=== PATIENT | female | born 1960 | race Caucasian/White ===

== ENCOUNTER → 2020-06-15 17:54 | Outpatient (BNVA) | payer BC, SELFPAY | PROVIDERS: Family Provider Nurse Practitioner Family; Visit Provider Emergency Medicine | DX: Z85.118 Personal history of other malignant neoplasm of bronchus and lung (principal); R63.4 Abnormal weight loss; F17.200 Nicotine dependence, unspecified, uncomplicated; J44.9 Chronic obstructive pulmonary disease, unspecified; I10 Essential (primary) hypertension | CPT/HCPCS: 71046; 80053; 82378; 84443; 85025; 86300 ==

== ENCOUNTER 2020-06-19 08:04 | Outpatient (CLI) | payer BC, SELFPAY ==
[2020-06-19] MEDS: iohexol 350 mg/mL 100 mL Btl IV (09:39)
--- NOTE | 2020-06-19 10:00 | CT_ITS ---
WS: [id number] CT CHEST, ABDOMEN, AND PELVIS TECHNIQUE: Contrast-enhanced CT of the chest, abdomen, and pelvis with coronal and sagittal reformatt ed images. CLINICAL INFORMATION: Z85.118 - Personal history of other malignant neoplasm of bronchus and lung COMPARISON: CT chest 6 21,018, 12,017, 9 2016 DLP: [address] scans at [facility] use at least one of these dose optimization techniques: automat ed exposure control; mA and/or kV adjustment per patient size (includes targeted exams where dose is matched to clinical indication); or iterative reconstruction. CT CHEST: Prior postoperative changes at the left lung apex from prior neoplasm resection. No acute pulmonary i nfiltrates. Associated volume loss in the left lung. No evidence of recurrent or progressive disease. Noncalcified nodule left lower lobe measuring 5 mm recommend 6 month follow-up. Moderate centrilobular emphysematous changes. Aortic calcification. Coronary calcification. No medias tinal or hilar lymphadenopathy. No axillary lymphadenopathy. CT ABDOMEN AND PELVIS: Diffuse fatty infiltration of the liver.. Hepatomegaly. A few incidental hepatic cysts. No hydronephr osis in either kidney. A few renal cysts the largest left kidney measuring 2.1 CM. Cortical scarring right kidney with calcified renal cyst. Normal adrenal glands. Normal GE junction. Pancreas appears n ormal. Hepatomegaly with enlargement of the right hepatic lobe measuring 18.3 cm craniocaudal. Cholel ithiasis. Fluid distended gallbladder. Mild intrahepatic biliary ductal dilatation. Gallbladder can b e further evaluated with ultrasound. Moderate calcified abdominal aorta. Densely calcified iliac arteries. Sigmoid diverticulosis. Evidenc e of prior distal sigmoid resection Mild thickening involving the distal sigmoid colon and with a sma ll amount of adjacent fluid and induration suspicious for diverticulitis. No evidence of high-grade s mall or large bowel obstruction. Small amount of free fluid in the pelvis. CT/CT chest abd pel w con* IMPRESSION: 1. Thickening with induration involving the distal sigmoid colon suspicious fo r diverticulitis. Small amount of free fluid in the pelvis. Correlation for inf ectious symptoms. 2. Extensive cholelithiasis. Gallbladder is distended. Recommend further evalu ation with ultrasound. 3. Hepatomegaly 4. A few incidental hepatic and renal cysts. 5. Prior postoperative changes resection left upper lobe. No evidence of recur rent or progressive disease. 6. Noncalcified nodule left lower lobe measuring 5 mm. Recommend 6 month follo w-up.
--- NOTE | 2020-06-19 18:29 | ONC CON_ITS ---
Dr. Michaels New Patient Note Patient: Kim Nettles Unit #: [id number]: 1960 Dicatated By: Sha Michaels M.D.Date of Visit: Jun 19, 2020 Onc MED New Patient/Consult Referring Physician: OZZIE Arias Chief Complaint: Lung cancer. 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 She was seen by Maria G Shah in August 2016 for treatment of pneumonia. A chest x-ray on 08/27/2016 showed an indistinct increased density in the left upper lobe measuring about 3 cm. It was suspicious for a mass lesion. There was evidence of chronic emphysema. There were no other pulmonary parenchymal densities. Further evaluation with chest CT on 09/03/2016 confirmed a spiculated noncalcified soft tissue mass in the left upper lobe laterally. It appeared to extend to and involve the left lateral pleural margin. It measured 1.5 x 2.3 x 2.8 cm. There were no other mass lesions noted. There was no axillary, supraclavicular, mediastinal, or hilar masses or adenopathy. There was no pleural effusion. There did appear to be trace pericardial effusion. There were centrilobular emphysematous changes throughout the lung parenchyma. There was suspected left adrenal adenoma measuring 1.3 x 2.2 cm. A near water density lesion in the right upper lobe of the liver measuring 1.2 cm appeared consistent with an incidental cyst. There was no evidence of any metastatic involvement. She was referred to Dr. Kinsey. Her pulmonary function studies in 09/28/2016 were adequate with FEV 2.68, 47% of predicted. On 10/07/2016 she underwent thoracotomy with left upper lobe apical posterior segmentectomy. She was found to have moderately intense adhesions, precluding a complete left upper lobectomy. As such, the procedure was limited to formal segmentectomy. 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 It was mostly moderately differentiated, but focally it was high-grade (poorly differentiated). It measured 2.4 x 1.9 cm. The resection margins were free of tumor, but tumor was noted to extend onto the pleural surface. Pathologic staging was T2a, (PL 2), NX, as there were no lymph nodes included in the specimen. She has had an uneventful postoperative recovery. I had seen her initially on 11/11/2016. There appeared to be no indication for adjuvant chemotherapy, and she was followed on observation/expectant management. As of her follow-up visit in June 2017 she appeared stable clinically, there was no evidence of recurrence/progression of the lung cancer on her restaging chest CT. She has had no other ongoing medical illnesses, but she did have evidence of COPD by CT scan and her pulmonary function studies showed moderately severe obstructive disease. She has a history of smoking 2 packs of cigarettes daily for 25 years. She had cut down following her lung surgery. INTERIM HISTORY: She had a follow-up visit with Camilo Molina on 06/15/2020. She complained of fatigue, and she was noted to have a significant weight loss. Her laboratory studies included CBC showing elevated hemoglobin/hematocrit levels at 17.8 g and 54.9%. The white blood cell count was 8200 and the platelet count was 369,000. Her comprehensive metabolic profile was unremarkable and her TSH level was normal 2.33 ???IU/mL. A battery of tumor markers was obtained and her CEA level was found to be significantly elevated at 303.6 ng/mL. She is seen for a followup visit. She says she has been feeling good, but she does admit to being tired sometimes. She is still working. Her ECOG score is 1. She has good appetite. She says her weight is up and down, but she currently is down about 10 pounds from what she considers her normal weight. She does not have fever or night sweats. She is short of breath at times. She has just occasional cough. She is still smoking 1 pack of cigarettes daily. She does not complain of chest pain. She has no GI or complaints. She has no significant joint or bone pain. She has just occasional headache. She has no focal neurologic symptoms. Past Medical History: Her medical history includes lung cancer and chronic obstructive pulmonary disease. Past Surgical History: Her surgical/procedural history includes exploratory laparotomy with lysis of adhesions, exploratory laparotomy with temporary colostomy for diverticulitis, and left thoracotomy with left upper apicoposterior segmentectomy in 2017. Medications: Advair Diskus 1 Puff(s) (of 250-50 mcg/dose) Aerosol Powder, Breath Activated Inhalation b.i.d., Anacin 1 (400-32 mg) Tablet Oral t.i.d., Gabapentin 1 (300 mg) Capsule Oral t.i.d. PRN, Lisinopril 1 Tablet (of 20 mg) Oral daily Allergies: No Known Allergies. Social History: Ms. Nettles is single. 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 She has a history of smoking 2 packs of cigarettes daily for 25 years. She cut down to 1 pack/day following her lung surgery. She has had some alcohol use in the past, but not heavy. She quit drinking [employer] 6 years ago. Family History: Father had COPD and heart disease. He at age 72. Mother of liver cancer at age 61. A brother from cerebral aneurysm at age 49. A son of leukemia at age 12. Review Of Symptoms: Constitutional - She has been feeling pretty good, though she is tired sometimes. She is still working. She has good appetite. Her weight has been up and down. She is currently down about 10 pounds. She does not have fever or night sweats. ECOG score is 1, ENMT - No sinus congestion/drainage. No mouth sores. No sore throat or difficulty swallowing, Hematologic/Lymphatic - She bruises easily, Respiratory - She sometimes has shortness of breath. She has just occasional cough. She is still smoking 1 pack of cigarettes daily. No pleuritic pain or hemoptysis, Cardiovascular - No angina pain. No palpitations, Gastrointestinal - No nausea or vomiting. No heartburn or acid reflux. No diarrhea or constipation. No blood in the stool or black stools, Genitourinary (F) - No dysuria or hematuria. No urinary frequency. No urgency or incontinence, Musculoskeletal - No joint or bone pain, Integumentary - No skin rash, Neurologic - She occasionally has headache. No dizziness. No numbness or tingling. No other focal neurologic symptoms, Psychiatric - She has anxiety. No depression. No insomnia. Vital Signs: Performed on Jun 19, 2020 14:37: 0, 18.47, 1.50 sq.m, 64.00 in, 93 % (LOW), 81 /min, 20 /min, 156/81 mm(hg) (HIGH), 99.3 F (HIGH), and 107.6 lbs (LOW). Physical Examination: Constitutional - She looks pretty good generally, Eyes - Sclerae nonicteric. Conjunctivae clear, ENMT - No lesions noted in the oral cavity, Hematologic/Lymphatic - No cervical, clavicular, or axillary adenopathy, Respiratory - Lungs are clear with diminished air movement bilaterally, Cardiovascular - Heart rhythm is regular. There is no murmur, gallop, or rub noted, Abdomen - Soft and non-tender. Liver and spleen are not enlarged. There is no abdominal mass or ascites noted and there is no inguinal adenopathy, Extremities - No edema. Pedal pulses are palpable bilaterally, Neurologic - No focal neurologic deficits noted. Lab/Imaging: Restaging CT scans of the chest, abdomen, and pelvis on 06/19/2020 showed moderate emphysematous changes and postoperative changes at the left lung apex. There were no acute pulmonary infiltrates. A 5 mm noncalcified nodule was noted in the left lower lobe. There was no hilar or mediastinal adenopathy or other evidence of recurrent or progressive disease. There was hepatomegaly with diffuse fatty infiltration of the liver. The gallbladder was noted to be fluid distended and there was extensive cholelithiasis. There was mild thickening involving the distal sigmoid colon with a small amount of adjacent fluid and induration felt to be suspicious for diverticulitis. There was no evidence of high-grade small or large bowel obstruction. Impression: 1. Patient with invasive adenocarcinoma involving the upper lobe of the left lung. She underwent left thoracotomy with left upper lobe segmentectomy on 10/07/2016. Her disease was pathologic stage T2a, (PL2), NX, as there was involvement of the pleural surface, but no lymph nodes were included in the specimen. Resection margins were free. By clinical evaluation, her disease was stage IB (T2a, N0, M0). 2. She had CT evidence of underlying COPD and there was moderately severe obstructive lung disease by her pulmonary function studies. 3. She presented recently with fatigue and weight loss. She has no significant GI complaints, but her CEA level was found to be significantly elevated and her restaging CT scans show findings which are suspicious for primary malignancy in the sigmoid colon. There was, however, no obvious metastatic disease noted on those studies. 4. There were additional CT findings of hepatomegaly with diffuse fatty infiltration of the liver and fluid distended gallbladder with extensive cholelithiasis. Plan: The laboratory results and CT findings were reviewed with the patient and we discussed the clinic complications. The probability is very high that she does have malignancy, but at this point it would appear to be more likely a second primary colon cancer as opposed to metastatic involvement from her previous lung cancer. She will now be referred to surgical services for colonoscopy. She will have further evaluation as indicated. Signed By: Sha Michaels M.D. <<Signature on File>>
== END 2020-06-19 08:05 | disposition home or self-care (01) ==
LOC: RADWPI 08:10 → ONCMED 14:10
PROVIDERS: PCP Nurse Practitioner Family; Visit Provider Internal Medicine Medical Oncology
DX: Z08 Encounter for follow-up examination after completed treatment for malignant neoplasm (principal); Z85.118 Personal history of other malignant neoplasm of bronchus and lung; R97.0 Elevated carcinoembryonic antigen [CEA]; R93.3 Abnormal findings on diagnostic imaging of other parts of digestive tract; R53.83 Other fatigue; R63.4 Abnormal weight loss; J44.9 Chronic obstructive pulmonary disease, unspecified; K76.0 Fatty (change of) liver, not elsewhere classified; K80.20 Calculus of gallbladder without cholecystitis without obstruction; F17.210 Nicotine dependence, cigarettes, uncomplicated; Z90.2 Acquired absence of lung [part of]
CPT/HCPCS: 71260; 74177; 99214; Q9967

== ENCOUNTER → 2020-07-11 13:10 | Outpatient (BNVA) | payer BC, SELFPAY | PROVIDERS: PCP Nurse Practitioner Family; Visit Provider Surgery | DX: Z20.828 Contact with and (suspected) exposure to other viral communicable diseases (principal) | CPT/HCPCS: 87635 ==

== ENCOUNTER 2020-07-16 08:55 | Day surgery (SDC) | payer BC, SELFPAY ==
[2020-07-11 14:44] VITALS: BMI 18.3
[2020-07-16 09:46] VITALS: BP 120/80; PULSE 72; RESP 20; TEMP 37.1; O2SAT 91
[2020-07-16] MEDS: sodium chloride 0.9% 1,000 ML 30 ML IV (10:12)
--- NOTE | 2020-07-16 10:19 | ANES.PREANE2 ---
Pre-Anesthetic Assessment Pre-Anesthetic Assessment: Height/Weight: Height 1.63 m Weight 48.534 kg Temp Pulse Resp BP Pulse Ox 98.7 F 72 20 H 120/80 91 07/16/20 09:46 07/16/20 09:46 07/16/20 09:46 07/16/20 09:46 07/16/20 09:46 Preop Diagnosis: diagnostic Proposed Procedure: Operation Date: 07/16/20 10:15 Proposed Procedures p Colonoscopy 26925 r97.0(Not Applicable) - Gurvinder Ng MD Familial anesthetic complications: None Was Beta Chinedu taken within 24 hours: N/A Last intake: Intake Last Liquid Date 07/16/20 Last Liquid Time 07:00 Last Solid Date 07/15/20 Last Solid Time 17:00 Social: Social History: Tobacco and No alcohol Exam: Pre-Anes Outpt Exam: alert, oriented x 3, clear to auscultation bilaterally and regular rate & rhythm Airway: Cervical ROM: WNL MP: 4 Dentition: False Pulmonary: Pulmonary: COPD Comments: Lung cancer CV/HEM: CV/HEM: HTN Anesthetic Plan: ASA status: 3 Anesthesia: MAC Risk of > 500 ml blood loss (7ml/kg in children): No Meds/Allergies Current Medications: Current Medications Generic Name Dose Route Start Last Admin Trade Name Freq PRN Reason Stop Dose Admin Sodium Chloride 1,000 mls @ 30 ml s/hr 07/16/20 09:45 07/16/20 10:12 Sodium Chloride 0.9% IV 07/17/20 09:44 30 mls/hr .Q24H LUANN Administration PFSH Anesthesia PFSH: Medical History COPD (chronic obstructive pulmonary disease) History of lung cancer HTN (hypertension), benign Surgical History H/O colonoscopy yrs ago H/O colostomy H/O exploratory laparotomy H/O pneumonectomy Hx of tubal ligation Family History Mother Cancer liver Son Cancer age 12 leukemia Other Hypertension Denies family history of CAD (coronary artery disease) Dementia Anesthesia complication Bleeding disorder Social History Smoking and tobacco status: current every day smoker cigarettes Packs smoked per day: 1 Years cigarettes smoked: 30 Alcohol intake: never Household members: significant other Marital status: Single Current occupational status: employed History of recent travel: No Data Anesthesia Cardiac Studies: No Data to Display
--- NOTE | 2020-07-16 12:47 | W.PM.OPSUD ---
Surgery/Procedure H&P Update DATE OF PROCEDURE: July 16, 2020 DATE H&P PERFORMED: 06/21/20 H&P UPDATE INFORMATION: I have reviewed H&P completed within last 30 days, I have examined patient prior to procedure and No changes to prior documentation PREOP DIAGNOSIS: diagnostic PLANNED PROCEDURE: Operation Date: 07/16/20 10:15 Proposed Procedures p Colonoscopy 80021 r97.0(Not Applicable) - Gurivnder Ng MD
[2020-07-16 13:13] VITALS: BP 100/59; PULSE 78; RESP 16; TEMP 36.4; O2SAT 93
[2020-07-16 13:28] VITALS: BP 127/77; PULSE 66; RESP 18; O2SAT 94
--- NOTE | 2020-07-16 18:56 | ANE.PACU2 ---
Inpatient post-anesthesia follow up: Airway intact: Yes Vital signs: Temperature 97.5 F Pulse Rate 66 Respiratory Rate 18 Blood Pressure 127/77 Pulse Oximetry 94 Oxygen Delivery Me thod Room Air Oxygen Flow Rate Fraction of Inspir ed Oxygen Hydration adequate: Yes Nausea and vomiting: No Pain level: 2 Mental status: Baseline
== END 2020-07-16 13:44 | disposition home or self-care (01) ==
PROVIDERS: Visit Provider Surgery
PROC: 0DJD8ZZ Inspection of Lower Intestinal Tract, Via Natural or Artificial Opening Endoscopic (ICD-10-PCS; CPT 45378; principal; 2020-07-16 10:15)
DX: R97.0 Elevated carcinoembryonic antigen [CEA] (principal); Z79.82 Long term (current) use of aspirin; J44.9 Chronic obstructive pulmonary disease, unspecified; Z85.118 Personal history of other malignant neoplasm of bronchus and lung; I10 Essential (primary) hypertension; F17.210 Nicotine dependence, cigarettes, uncomplicated; K57.30 Diverticulosis of large intestine without perforation or abscess without bleeding
CPT/HCPCS: 12345; 45378; J2704; J7030

== ENCOUNTER 2020-08-02 07:56 | Outpatient (CLI) | payer BC, SELFPAY ==
[2020-08-02 08:28] LABS: Basophils # 0.1 10^3/uL (0.0-0.1); Basophils % 1.4 %; Eosinophils # 0.4 10^3/uL (0.0-0.8); Eosinophils % 6.5 %; Hematocrit 55.9 % (37.0-47.0); Hemoglobin 17.9 g/dL (11.5-15.3); Lymphocytes # 1.6 10^3/uL (0.8-4.8); Lymphocytes % 24.6 %; Mean Corpuscular Hemoglobin 28.4 pg (28.0-34.0); Mean Corpuscular Volume 88.6 fL (81-99); Mean Platelet Volume 10.5 fL (7.4-10.4); Monocytes # 0.7 10^3/uL (0.2-0.9); Monocytes % 10.9 %; Neutrophils % 56.3 %; Nucleated Red Blood Cells % 0 %; Platelet Count 462 10^3/cmm (130-400); Red Blood Count 6.31 10^6/uL (4.1-5.3); Red Cell Distribution Width 18.8 % (12.1-15.1); White Blood Count 6.6 10^3/uL (4.0-10.0)
[2020-08-02 08:59] LABS: Carcinoembryonic Antigen 284.6 ng/mL (0.0-4.7)
[2020-08-02 09:06] LABS: Erythrocyte Sedimentation Rate 2 mm/hr (0-15)
[2020-08-02 09:10] LABS: Alanine Aminotransferase 10 U/L (0-33); Albumin Level 3.8 g/dL (3.5-5.2); Alkaline Phosphatase 62 IU/L (35-105); Anion Gap 13.2 (5-19); Aspartate Amino Transferase 17 U/L (0-32); Blood Urea Nitrogen 25 mg/dL (6-20); Calcium 9.2 mg/dL (8.5-10.5); Carbon Dioxide 29 mmol/L (22-29); Chloride 104 mmol/L (98-107); Globulin 2.7 g/dL (1.3-4.6); Glomerular Filtration Rate 102.7 mL/min (90-130); Glucose 92 mg/dL (65-115); Osmolality Calculated 298 mOsm/kg (285-295); Potassium 4.2 mmol/L (3.5-5.1); Sodium 142 mmol/L (136-145); Total Bilirubin 0.2 mg/dL (0.15-1.2); Total Protein 6.5 g/dL (6.6-8.7)
--- NOTE | 2020-08-02 10:17 | ONC FU_ITS ---
Dr. Michaels Patient Follow-Up Note Patient: Kim Nettles Unit #: [id number]: 1960 Dicatated By: Sha Michaels M.D.Date of Visit:Aug 02, 2020 Onc Med Follow-up/Prog Note Chief Complaint: Lung cancer. 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 She was seen by Maria G Shah in August 2016 for treatment of pneumonia. A chest x-ray on 08/27/2016 showed an indistinct increased density in the left upper lobe measuring about 3 cm. It was suspicious for a mass lesion. There was evidence of chronic emphysema. There were no other pulmonary parenchymal densities. Further evaluation with chest CT on 09/03/2016 confirmed a spiculated noncalcified soft tissue mass in the left upper lobe laterally. It appeared to extend to and involve the left lateral pleural margin. It measured 1.5 x 2.3 x 2.8 cm. There were no other mass lesions noted. There was no axillary, supraclavicular, mediastinal, or hilar masses or adenopathy. There was no pleural effusion. There did appear to be trace pericardial effusion. There were centrilobular emphysematous changes throughout the lung parenchyma. There was suspected left adrenal adenoma measuring 1.3 x 2.2 cm. A near water density lesion in the right upper lobe of the liver measuring 1.2 cm appeared consistent with an incidental cyst. There was no evidence of any metastatic involvement. She was referred to Dr. Kinsey. Her pulmonary function studies in 09/28/2016 were adequate with FEV 2.68, 47% of predicted. On 10/07/2016 she underwent thoracotomy with left upper lobe apical posterior segmentectomy. She was found to have moderately intense adhesions, precluding a complete left upper lobectomy. As such, the procedure was limited to formal segmentectomy. 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 It was mostly moderately differentiated, but focally it was high-grade (poorly differentiated). It measured 2.4 x 1.9 cm. The resection margins were free of tumor, but tumor was noted to extend onto the pleural surface. Pathologic staging was T2a, (PL 2), NX, as there were no lymph nodes included in the specimen. She has had an uneventful postoperative recovery. I had seen her initially on 11/11/2016. There appeared to be no indication for adjuvant chemotherapy, and she was followed on observation/expectant management. As of her follow-up visit in June 2017 she appeared stable clinically, there was no evidence of recurrence/progression of the lung cancer on her restaging chest CT. She has had no other ongoing medical illnesses, but she did have evidence of COPD by CT scan and her pulmonary function studies showed moderately severe obstructive disease. She has a history of smoking 2 packs of cigarettes daily for 25 years. She had cut down following her lung surgery. INTERIM HISTORY: She had a follow-up visit with Camilo Molina on 06/15/2020. She complained of fatigue, and she was noted to have a significant weight loss. Her laboratory studies included CBC showing elevated hemoglobin/hematocrit levels at 17.8 g and 54.9%. The white blood cell count was 8200 and the platelet count was 369,000. Her comprehensive metabolic profile was unremarkable and her TSH level was normal 2.33 ???IU/mL. A battery of tumor markers was obtained and her CEA level was found to be significantly elevated at 303.6 ng/mL. Her restaging CT scans of the chest, abdomen, and pelvis on 06/19/2020 showed postoperative changes at the left lung apex and moderate centrilobular emphysematous changes. A noncalcified 5 mm pulmonary nodule in the left lower lobe was indeterminate. There were no other pulmonary mass lesions and there was no mediastinal or hilar lymphadenopathy noted. There was evidence of hepatomegaly with enlargement of the right hepatic lobe. There was extensive cholelithiasis with gallbladder distention and further evaluation with ultrasound was recommended. There was thickening and induration involving the distal sigmoid colon suspicious for diverticulitis. A small amount of free fluid was noted in the pelvis. With the abnormal CT findings in the sigmoid colon and with the significantly elevated CEA level, she was recommended to have further evaluation with colonoscopy. The procedure was done on 07/16/2020. It showed moderate diverticulosis in the sigmoid colon, but there was no evidence of malignancy in the sigmoid colon and there were no other abnormal findings noted. She is seen for a followup visit. She has been feeling pretty good. She is sometimes tired, but she is still working. ECOG score is 0. Her appetite has been okay. Her weight recently has been stable, though it is down around 10 pounds over the last 6 months. She does not have fever or night sweats. She has shortness of breath with activity and she sometimes has cough. She does not complain of chest pain. She has no GI or complaints. In particular she has not been having nausea/vomiting, abdominal pain, or other gallbladder symptoms. She does not complain of headache or dizziness, and she has no focal neurologic symptoms. Medications: Advair Diskus 1 Puff(s) (of 250-50 mcg/dose) Aerosol Powder, Breath Activated Inhalation b.i.d., Anacin 1 (400-32 mg) Tablet Oral t.i.d., Gabapentin 1 (300 mg) Capsule Oral t.i.d. PRN, Lisinopril 1 Tablet (of 20 mg) Oral daily Allergies: No Known Allergies. Vital Signs: Performed on Aug 02, 2020 09:39 Height - 64.00 in Weight - 107.4 lbs (LOW) BSA - 1.50 sq.m BMI - 18.44 Temperature - 97.8 F (LOW) Pulse - 82 /min Respiration - 17 /min BP - 115/73 mm(hg) O2 Sat - 91 % (LOW) Pain - 0 Physical Examination: Constitutional - She looks pretty good generally, Eyes - Sclerae nonicteric. Conjunctivae clear, ENMT - No lesions noted in the oral cavity, Hematologic/Lymphatic - No cervical, clavicular, or axillary adenopathy, Respiratory - Lungs are clear with diminished air movement bilaterally, Cardiovascular - Heart rhythm is regular. There is no murmur, gallop, or rub noted, Abdomen - Soft and non-tender. Liver and spleen are not enlarged. There is no abdominal mass or ascites noted and there is no inguinal adenopathy, Extremities - No edema. Pedal pulses are palpable bilaterally, Neurologic - No focal neurologic deficits noted. Lab/Imaging: Test performed on Aug 02, 2020 08:10 Sodium 142 mmol/L Potassium 4.2 mmol/L Chloride 104 mmol/L CO2 29 mmol/L Anion Gap 13.2 BUN 25 mg/dL Creatinine 0.6 mg/dL Cr Clearance (Est) 78.60 mL/min eGFR 102.7 mL/min Glucose 92 mg/dL Osmolality - Calculated 298 mOsm/kg Calcium 9.2 mg/dL Protein, Total 6.5 g/dL Albumin 3.8 g/dL Globulin 2.7 g/dL Bilirubin, Total 0.2 mg/dL ALT (SGPT) 10 U/L AST (SGOT) 17 U/L Alkaline Phosphatase 62 IU/L ESR (Sed Rate) 2 mm/hr WBC 6.6 10 3/uL RBC 6.31 10 6/uL HGB 17.9 g/dL HCT 55.9 % MCV 88.6 fL MCH 28.4 pg MCHC 32.0 g/dL RDW 18.8 % Platelet Count 462 10 3/cmm MPV 10.5 fL Neutrophils 3.70 10 3/uL Lymphocytes 1.6 10 3/uL Monocytes 0.7 10 3/uL Eosinophils 0.4 10 3/uL Basophils 0.1 10 3/uL Neutrophil % 56.3 % Lymphocyte % 24.6 % Monocyte % 10.9 % Eosinophil % 6.5 % Basophils % 1.4 % NRBC % 0 % CEA 284.6 ng/mL Problem List: 1. Invasive adenocarcinoma involving the upper lobe of the left lung. She underwent left thoracotomy with left upper lobe segmentectomy on 10/07/2016. Her disease was pathologic stage T2a, (PL2), NX, as there was involvement of the pleural surface, but no lymph nodes were included in the specimen. Resection margins were free. By clinical evaluation, her disease was stage IB (T2a, N0, M0). She had no further treatment. 2. COPD. 3. Hypertension. Problems Addressed with this Encounter and Plan: 1. Invasive adenocarcinoma involving the upper lobe of the left lung, stage IB (pT2a, cN0, M0). She underwent left thoracotomy with left upper lobe segmentectomy on 10/07/2016. She had no further treatment. She had presented in June 2020 with fatigue and weight loss. She was found to have a significantly CEA level. Her restaging CT scans showed abnormal findings in the sigmoid colon, but colonoscopy showed no evidence of malignancy. As such, the elevated CEA level remains unexplained. With her known history of lung cancer, she is recommended now to have further evaluation with PET/CT. 2. She had additional CT findings of hepatomegaly with diffuse fatty infiltration of the liver and fluid distended gallbladder with extensive cholelithiasis. She does not appear to be symptomatic with it. 3. Hypertension. She is in need of refills for her lisinopril. Signed By: Sha Michaels M.D. <<Signature on File>>
== END 2020-08-02 07:57 | disposition home or self-care (01) ==
LOC: ONCMED 07:58
PROVIDERS: Visit Provider Internal Medicine Medical Oncology
DX: Z08 Encounter for follow-up examination after completed treatment for malignant neoplasm (principal); Z85.118 Personal history of other malignant neoplasm of bronchus and lung; R97.0 Elevated carcinoembryonic antigen [CEA]; K76.0 Fatty (change of) liver, not elsewhere classified; K80.20 Calculus of gallbladder without cholecystitis without obstruction; J44.9 Chronic obstructive pulmonary disease, unspecified; I10 Essential (primary) hypertension; Z90.2 Acquired absence of lung [part of]
CPT/HCPCS: 36415; 80053; 82378; 85025; 85651; 99214

== ENCOUNTER → 2020-08-15 09:11 | Outpatient (BNVA) | payer BC, SELFPAY | PROVIDERS: Referring Provider Internal Medicine Critical Care Medicine; Visit Provider Internal Medicine Critical Care Medicine | DX: Z20.828 Contact with and (suspected) exposure to other viral communicable diseases (principal); J96.11 Chronic respiratory failure with hypoxia; J96.12 Chronic respiratory failure with hypercapnia | CPT/HCPCS: 87635 ==

== ENCOUNTER 2020-08-22 05:40 | Day surgery (SDC) | payer BC, SELFPAY ==
[2020-08-21 12:15] VITALS: BMI 18.1
[2020-08-22] VITALS (11 sets, daily range): BP systolic 101–143; BP diastolic 55–91; PULSE 70–101; RESP 16–25; TEMP 36.6–36.9; O2SAT 89–98
[2020-08-22] MEDS: sodium chloride 0.9% 1,000 ML 30 ML IV (06:24)
--- NOTE | 2020-08-22 06:31 | ANES.PREANE2 ---
Pre-Anesthetic Assessment Pre-Anesthetic Assessment: Height/Weight: Height 1.63 m Weight 48.081 kg Temp Pulse Resp BP Pulse Ox 98.4 F 70 18 143/91 91 08/22/20 06:04 08/22/20 06:04 08/22/20 06:04 08/22/20 06:04 08/22/20 06:04 Preop Diagnosis: diagnostic Proposed Procedure: Operation Date: 08/22/20 07:00 Proposed Procedures p Ebus [id number] 22650 R59.0(Not Applicable) - Frances Arauz MD Was Beta Chinedu taken within 24 hours: N/A Last intake: Intake Last Liquid Date 08/21/20 Last Liquid Time 21:00 Last Solid Date 08/21/20 Last Solid Time 21:00 Social: Social History: Tobacco and No alcohol Exam: Pre-Anes Outpt Exam: alert, oriented x 3 and regular rate & rhythm Additional Exam Findings (including area of procedure): rhonchi Airway: Submandibular: WNL Cervical ROM: WNL MP: 2 Dentition: False Pulmonary: Pulmonary: COPD and Cough CV/HEM: CV/HEM: HTN Anesthetic Plan: ASA status: 3 Anesthesia: General Risk of > 500 ml blood loss (7ml/kg in children): No Meds/Allergies Current Medications: Current Medications Generic Name Dose Route Start Last Admin Trade Name Freq PRN Reason Stop Dose Admin Sodium Chloride 1,000 mls @ 30 ml s/hr 08/22/20 06:00 08/22/20 06:24 Sodium Chloride 0.9% IV 08/23/20 05:59 30 mls/hr .Q24H LUANN Administration PFSH Anesthesia PFSH: Medical History COPD (chronic obstructive pulmonary disease) History of lung cancer HTN (hypertension), benign Surgical History H/O colonoscopy (07/16/20) H/O colostomy H/O exploratory laparotomy H/O pneumonectomy Hx of tubal ligation Family History Mother Cancer liver Son Cancer age 12 leukemia Other Hypertension Denies family history of CAD (coronary artery disease) Dementia Anesthesia complication Bleeding disorder Social History Smoking and tobacco status: current every day smoker cigarettes Packs smoked per day: 1 Years cigarettes smoked: 30 Smoking risk assessment/counseling performed?: Yes Alcohol intake: never Counseling given: No Counseling given: No Lives independently: Yes Household members: significant other Marital status: Single Current occupational status: employed History of recent travel: No Current gender identity: Female Data Anesthesia Cardiac Studies: No Data to Display
--- NOTE | 2020-08-22 06:48 | W.PM.OPSUD ---
Surgery/Procedure H&P Update DATE OF PROCEDURE: August 22, 2020 DATE H&P PERFORMED: 08/14/20 H&P UPDATE INFORMATION: I have reviewed H&P completed within last 30 days, I have examined patient prior to procedure and No changes to prior documentation PREOP DIAGNOSIS: diagnostic PRIMARY INDICATION FOR PROCEDURE: This is a 60-year-old lady coming in for bronchoscopic evaluation for recently PET positive hilar and mediastinal lymph nodes. She has history of adenocarcinoma of the lung for which she underwent left upper lobe segmentectomy in September 2016 PLANNED PROCEDURE: Bronchoscopy inspection of the airway, possible endobronchial biopsies, bronchoalveolar lavage, Cytobrush, endobronchial sound guided transbronchial needle aspiration of lymph nodes. Operation Date: 08/22/20 07:00 Proposed Procedures p Ebus [id number] R59.0(Not Applicable) - Biplab MD Regla
[2020-08-22] MEDS: lidocaine 1% INJ 20 mL XX (07:10)
--- NOTE | 2020-08-22 07:50 | SUR.OPER ---
ebus balloon removed intact
--- NOTE | 2020-08-22 08:17 | P.OP_ITS ---
Operative Report Date of procedure: August 22, 2020 Pre-op Diagnosis: Suspected lung cancer Post-op diagnosis: same Brief History: This is a 60-year-old lady with a previous diagnosis of left upper lobe lung cancer for which he underwent segmentectomy coming back with weight loss and PET positive midsternal hilar lymphadenopathy. Procedure: Name of the procedure: Bronchoscopy with inspection of the airway, endobronchial ultrasound-guided transbronchial needle aspiration of lymph nodes and control of bleeding. Indication: Suspected lung cancer Anesthesia: General anesthesia. Local anesthesia: The vocal cords, nelli and the right and left mainstem bronchi were anesthetized with 1% lidocaine, 3 mL. Description of the procedure: The procedure was explained to the patient and the consent was obtained. The patient was brought to the OR. The patient underwent laryngeal mask airway placement for general anesthesia. Following induction of general anesthesia, the bronchoscope was advanced through the LMA. The vocal cords appeared normal. The cords are anesthetized with 1% lidocaine. 3 mL of lidocaine was used. The upper trachea was normal. The lower trachea appeared t o be mildly erythematous. The nelli was splayed. A right-sided supra carinal airway was noted consistent with tracheobronchitis. The nelli, the right and left mainstem bronchi are anesthetized with 1% lidocaine. In a systematic manner bilateral bronchial tree was then examined. The bronchoscope was advanced into the left mainstem bronchus. The left upper lobe, lingula and left lower lobe bronchi were examined up to the third subsegmental level and no abnormalities were identified. There is no endobronchial lesion, active bleeding or mucous plug. The bronchoscope was then introduced into the right mainstem bronchus. The right upper lobe, right middle lobe and right lower lobe bronchi were examined up to the third subsegmental level and no abnormalities were identified. The tracheal bronchus was also examined and no abnormalities were identified. There was airway erythema throughout the lung. The endobronchial ultrasound was introduced through the LMA. Mediastinal and le ft hilar lymphadenopathy was identified with the ultrasound. Fine-needle aspiration was performed from station 7. Samples: 1. The transbronchial needle aspiration of the aforementioned lymph node groups were sent for cytology and histopathology. Complications: There was no immediate complications. Duration of the procedure: 40 minutes.
--- NOTE | 2020-08-22 09:03 | SUR.PHASEII ---
patient's room air sat is staying around 89%. Patient states she has home O2 in her car and that her room air O2 stays that on normal days. I instructed her to wear it for the day when she gets home. She verbalized understanding.
--- NOTE | 2020-08-22 18:47 | PTH.EBUS ---
Endobronchial Ultrasound Specimen(s): Station 7 lymph node Gross: The specimen is received in 2 slides labeled with the patient's name and MRN number. 2 mm of liquid trujillo blood tissue onto slides. 3 touch prep slides are made. Preliminary Impression: Lymph node, station 7, EBUS rapid onsite interpretation: ?Atypical clusters identified. - Specimen Information Pathologist: Surya Oneill Date: 08/22/20 Specimen reported at what time: 07:39 - Clinician Specimen collection time: 07:34 Clinician reported to: Frances Arauz
== END 2020-08-22 09:41 | disposition home or self-care (01) ==
PROVIDERS: PCP Internal Medicine Medical Oncology; Visit Provider Internal Medicine Critical Care Medicine
PROC: BB4BZZZ Ultrasonography of Pleura (ICD-10-PCS; principal; 2020-08-22 07:00)
DX: C34.90 Malignant neoplasm of unspecified part of unspecified bronchus or lung (principal); J44.9 Chronic obstructive pulmonary disease, unspecified; I10 Essential (primary) hypertension
CPT/HCPCS: 12345; 31622; 31652; 80500; 88305; J1100; J2370; J2405; J2704; J3490; J7030

== ENCOUNTER 2020-08-22 11:26 | Outpatient (CLI) | payer BC, SELFPAY ==
--- NOTE | 2020-08-22 12:07 | PFTS_ITS ---
Date of Study:08/22/20 Date of Dictation: MECHANICS: Forced vital capacity (FVC) is reduced. Forced expiratory volume in one second (FEV1) is reduced. FEV1/FVC is reduced. FLOW VOLUME LOOP: Reduced flow at all lung volumes with significant scooping. LUNG VOLUMES: Total lung capacity (TLC) is normal. Residual volume (RV) is increased. DIFFUSING CAPACITY FOR CARBON MONOXIDE: Moderately reduced. INTERPRETATION: The postbronchodilator spirometry is consistent with severe airflow obstruction. There is no significant postbronchodilator response. Lung volumes are consistent with air trapping without hyperinflation. Gas exchange (DLCO) is moderately reduced. MTDD
== END 2020-08-22 11:27 | disposition home or self-care (01) ==
LOC: RT 11:28
PROVIDERS: PCP Internal Medicine Medical Oncology; Visit Provider Internal Medicine Critical Care Medicine
DX: C34.90 Malignant neoplasm of unspecified part of unspecified bronchus or lung (principal)
CPT/HCPCS: 94060; 94618; 94726; 94729; J7611

== ENCOUNTER 2020-09-09 10:44 | Outpatient (CLI) | payer BC, SELFPAY ==
--- NOTE | 2020-09-09 14:02 | ONC FU_ITS ---
Dr. Michaels Patient Follow-Up Note Patient: Kim Nettles Unit #: [id number]: 1960 Dicatated By: Sha Michaels M.D.Date of Visit:Sep 09, 2020 Onc Med Follow-up/Prog Note Chief Complaint: Lung cancer. 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 She now has progressed to stage MARC (M1 A) with biopsy-proven involvement in mediastinal lymph nodes and with PET/CT evidence of a left pleural implant. She was seen by Maria G Shah in August 2016 for treatment of pneumonia. A chest x-ray on 08/27/2016 showed an indistinct increased density in the left upper lobe measuring about 3 cm. It was suspicious for a mass lesion. There was evidence of chronic emphysema. There were no other pulmonary parenchymal densities. Further evaluation with chest CT on 09/03/2016 confirmed a spiculated noncalcified soft tissue mass in the left upper lobe laterally. It appeared to extend to and involve the left lateral pleural margin. It measured 1.5 x 2.3 x 2.8 cm. There were no other mass lesions noted. There was no axillary, supraclavicular, mediastinal, or hilar masses or adenopathy. There was no pleural effusion. There did appear to be trace pericardial effusion. There were centrilobular emphysematous changes throughout the lung parenchyma. There was suspected left adrenal adenoma measuring 1.3 x 2.2 cm. A near water density lesion in the right upper lobe of the liver measuring 1.2 cm appeared consistent with an incidental cyst. There was no evidence of any metastatic involvement. She was referred to Dr. Kinsey. Her pulmonary function studies in 09/28/2016 were adequate with FEV 2.68, 47% of predicted. On 10/07/2016 she underwent thoracotomy with left upper lobe apical posterior segmentectomy. She was found to have moderately intense adhesions, precluding a complete left upper lobectomy. As such, the procedure was limited to formal segmentectomy. 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 It was mostly moderately differentiated, but focally it was high-grade (poorly differentiated). It measured 2.4 x 1.9 cm. The resection margins were free of tumor, but tumor was noted to extend onto the pleural surface. Pathologic staging was T2a, (PL 2), NX, as there were no lymph nodes included in the specimen. She has had an uneventful postoperative recovery. I had seen her initially on 11/11/2016. There appeared to be no indication for adjuvant chemotherapy, and she was followed on observation/expectant management. As of her follow-up visit in June 2017 she appeared stable clinically, there was no evidence of recurrence/progression of the lung cancer on her restaging chest CT. She has had no other ongoing medical illnesses, but she did have evidence of COPD by CT scan and her pulmonary function studies showed moderately severe obstructive disease. She has a history of smoking 2 packs of cigarettes daily for 25 years. She had cut down following her lung surgery. INTERIM HISTORY: She had a follow-up visit with Camilo Molina on 06/15/2020. She complained of fatigue, and she was noted to have a significant weight loss. Her laboratory studies included CBC showing elevated hemoglobin/hematocrit levels at 17.8 g and 54.9%. The white blood cell count was 8200 and the platelet count was 369,000. Her comprehensive metabolic profile was unremarkable and her TSH level was normal 2.33 ???IU/mL. A battery of tumor markers was obtained and her CEA level was found to be significantly elevated at 303.6 ng/mL. Her restaging CT scans of the chest, abdomen, and pelvis on 06/19/2020 showed postoperative changes at the left lung apex and moderate centrilobular emphysematous changes. A noncalcified 5 mm pulmonary nodule in the left lower lobe was indeterminate. There were no other pulmonary mass lesions and there was no mediastinal or hilar lymphadenopathy noted. There was evidence of hepatomegaly with enlargement of the right hepatic lobe. There was extensive cholelithiasis with gallbladder distention and further evaluation with ultrasound was recommended. There was thickening and induration involving the distal sigmoid colon suspicious for diverticulitis. A small amount of free fluid was noted in the pelvis. With the abnormal CT findings in the sigmoid colon and with the significantly elevated CEA level, she was recommended to have further evaluation with colonoscopy. The procedure was done on 07/16/2020. It showed moderate diverticulosis in the sigmoid colon, but there was no evidence of malignancy in the sigmoid colon and there were no other abnormal findings noted. She had further evaluation with PET/CT on 08/10/2020. It showed multiple FDG positive mediastinal lymph nodes in the right and left paratracheal, subaortic, and subcarinal territories, strongly suspicious for recurrence. An index node in the subcarinal territory measured 1.4 cm with SUV 9.6. A 1.1 x 0.6 cm left pleural implant at the second intercostal space had SUV 4.3, suggestive of a malignant implant. There were no other areas of abnormal uptake on that study. On 08/22/2020 she underwent bronchoscopy with EBUS and FNA biopsy of station 7 lymph node. There were no endobronchial lesions identified on the bronchoscopy. The endobronchial ultrasound did show mediastinal and left hilar lymphadenopathy. Cytology on the FNA biopsy was positive for metastatic poorly differentiated non-small cell carcinoma. The tumor cells showed positive staining for CK high molecular weight and for CK 8/18. There was cytoplasmic staining for p63. The TTF-1 was negative. The Ki-67 was high at 50%. She is seen for a followup visit. She says she is feeling fine. She is still working. She does have shortness of breath. She uses her inhaler as needed and she also uses oxygen as needed. She sometimes has cough. She is still smoking 1 pack of cigarettes daily. She does not complain of chest pain. Medications: Advair Diskus 1 Puff(s) (of 250-50 mcg/dose) Aerosol Powder, Breath Activated Inhalation b.i.d., Anacin 1 (400-32 mg) Tablet Oral t.i.d., Gabapentin 1 (300 mg) Capsule Oral t.i.d. PRN, Lisinopril 1 Tablet (of 20 mg) Oral daily Allergies: No Known Allergies. Vital Signs: Performed on Sep 09, 2020 11:03 Height - 64.00 in Weight - 107.6 lbs (HIGH) BSA - 1.50 sq.m BMI - 18.47 Temperature - 97.2 F (LOW) Pulse - 76 /min Respiration - 18 /min BP - 119/73 mm(hg) O2 Sat - 92 % (LOW) Pain - 0 Fatigue - 0 Problem List: 1. Invasive adenocarcinoma involving the upper lobe of the left lung. She underwent left thoracotomy with left upper lobe segmentectomy on 10/07/2016. Her disease was pathologic stage T2a, (PL2), NX, as there was involvement of the pleural surface, but no lymph nodes were included in the specimen. Resection margins were free. By clinical evaluation, her disease was stage IB (T2a, N0, M0). She had no further treatment. 2. She now has evidence of recurrence with biopsy-proven involvement in mediastinal lymph nodes. There is also a suspected left pleural implant by PET/CT, consistent with stage MARC (M1a) disease. 3. COPD. 4. Hypertension. Problems Addressed with this Encounter and Plan: Invasive adenocarcinoma involving the upper lobe of the left lung, stage IB (pT2a, cN0, M0). She underwent left thoracotomy with left upper lobe segmentectomy on 10/07/2016. She had no further treatment. She had presented in June 2020 with fatigue and weight loss. She was found to have a significantly CEA level. Her restaging CT scans showed abnormal findings in the sigmoid colon, but colonoscopy showed no evidence of malignancy. As such, the elevated CEA level remains unexplained. PET/CT showed multiple FDG positive mediastinal lymph nodes in the right and left paratracheal, subaortic, and subcarinal territories, strongly suspicious for recurrence. A 1.1 x 0.6 cm left pleural implant at the second intercostal space had SUV 4.3, suggestive of a malignant implant. There were no other areas of abnormal uptake on that study. On 08/22/2020 she underwent bronchoscopy with EBUS and FNA biopsy of station 7 lymph node. There were no endobronchial lesions identified on the bronchoscopy. The endobronchial ultrasound did show mediastinal and left hilar lymphadenopathy. Cytology on the FNA biopsy was positive for metastatic poorly differentiated non-small cell carcinoma. The Ki-67 was high at 50%. The PET/CT findings and pathology results were reviewed with the patient. She now has evidence of stage MARC (M1a) disease with recurrence and mediastinal lymph nodes and with left pleural implant. We discussed the fact that her diseases no longer curable. I will have the case presented at tumor board to determine if she may be eligible for radiation, but she would otherwise proceed to systemic therapy. The options may include chemotherapy and/or immunotherapy or possibly a targeted therapy depending on results of additional pathologic studies which will include assessment of the PD-L1 expression and next generation sequencing from liquid biopsy. In the meantime I also discussed smoking cessation, and she is willing to try Chantix again. Signed By: Sha Michaels M.D. <<Signature on File>>
[2021-09-02 08:46] LABS: PD-L1 (Clone 22C3) by IHC BBPL See Report
== END 2020-09-09 10:45 | disposition home or self-care (01) ==
LOC: ONCMED 10:46
PROVIDERS: PCP Internal Medicine Medical Oncology; Visit Provider Internal Medicine Medical Oncology
DX: C34.12 Malignant neoplasm of upper lobe, left bronchus or lung (principal); C77.1 Secondary and unspecified malignant neoplasm of intrathoracic lymph nodes; C78.2 Secondary malignant neoplasm of pleura; J44.9 Chronic obstructive pulmonary disease, unspecified; F17.210 Nicotine dependence, cigarettes, uncomplicated; I10 Essential (primary) hypertension; Z79.899 Other long term (current) drug therapy
CPT/HCPCS: 88342; 99215

== ENCOUNTER 2020-09-25 06:31 | Outpatient (CLI) | payer BC, SELFPAY ==
--- NOTE | 2020-09-25 09:34 | N.ONRAD NP_ITS ---
Radiation Oncology Consultation Patient Name: Kim Nettles Date of : 1960 Date of Service: 09/25/2020 Attending Physician: Gabriel Arvizu M.D. Kim Nettles was seen in consultation this morning at the request of Sha Michaels M.D. for consideration of thoracic radiotherapy in the management of her recurrent non-small cell lung cancer. The patient was diagnosed in the spring with a pathological stage IB invasive adenocarcinoma of the left upper lobe of the lung (apicoposterior segmentectomy confirmed a 2.4 cm tumor with visceral pleural invasion). In June 2020 she presented with fatigue and weight loss to her general practitioner. Chest radiography identified emphysema. A subsequent thoracoabdominopelvic CT ordered on June 19, 2020 rated a 5 mm calcified left lower lobe nodule. Tumor markers were obtained and an elevated CEA of 303.6 ng/mL was present. A colonoscopy performed on July 16, 2020 revealed diverticulosis without evidence of neoplasm. A PET CT (independently visualized in synapse) obtained on August 10, 2020, manifested multiple hypermetabolic mediastinal lymphadenopathy and a 1.1 cm pleural implant within the second intercostal space (potentially chronic inflammation secondary to prior lung resection). A bronchoscopy completed on August 14, 2020 diagnosed a metastatic poorly differentiated non-small cell lung cancer (biopsy of lymph node station 7). Pulmonary function testing (personally reviewed in [place]) exhibited a TLC of 5.4 L (107% of predicted), a residual value of 4.3 L (215% of predicted), and FEV1 1 L (41% of predicted), a DLCO of 10.3 ml/min/mmHg (42% of predicted). Spirometry is indicative of severe airflow obstruction. The patient was evaluated for salvage radiotherapy in the context of recurrent disease. I discussed with Ms. Nettles the National Comprehensive Cancer Network Guidelines that recommends concurrent chemoradiation for mediastinal lymph node recurrence in patients that are radiotherapy na???ve. I would advise a 6 week course of thoracic radiotherapy. Prior to implementing, a CT radiotherapy planning scan in the treatment position will be acquired and co-registered to the patient's staging PET CT scan to identify the gross tumor volumes. The potential toxicities of thoracic radiotherapy were reviewed. The patient has verbalized understanding would like to proceed as recommended. Her medical treatment has been discussed with Sha Michaels M.D. Signed by: Dr. Gabriel Arvizu 09/25/2020 9:33:12 AM
[2020-09-25 10:40] LABS: Basophils # 0.1 10^3/uL (0.0-0.1); Eosinophils # 0.3 10^3/uL (0.0-0.8); Eosinophils % 6.2 %; Hematocrit 54.4 % (37.0-47.0); Hemoglobin 17.3 g/dL (11.5-15.3); Lymphocytes # 1.3 10^3/uL (0.8-4.8); Lymphocytes % 22.9 %; Mean Corpuscular HGB Conc 31.8 g/dL (30.0-36.0); Mean Corpuscular Hemoglobin 28.3 pg (28.0-34.0); Mean Platelet Volume 11.1 fL (7.4-10.4); Monocytes # 0.6 10^3/uL (0.2-0.9); Monocytes % 10.1 %; Neutrophils # 3.21 10^3/uL (1.8-7.7); Neutrophils % 58.6 %; Nucleated Red Blood Cells % 0 %; Platelet Count 358 10^3/cmm (130-400); Red Blood Count 6.11 10^6/uL (4.1-5.3); Red Cell Distribution Width 18.9 % (12.1-15.1); White Blood Count 5.5 10^3/uL (4.0-10.0)
[2020-09-25 10:58] LABS: Alanine Aminotransferase 11 U/L (0-33); Albumin Level 3.8 g/dL (3.5-5.2); Alkaline Phosphatase 64 IU/L (35-105); Anion Gap 9.2 (5-19); Aspartate Amino Transferase 17 U/L (0-32); Blood Urea Nitrogen 24 mg/dL (6-20); Calcium 8.8 mg/dL (8.5-10.5); Carbon Dioxide 32 mmol/L (22-29); Chloride 102 mmol/L (98-107); Globulin 2.8 g/dL (1.3-4.6); Glomerular Filtration Rate 126.3 mL/min (90-130); Glucose 81 mg/dL (65-115); Osmolality Calculated 291 mOsm/kg (285-295); Potassium 4.2 mmol/L (3.5-5.1); Sodium 139 mmol/L (136-145); Total Bilirubin 0.2 mg/dL (0.15-1.2); Total Protein 6.6 g/dL (6.6-8.7)
== END 2020-09-25 06:32 | disposition home or self-care (01) ==
LOC: ONCMED 06:32
PROVIDERS: Visit Provider Radiology Radiation Oncology
DX: C34.12 Malignant neoplasm of upper lobe, left bronchus or lung (principal); C77.1 Secondary and unspecified malignant neoplasm of intrathoracic lymph nodes; C78.2 Secondary malignant neoplasm of pleura; J43.9 Emphysema, unspecified; Z79.899 Other long term (current) drug therapy
CPT/HCPCS: 36415; 80053; 85025; 99205

== ENCOUNTER → 2020-09-27 10:27 | Outpatient (BNVA) | payer BC, SELFPAY | PROVIDERS: Referring Provider Surgery; Visit Provider Surgery | DX: Z20.822 Contact with and (suspected) exposure to COVID-19 (principal) | CPT/HCPCS: 87635 ==

== ENCOUNTER 2020-10-02 09:58 | Day surgery (SDC) | payer BC, SELFPAY ==
[2020-10-01 09:34] VITALS: BMI 18.3
--- NOTE | 2020-10-02 | SCC_ITS ---
Procedure Done: Placement of PowerPort in the right internal jugular vein 28.0 seconds of fluoroscopic guidance, for a cumulative dose of 2.32 mGy, was provided to Dr. Ng by the radiology department. C-arm images of the chest were saved for the patient's permanent record. [facility]
[2020-10-02 10:11] VITALS: BP 126/79; PULSE 74; RESP 18; TEMP 36.3; O2SAT 91
[2020-10-02] MEDS: sodium chloride 0.9% 1,000 ML 30 ML IV (10:20)
--- NOTE | 2020-10-02 10:48 | ANES.PREANE2 ---
Pre-Anesthetic Assessment Pre-Anesthetic Assessment: Height/Weight: Height 1.63 m Weight 48.534 kg Temp Pulse Resp BP Pulse Ox 97.4 F L 74 18 126/79 91 10/02/20 10:11 10/02/20 10:11 10/02/20 10:11 10/02/20 10:11 10/02/20 10:11 Preop Diagnosis: Left lung cancer Proposed Procedure: Operation Date: 10/02/20 11:40 Proposed Procedures p PLACEMENT OF POWERPORT 38364 Z85.118(Not Applicable) - Gurvinder Ng MD Familial anesthetic complications: none Was Beta Chinedu taken within 24 hours: N/A Was Clonidine taken within 24 hours: N/A Last intake: Intake Last Liquid Date 10/01/20 Last Liquid Time 22:00 Last Solid Date 10/01/20 Last Solid Time 22:00 Social: Social History: No alcohol and No tobacco Exam: Pre-Anes Outpt Exam: alert, oriented x 3, clear to auscultation bilaterally and regular rate & rhythm Airway: Cervical ROM: WNL MP: 3 Dentition: False Pulmonary: Pulmonary: COPD (uses O2 prn) Comments: lung cancer s/p lobectomy CV/HEM: CV/HEM: HTN Anesthetic Plan: ASA status: 4 Anesthesia: MAC Risk of > 500 ml blood loss (7ml/kg in children): No Meds/Allergies Current Medications: Current Medications Generic Name Dose Route Start Last Admin Trade Name Freq PRN Reason Stop Dose Admin Sodium Chloride 1,000 mls @ 30 ml s/hr 10/02/20 10:15 10/02/20 10:20 Sodium Chloride 0.9% IV 10/03/20 10:14 30 mls/hr .Q24H LUANN Administration PFSH Anesthesia PFSH: Medical History COPD (chronic obstructive pulmonary disease) History of lung cancer HTN (hypertension), benign Surgical History H/O colonoscopy (07/16/20) H/O colostomy H/O exploratory laparotomy H/O pneumonectomy Hx of tubal ligation Family History Mother Cancer liver Son Cancer age 12 leukemia Other Hypertension Denies family history of CAD (coronary artery disease) Dementia Anesthesia complication Bleeding disorder Social History Smoking and tobacco status: current every day smoker cigarettes Packs smoked per day: 1 Years cigarettes smoked: 30 Quit status (tobacco): has tried quititng Smoking risk assessment/counseling performed?: Yes Alcohol intake: never Counseling given: No Counseling given: No Lives independently: Yes Household members: significant other Marital status: Single Current occupational status: employed History of recent travel: No Current gender identity: Female Female Reproductive History: Spontaneous abortions: No Data Anesthesia Cardiac Studies: No Data to Display
--- NOTE | 2020-10-02 11:21 | W.PM.OPSUD ---
Surgery/Procedure H&P Update DATE OF PROCEDURE: October 02, 2020 DATE H&P PERFORMED: 09/20/20 H&P UPDATE INFORMATION: I have reviewed H&P completed within last 30 days, I have examined patient prior to procedure and No changes to prior documentation PREOP DIAGNOSIS: Left lung cancer PLANNED PROCEDURE: Operation Date: 10/02/20 11:40 Proposed Procedures p PLACEMENT OF POWERPORT [id number] Z85.118(Not Applicable) - Gurvinder Ng MD
--- NOTE | 2020-10-02 13:04 | SC_ITS ---
WS: [id number] C-ARM RADIOGRAPHS CHEST; 3 IMAGES HISTORY: port a cath COMPARISON: None available. Intraoperative imaging performed Mediport placement. Mediport overlies the SVC with the tip distally. SC/C-arm FL for CVA [id number] IMPRESSION: Intraoperative imaging during Mediport placement.
[2020-10-02] MEDS: heparin, porcine 1,000 unit/mL INJ 10 mL 10000 UNIT INJECTION (13:50)
[2020-10-02] MEDS: lidocaine 1% INJ 20 mL IM (13:55)
--- NOTE | 2020-10-02 14:02 | P.OP_ITS ---
Operative Report Date of procedure: October 02, 2020 Pre-op Diagnosis: Metastatic lung cancer Post-op diagnosis: same Procedure Done: Placement of PowerPort in the right internal jugular vein Fluoroscopic guidance and interpretation for placement of catheter Ultrasound guidance to access the right internal jugular vein Pathology: none sent Surgeon: Gurvinder Ng Anesthesia: General Condition: stable Disposition: PACU Procedure: The patient was taken to the Operating Room and the chest and neck bilaterally were prepped and draped in a sterile manner after the antibiotic had been administered and shoulder rolls had been placed. A total of 10 mL of 1% lidocaine with 0.5% Marcaine was infiltrated under the clavicle on the right side at the site of the planned entry into the subclavian vein. The subclavian vein could not be accessed and therefore an ultrasound was used to identify the right internal jugular vein. There was good flow with no thrombus noted in the right internal jugular vein. An introducer needle was then used to access the right internal jugular vein and after withdrawing blood syringe was removed and a guidewire passed under fluoroscopy into the superior vena cava. The site of the planned port was then marked on the chest and a 15 blade was used to make a 3 cm skin incision this was extended into the subcutaneous tissue using electrocautery and a subcutaneous pocket over the pectoralis fascia was created 2-0 Vicryl suture was used to suture the port to the pectoral fascia in the pocket on 3 sides. The catheter, after having been flushed with hep saline, was attached to the tunneler and a tunnel created between the port site and the internal jugular vein vein entry site. Under fluoroscopy the dilator sheath was passed over the guidewire into the proximal superior vena cava. The inner dilator was removed and the sheath left behind and~ the catheter was introduced through the peel- away sheath with the tip in the superior vena cava. The peel-away sheath was removed. The proximal end of the catheter was cut to the right size and was attached to the port. Using a Iniguez needle the port was accessed, it withdrew blood easily and flushed easily. A final 5cc of heparin was used to flush the PowerPort. The subcutaneous tissue was approximated using interrupted 3-0 Vicryl sutures and the skin at the introducer site and the port site was closed using subcuticular running 4-0 Monocryl sutures. Surgical glue was applied and the patient was stable throughout the procedure. Fluoroscopic guidance and interpretation was performed for introduction of the guidewire in the right internal jugular vein, passage of dilator and placement of catheter tip in the distal superior vena cava.
[2020-10-02 14:10] VITALS: BP 100/70; PULSE 83; RESP 14; TEMP 36.7; O2SAT 96
[2020-10-02 14:15] VITALS: BP 96/63; PULSE 76; RESP 18; O2SAT 99
[2020-10-02 14:25] VITALS: BP 99/70; PULSE 77; RESP 16; TEMP 36.7; O2SAT 96
[2020-10-02] MEDS: HYDROcodone-acetaminophen 5-325 mg Tablet 1 TAB PO (14:26)
[2020-10-02 14:31] VITALS: BP 126/75; PULSE 78; RESP 16; TEMP 36.1; O2SAT 98
[2020-10-02 14:44] VITALS: BP 131/85; PULSE 71; RESP 16; O2SAT 96
--- NOTE | 2020-10-02 20:21 | ANE.PACU2 ---
Inpatient post-anesthesia follow up: Airway intact: Yes Vital signs: Temperature 97 F Pulse Rate 71 Respiratory Rate 16 Blood Pressure 131/85 Pulse Oximetry 96 Oxygen Delivery Me thod Room Air Oxygen Flow Rate 2 Fraction of Inspir ed Oxygen Hydration adequate: Yes Nausea and vomiting: Yes Pain level: 3 Mental status: Baseline
== END 2020-10-02 15:05 | disposition home or self-care (01) ==
PROVIDERS: Visit Provider Surgery
PROC: (CPT 36561; principal; 2020-10-02 11:30)
DX: C34.90 Malignant neoplasm of unspecified part of unspecified bronchus or lung (principal); J44.9 Chronic obstructive pulmonary disease, unspecified; Z90.2 Acquired absence of lung [part of]; Z99.81 Dependence on supplemental oxygen; I10 Essential (primary) hypertension; F17.210 Nicotine dependence, cigarettes, uncomplicated
CPT/HCPCS: 36561; 76000; 77001; C1788; J0690; J1644; J2704; J3490; J7030; J7611

== ENCOUNTER 2020-10-03 06:26 | Outpatient (RCR) | payer BC, SELFPAY ==
--- NOTE | 2020-10-03 | CT_ITS ---
Radiation Therapy Planning CT images; total exam DLP: 270.99 mGy-cm MTDD
== END 2020-10-09 23:59 | disposition home or self-care (01) ==
LOC: ONCMED 06:26
PROVIDERS: Visit Provider Radiology Radiation Oncology
DX: Z51.0 Encounter for antineoplastic radiation therapy (principal); C34.12 Malignant neoplasm of upper lobe, left bronchus or lung; C77.1 Secondary and unspecified malignant neoplasm of intrathoracic lymph nodes; C78.2 Secondary malignant neoplasm of pleura
CPT/HCPCS: 77290; 77295; 77300; 77334; 77470; Q9967

== ENCOUNTER 2020-11-08 05:46 | Outpatient (RCR) | payer BC, SELFPAY ==
[2020-10-10 09:12] LABS: Basophils # 0.1 10^3/uL (0.0-0.1); Basophils % 1.3 %; Hematocrit 54.1 % (37.0-47.0); Hemoglobin 17.4 g/dL (11.5-15.3); Lymphocytes # 0.5 10^3/uL (0.8-4.8); Lymphocytes % 13.1 %; Mean Corpuscular HGB Conc 32.2 g/dL (30.0-36.0); Mean Corpuscular Hemoglobin 28.5 pg (28.0-34.0); Mean Corpuscular Volume 88.7 fL (81-99); Mean Platelet Volume 12.2 fL (7.4-10.4); Monocytes # 0.1 10^3/uL (0.2-0.9); Monocytes % 1.6 %; Neutrophils # 3.12 10^3/uL (1.8-7.7); Neutrophils % 83.5 %; Nucleated Red Blood Cells % 0 %; Platelet Count 375 10^3/cmm (130-400); Red Cell Distribution Width 18.8 % (12.1-15.1); White Blood Count 3.7 10^3/uL (4.0-10.0)
[2020-10-10 09:34] LABS: Alanine Aminotransferase 11 U/L (0-33); Alkaline Phosphatase 68 IU/L (35-105); Anion Gap 11.9 (5-19); Aspartate Amino Transferase 13 U/L (0-32); Blood Urea Nitrogen 30 mg/dL (6-20); Calcium 8.8 mg/dL (8.5-10.5); Carbon Dioxide 27 mmol/L (22-29); Chloride 105 mmol/L (98-107); Glomerular Filtration Rate 126.3 mL/min (90-130); Glucose 135 mg/dL (65-115); Osmolality Calculated 298 mOsm/kg (285-295); Potassium 3.9 mmol/L (3.5-5.1); Sodium 140 mmol/L (136-145); Total Bilirubin 0.2 mg/dL (0.15-1.2)
[2020-10-10] MEDS: famotidine 20 mg/2 mL INJ IVP (10:22)
[2020-10-10] MEDS: sodium chloride 0.9% 250 ML 75 ML IV (10:22)
[2020-10-10] MEDS: diphenhydrAMINE 50 mg/mL SDV 1mL 25 MG IVP (10:24)
[2020-10-10] MEDS: palonosetron 0.25 mg/5 mL SDV IVP (10:26)
--- NOTE | 2020-10-14 10:15 | ONCRAD TMN_ITS ---
Radiation Oncology Treatment Management Note Patient Name: Kim Nettles Date of : 1960 Date of Service: 10/14/2020 Attending Physician: Gabriel Arvizu M.D. Kim Nettles is a 60 year-old white female diagnosed with recurrent non-small cell lung cancer. An apicoposterior segmentectomy performed in 2017 diagnosed a pathological stage IB adenocarcinoma of the left upper lobe of the lung. A recent PET/CT identified mediastinal lymphadenopathy with EBUS biopsy confirming a poorly-differentiated NSCLCa. The patient has received 6 Gy of a prescribed 60 Gibbons with a 3D-CEMENT DESPATCH OPERATOR plan utilizing a four-field treatment technique. She has been prescribed carboplatin (AUC 2) and paclitaxel (50 mg/m???) weekly during therapy. Upon review of systems, she denied pulmonary symptoms. On physical examination, the patient weighed 104 lbs. Her temperature was 97.7 ???F with a blood pressure of 106/73 mmHg. The pulse was 95 bpm and her respiratory rate was 20. Oxygen saturation while breathing room air was 94%. There was no erythema within the treatment garza. Auscultation of the posterior lung garza identified bilateral rales with decreased breath sounds. Continue thoracic radiotherapy as prescribed. Signed by: Dr. Gabriel Arvizu 10/14/2020 10:14:25 AM
[2020-10-17 09:55] LABS: Basophils # 0.1 10^3/uL (0.0-0.1); Basophils % 0.8 %; Eosinophils % 0.2 %; Hematocrit 50.5 % (37.0-47.0); Hemoglobin 16.4 g/dL (11.5-15.3); Lymphocytes # 0.5 10^3/uL (0.8-4.8); Lymphocytes % 8.7 %; Mean Corpuscular HGB Conc 32.5 g/dL (30.0-36.0); Mean Corpuscular Hemoglobin 28.7 pg (28.0-34.0); Mean Corpuscular Volume 88.4 fL (81-99); Mean Platelet Volume 12.1 fL (7.4-10.4); Monocytes # 0.3 10^3/uL (0.2-0.9); Neutrophils # 5.32 10^3/uL (1.8-7.7); Neutrophils % 85.5 %; Nucleated Red Blood Cells % 0 %; Platelet Count 363 10^3/cmm (130-400); Red Blood Count 5.71 10^6/uL (4.1-5.3); Red Cell Distribution Width 18.2 % (12.1-15.1); White Blood Count 6.2 10^3/uL (4.0-10.0)
[2020-10-17 10:10] LABS: Alanine Aminotransferase 13 U/L (0-33); Albumin Level 3.8 g/dL (3.5-5.2); Alkaline Phosphatase 59 IU/L (35-105); Anion Gap 11.8 (5-19); Aspartate Amino Transferase 16 U/L (0-32); Blood Urea Nitrogen 27 mg/dL (6-20); Calcium 9.2 mg/dL (8.5-10.5); Carbon Dioxide 28 mmol/L (22-29); Chloride 105 mmol/L (98-107); Globulin 2.5 g/dL (1.3-4.6); Glomerular Filtration Rate 126.3 mL/min (90-130); Glucose 153 mg/dL (65-115); Osmolality Calculated 300 mOsm/kg (285-295); Potassium 3.8 mmol/L (3.5-5.1); Sodium 141 mmol/L (136-145); Total Bilirubin 0.2 mg/dL (0.15-1.2); Total Protein 6.3 g/dL (6.6-8.7)
[2020-10-17] MEDS: famotidine 20 mg/2 mL INJ IVP (13:39)
[2020-10-17] MEDS: sodium chloride 0.9% 250 ML 75 ML IV (13:40)
[2020-10-17] MEDS: diphenhydrAMINE 50 mg/mL SDV 1mL 25 MG IV (13:40)
[2020-10-17] MEDS: palonosetron 0.25 mg/5 mL SDV IV (13:41)
--- NOTE | 2020-10-21 09:20 | ONCRAD TMN_ITS ---
Radiation Oncology Treatment Management Note Patient Name: Kim Nettles Date of : 1960 Date of Service: 10/21/2020 Attending Physician: Gabriel Arvizu M.D. Kim Nettles is a 60 year-old white female diagnosed with recurrent non-small cell lung cancer. An apicoposterior segmentectomy performed in 2017 diagnosed a pathological stage IB adenocarcinoma of the left upper lobe of the lung. A recent PET/CT identified mediastinal lymphadenopathy with EBUS biopsy confirming a poorly-differentiated NSCLCa. The patient has received 16 Gy of a prescribed 60 Gibbons with a 3D-J2EE APPLICATION DEVELOPER plan utilizing a four-field treatment technique. She has been prescribed carboplatin (AUC 2) and paclitaxel (50 mg/m???) weekly during therapy. Upon review of systems, she denied pulmonary symptoms. On physical examination, the patient weighed 103 lbs. Her temperature was 98 ???F with a blood pressure of 114/75 mmHg. The pulse was 69 bpm and her respiratory rate was 20. Oxygen saturation while breathing room air was 95%. There was no erythema within the treatment garza. Auscultation of the posterior lung garza revealed bilateral rales with decreased breath sounds. Continue thoracic radiotherapy as planned. Signed by: Dr. Gabriel Arvizu 10/21/2020 9:19:09 AM
--- NOTE | 2020-10-22 06:00 | ONC FU_ITS ---
[facility] Patient Note Patient: Kim Nettles Unit #: [id number]: 1960 Dictated By: Tonny IbarraDate of Visit: Oct 10, 2020 Onc MED Follow-Up/Prog Note Chief Complaint: Lung cancer. 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 She now has progressed to stage MARC (M1 A) with biopsy-proven involvement in mediastinal lymph nodes and with PET/CT evidence of a left pleural implant. She was seen by Maria G Shah in August 2016 for treatment of pneumonia. A chest x-ray on 08/27/2016 showed an indistinct increased density in the left upper lobe measuring about 3 cm. It was suspicious for a mass lesion. There was evidence of chronic emphysema. There were no other pulmonary parenchymal densities. Further evaluation with chest CT on 09/03/2016 confirmed a spiculated noncalcified soft tissue mass in the left upper lobe laterally. It appeared to extend to and involve the left lateral pleural margin. It measured 1.5 x 2.3 x 2.8 cm. There were no other mass lesions noted. There was no axillary, supraclavicular, mediastinal, or hilar masses or adenopathy. There was no pleural effusion. There did appear to be trace pericardial effusion. There were centrilobular emphysematous changes throughout the lung parenchyma. There was suspected left adrenal adenoma measuring 1.3 x 2.2 cm. A near water density lesion in the right upper lobe of the liver measuring 1.2 cm appeared consistent with an incidental cyst. There was no evidence of any metastatic involvement. She was referred to Dr. Kinsey. Her pulmonary function studies in 09/28/2016 were adequate with FEV 2.68, 47% of predicted. On 10/07/2016 she underwent thoracotomy with left upper lobe apical posterior segmentectomy. She was found to have moderately intense adhesions, precluding a complete left upper lobectomy. As such, the procedure was limited to formal segmentectomy. 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 It was mostly moderately differentiated, but focally it was high-grade (poorly differentiated). It measured 2.4 x 1.9 cm. The resection margins were free of tumor, but tumor was noted to extend onto the pleural surface. Pathologic staging was T2a, (PL 2), NX, as there were no lymph nodes included in the specimen. She has had an uneventful postoperative recovery. Dr Michaels had seen her initially on 11/11/2016. There appeared to be no indication for adjuvant chemotherapy, and she was followed on observation/expectant management. As of her follow-up visit in June 2017 she appeared stable clinically, there was no evidence of recurrence/progression of the lung cancer on her restaging chest CT. She has had no other ongoing medical illnesses, but she did have evidence of COPD by CT scan and her pulmonary function studies showed moderately severe obstructive disease. She has a history of smoking 2 packs of cigarettes daily for 25 years. She had cut down following her lung surgery. INTERIM HISTORY: She had a follow-up visit with Camilo Molina on 06/15/2020. She complained of fatigue, and she was noted to have a significant weight loss. Her laboratory studies included CBC showing elevated hemoglobin/hematocrit levels at 17.8 g and 54.9%. The white blood cell count was 8200 and the platelet count was 369,000. Her comprehensive metabolic profile was unremarkable and her TSH level was normal 2.33 ???IU/mL. A battery of tumor markers was obtained and her CEA level was found to be significantly elevated at 303.6 ng/mL. Her restaging CT scans of the chest, abdomen, and pelvis on 06/19/2020 showed postoperative changes at the left lung apex and moderate centrilobular emphysematous changes. A noncalcified 5 mm pulmonary nodule in the left lower lobe was indeterminate. There were no other pulmonary mass lesions and there was no mediastinal or hilar lymphadenopathy noted. There was evidence of hepatomegaly with enlargement of the right hepatic lobe. There was extensive cholelithiasis with gallbladder distention and further evaluation with ultrasound was recommended. There was thickening and induration involving the distal sigmoid colon suspicious for diverticulitis. A small amount of free fluid was noted in the pelvis. With the abnormal CT findings in the sigmoid colon and with the significantly elevated CEA level, she was recommended to have further evaluation with colonoscopy. The procedure was done on 07/16/2020. It showed moderate diverticulosis in the sigmoid colon, but there was no evidence of malignancy in the sigmoid colon and there were no other abnormal findings noted. She had further evaluation with PET/CT on 08/10/2020. It showed multiple FDG positive mediastinal lymph nodes in the right and left paratracheal, subaortic, and subcarinal territories, strongly suspicious for recurrence. An index node in the subcarinal territory measured 1.4 cm with SUV 9.6. A 1.1 x 0.6 cm left pleural implant at the second intercostal space had SUV 4.3, suggestive of a malignant implant. There were no other areas of abnormal uptake on that study. On 08/22/2020 she underwent bronchoscopy with EBUS and FNA biopsy of station 7 lymph node. There were no endobronchial lesions identified on the bronchoscopy. The endobronchial ultrasound did show mediastinal and left hilar lymphadenopathy. Cytology on the FNA biopsy was positive for metastatic poorly differentiated non-small cell carcinoma. The tumor cells showed positive staining for CK high molecular weight and for CK 8/18. There was cytoplasmic staining for p63. The TTF-1 was negative. The Ki-67 was high at 50%. The PET/CT findings and pathology results were reviewed with the patient per Dr Michaels. She now has evidence of stage MARC (M1a) disease with recurrence and mediastinal lymph nodes and with left pleural implant. Dr Michaels discussed the fact that her disease is no longer curable. She has been offered treatment with concurrent chemoradiation. She will receive weekly Carboplatin/Taxol. Ms Nettles is here today for followup and to initiate her first week of Carboplatin/Taxol. She has no new concerns today. She did have placement of a PowerPort in the right internal jugular vein per Dr. Ng on October 02, 2020. Her site is healing well. She denies any new shortness of breath orthopnea. She denies any hemoptysis. She denies any fever or chills within the last 72 hours. She is had no noted Covid symptoms or known Covid exposure. She denies any nausea or vomiting. She states her energy is marginal and her appetite is fair. She denies any new pain. Her ECOG is 1. Past Medical History: Chronic obstructive pulmonary disease Hypertension Lung cancer Past Surgical History: Exploratory laparotomy with lysis of adhesions Exploratory laparotomy with temporary colostomy for diverticulitis Right internal jugular PowerPort???Dr. Ng???[facility] in 2020 Thoracotomy with left upper lobe apical posterior segmentectomy in 2017 Allergies: No Known Allergies. Medications: Advair Diskus 1 Puff(s) (of 250-50 mcg/dose) Aerosol Powder, Breath Activated Inhalation b.i.d. Anacin 1 (400-32 mg) Tablet Oral t.i.d. Gabapentin 1 (300 mg) Capsule Oral t.i.d. PRN HYDROcodone-Acetaminophen 1 Tablet (of 5-325 mg) Oral b.i.d. PRN Lisinopril 1 Tablet (of 20 mg) Oral daily LORazepam 1 Tablet (of 1 mg) Oral t.i.d. PRN Prochlorperazine Maleate 1 Tablet (of 10 mg) Oral q 4 hours PRN Family History: Ms. Nettles's mother at age 61: Liver Cancer. Ms. Nettles's father at age 72: COPD. Ms. Nettles has 3 brothers: 1 alive, 2 . Ms. Nettles's first brother's brain aneurysm. Another brother's aneurism. She has 1 sister who is alive. She has 1 son who is : leukemia. .Father had COPD and heart disease. He at age 72. Mother of liver cancer at age 61. A brother from cerebral aneurysm at age 49. A son of leukemia at age 12. Social History: Ms. Nettles is single and she is an unknown. She is a daily smoker who has smoked 1.0 pack/day for 28 years. She is a former drinker. Ms. Nettles reports the following support systems: lives alone, lives in own house, and adequate transportation available for expected visits. Her diet consists of regular meals. She indicates her activity level as: daily activities. She has a history of smoking 2 packs of cigarettes daily for 25 years. She cut down to 1 pack per day following her lung surgery. She has had some alcohol use in the past, not heavy. She quit drinking approximatley 3 years ago. Vital Signs: Performed on Oct 10, 2020 09:07 Height - 64.00 in Weight - 103.4 lbs (LOW) BSA - 1.48 sq.m BMI - 17.75 (LOW) Temperature - 98.1 F (LOW) Pulse - 73 /min Respiration - 16 /min BP - 108/69 mm(hg) O2 Sat - 91 % (LOW) Pain - 0,1 - No physically strenuous activity, but ambulatory and able to carry out light or sedentary work (e.g. office work, light house work). (ECOG) Physical Examination: Constitutional Alert, oriented, no acute distress. Skin pink, warm and dry. Head Normocephalic; atraumatic. Eyes Conjunctivae and sclerae are clear and without icterus. Pupils are reactive and equal. Neck Supple without masses or thyromegaly. No jugular venous distension. Hematologic/Lymphatic No petechiae or purpura. No tender or palpable lymph nodes in the cervical or supraclavicular areas. Respiratory Lungs are clear to auscultation without rhonchi or wheezing. Cardiovascular Regular rate and rhythm of heart without murmurs,clicks, gallops or rubs. Chest Chest is symmetric without chest wall deformities. Right internal jugular PowerPort insertion site is healing well. Abdomen Non-tender, non-distended, no masses or ascites. Good bowel sounds noted in all quads. No guarding or rebound tenderness. No pulsatile masses. Back/Spine Non-tender to palpation. Extremities No visible deformities, no cyanosis, clubbing or edema. Musculoskeletal No tenderness or swelling, normal range of motion without obvious weakness. Integumentary No rashes or lesions. Neurologic No sensory or motor deficits, normal cerebellar function, normal gait. Psychiatric Alert and oriented times three. Coherent speech. Verbalizes understanding of our discussions today. Laboratory: See below Impression: 1. Invasive adenocarcinoma involving the upper lobe of the left lung. She underwent left thoracotomy with left upper lobe segmentectomy on 10/07/2016. Her disease was pathologic stage T2a, (PL2), NX, as there was involvement of the pleural surface, but no lymph nodes were included in the specimen. Resection margins were free. By clinical evaluation, her disease was stage IB (T2a, N0, M0). She had no further treatment. 2. She now has evidence of recurrence with biopsy-proven involvement in mediastinal lymph nodes. There is also a suspected left pleural implant by PET/CT, consistent with stage MARC (M1a) disease. 3. COPD. 4. Hypertension. Plan: PROBLEMS ADDRESSED TODAY 1. Invasive adenocarcinoma involving the upper lobe of the left lung, stage IB (pT2a, cN0, M0). She underwent left thoracotomy with left upper lobe segmentectomy on 10/07/2016. She had no further treatment. She had presented in June 2020 with fatigue and weight loss. She was found to have a significantly CEA level. Her restaging CT scans showed abnormal findings in the sigmoid colon, but colonoscopy showed no evidence of malignancy. As such, the elevated CEA level remains unexplained. PET/CT showed multiple FDG positive mediastinal lymph nodes in the right and left paratracheal, subaortic, and subcarinal territories, strongly suspicious for recurrence. A 1.1 x 0.6 cm left pleural implant at the second intercostal space had SUV 4.3, suggestive of a malignant implant. There were no other areas of abnormal uptake on that study. On 08/22/2020 she underwent bronchoscopy with EBUS and FNA biopsy of station 7 lymph node. There were no endobronchial lesions identified on the bronchoscopy. The endobronchial ultrasound did show mediastinal and left hilar lymphadenopathy. Cytology on the FNA biopsy was positive for metastatic poorly differentiated non-small cell carcinoma. The Ki-67 was high at 50%. The PET/CT findings and pathology results were reviewed with the patient. She now has evidence of stage MARC (M1a) disease with recurrence and mediastinal lymph nodes and with left pleural implant. Dr Michaels discussed the fact that her disease is no longer curable. She has been offered treatment with concurrent chemoradiation. She will receive weekly Carboplatin/Taxol. A. Proceed with week 1 carboplatin/Taxol. B. Premed steroid compliance confirmed. C. She will have dexamethasone, Pepcid, Aloxi as premed for antiemetics. D. She will have Compazine and lorazepam as needed for antiemetics at home. E. Labs from today were reviewed in detail and discussed with Ms. Nettles and a copy was given to her. WBC 3.7, hemoglobin 17.4, platelets 325,000 ANC is 3120. Potassium 3.9 sodium 140, random glucose 135, creatinine 0.5 LFTs are normal. Her weight today is 103.4. 2. Right internal jugular PowerPort???placed October 02, [address] Ng[facility]. A. Her insertion site is healing well. B. She will require weekly port maintenance with labs and treatment. 3. Chemotherapy treatment plan education A. The patient was informed of chemotherapy plan and specific drugs were discussed. We also discussed how chemotherapy works and identified common side effects including alopecia; myelosuppression-including neutropenia, anemia, thrombocytopenia; peripheral neuropathy; fatigue; nausea; diarrhea; constipation; bleeding or bruising; skin changes; mouth sores; drug hypersensitivity/allergic reactions or anaphylaxis and extravasation. They have also been informed how to contact the clinic with side effects or symptoms, including but not limited to fever greater than 100.4???, chills, sore throat, bleeding or bruising that is not explained or mouth sores, cough, nasal discharge, diarrhea, constipation, nausea and/or vomiting not relieved with medications on hand at home, as well as any other concern or question they may have. Our hours are 8:00 a.m. to 4:30 p.m. on Wednesday through and 8-12:00 on Wednesday. However, someone is incident response engineer 24 hours per day and they have been advised to contact the [facility] at if it is after hours. We have also discussed potential long-term side effects of chemotherapy including secondary cancers, infertility, pulmonary complications, cardiac complications, and again peripheral neuropathy. We have discussed that they certainly need to let us know before taking any antioxidants or herbal or further dietary supplements, as we are unsure of how these agents react with chemotherapy and we request that they avoid these products for now. They were informed that it is okay to take multivitamins at normal doses. They verbally state that they understand to take all medications as directed by their healthcare provider unless otherwise indicated. They also verbalized understanding to leave the pressure dressing on the intravenous administration site for at least two hours after treatment. Instructions for oral care with baking soda and salt water rinses as well as a guide for use of [id number] medication were provided with the treatment plan. They have been given a written patient treatment plan, of which a copy is in the chart, as well as specific drug information. They have no questions and verbalized understanding and are willing to proceed with chemotherapy at this time. The majority of this visit was spent in face to face communication with this patient in regards to the plan of care, side effect identification and management. 4. Follow-up plan A. She will have weekly CBC CMP prior to the day of treatment as she is here for daily radiation. B. She will have weekly visits for assessment of her labs and potential side effects prior to her scheduled chemotherapy with carboplatin AUC of 2 and paclitaxel 50 mg per metered squared. C. Ms Nettles was instructed to contact us in the interim if questions or problems arise. Total time spent on this visit and review of patient records, prescribed plan of care as well as patient education regarding treatment plan, answering questions, identified side effects and discussing side effect management as well as post visit documentation was 60 minutes. Signed By: Tonny Ibarra-, AOCNP Sha Michaels MD <<Signature on File>>
[2020-10-23 09:34] LABS: Basophils # 0.1 10^3/uL (0.0-0.1); Basophils % 1.2 %; Eosinophils # 0.2 10^3/uL (0.0-0.8); Eosinophils % 5.1 %; Hematocrit 50.3 % (37.0-47.0); Hemoglobin 16.1 g/dL (11.5-15.3); Lymphocytes # 0.7 10^3/uL (0.8-4.8); Lymphocytes % 15.9 %; Mean Corpuscular Hemoglobin 28.4 pg (28.0-34.0); Mean Corpuscular Volume 88.7 fL (81-99); Mean Platelet Volume 11.2 fL (7.4-10.4); Monocytes # 0.3 10^3/uL (0.2-0.9); Monocytes % 6.7 %; Neutrophils # 3.07 10^3/uL (1.8-7.7); Neutrophils % 70.9 %; Nucleated Red Blood Cells % 0 %; Platelet Count 314 10^3/cmm (130-400); Red Blood Count 5.67 10^6/uL (4.1-5.3); Red Cell Distribution Width 18.4 % (12.1-15.1); White Blood Count 4.3 10^3/uL (4.0-10.0)
[2020-10-23 10:10] LABS: Alanine Aminotransferase 13 U/L (0-33); Alkaline Phosphatase 61 IU/L (35-105); Aspartate Amino Transferase 15 U/L (0-32); Blood Urea Nitrogen 24 mg/dL (6-20); Calcium 8.5 mg/dL (8.5-10.5); Carbon Dioxide 31 mmol/L (22-29); Chloride 99 mmol/L (98-107); Globulin 2.4 g/dL (1.3-4.6); Glomerular Filtration Rate 163.4 mL/min (90-130); Glucose 82 mg/dL (65-115); Osmolality Calculated 285 mOsm/kg (285-295); Sodium 136 mmol/L (136-145); Total Bilirubin 0.3 mg/dL (0.15-1.2); Total Protein 6.4 g/dL (6.6-8.7)
--- NOTE | 2020-10-24 01:56 | ONC FU_ITS ---
[facility] Patient Note Patient: Kim Nettles Unit #: [id number]: 1960 Dictated By: Tonny IbarraDate of Visit: Oct 17, 2020 Onc MED Follow-Up/Prog Note Chief Complaint: Lung cancer. 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 She now has progressed to stage MARC (M1 A) with biopsy-proven involvement in mediastinal lymph nodes and with PET/CT evidence of a left pleural implant. She was seen by Maria G Shah in August 2016 for treatment of pneumonia. A chest x-ray on 08/27/2016 showed an indistinct increased density in the left upper lobe measuring about 3 cm. It was suspicious for a mass lesion. There was evidence of chronic emphysema. There were no other pulmonary parenchymal densities. Further evaluation with chest CT on 09/03/2016 confirmed a spiculated noncalcified soft tissue mass in the left upper lobe laterally. It appeared to extend to and involve the left lateral pleural margin. It measured 1.5 x 2.3 x 2.8 cm. There were no other mass lesions noted. There was no axillary, supraclavicular, mediastinal, or hilar masses or adenopathy. There was no pleural effusion. There did appear to be trace pericardial effusion. There were centrilobular emphysematous changes throughout the lung parenchyma. There was suspected left adrenal adenoma measuring 1.3 x 2.2 cm. A near water density lesion in the right upper lobe of the liver measuring 1.2 cm appeared consistent with an incidental cyst. There was no evidence of any metastatic involvement. She was referred to Dr. Kinsey. Her pulmonary function studies in 09/28/2016 were adequate with FEV 2.68, 47% of predicted. On 10/07/2016 she underwent thoracotomy with left upper lobe apical posterior segmentectomy. She was found to have moderately intense adhesions, precluding a complete left upper lobectomy. As such, the procedure was limited to formal segmentectomy. 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 It was mostly moderately differentiated, but focally it was high-grade (poorly differentiated). It measured 2.4 x 1.9 cm. The resection margins were free of tumor, but tumor was noted to extend onto the pleural surface. Pathologic staging was T2a, (PL 2), NX, as there were no lymph nodes included in the specimen. She has had an uneventful postoperative recovery. Dr Michaels had seen her initially on 11/11/2016. There appeared to be no indication for adjuvant chemotherapy, and she was followed on observation/expectant management. As of her follow-up visit in June 2017 she appeared stable clinically, there was no evidence of recurrence/progression of the lung cancer on her restaging chest CT. She has had no other ongoing medical illnesses, but she did have evidence of COPD by CT scan and her pulmonary function studies showed moderately severe obstructive disease. She has a history of smoking 2 packs of cigarettes daily for 25 years. She had cut down following her lung surgery. INTERIM HISTORY: She had a follow-up visit with Camilo Molina on 06/15/2020. She complained of fatigue, and she was noted to have a significant weight loss. Her laboratory studies included CBC showing elevated hemoglobin/hematocrit levels at 17.8 g and 54.9%. The white blood cell count was 8200 and the platelet count was 369,000. Her comprehensive metabolic profile was unremarkable and her TSH level was normal 2.33 ???IU/mL. A battery of tumor markers was obtained and her CEA level was found to be significantly elevated at 303.6 ng/mL. Her restaging CT scans of the chest, abdomen, and pelvis on 06/19/2020 showed postoperative changes at the left lung apex and moderate centrilobular emphysematous changes. A noncalcified 5 mm pulmonary nodule in the left lower lobe was indeterminate. There were no other pulmonary mass lesions and there was no mediastinal or hilar lymphadenopathy noted. There was evidence of hepatomegaly with enlargement of the right hepatic lobe. There was extensive cholelithiasis with gallbladder distention and further evaluation with ultrasound was recommended. There was thickening and induration involving the distal sigmoid colon suspicious for diverticulitis. A small amount of free fluid was noted in the pelvis. With the abnormal CT findings in the sigmoid colon and with the significantly elevated CEA level, she was recommended to have further evaluation with colonoscopy. The procedure was done on 07/16/2020. It showed moderate diverticulosis in the sigmoid colon, but there was no evidence of malignancy in the sigmoid colon and there were no other abnormal findings noted. She had further evaluation with PET/CT on 08/10/2020. It showed multiple FDG positive mediastinal lymph nodes in the right and left paratracheal, subaortic, and subcarinal territories, strongly suspicious for recurrence. An index node in the subcarinal territory measured 1.4 cm with SUV 9.6. A 1.1 x 0.6 cm left pleural implant at the second intercostal space had SUV 4.3, suggestive of a malignant implant. There were no other areas of abnormal uptake on that study. On 08/22/2020 she underwent bronchoscopy with EBUS and FNA biopsy of station 7 lymph node. There were no endobronchial lesions identified on the bronchoscopy. The endobronchial ultrasound did show mediastinal and left hilar lymphadenopathy. Cytology on the FNA biopsy was positive for metastatic poorly differentiated non-small cell carcinoma. The tumor cells showed positive staining for CK high molecular weight and for CK 8/18. There was cytoplasmic staining for p63. The TTF-1 was negative. The Ki-67 was high at 50%. The PET/CT findings and pathology results were reviewed with the patient per Dr Michaels. She has evidence of stage MARC (M1a) disease with recurrence and mediastinal lymph nodes and with left pleural implant. Dr Michaels discussed the fact that her disease is no longer curable. She has been offered treatment with concurrent chemoradiation. She will receive weekly Carboplatin/Taxol. Ms Nettles is here today for followup is scheduled for her second week of Carboplatin/Taxol. She states overall she is doing well. She states she feels better overall. She denies any nausea or vomiting. He has had no fever or chills. She denies any mouth sores, sore throat or difficulty swallowing. She denies any new shortness of breath or cough. She denies any hemoptysis. She denies any chest pain, palpitations rotations or lower extremity edema. She denies any nausea or vomiting. She has had no diarrhea or constipation. She denies any neuropathy symptoms. She denies any hearing changes. She has had no headaches or vision changes. She states she is eating better and her energy is good as well. She has no concerns today. She denies any pain. She states she is tolerating radiation well thus far. Her ECOG is 1. Past Medical History: Chronic obstructive pulmonary disease Hypertension Lung cancer Past Surgical History: Exploratory laparotomy with lysis of adhesions Exploratory laparotomy with temporary colostomy for diverticulitis Right internal jugular PowerPort???Dr. Ng???[facility] in 2020 Thoracotomy with left upper lobe apical posterior segmentectomy in 2017 Allergies: No Known Allergies. Medications: Advair Diskus 1 Puff(s) (of 250-50 mcg/dose) Aerosol Powder, Breath Activated Inhalation b.i.d. Anacin 1 (400-32 mg) Tablet Oral t.i.d. Gabapentin 1 (300 mg) Capsule Oral t.i.d. PRN HYDROcodone-Acetaminophen 1 Tablet (of 5-325 mg) Oral b.i.d. PRN Lisinopril 1 Tablet (of 20 mg) Oral daily LORazepam 1 Tablet (of 1 mg) Oral t.i.d. PRN Prochlorperazine Maleate 1 Tablet (of 10 mg) Oral q 4 hours PRN Family History: Ms. Nettles's mother at age 61: Liver Cancer. Ms. Nettles's father at age 72: COPD. Ms. Nettles has 3 brothers: 1 alive, 2 . Ms. Nettles's first brother's brain aneurysm. Another brother's aneurism. She has 1 sister who is alive. She has 1 son who is : leukemia. .Father had COPD and heart disease. He at age 72. Mother of liver cancer at age 61. A brother from cerebral aneurysm at age 49. A son of leukemia at age 12. Social History: Ms. Nettles is single and she is an unknown. She is a daily smoker who has smoked 1.0 pack/day for 28 years. She is a former drinker. Ms. Nettles reports the following support systems: lives alone, lives in own house, and adequate transportation available for expected visits. Her diet consists of regular meals. She indicates her activity level as: daily activities. She has a history of smoking 2 packs of cigarettes daily for 25 years. She cut down to 1 pack per day following her lung surgery. She has had some alcohol use in the past, not heavy. She quit drinking approximatley 3 years ago. Vital Signs: Performed on Oct 17, 2020 13:05 Height - 64.00 in Weight - 104.2 lbs (HIGH) BSA - 1.48 sq.m BMI - 17.89 (LOW) Temperature - 98.2 F (LOW) Pulse - 78 /min Respiration - 18 /min BP - 111/72 mm(hg) O2 Sat - 90 % (LOW) Pain - 0,1 - No physically strenuous activity, but ambulatory and able to carry out light or sedentary work (e.g. office work, light house work). (ECOG) Physical Examination: Constitutional Alert, oriented, no acute distress. Skin pink, warm and dry. Head Normocephalic; atraumatic. Eyes Conjunctivae and sclerae are clear and without icterus. Pupils are reactive and equal. Neck Supple without masses or thyromegaly. No jugular venous distension. Hematologic/Lymphatic No petechiae or purpura. No tender or palpable lymph nodes in the cervical or supraclavicular areas. Respiratory Lungs are clear to auscultation without rhonchi or wheezing. Cardiovascular Regular rate and rhythm of heart without murmurs,clicks, gallops or rubs. Chest Chest is symmetric without chest wall deformities. Right internal jugular PowerPort insertion site is unremarkable. Abdomen Non-tender, non-distended, no masses or ascites. Good bowel sounds noted in all quads. No guarding or rebound tenderness. No pulsatile masses. Back/Spine Non-tender to palpation. Extremities No visible deformities, no cyanosis, clubbing or edema. Musculoskeletal No tenderness or swelling, normal range of motion without obvious weakness. Integumentary No rashes or lesions. Neurologic No sensory or motor deficits, normal cerebellar function, normal gait. Psychiatric Alert and oriented times three. Coherent speech. Verbalizes understanding of our discussions today. Laboratory:Test performed on Oct 17, 2020 09:25 Sodium 141 mmol/L Potassium 3.8 mmol/L Chloride 105 mmol/L CO2 28 mmol/L Anion Gap 11.8 BUN 27 mg/dL Creatinine 0.5 mg/dL Cr Clearance (Est) 89.7000 mL/min eGFR 126.3 mL/min Glucose 153 mg/dL Osmolality - Calculated 300 mOsm/kg Calcium 9.2 mg/dL Protein, Total 6.3 g/dL Albumin 3.8 g/dL Globulin 2.5 g/dL Bilirubin, Total 0.2 mg/dL ALT (SGPT) 13 U/L AST (SGOT) 16 U/L Alkaline Phosphatase 59 IU/L WBC 6.2 10 3/uL RBC 5.71 10 6/uL HGB 16.4 g/dL HCT 50.5 % MCV 88.4 fL MCH 28.7 pg MCHC 32.5 g/dL RDW 18.2 % Platelet Count 363 10 3/cmm MPV 12.1 fL Neutrophils 5.32 10 3/uL Lymphocytes 0.5 10 3/uL Monocytes 0.3 10 3/uL Eosinophils 0.0 10 3/uL Basophils 0.1 10 3/uL Neutrophil % 85.5 % Lymphocyte % 8.7 % Monocyte % 4.0 % Eosinophil % 0.2 % Basophils % 0.8 % NRBC % 0 % Impression: 1. Invasive adenocarcinoma involving the upper lobe of the left lung. She underwent left thoracotomy with left upper lobe segmentectomy on 10/07/2016. Her disease was pathologic stage T2a, (PL2), NX, as there was involvement of the pleural surface, but no lymph nodes were included in the specimen. Resection margins were free. By clinical evaluation, her disease was stage IB (T2a, N0, M0). She had no further treatment. 2. She now has evidence of recurrence with biopsy-proven involvement in mediastinal lymph nodes. There is also a suspected left pleural implant by PET/CT, consistent with stage MARC (M1a) disease. 3. COPD. 4. Hypertension. Plan: PROBLEMS ADDRESSED TODAY 1. Invasive adenocarcinoma involving the upper lobe of the left lung, stage IB (pT2a, cN0, M0). She underwent left thoracotomy with left upper lobe segmentectomy on 10/07/2016. She had no further treatment. She had presented in June 2020 with fatigue and weight loss. She was found to have a significantly CEA level. Her restaging CT scans showed abnormal findings in the sigmoid colon, but colonoscopy showed no evidence of malignancy. As such, the elevated CEA level remains unexplained. PET/CT showed multiple FDG positive mediastinal lymph nodes in the right and left paratracheal, subaortic, and subcarinal territories, strongly suspicious for recurrence. A 1.1 x 0.6 cm left pleural implant at the second intercostal space had SUV 4.3, suggestive of a malignant implant. There were no other areas of abnormal uptake on that study. On 08/22/2020 she underwent bronchoscopy with EBUS and FNA biopsy of station 7 lymph node. There were no endobronchial lesions identified on the bronchoscopy. The endobronchial ultrasound did show mediastinal and left hilar lymphadenopathy. Cytology on the FNA biopsy was positive for metastatic poorly differentiated non-small cell carcinoma. The Ki-67 was high at 50%. The PET/CT findings and pathology results were reviewed with the patient. She now has evidence of stage MARC (M1a) disease with recurrence and mediastinal lymph nodes and with left pleural implant. Dr Michaels discussed the fact that her disease is no longer curable. She has been offered treatment with concurrent chemoradiation. She is receiving weekly Carboplatin/Taxol. A. Proceed with week 2 carboplatin paclitaxel. B. Premedication steroid compliance confirmed. C. Today's labs were reviewed in detail and discussed with Ms. Nettles and a copy was given to her. WBC 6.2, hemoglobin 16.4, platelets are 62,000, ANC is 5320. Potassium 3.8 random glucose 158 creatinine 0.5 and LFTs are all normal. Weight is stable at 104.2 lbs. 2. Follow-up plan A. She will be seen weekly for consideration of weekly carboplatin paclitaxel with CBC CMP. She may have this drawn the day before as she is here for radiation. B. Mrs. Nettles was instructed to contact us in the interim should questions or problems arise. Signed By: Tonny Ibarra-, AOP Sha Michaels MD <<Signature on File>>
[2020-10-24] MEDS: sodium chloride 0.9% 250 ML 75 ML IV (10:58)
[2020-10-24] MEDS: famotidine 20 mg/2 mL INJ IVP (10:58)
[2020-10-24] MEDS: diphenhydrAMINE 50 mg/mL SDV 1mL 25 MG IV (10:59)
[2020-10-24] MEDS: palonosetron 0.25 mg/5 mL SDV IV (11:00)
--- NOTE | 2020-10-28 09:33 | ONCRAD TMN_ITS ---
Radiation Oncology Treatment Management Note Patient Name: Kim Nettles Date of : 1960 Date of Service: 10/28/2020 Attending Physician: Gabriel Arvizu M.D. Kim Nettles is a 60 year-old white female diagnosed with recurrent non-small cell lung cancer. An apicoposterior segmentectomy performed in 2017 diagnosed a pathological stage IB adenocarcinoma of the left upper lobe of the lung. A recent PET/CT identified mediastinal lymphadenopathy with EBUS biopsy confirming a poorly-differentiated NSCLCa. The patient has received 26 Gy of a prescribed 60 Gibbons with a 3D-PERISHABLE FRUIT INSPECTOR plan utilizing a four-field treatment technique. She has been prescribed carboplatin (AUC 2) and paclitaxel (50 mg/m???) weekly during therapy. Upon review of systems, she denied pulmonary symptoms but reported mild odynophagia. On physical examination, the patient weighed 101 lbs. Her temperature was 98.2 ???F with a blood pressure of 103/57 mmHg. The pulse was 57 bpm and her respiratory rate was 20. Oxygen saturation while breathing room air was 96%. There was no erythema within the treatment garza. Auscultation of the posterior lung garza revealed decreased breath sounds. Continue thoracic radiotherapy as prescribed. I will prescribe Oxycodone elixir for odynophagia. Signed by: Dr. Gabriel Arvizu 10/28/2020 9:31:03 AM
[2020-10-30 09:36] LABS: Basophils # 0.1 10^3/uL (0.0-0.1); Basophils % 2.2 %; Eosinophils # 0.1 10^3/uL (0.0-0.8); Eosinophils % 3.4 %; Hematocrit 50.4 % (37.0-47.0); Hemoglobin 15.7 g/dL (11.5-15.3); Lymphocytes # 0.2 10^3/uL (0.8-4.8); Lymphocytes % 6.2 %; Mean Corpuscular HGB Conc 31.2 g/dL (30.0-36.0); Mean Corpuscular Hemoglobin 28.6 pg (28.0-34.0); Mean Platelet Volume 11.1 fL (7.4-10.4); Monocytes # 0.3 10^3/uL (0.2-0.9); Neutrophils # 2.52 10^3/uL (1.8-7.7); Neutrophils % 78.3 %; Nucleated Red Blood Cells % 0 %; Platelet Count 292 10^3/cmm (130-400); Red Blood Count 5.48 10^6/uL (4.1-5.3); Red Cell Distribution Width 18.8 % (12.1-15.1); White Blood Count 3.2 10^3/uL (4.0-10.0)
[2020-10-30 10:14] LABS: Alanine Aminotransferase 14 U/L (0-33); Albumin Level 3.6 g/dL (3.5-5.2); Alkaline Phosphatase 58 IU/L (35-105); Anion Gap 10.4 (5-19); Aspartate Amino Transferase 22 U/L (0-32); Blood Urea Nitrogen 20 mg/dL (6-20); Calcium 8.6 mg/dL (8.5-10.5); Carbon Dioxide 29 mmol/L (22-29); Chloride 100 mmol/L (98-107); Globulin 2.5 g/dL (1.3-4.6); Glomerular Filtration Rate 163.4 mL/min (90-130); Glucose 105 mg/dL (65-115); Magnesium 1.8 mg/dL (1.7-2.3); Osmolality Calculated 283 mOsm/kg (285-295); Potassium 4.4 mmol/L (3.5-5.1); Sodium 135 mmol/L (136-145); Thyroid Stimulating Hormone 1.32 uIU/mL (0.27-4.20); Total Bilirubin 0.4 mg/dL (0.15-1.2); Total Protein 6.1 g/dL (6.6-8.7)
[2020-10-30 11:00] LABS: Carcinoembryonic Antigen 108.8 ng/mL (0.0-4.7)
[2020-10-31] MEDS: sodium chloride 0.9% 250 ML 75 ML IV (10:20)
[2020-10-31] MEDS: palonosetron 0.25 mg/5 mL SDV IVP (10:24)
[2020-10-31] MEDS: famotidine 20 mg/2 mL INJ IVP (10:25)
[2020-10-31] MEDS: diphenhydrAMINE 50 mg/mL SDV 1mL 25 MG IVP (10:26)
--- NOTE | 2020-11-04 09:30 | ONCRAD TMN_ITS ---
Radiation Oncology Treatment Management Note Patient Name: Kim Nettles Date of : 1960 Date of Service: 11/04/2020 Attending Physician: Gabriel Arvizu M.D. Kim Nettles is a 60 year-old white female diagnosed with recurrent non-small cell lung cancer. An apicoposterior segmentectomy performed in 2017 diagnosed a pathological stage IB adenocarcinoma of the left upper lobe of the lung. A recent PET/CT identified mediastinal lymphadenopathy with EBUS biopsy confirming a poorly-differentiated NSCLCa. The patient has received 36 Gy of a prescribed 60 Gibbons with a 3D-SPARE PARTS CLERK plan utilizing a four-field treatment technique. She has been prescribed carboplatin (AUC 2) and paclitaxel (50 mg/m???) weekly during therapy. Upon review of systems, she denied pulmonary symptoms. On physical examination, the patient weighed 100 lbs. Her temperature was 98.1 ???F with a blood pressure of 89/52 mmHg. The pulse was 82 bpm and her respiratory rate was 20. Oxygen saturation while breathing room air was 92%. There was no erythema within the treatment garza. Auscultation of the posterior lung graza revealed decreased breath sounds. Continue thoracic radiotherapy as planned. Signed by: Dr. Gabriel Arvizu 11/04/2020 9:30:46 AM
[2020-11-06 09:23] LABS: Basophils # 0.1 10^3/uL (0.0-0.1); Basophils % 2.4 %; Eosinophils # 0.1 10^3/uL (0.0-0.8); Eosinophils % 1.5 %; Hematocrit 48.2 % (37.0-47.0); Hemoglobin 15.4 g/dL (11.5-15.3); Lymphocytes # 0.3 10^3/uL (0.8-4.8); Lymphocytes % 8.6 %; Mean Corpuscular Hemoglobin 28.8 pg (28.0-34.0); Mean Corpuscular Volume 90.1 fL (81-99); Monocytes # 0.4 10^3/uL (0.2-0.9); Monocytes % 13.1 %; Neutrophils % 73.5 %; Nucleated Red Blood Cells % 0 %; Platelet Count 249 10^3/cmm (130-400); Red Blood Count 5.35 10^6/uL (4.1-5.3); Red Cell Distribution Width 18.6 % (12.1-15.1); White Blood Count 3.3 10^3/uL (4.0-10.0)
[2020-11-06 09:56] LABS: Alanine Aminotransferase 12 U/L (0-33); Albumin Level 3.5 g/dL (3.5-5.2); Alkaline Phosphatase 62 IU/L (35-105); Anion Gap 10.5 (5-19); Aspartate Amino Transferase 16 U/L (0-32); Blood Urea Nitrogen 25 mg/dL (6-20); Calcium 8.2 mg/dL (8.5-10.5); Carbon Dioxide 31 mmol/L (22-29); Chloride 98 mmol/L (98-107); Globulin 2.4 g/dL (1.3-4.6); Glomerular Filtration Rate 163.4 mL/min (90-130); Glucose 96 mg/dL (65-115); Osmolality Calculated 284 mOsm/kg (285-295); Potassium 4.5 mmol/L (3.5-5.1); Sodium 135 mmol/L (136-145); Total Bilirubin 0.2 mg/dL (0.15-1.2); Total Protein 5.9 g/dL (6.6-8.7)
--- NOTE | 2020-11-07 00:31 | ONC FU_ITS ---
[facility] Patient Note Patient: Kim Nettles Unit #: [id number]: 1960 Dictated By: Tnony IbarraDate of Visit: Oct 24, 2020 Onc MED Follow-Up/Prog Note Chief Complaint: Lung cancer. 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 She now has progressed to stage MARC (M1 A) with biopsy-proven involvement in mediastinal lymph nodes and with PET/CT evidence of a left pleural implant. She was seen by Maria G Shah in August 2016 for treatment of pneumonia. A chest x-ray on 08/27/2016 showed an indistinct increased density in the left upper lobe measuring about 3 cm. It was suspicious for a mass lesion. There was evidence of chronic emphysema. There were no other pulmonary parenchymal densities. Further evaluation with chest CT on 09/03/2016 confirmed a spiculated noncalcified soft tissue mass in the left upper lobe laterally. It appeared to extend to and involve the left lateral pleural margin. It measured 1.5 x 2.3 x 2.8 cm. There were no other mass lesions noted. There was no axillary, supraclavicular, mediastinal, or hilar masses or adenopathy. There was no pleural effusion. There did appear to be trace pericardial effusion. There were centrilobular emphysematous changes throughout the lung parenchyma. There was suspected left adrenal adenoma measuring 1.3 x 2.2 cm. A near water density lesion in the right upper lobe of the liver measuring 1.2 cm appeared consistent with an incidental cyst. There was no evidence of any metastatic involvement. She was referred to Dr. Kinsey. Her pulmonary function studies in 09/28/2016 were adequate with FEV 2.68, 47% of predicted. On 10/07/2016 she underwent thoracotomy with left upper lobe apical posterior segmentectomy. She was found to have moderately intense adhesions, precluding a complete left upper lobectomy. As such, the procedure was limited to formal segmentectomy. 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 It was mostly moderately differentiated, but focally it was high-grade (poorly differentiated). It measured 2.4 x 1.9 cm. The resection margins were free of tumor, but tumor was noted to extend onto the pleural surface. Pathologic staging was T2a, (PL 2), NX, as there were no lymph nodes included in the specimen. She has had an uneventful postoperative recovery. Dr Michaels had seen her initially on 11/11/2016. There appeared to be no indication for adjuvant chemotherapy, and she was followed on observation/expectant management. As of her follow-up visit in June 2017 she appeared stable clinically, there was no evidence of recurrence/progression of the lung cancer on her restaging chest CT. She has had no other ongoing medical illnesses, but she did have evidence of COPD by CT scan and her pulmonary function studies showed moderately severe obstructive disease. She has a history of smoking 2 packs of cigarettes daily for 25 years. She had cut down following her lung surgery. INTERIM HISTORY: She had a follow-up visit with Camilo Molian on 06/15/2020. She complained of fatigue, and she was noted to have a significant weight loss. Her laboratory studies included CBC showing elevated hemoglobin/hematocrit levels at 17.8 g and 54.9%. The white blood cell count was 8200 and the platelet count was 369,000. Her comprehensive metabolic profile was unremarkable and her TSH level was normal 2.33 ???IU/mL. A battery of tumor markers was obtained and her CEA level was found to be significantly elevated at 303.6 ng/mL. Her restaging CT scans of the chest, abdomen, and pelvis on 06/19/2020 showed postoperative changes at the left lung apex and moderate centrilobular emphysematous changes. A noncalcified 5 mm pulmonary nodule in the left lower lobe was indeterminate. There were no other pulmonary mass lesions and there was no mediastinal or hilar lymphadenopathy noted. There was evidence of hepatomegaly with enlargement of the right hepatic lobe. There was extensive cholelithiasis with gallbladder distention and further evaluation with ultrasound was recommended. There was thickening and induration involving the distal sigmoid colon suspicious for diverticulitis. A small amount of free fluid was noted in the pelvis. With the abnormal CT findings in the sigmoid colon and with the significantly elevated CEA level, she was recommended to have further evaluation with colonoscopy. The procedure was done on 07/16/2020. It showed moderate diverticulosis in the sigmoid colon, but there was no evidence of malignancy in the sigmoid colon and there were no other abnormal findings noted. She had further evaluation with PET/CT on 08/10/2020. It showed multiple FDG positive mediastinal lymph nodes in the right and left paratracheal, subaortic, and subcarinal territories, strongly suspicious for recurrence. An index node in the subcarinal territory measured 1.4 cm with SUV 9.6. A 1.1 x 0.6 cm left pleural implant at the second intercostal space had SUV 4.3, suggestive of a malignant implant. There were no other areas of abnormal uptake on that study. On 08/22/2020 she underwent bronchoscopy with EBUS and FNA biopsy of station 7 lymph node. There were no endobronchial lesions identified on the bronchoscopy. The endobronchial ultrasound did show mediastinal and left hilar lymphadenopathy. Cytology on the FNA biopsy was positive for metastatic poorly differentiated non-small cell carcinoma. The tumor cells showed positive staining for CK high molecular weight and for CK 8/18. There was cytoplasmic staining for p63. The TTF-1 was negative. The Ki-67 was high at 50%. The PET/CT findings and pathology results were reviewed with the patient per Dr Michaels. She has evidence of stage MARC (M1a) disease with recurrence and mediastinal lymph nodes and with left pleural implant. Dr Michaels discussed the fact that her disease is no longer curable. She has been offered treatment with concurrent chemoradiation. She will receive weekly Carboplatin/Taxol. Ms Nettles is here today for followup is scheduled for her third week of Carboplatin/Taxol. She states overall she is tolerating the chemotherapy well. She denies any nausea or vomiting. She has had no fever or chills. She denies any mouth sores, sore throat or difficulty swallowing. She states she has really no tingling in her. 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 She states she works 4 hours yesterday and had work all week prior to that and she had significant discomfort last night and had difficulty sleeping due to the pain. She states Tylenol or ibuprofen really does not give her much relief but does help just a little . She describes it as a achy crampy pain. She states is really not sharp and shooting or tingling but just uncomfortable. She denies any other pain. She is had no shortness of breath orthopnea. She denies any mouth sores, sore throat or difficulty swallowing. She states she is eating good and her energy is fair. She states after working she is pretty tired but feels good after resting and when she does sleep she feels rested. Her ECOG is 0. Past Medical History: Chronic obstructive pulmonary disease Hypertension Lung cancer Past Surgical History: Exploratory laparotomy with lysis of adhesions Exploratory laparotomy with temporary colostomy for diverticulitis Right internal jugular PowerPort???Dr. Ng???[facility] in 2020 Thoracotomy with left upper lobe apical posterior segmentectomy in 2016 Allergies: No Known Allergies. Medications: Advair Diskus 1 Puff(s) (of 250-50 mcg/dose) Aerosol Powder, Breath Activated Inhalation b.i.d. Anacin 1 (400-32 mg) Tablet Oral t.i.d. Gabapentin 1 (300 mg) Capsule Oral t.i.d. PRN Lisinopril 1 Tablet (of 20 mg) Oral daily LORazepam 1 Tablet (of 1 mg) Oral t.i.d. PRN oxyCODONE HCl 5 mL (of 5 mg/5mL) Solution Oral q 4 hours Prochlorperazine Maleate 1 Tablet (of 10 mg) Oral q 4 hours PRN Family History: Ms. Nettles's mother at age 61: Liver Cancer. Ms. Nettles's father at age 72: COPD. Ms. Nettles has 3 brothers: 1 alive, 2 . Ms. Nettles's first brother's brain aneurysm. Another brother's aneurism. She has 1 sister who is alive. She has 1 son who is : leukemia. .Father had COPD and heart disease. He at age 72. Mother of liver cancer at age 61. A brother from cerebral aneurysm at age 49. A son of leukemia at age 12. Social History: Ms. Nettles is single and she is an unknown. She is a daily smoker who has smoked 1.0 pack/day for 28 years. She is a former drinker. Ms. Nettles reports the following support systems: lives alone, lives in own house, and adequate transportation available for expected visits. Her diet consists of regular meals. She indicates her activity level as: daily activities. She has a history of smoking 2 packs of cigarettes daily for 25 years. She cut down to 1 pack per day following her lung surgery. She has had some alcohol use in the past, not heavy. She quit drinking approximatley 3 years ago. Review Of Symptoms: [see above^ Vital Signs: Performed on Oct 24, 2020 09:58 Height - 64.00 in Weight - 103.8 lbs (HIGH) BSA - 1.48 sq.m BMI - 17.82 (LOW) Temperature - 98.2 F (LOW) Pulse - 83 /min Respiration - 17 /min BP - 103/67 mm(hg) O2 Sat - 90 % (LOW) Pain - 0,0 - Fully active, able to carry on all predisease activities without restrictions. (ECOG) Physical Examination: Constitutional Alert, oriented, no acute distress. Skin pink, warm and dry. Head Normocephalic; atraumatic. Eyes Conjunctivae and sclerae are clear and without icterus. Pupils are reactive and equal. Neck Supple without masses or thyromegaly. No jugular venous distension. Hematologic/Lymphatic No petechiae or purpura. No tender or palpable lymph nodes in the cervical or supraclavicular areas. Respiratory Lungs are clear to auscultation without rhonchi or wheezing. Cardiovascular Regular rate and rhythm of heart without murmurs,clicks, gallops or rubs. Chest Chest is symmetric without chest wall deformities. Right internal jugular PowerPort insertion site is unremarkable. Abdomen Non-tender, non-distended, no masses or ascites. Good bowel sounds noted in all quads. No guarding or rebound tenderness. No pulsatile masses. Back/Spine Non-tender to palpation. Extremities No visible deformities, no cyanosis, clubbing or edema. Musculoskeletal No tenderness or swelling, normal range of motion without obvious weakness. Integumentary No rashes or lesions. Neurologic No sensory or motor deficits, normal cerebellar function, normal gait. Psychiatric Alert and oriented times three. Coherent speech. Verbalizes understanding of our discussions today. Laboratory:see flow sheet and below Impression: 1. Invasive adenocarcinoma involving the upper lobe of the left lung. She underwent left thoracotomy with left upper lobe segmentectomy on 10/07/2016. Her disease was pathologic stage T2a, (PL2), NX, as there was involvement of the pleural surface, but no lymph nodes were included in the specimen. Resection margins were free. By clinical evaluation, her disease was stage IB (T2a, N0, M0). She had no further treatment. 2. She now has evidence of recurrence with biopsy-proven involvement in mediastinal lymph nodes. There is also a suspected left pleural implant by PET/CT, consistent with stage MARC (M1a) disease. 3. COPD. 4. Hypertension. Plan: PROBLEMS ADDRESSED TODAY 1. Invasive adenocarcinoma involving the upper lobe of the left lung, stage IB (pT2a, cN0, M0). She underwent left thoracotomy with left upper lobe segmentectomy on 10/07/2016. She had no further treatment. She had presented in June 2020 with fatigue and weight loss. She was found to have a significantly CEA level. Her restaging CT scans showed abnormal findings in the sigmoid colon, but colonoscopy showed no evidence of malignancy. As such, the elevated CEA level remains unexplained. PET/CT showed multiple FDG positive mediastinal lymph nodes in the right and left paratracheal, subaortic, and subcarinal territories, strongly suspicious for recurrence. A 1.1 x 0.6 cm left pleural implant at the second intercostal space had SUV 4.3, suggestive of a malignant implant. There were no other areas of abnormal uptake on that study. On 08/22/2020 she underwent bronchoscopy with EBUS and FNA biopsy of station 7 lymph node. There were no endobronchial lesions identified on the bronchoscopy. The endobronchial ultrasound did show mediastinal and left hilar lymphadenopathy. Cytology on the FNA biopsy was positive for metastatic poorly differentiated non-small cell carcinoma. The Ki-67 was high at 50%. The PET/CT findings and pathology results were reviewed with the patient. She now has evidence of stage MARC (M1a) disease with recurrence and mediastinal lymph nodes and with left pleural implant. Dr Michaels discussed the fact that her disease is no longer curable. She has been offered treatment with concurrent chemoradiation. She is receiving weekly Carboplatin/Taxol. A. Proceed with week 3 carboplatin paclitaxel. B. Premedication steroid compliance confirmed. C. Labs from 10/23/2020 were reviewed in detail and discussed with Ms. Nettles and a copy was given to her. WBC 4.3, hemoglobin 16.1, platelets 3 and 14,000, ANC is 3070. Potassium 4.0 random glucose 82 creatinine 0.4 sodium 136 LFTs are normal. Her weight is stable at 103.8 pounds. 2. Muscle/leg cramps A. These are worse at night when she is trying to rest. 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 She states she is taking and Fridays off currently. She states it was worse last night after working for about 4 hours. It has resolved today. B. I did request a magnesium for evaluation of her leg cramps as well as a TSH for muscle pain leg cramps and fatigue. Those results are pending at time of visit. C. We did discuss her resuming gabapentin. She has been on it in the past. She thinks she has 300 mg capsules at home. She was advised she can try 300 mg at bedtime and can bump up to 600 mg at bedtime if she is not having adverse effects such as sedation, dry mouth, confusion or feel that she is not tolerating it. She could also do 300 mg 3 times daily if needed but I did encourage her to work up to that gradually so that she does not feel sedated or hung over from the gabapentin. 3. Follow-up plan A. She will be seen weekly for consideration of weekly carboplatin paclitaxel with CBC CMP. She may have this drawn the day before as she is here for radiation. I did request a CEA with her next visit as her last CEA was 284.6 on August 02, 2020. B. Mrs. Nettles was instructed to contact us in the interim should questions or problems arise. Signed By: Tonny Ibarra-, [facility] Sha Michaels MD <<Signature on File>>
[2020-11-07] MEDS: sodium chloride 0.9% 250 ML 75 ML IV (10:35)
[2020-11-07] MEDS: famotidine 20 mg/2 mL INJ IVP (10:35)
[2020-11-07] MEDS: diphenhydrAMINE 50 mg/mL SDV 1mL 25 MG IVP (10:37)
[2020-11-07] MEDS: palonosetron 0.25 mg/5 mL SDV IVP (10:42)
--- NOTE | 2020-11-10 23:56 | ONC FU_ITS ---
[facility] Patient Note Patient: Kim Nettles Unit #: [id number]: 1960 Dictated By: Tonny IbarraDate of Visit: Oct 31, 2020 Onc MED Follow-Up/Prog Note Chief Complaint: Lung cancer. 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 She now has progressed to stage MARC (M1 A) with biopsy-proven involvement in mediastinal lymph nodes and with PET/CT evidence of a left pleural implant. She was seen by Maria G Shah in August 2016 for treatment of pneumonia. A chest x-ray on 08/27/2016 showed an indistinct increased density in the left upper lobe measuring about 3 cm. It was suspicious for a mass lesion. There was evidence of chronic emphysema. There were no other pulmonary parenchymal densities. Further evaluation with chest CT on 09/03/2016 confirmed a spiculated noncalcified soft tissue mass in the left upper lobe laterally. It appeared to extend to and involve the left lateral pleural margin. It measured 1.5 x 2.3 x 2.8 cm. There were no other mass lesions noted. There was no axillary, supraclavicular, mediastinal, or hilar masses or adenopathy. There was no pleural effusion. There did appear to be trace pericardial effusion. There were centrilobular emphysematous changes throughout the lung parenchyma. There was suspected left adrenal adenoma measuring 1.3 x 2.2 cm. A near water density lesion in the right upper lobe of the liver measuring 1.2 cm appeared consistent with an incidental cyst. There was no evidence of any metastatic involvement. She was referred to Dr. Kinsey. Her pulmonary function studies in 09/28/2016 were adequate with FEV 2.68, 47% of predicted. On 10/07/2016 she underwent thoracotomy with left upper lobe apical posterior segmentectomy. She was found to have moderately intense adhesions, precluding a complete left upper lobectomy. As such, the procedure was limited to formal segmentectomy. 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 It was mostly moderately differentiated, but focally it was high-grade (poorly differentiated). It measured 2.4 x 1.9 cm. The resection margins were free of tumor, but tumor was noted to extend onto the pleural surface. Pathologic staging was T2a, (PL 2), NX, as there were no lymph nodes included in the specimen. She has had an uneventful postoperative recovery. Dr Michaels had seen her initially on 11/11/2016. There appeared to be no indication for adjuvant chemotherapy, and she was followed on observation/expectant management. As of her follow-up visit in June 2017 she appeared stable clinically, there was no evidence of recurrence/progression of the lung cancer on her restaging chest CT. She has had no other ongoing medical illnesses, but she did have evidence of COPD by CT scan and her pulmonary function studies showed moderately severe obstructive disease. She has a history of smoking 2 packs of cigarettes daily for 25 years. She had cut down following her lung surgery. INTERIM HISTORY: She had a follow-up visit with Camilo Molina on 06/15/2020. She complained of fatigue, and she was noted to have a significant weight loss. Her laboratory studies included CBC showing elevated hemoglobin/hematocrit levels at 17.8 g and 54.9%. The white blood cell count was 8200 and the platelet count was 369,000. Her comprehensive metabolic profile was unremarkable and her TSH level was normal 2.33 ???IU/mL. A battery of tumor markers was obtained and her CEA level was found to be significantly elevated at 303.6 ng/mL. Her restaging CT scans of the chest, abdomen, and pelvis on 06/19/2020 showed postoperative changes at the left lung apex and moderate centrilobular emphysematous changes. A noncalcified 5 mm pulmonary nodule in the left lower lobe was indeterminate. There were no other pulmonary mass lesions and there was no mediastinal or hilar lymphadenopathy noted. There was evidence of hepatomegaly with enlargement of the right hepatic lobe. There was extensive cholelithiasis with gallbladder distention and further evaluation with ultrasound was recommended. There was thickening and induration involving the distal sigmoid colon suspicious for diverticulitis. A small amount of free fluid was noted in the pelvis. With the abnormal CT findings in the sigmoid colon and with the significantly elevated CEA level, she was recommended to have further evaluation with colonoscopy. The procedure was done on 07/16/2020. It showed moderate diverticulosis in the sigmoid colon, but there was no evidence of malignancy in the sigmoid colon and there were no other abnormal findings noted. She had further evaluation with PET/CT on 08/10/2020. It showed multiple FDG positive mediastinal lymph nodes in the right and left paratracheal, subaortic, and subcarinal territories, strongly suspicious for recurrence. An index node in the subcarinal territory measured 1.4 cm with SUV 9.6. A 1.1 x 0.6 cm left pleural implant at the second intercostal space had SUV 4.3, suggestive of a malignant implant. There were no other areas of abnormal uptake on that study. On 08/22/2020 she underwent bronchoscopy with EBUS and FNA biopsy of station 7 lymph node. There were no endobronchial lesions identified on the bronchoscopy. The endobronchial ultrasound did show mediastinal and left hilar lymphadenopathy. Cytology on the FNA biopsy was positive for metastatic poorly differentiated non-small cell carcinoma. The tumor cells showed positive staining for CK high molecular weight and for CK 8/18. There was cytoplasmic staining for p63. The TTF-1 was negative. The Ki-67 was high at 50%. The PET/CT findings and pathology results were reviewed with the patient per Dr Michaels. She has evidence of stage MARC (M1a) disease with recurrence and mediastinal lymph nodes and with left pleural implant. Dr Michaels discussed the fact that her disease is no longer curable. She has been offered treatment with concurrent chemoradiation. She will receive weekly Carboplatin/Taxol. Ms Nettles is here today for followup is scheduled for her 4th week of Carboplatin/Taxol. She continues to do well overall. She has no new concerns today. That her leg pain at night is much better. She is taking the gabapentin and states this is working well. She does have some leg cramps occasionally but states it usually after she has been working on her feet for quite some time. She denies any fever or chills. She had no signs or symptoms of infection. She states she is eating good. She states otherwise she feels good. She denies any new shortness of breath orthopnea. She is had no cough or hemoptysis. She denies any trouble swallowing. She denies mouth sores. She states she has not had any new shortness of breath orthopnea. She is had no chest pain or palpitations. She denies diarrhea or constipation. She has had no neuropathy symptoms in her hands and the discomfort/leg cramps she is having at night has resolved with the gabapentin. Her ECOG is 0. Past Medical History: Chronic obstructive pulmonary disease Hypertension Lung cancer Past Surgical History: Exploratory laparotomy with lysis of adhesions Exploratory laparotomy with temporary colostomy for diverticulitis Right internal jugular PowerPort???Dr. Ng???[facility] in 2020 Thoracotomy with left upper lobe apical posterior segmentectomy in 2016 Allergies: No Known Allergies. Medications: Advair Diskus 1 Puff(s) (of 250-50 mcg/dose) Aerosol Powder, Breath Activated Inhalation b.i.d. Anacin 1 (400-32 mg) Tablet Oral t.i.d. Gabapentin 1 (300 mg) Capsule Oral t.i.d. PRN Lisinopril 1 Tablet (of 20 mg) Oral daily LORazepam 1 Tablet (of 1 mg) Oral t.i.d. PRN oxyCODONE HCl 5 mL (of 5 mg/5mL) Solution Oral q 4 hours Prochlorperazine Maleate 1 Tablet (of 10 mg) Oral q 4 hours PRN Family History: Ms. Nettles's mother at age 61: Liver Cancer. Ms. Nettles's father at age 72: COPD. Ms. Nettles has 3 brothers: 1 alive, 2 . Ms. Nettles's first brother's brain aneurysm. Another brother's aneurism. She has 1 sister who is alive. She has 1 son who is : leukemia. .Father had COPD and heart disease. He at age 72. Mother of liver cancer at age 61. A brother from cerebral aneurysm at age 49. A son of leukemia at age 12. Social History: Ms. Nettles is single and she is an unknown. She is a daily smoker who has smoked 1.0 pack/day for 28 years. She is a former drinker. Ms. Nettles reports the following support systems: lives alone, lives in own house, and adequate transportation available for expected visits. Her diet consists of regular meals. She indicates her activity level as: daily activities. She has a history of smoking 2 packs of cigarettes daily for 25 years. She cut down to 1 pack per day following her lung surgery. She has had some alcohol use in the past, not heavy. She quit drinking approximatley 3 years ago. Review Of Symptoms: see above Vital Signs: Performed on Oct 31, 2020 09:40 Height - 64.00 in Weight - 103.2 lbs (HIGH) BSA - 1.48 sq.m BMI - 17.71 (LOW) Temperature - 98.1 F (LOW) Pulse - 82 /min Respiration - 17 /min BP - 98/61 mm(hg) O2 Sat - 91 % (LOW) Pain - 0,0 - Fully active, able to carry on all predisease activities without restrictions. (ECOG) Physical Examination: Constitutional Alert, oriented, no acute distress. Skin pink, warm and dry. Head Normocephalic; atraumatic. Eyes Conjunctivae and sclerae are clear and without icterus. Pupils are reactive and equal. Neck Supple without masses or thyromegaly. No jugular venous distension. Hematologic/Lymphatic No petechiae or purpura. No tender or palpable lymph nodes in the cervical or supraclavicular areas. Respiratory Lungs are clear to auscultation without rhonchi or wheezing. Cardiovascular Regular rate and rhythm of heart without murmurs,clicks, gallops or rubs. Chest Chest is symmetric without chest wall deformities. Right internal jugular PowerPort insertion site is unremarkable. Abdomen Non-tender, non-distended, no masses or ascites. Good bowel sounds noted in all quads. No guarding or rebound tenderness. No pulsatile masses. Back/Spine Non-tender to palpation. Extremities No visible deformities, no cyanosis, clubbing or edema. Musculoskeletal No tenderness or swelling, normal range of motion without obvious weakness. Integumentary No rashes or lesions. Neurologic No sensory or motor deficits, normal cerebellar function, normal gait. Psychiatric Alert and oriented times three. Coherent speech. Verbalizes understanding of our discussions today. Laboratory:Test performed on Nov 07, 2020 10:10 Creatinine 0.4 mg/dL Cr Clearance (Est) 112.13 mL/min Test performed on Oct 30, 2020 09:10 Magnesium 1.8 mg/dL Sodium 135 mmol/L TSH 1.32 uIU/mL Potassium 4.4 mmol/L Chloride 100 mmol/L CO2 29 mmol/L Anion Gap 10.4 BUN 20 mg/dL eGFR 163.4 mL/min Glucose 105 mg/dL Osmolality - Calculated 283 mOsm/kg Calcium 8.6 mg/dL Protein, Total 6.1 g/dL Albumin 3.6 g/dL Globulin 2.5 g/dL Bilirubin, Total 0.4 mg/dL ALT (SGPT) 14 U/L AST (SGOT) 22 U/L Alkaline Phosphatase 58 IU/L WBC 3.2 10 3/uL RBC 5.48 10 6/uL HGB 15.7 g/dL HCT 50.4 % MCV 92.0 fL MCH 28.6 pg MCHC 31.2 g/dL RDW 18.8 % Platelet Count 292 10 3/cmm MPV 11.1 fL Neutrophils 2.52 10 3/uL Lymphocytes 0.2 10 3/uL Monocytes 0.3 10 3/uL Eosinophils 0.1 10 3/uL Basophils 0.1 10 3/uL Neutrophil % 78.3 % Lymphocyte % 6.2 % Monocyte % 9.0 % Eosinophil % 3.4 % Basophils % 2.2 % NRBC % 0 % CEA 108.8 ng/mL Impression: 1. Invasive adenocarcinoma involving the upper lobe of the left lung. She underwent left thoracotomy with left upper lobe segmentectomy on 10/07/2016. Her disease was pathologic stage T2a, (PL2), NX, as there was involvement of the pleural surface, but no lymph nodes were included in the specimen. Resection margins were free. By clinical evaluation, her disease was stage IB (T2a, N0, M0). She had no further treatment. 2. She now has evidence of recurrence with biopsy-proven involvement in mediastinal lymph nodes. There is also a suspected left pleural implant by PET/CT, consistent with stage MARC (M1a) disease. 3. COPD. 4. Hypertension. Plan: PROBLEMS ADDRESSED TODAY 1. Invasive adenocarcinoma involving the upper lobe of the left lung, stage IB (pT2a, cN0, M0). She underwent left thoracotomy with left upper lobe segmentectomy on 10/07/2016. She had no further treatment. She had presented in June 2020 with fatigue and weight loss. She was found to have a significantly CEA level. Her restaging CT scans showed abnormal findings in the sigmoid colon, but colonoscopy showed no evidence of malignancy. As such, the elevated CEA level remains unexplained. PET/CT showed multiple FDG positive mediastinal lymph nodes in the right and left paratracheal, subaortic, and subcarinal territories, strongly suspicious for recurrence. A 1.1 x 0.6 cm left pleural implant at the second intercostal space had SUV 4.3, suggestive of a malignant implant. There were no other areas of abnormal uptake on that study. On 08/22/2020 she underwent bronchoscopy with EBUS and FNA biopsy of station 7 lymph node. There were no endobronchial lesions identified on the bronchoscopy. The endobronchial ultrasound did show mediastinal and left hilar lymphadenopathy. Cytology on the FNA biopsy was positive for metastatic poorly differentiated non-small cell carcinoma. The Ki-67 was high at 50%. The PET/CT findings and pathology results were reviewed with the patient. She now has evidence of stage MARC (M1a) disease with recurrence and mediastinal lymph nodes and with left pleural implant. Dr Mihcaels discussed the fact that her disease is no longer curable. She has been offered treatment with concurrent chemoradiation. She is receiving weekly Carboplatin/Taxol. A. Proceed with week 4 carboplatin paclitaxel. B. Premedication steroid compliance confirmed. C. Labs from 10/30/2020 were reviewed in detail and discussed with Ms. Nettles and a copy was given to her. WBC 3.2, hemoglobin 15.7, platelets 292,000 ANC is 2520. Potassium 4.4 random glucose 105 creatinine 0.4 LFTs are normal. CEA is 108.8 and on August 02, 2020 was 284.6. 2. Muscle/leg cramps A. These are worse at night when she is trying to rest. 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 She states she is taking and Fridays off currently. She states it was worse last night after working for about 4 hours. It has resolved today. B. She is responding well to gabapentin 300 mg up to 3 times daily. She is aware she can increase it to 600 mg at night if needed. 3. Follow-up plan A. She will be seen weekly for consideration of weekly carboplatin paclitaxel with CBC CMP. She may have this drawn the day before as she is here for radiation. B. Mrs. Nettles was instructed to contact us in the interim should questions or problems arise. Signed By: Tonny Ibarra-, [facility] Sha Michaels MD <<Signature on File>>
--- NOTE | 2020-11-19 12:48 | ONC FU_ITS ---
[facility] Patient Note Patient: Kim Nettles < Unit #: [id number]: 1960 Dictated By: Tonny IbarraDate of Visit: Nov 07, 2020 Onc MED Follow-Up/Prog Note Chief Complaint: Lung cancer. 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 She now has progressed to stage MARC (M1 A) with biopsy-proven involvement in mediastinal lymph nodes and with PET/CT evidence of a left pleural implant. She was seen by Maria G Shah in August 2016 for treatment of pneumonia. A chest x-ray on 08/27/2016 showed an indistinct increased density in the left upper lobe measuring about 3 cm. It was suspicious for a mass lesion. There was evidence of chronic emphysema. There were no other pulmonary parenchymal densities. Further evaluation with chest CT on 09/03/2016 confirmed a spiculated noncalcified soft tissue mass in the left upper lobe laterally. It appeared to extend to and involve the left lateral pleural margin. It measured 1.5 x 2.3 x 2.8 cm. There were no other mass lesions noted. There was no axillary, supraclavicular, mediastinal, or hilar masses or adenopathy. There was no pleural effusion. There did appear to be trace pericardial effusion. There were centrilobular emphysematous changes throughout the lung parenchyma. There was suspected left adrenal adenoma measuring 1.3 x 2.2 cm. A near water density lesion in the right upper lobe of the liver measuring 1.2 cm appeared consistent with an incidental cyst. There was no evidence of any metastatic involvement. She was referred to Dr. Kinsey. Her pulmonary function studies in 09/28/2016 were adequate with FEV 2.68, 47% of predicted. On 10/07/2016 she underwent thoracotomy with left upper lobe apical posterior segmentectomy. She was found to have moderately intense adhesions, precluding a complete left upper lobectomy. As such, the procedure was limited to formal segmentectomy. 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 It was mostly moderately differentiated, but focally it was high-grade (poorly differentiated). It measured 2.4 x 1.9 cm. The resection margins were free of tumor, but tumor was noted to extend onto the pleural surface. Pathologic staging was T2a, (PL 2), NX, as there were no lymph nodes included in the specimen. She has had an uneventful postoperative recovery. Dr Michaels had seen her initially on 11/11/2016. There appeared to be no indication for adjuvant chemotherapy, and she was followed on observation/expectant management. As of her follow-up visit in June 2017 she appeared stable clinically, there was no evidence of recurrence/progression of the lung cancer on her restaging chest CT. She has had no other ongoing medical illnesses, but she did have evidence of COPD by CT scan and her pulmonary function studies showed moderately severe obstructive disease. She has a history of smoking 2 packs of cigarettes daily for 25 years. She had cut down following her lung surgery. INTERIM HISTORY: She had a follow-up visit with Camilo Molina on 06/15/2020. She complained of fatigue, and she was noted to have a significant weight loss. Her laboratory studies included CBC showing elevated hemoglobin/hematocrit levels at 17.8 g and 54.9%. The white blood cell count was 8200 and the platelet count was 369,000. Her comprehensive metabolic profile was unremarkable and her TSH level was normal 2.33 ???IU/mL. A battery of tumor markers was obtained and her CEA level was found to be significantly elevated at 303.6 ng/mL. Her restaging CT scans of the chest, abdomen, and pelvis on 06/19/2020 showed postoperative changes at the left lung apex and moderate centrilobular emphysematous changes. A noncalcified 5 mm pulmonary nodule in the left lower lobe was indeterminate. There were no other pulmonary mass lesions and there was no mediastinal or hilar lymphadenopathy noted. There was evidence of hepatomegaly with enlargement of the right hepatic lobe. There was extensive cholelithiasis with gallbladder distention and further evaluation with ultrasound was recommended. There was thickening and induration involving the distal sigmoid colon suspicious for diverticulitis. A small amount of free fluid was noted in the pelvis. With the abnormal CT findings in the sigmoid colon and with the significantly elevated CEA level, she was recommended to have further evaluation with colonoscopy. The procedure was done on 07/16/2020. It showed moderate diverticulosis in the sigmoid colon, but there was no evidence of malignancy in the sigmoid colon and there were no other abnormal findings noted. She had further evaluation with PET/CT on 08/10/2020. It showed multiple FDG positive mediastinal lymph nodes in the right and left paratracheal, subaortic, and subcarinal territories, strongly suspicious for recurrence. An index node in the subcarinal territory measured 1.4 cm with SUV 9.6. A 1.1 x 0.6 cm left pleural implant at the second intercostal space had SUV 4.3, suggestive of a malignant implant. There were no other areas of abnormal uptake on that study. On 08/22/2020 she underwent bronchoscopy with EBUS and FNA biopsy of station 7 lymph node. There were no endobronchial lesions identified on the bronchoscopy. The endobronchial ultrasound did show mediastinal and left hilar lymphadenopathy. Cytology on the FNA biopsy was positive for metastatic poorly differentiated non-small cell carcinoma. The tumor cells showed positive staining for CK high molecular weight and for CK 8/18. There was cytoplasmic staining for p63. The TTF-1 was negative. The Ki-67 was high at 50%. The PET/CT findings and pathology results were reviewed with the patient per Dr Michaels. She has evidence of stage MARC (M1a) disease with recurrence and mediastinal lymph nodes and with left pleural implant. Dr Michaels discussed the fact that her disease is no longer curable. She has been offered treatment with concurrent chemoradiation. She will receive weekly Carboplatin/Taxol. She began her first week of chemotherapy on October 10, 2020. Ms Nettles is here today for followup is scheduled for her fifth week of Carboplatin/Taxol. She continues to do well overall. She has had some intermittent leg cramps after treatment and after working on her feet for multiple hours a day. She states they are much better on the gabapentin. She has no new concerns today. She states overall she feels really good. She states she feels better than she has in some time. She denies any fever or chills. She denies any mouth sores, sore throat or difficulty swallowing. She denies any shortness of breath orthopnea. She denies any hemoptysis. She states she has not had any chest pain or palpitations. She states she has not had nausea and no vomiting. She has had some intermittent diarrhea and constipation but states that is well controlled with antidiarrheals and stool softener/laxative as needed. She states that has been normal for her for some time. It is no worse than what is normal for me . She denies any peripheral neuropathy. Her ECOG is 1. Past Medical History: Chronic obstructive pulmonary disease Hypertension Lung cancer Past Surgical History: Exploratory laparotomy with lysis of adhesions Exploratory laparotomy with temporary colostomy for diverticulitis Right internal jugular PowerPort???Dr. Ng???[facility] in 2020 Thoracotomy with left upper lobe apical posterior segmentectomy in 2016 Allergies: No Known Allergies. Medications: Advair Diskus 1 Puff(s) (of 250-50 mcg/dose) Aerosol Powder, Breath Activated Inhalation b.i.d. Anacin 1 (400-32 mg) Tablet Oral t.i.d. Gabapentin 1 (300 mg) Capsule Oral t.i.d. PRN Lisinopril 1 Tablet (of 20 mg) Oral daily LORazepam 1 Tablet (of 1 mg) Oral t.i.d. PRN oxyCODONE HCl 5 mL (of 5 mg/5mL) Solution Oral q 4 hours Prochlorperazine Maleate 1 Tablet (of 10 mg) Oral q 4 hours PRN Family History: Ms. Nettles's mother at age 61: Liver Cancer. Ms. Nettles's father at age 72: COPD. Ms. Nettles has 3 brothers: 1 alive, 2 . Ms. Nettles's first brother's brain aneurysm. Another brother's aneurism. She has 1 sister who is alive. She has 1 son who is : leukemia. .Father had COPD and heart disease. He at age 72. Mother of liver cancer at age 61. A brother from cerebral aneurysm at age 49. A son of leukemia at age 12. Social History: Ms. Nettles is single and she is an unknown. She is a daily smoker who has smoked 1.0 pack/day for 28 years. She is a former drinker. Ms. Nettles reports the following support systems: lives alone, lives in own house, and adequate transportation available for expected visits. Her diet consists of regular meals. She indicates her activity level as: daily activities. She has a history of smoking 2 packs of cigarettes daily for 25 years. She cut down to 1 pack per day following her lung surgery. She has had some alcohol use in the past, not heavy. She quit drinking approximatley 3 years ago. Review Of Symptoms: <See Above> Vital Signs: Performed on Nov 07, 2020 13:20 Height - 64.00 in Temperature - 98.1 F (LOW) Pulse - 82 /min Respiration - 16 /min BP - 105/58 mm(hg) O2 Sat - 100 % Performed on Nov 07, 2020 09:25 Height - 64.00 in Weight - 103.2 lbs (HIGH) BSA - 1.48 sq.m BMI - 17.71 (LOW) Temperature - 97.9 F (LOW) Pulse - 84 /min Respiration - 18 /min BP - 106/61 mm(hg) O2 Sat - 100 % Pain - 0 Fatigue - 0,0 - Fully active, able to carry on all predisease activities without restrictions. (ECOG) Physical Examination: Constitutional Alert, oriented, no acute distress. Skin pink, warm and dry. Head Normocephalic; atraumatic. Eyes Conjunctivae and sclerae are clear and without icterus. Pupils are reactive and equal. Neck Supple without masses or thyromegaly. No jugular venous distension. Hematologic/Lymphatic No petechiae or purpura. No tender or palpable lymph nodes in the cervical or supraclavicular areas. Respiratory Lungs are clear to auscultation without rhonchi or wheezing. Cardiovascular Regular rate and rhythm of heart without murmurs,clicks, gallops or rubs. Chest Chest is symmetric without chest wall deformities. Right internal jugular PowerPort insertion site is unremarkable. Abdomen Non-tender, non-distended, no masses or ascites. Good bowel sounds noted in all quads. No guarding or rebound tenderness. No pulsatile masses. Back/Spine Non-tender to palpation. Extremities No visible deformities, no cyanosis, clubbing or edema. Musculoskeletal No tenderness or swelling, normal range of motion without obvious weakness. Integumentary No rashes or lesions. Neurologic No sensory or motor deficits, normal cerebellar function, normal gait. Psychiatric Alert and oriented times three. Coherent speech. Verbalizes understanding of our discussions today. Laboratory:Test performed on November 14, 2020 09:58 see flow sheet Creatinine 0.4 mg/dL Cr Clearance (Est) 112.13 mL/min Impression: 1. Invasive adenocarcinoma involving the upper lobe of the left lung. She underwent left thoracotomy with left upper lobe segmentectomy on 10/07/2016. Her disease was pathologic stage T2a, (PL2), NX, as there was involvement of the pleural surface, but no lymph nodes were included in the specimen. Resection margins were free. By clinical evaluation, her disease was stage IB (T2a, N0, M0). She had no further treatment. 2. She now has evidence of recurrence with biopsy-proven involvement in mediastinal lymph nodes. There is also a suspected left pleural implant by PET/CT, consistent with stage MARC (M1a) disease. 3. COPD. 4. Hypertension. Plan/Problems Addressed at this Visit: PROBLEMS ADDRESSED TODAY 1. Invasive adenocarcinoma involving the upper lobe of the left lung, stage IB (pT2a, cN0, M0). She underwent left thoracotomy with left upper lobe segmentectomy on 10/07/2016. She had no further treatment. She had presented in June 2020 with fatigue and weight loss. She was found to have a significantly CEA level. Her restaging CT scans showed abnormal findings in the sigmoid colon, but colonoscopy showed no evidence of malignancy. As such, the elevated CEA level remains unexplained. PET/CT showed multiple FDG positive mediastinal lymph nodes in the right and left paratracheal, subaortic, and subcarinal territories, strongly suspicious for recurrence. A 1.1 x 0.6 cm left pleural implant at the second intercostal space had SUV 4.3, suggestive of a malignant implant. There were no other areas of abnormal uptake on that study. On 08/22/2020 she underwent bronchoscopy with EBUS and FNA biopsy of station 7 lymph node. There were no endobronchial lesions identified on the bronchoscopy. The endobronchial ultrasound did show mediastinal and left hilar lymphadenopathy. Cytology on the FNA biopsy was positive for metastatic poorly differentiated non-small cell carcinoma. The Ki-67 was high at 50%. The PET/CT findings and pathology results were reviewed with the patient. She now has evidence of stage MARC (M1a) disease with recurrence and mediastinal lymph nodes and with left pleural implant. Dr Michaels discussed the fact that her disease is no longer curable. She has been offered treatment with concurrent chemoradiation. She is receiving weekly Carboplatin/Taxol. She began concurrent chemotherapy on 10/10/2020. A. Proceed with week 5 carboplatin paclitaxel. B. Premedication steroid compliance confirmed. C. Labs from 11/06/2020 were reviewed in detail and discussed with Ms. Nettles and a copy was given to her. WBC 3.3, hemoglobin 15.4, platelets 249,000, ANC is 2400. Potassium 4.5, random glucose 96 creatinine 0.4 LFTs are normal. Her last CEA was on October 30, 2020 and reported at 108.8. Her CEA was 284.6 on August 02, 2020. Her weight is stable at 103.2. 2. Muscle/leg cramps A. These are worse at night when she is trying to rest. 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 She states she is taking and Fridays off currently. She states it was worse last night after working for about 4 hours. It has resolved today. B. She is improved on gabapentin 600 mg at hs. 3. Follow-up plan A. She will be seen weekly for consideration of weekly carboplatin paclitaxel with CBC CMP. She may have this drawn the day before as she is here for radiation. B. Mrs. Nettles was instructed to contact us in the interim should questions or problems arise. Signed By: Tonny Ibarra-, [facility] Sha Michaels MD <<Signature on File>>
== END 2020-11-08 23:59 | disposition home or self-care (01) ==
LOC: ONCMED 05:46
PROVIDERS: Internal Medicine Medical Oncology; Nurse Practitioner; Absent Provider Radiology Radiation Oncology; Visit Provider Radiology Radiation Oncology
DX: Z51.0 Encounter for antineoplastic radiation therapy (principal); Z51.11 Encounter for antineoplastic chemotherapy; C34.12 Malignant neoplasm of upper lobe, left bronchus or lung; C77.1 Secondary and unspecified malignant neoplasm of intrathoracic lymph nodes; C78.2 Secondary malignant neoplasm of pleura; J44.9 Chronic obstructive pulmonary disease, unspecified; I10 Essential (primary) hypertension; Z79.899 Other long term (current) drug therapy
CPT/HCPCS: 36591; 77336; 77387; 77412; 80053; 82378; 83735; 84443; 85025; 96367; 96368; 96375; 96413; 96417; 99214; 99215; J1100; J1200; J2469; J3490; J7030; J7050; J9045; J9267

== ENCOUNTER 2020-12-05 05:35 | Outpatient (RCR) | payer BC, SELFPAY ==
--- NOTE | 2020-11-11 09:25 | ONCRAD TMN_ITS ---
Radiation Oncology Treatment Management Note Patient Name: Kim Nettles Date of : 1960 Date of Service: 11/11/2020 Attending Physician: Gabriel Arvizu M.D. Kim Nettles is a 60 year-old white female diagnosed with recurrent non-small cell lung cancer. An apicoposterior segmentectomy performed in 2017 diagnosed a pathological stage IB adenocarcinoma of the left upper lobe of the lung. A recent PET/CT identified mediastinal lymphadenopathy with EBUS biopsy confirming a poorly-differentiated NSCLCa. The patient has received 46 Gy of a prescribed 60 Gibbons with a 3D-[employer] SERVICE COORDINATOR plan utilizing a four-field treatment technique. She has been prescribed carboplatin (AUC 2) and paclitaxel (50 mg/m???) weekly during therapy. Upon review of systems, she denied pulmonary symptoms. On physical examination, the patient weighed 99 lbs. Her temperature was 97.8 ???F with a blood pressure of 94/63 mmHg. The pulse was 98 bpm and her respiratory rate was 22. Oxygen saturation while breathing room air was 82%. There was no erythema within the treatment garza. Auscultation of the posterior lung garza revealed decreased breath sounds. Continue thoracic radiotherapy as prescribed. Administered oxygen via nasal cannula with appropriate response to saturation level. I will recommend her oxycodone elixir (1/2 tsp) at bedtime for persistent cough as needed. Signed by: Dr. Gabriel Arvizu 11/11/2020 9:24:31 AM
[2020-11-13 09:44] LABS: Basophils # 0.1 10^3/uL (0.0-0.1); Basophils % 1.8 %; Hematocrit 46.4 % (37.0-47.0); Lymphocytes # 0.2 10^3/uL (0.8-4.8); Lymphocytes % 4.7 %; Mean Corpuscular HGB Conc 32.3 g/dL (30.0-36.0); Mean Corpuscular Hemoglobin 29.2 pg (28.0-34.0); Mean Corpuscular Volume 90.3 fL (81-99); Mean Platelet Volume 10.8 fL (7.4-10.4); Monocytes # 0.7 10^3/uL (0.2-0.9); Monocytes % 16.8 %; Neutrophils # 2.91 10^3/uL (1.8-7.7); Neutrophils % 75.2 %; Nucleated Red Blood Cells % 0 %; Platelet Count 273 10^3/cmm (130-400); Red Blood Count 5.14 10^6/uL (4.1-5.3); Red Cell Distribution Width 18.8 % (12.1-15.1); White Blood Count 3.9 10^3/uL (4.0-10.0)
[2020-11-13 09:59] LABS: Alanine Aminotransferase 9 U/L (0-33); Albumin Level 3.6 g/dL (3.5-5.2); Alkaline Phosphatase 63 IU/L (35-105); Aspartate Amino Transferase 12 U/L (0-32); Blood Urea Nitrogen 24 mg/dL (6-20); Calcium 8.4 mg/dL (8.5-10.5); Carbon Dioxide 32 mmol/L (22-29); Chloride 99 mmol/L (98-107); Globulin 2.4 g/dL (1.3-4.6); Glomerular Filtration Rate 163.4 mL/min (90-130); Glucose 107 mg/dL (65-115); Osmolality Calculated 287 mOsm/kg (285-295); Sodium 136 mmol/L (136-145); Total Bilirubin 0.3 mg/dL (0.15-1.2)
--- NOTE | 2020-11-14 10:16 | ONC FU_ITS ---
Dr. Michaels Patient Follow-Up Note Patient: Kim Nettles Unit #: [id number]: 1960 Dicatated By: Sha Michaels M.D.Date of Visit:November 14, 2020 Onc Med Follow-up/Prog Note Chief Complaint: Lung cancer. 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 She was seen by Maria G Shah in August 2016 for treatment of pneumonia. A chest x-ray on 08/27/2016 showed an indistinct increased density in the left upper lobe measuring about 3 cm. It was suspicious for a mass lesion. There was evidence of chronic emphysema. There were no other pulmonary parenchymal densities. Further evaluation with chest CT on 09/03/2016 confirmed a spiculated noncalcified soft tissue mass in the left upper lobe laterally. It appeared to extend to and involve the left lateral pleural margin. It measured 1.5 x 2.3 x 2.8 cm. There were no other mass lesions noted. There was no axillary, supraclavicular, mediastinal, or hilar masses or adenopathy. There was no pleural effusion. There did appear to be trace pericardial effusion. There were centrilobular emphysematous changes throughout the lung parenchyma. There was suspected left adrenal adenoma measuring 1.3 x 2.2 cm. A near water density lesion in the right upper lobe of the liver measuring 1.2 cm appeared consistent with an incidental cyst. There was no evidence of any metastatic involvement. She was referred to Dr. Kinsey. Her pulmonary function studies in 09/28/2016 were adequate with FEV 2.68, 47% of predicted. On 10/07/2016 she underwent thoracotomy with left upper lobe apical posterior segmentectomy. She was found to have moderately intense adhesions, precluding a complete left upper lobectomy. As such, the procedure was limited to formal segmentectomy. 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 It was mostly moderately differentiated, but focally it was high-grade (poorly differentiated). It measured 2.4 x 1.9 cm. The resection margins were free of tumor, but tumor was noted to extend onto the pleural surface. Pathologic staging was T2a, (PL 2), NX, as there were no lymph nodes included in the specimen. She has had an uneventful postoperative recovery. I had seen her initially on 11/11/2016. There appeared to be no indication for adjuvant chemotherapy, and she was followed on observation/expectant management. As of her follow-up visit in June 2017 she appeared stable clinically, there was no evidence of recurrence/progression of the lung cancer on her restaging chest CT. She has had no other ongoing medical illnesses, but she did have evidence of COPD by CT scan and her pulmonary function studies showed moderately severe obstructive disease. She has a history of smoking 2 packs of cigarettes daily for 25 years. She had cut down following her lung surgery. INTERIM HISTORY: She had a follow-up visit with Camilo Molina on 06/15/2020. She complained of fatigue, and she was noted to have a significant weight loss. Her laboratory studies included CBC showing elevated hemoglobin/hematocrit levels at 17.8 g and 54.9%. The white blood cell count was 8200 and the platelet count was 369,000. Her comprehensive metabolic profile was unremarkable and her TSH level was normal 2.33 ???IU/mL. A battery of tumor markers was obtained and her CEA level was found to be significantly elevated at 303.6 ng/mL. Her restaging CT scans of the chest, abdomen, and pelvis on 06/19/2020 showed postoperative changes at the left lung apex and moderate centrilobular emphysematous changes. A noncalcified 5 mm pulmonary nodule in the left lower lobe was indeterminate. There were no other pulmonary mass lesions and there was no mediastinal or hilar lymphadenopathy noted. There was evidence of hepatomegaly with enlargement of the right hepatic lobe. There was extensive cholelithiasis with gallbladder distention and further evaluation with ultrasound was recommended. There was thickening and induration involving the distal sigmoid colon suspicious for diverticulitis. A small amount of free fluid was noted in the pelvis. With the abnormal CT findings in the sigmoid colon and with the significantly elevated CEA level, she was recommended to have further evaluation with colonoscopy. The procedure was done on 07/16/2020. It showed moderate diverticulosis in the sigmoid colon, but there was no evidence of malignancy in the sigmoid colon and there were no other abnormal findings noted. She had further evaluation with PET/CT on 08/10/2020. It showed multiple FDG positive mediastinal lymph nodes in the right and left paratracheal, subaortic, and subcarinal territories, strongly suspicious for recurrence. An index node in the subcarinal territory measured 1.4 cm with SUV 9.6. A 1.1 x 0.6 cm left pleural implant at the second intercostal space had SUV 4.3, suggestive of a malignant implant. There were no other areas of abnormal uptake on that study. On 08/22/2020 she underwent bronchoscopy with EBUS and FNA biopsy of station 7 lymph node. There were no endobronchial lesions identified on the bronchoscopy. The endobronchial ultrasound did show mediastinal and left hilar lymphadenopathy. Cytology on the FNA biopsy was positive for metastatic poorly differentiated non-small cell carcinoma. The tumor cells showed positive staining for CK high molecular weight and for CK 8/18. There was cytoplasmic staining for p63. The TTF-1 was negative. The Ki-67 was high at 50%. A next generation sequencing study was requested by liquid biopsy, but there was insufficient circulating tumor derived cell free DNA to obtain meaningful results. The PD-L1 expression was negative at < 1%. With her disease localized to lung and mediastinal lymph nodes, she appeared to be appropriate candidate for radiation with concurrent weekly carboplatin/paclitaxel chemotherapy. She began her cycle 1 carboplatin/paclitaxel on 10/10/2020. She was then able to continue her weekly infusions on schedule. She received her week 5 treatment on 11/07/2020. She is seen for a scheduled visit. Since her treatment last week she has had some further decline in her energy/activity tolerance. For a couple of days she felt really bad, to the point that she was not able to work. Today she feels a little better. Her ECOG score is 2. Her appetite has been okay. Her weight has fluctuated up and down. She does not have fever or night sweats. She has had no mouth sores, but she does have a little soreness in her upper throat now. Her breathing has been okay. She uses oxygen just as needed. She does occasionally wake up with coughing, and she is having some difficulty sleeping because of it. She has not been having chest pain. She does not complain of nausea and she is not having acid reflux symptoms. Bowel and bladder function remain adequate. She has no significant joint or bone pain. She had been waking up with charley horses, but that has improved taking Flexeril at bedtime. She has occasional headache. She says her hands went numb 1 day, but that subsequently resolved. She has had no other neuropathy symptoms. Medications: Advair Diskus 1 Puff(s) (of 250-50 mcg/dose) Aerosol Powder, Breath Activated Inhalation b.i.d., Anacin 1 (400-32 mg) Tablet Oral t.i.d., Gabapentin 1 (300 mg) Capsule Oral t.i.d. PRN, Lisinopril 1 Tablet (of 20 mg) Oral daily, LORazepam 1 Tablet (of 1 mg) Oral t.i.d. PRN, oxyCODONE HCl 5 mL (of 5 mg/5mL) Solution Oral q 4 hours, Prochlorperazine Maleate 1 Tablet (of 10 mg) Oral q 4 hours PRN Allergies: No Known Allergies. Vital Signs: Performed on November 14, 2020 09:42 Height - 64.00 in Weight - 101 lbs (HIGH) BSA - 1.46 sq.m BMI - 17.34 (LOW) Temperature - 96.5 F (LOW) Pulse - 84 /min Respiration - 20 /min BP - 83/54 mm(hg) (LOW) O2 Sat - 93 % (LOW) Pain - 0 Fatigue - 0 Physical Examination: Constitutional - She looks pretty good generally, Eyes - Sclerae nonicteric. Conjunctivae clear, ENMT - No lesions noted in the oral cavity, Hematologic/Lymphatic - No cervical, clavicular, or axillary adenopathy, Respiratory - Lungs show slightly coarse breath sounds bilaterally, Cardiovascular - Heart rhythm is regular. There is no murmur, gallop, or rub noted, Abdomen - Soft. Liver and spleen are not enlarged. There is no abdominal mass or ascites noted and there is no inguinal adenopathy, Extremities - No edema, Neurologic - No focal neurologic deficits noted. Lab/Imaging: CBC shows hemoglobin 15.0 g, white blood cell count 3900, and platelet count 273,000. Comprehensive metabolic profile is unremarkable. Problem List: 1. Invasive adenocarcinoma involving the upper lobe of the left lung. She underwent left thoracotomy with left upper lobe segmentectomy on 10/07/2016. Her disease was pathologic stage T2a, (PL2), NX, as there was involvement of the pleural surface, but no lymph nodes were included in the specimen. Resection margins were free. By clinical evaluation, her disease was stage IB (T2a, N0, M0). She had no further treatment. 2. She now has evidence of recurrence with biopsy-proven involvement in mediastinal lymph nodes. There is also a suspected left pleural implant by PET/CT, consistent with stage MARC (M1a) disease. 3. COPD. 4. Hypertension. Problems Addressed with this Encounter and Plan: Patient with invasive adenocarcinoma involving the upper lobe of the left lung, stage IB (pT2a, cN0, M0). She underwent left thoracotomy with left upper lobe segmentectomy on 10/07/2016. She had no further treatment. She had presented in June 2020 with fatigue and weight loss. She was found to have a significantly CEA level. Her restaging CT scans showed abnormal findings in the sigmoid colon, but colonoscopy showed no evidence of malignancy. As such, the elevated CEA level remains unexplained. PET/CT showed multiple FDG positive mediastinal lymph nodes in the right and left paratracheal, subaortic, and subcarinal territories, strongly suspicious for recurrence. A 1.1 x 0.6 cm left pleural implant at the second intercostal space had SUV 4.3, suggestive of a malignant implant. There were no other areas of abnormal uptake on that study. On 08/22/2020 she underwent bronchoscopy with EBUS and FNA biopsy of station 7 lymph node. There were no endobronchial lesions identified on the bronchoscopy. The endobronchial ultrasound did show mediastinal and left hilar lymphadenopathy. Cytology on the FNA biopsy was positive for metastatic poorly differentiated non-small cell carcinoma. The Ki-67 was high at 50%. The tumor was found to have low PD-L1 expression at <1%. With disease limited to lung and mediastinal lymph nodes, she was felt to be an appropriate candidate for chemoradiation. She has now completed 5 weeks of treatment. She has had a decline in her performance status during the past week. She has mild esophagitis symptoms now. She has had just minimal neuropathy. Overall, she has been tolerating treatment very well. She will proceed now with her 6th and final weekly infusion of carboplatin/paclitaxel. Dosages will remain the same. She is due to complete her radiation next week. I will tentatively plan a follow-up visit with restaging CT scans in 3 weeks, at which time she will be evaluated to determine eligibility for maintenance immunotherapy. Signed By: Sha Michaels M.D. <<Signature on File>>
[2020-11-14] MEDS: palonosetron 0.25 mg/5 mL SDV IV (10:31)
[2020-11-14] MEDS: sodium chloride 0.9% 250 ML 75 ML IV (10:31)
[2020-11-14] MEDS: famotidine 20 mg/2 mL INJ IVP (10:50)
[2020-11-14] MEDS: diphenhydrAMINE 50 mg/mL SDV 1mL 25 MG IV (10:52)
--- NOTE | 2020-11-18 09:16 | ONCRAD TMN_ITS ---
Radiation Oncology Treatment Management Note Patient Name: Kim Nettles Date of : 1960 Date of Service: 11/18/2020 Attending Physician: Gabriel Arvizu M.D. Kim Nettles is a 60 year-old white female diagnosed with recurrent non-small cell lung cancer. An apicoposterior segmentectomy performed in 2017 diagnosed a pathological stage IB adenocarcinoma of the left upper lobe of the lung. A recent PET/CT identified mediastinal lymphadenopathy with EBUS biopsy confirming a poorly-differentiated NSCLCa. 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 She has been prescribed carboplatin (AUC 2) and paclitaxel (50 mg/m???) weekly during therapy. Upon review of systems, she denied pulmonary symptoms. On physical examination, the patient weighed 102 lbs. Her temperature was 97.4 ???F with a blood pressure of 91/65 mmHg. The pulse was 92 bpm and her respiratory rate was 20. Oxygen saturation while breathing room air was 96%. There was no erythema within the treatment garza. Auscultation of the posterior lung garza revealed decreased breath sounds. Continue thoracic radiotherapy as planned. Signed by: Dr. Gabriel Arvizu 11/18/2020 9:15:30 AM
--- NOTE | 2020-12-03 10:46 | CT_ITS ---
WS: [id number] CT CHEST TECHNIQUE: Contrast enhanced CT of the chest with coronal and sagittal reformatted images. CLINICAL INFORMATION: LUNG CANCER COMPARISON: CT June 19, 2020 and PET/CT August 10, 2020 DLP: 442.[address] scans at [facility] use at least one of these dose optimization techniques: automat ed exposure control; mA and/or kV adjustment per patient size (includes targeted exams where dose is matched to clinical indication); or iterative reconstruction. FINDINGS: Prior postoperative changes resection left upper lobe. Previously described FDG avid mediastinal and subcarinal lymph nodes appear improved today. No evidence of disease progression. No mediastinal or h ilar lymphadenopathy. Previously described left pleural implant in the left upper lobe with no associated suspicious findin gs in this area today. No evidence of progressive disease. Associated volume loss in the left lung. P reviously described 5 to 6 mm nodule left lower lobe has resolved. New micronodular infiltrates in th e left lower lobe medially nonspecific but likely infectious or inflammatory. Similar-appearing tiny micronodular infiltrates in the lingula. No suspicious findings in the right lung. Diffuse fatty infiltration liver. Hepatomegaly. Small hepatic cyst in dome of the liver measuring 11 mm. Adrenal glands are normal. Partially visualized left renal cyst measuring 1.8 cm. Moderate centrilobular emphysematous changes. Aortic and coronary calcification. CT/CT chest w con* [id number] IMPRESSION: 1. Postoperative changes left upper lobe appears unchanged from previous. 2. Previously described FDG avid mediastinal and hilar lymph nodes appear impr mildred today. No mediastinal or hilar lymphadenopathy. 3. No abnormalities in the area of the previously described suspected pleural implant. 4. Micronodular infiltrates in the lingula and left lower lobe medially new fr om previous nonspecific but likely infectious or inflammatory. Recommend 3 norma h follow-up. 5. Previously described left lower lobe 5 to 6 mm nodule has resolved.
[2020-12-03] MEDS: iohexol 300 mg/mL 100 mL Btl IV (11:03)
[2020-12-05] MEDS: alteplase 1 mg/mL SDV 2 mL 2 MG INTRACATH ×2 (12:15→13:25)
[2020-12-05 12:45] LABS: Basophils # 0.1 10^3/uL (0.0-0.1); Basophils % 0.9 %; Eosinophils # 0.4 10^3/uL (0.0-0.8); Eosinophils % 7.4 %; Hematocrit 47.4 % (37.0-47.0); Lymphocytes # 0.5 10^3/uL (0.8-4.8); Mean Corpuscular HGB Conc 31.6 g/dL (30.0-36.0); Mean Corpuscular Volume 91.5 fL (81-99); Mean Platelet Volume 10.9 fL (7.4-10.4); Monocytes # 0.6 10^3/uL (0.2-0.9); Monocytes % 10.8 %; Neutrophils # 3.99 10^3/uL (1.8-7.7); Neutrophils % 71.5 %; Nucleated Red Blood Cells % 0 %; Platelet Count 339 10^3/cmm (130-400); Red Blood Count 5.18 10^6/uL (4.1-5.3); Red Cell Distribution Width 20.4 % (12.1-15.1); White Blood Count 5.6 10^3/uL (4.0-10.0)
[2020-12-05 12:59] LABS: Alanine Aminotransferase 9 U/L (0-33); Albumin Level 3.5 g/dL (3.5-5.2); Alkaline Phosphatase 68 IU/L (35-105); Anion Gap 11.4 (5-19); Aspartate Amino Transferase 12 U/L (0-32); Blood Urea Nitrogen 21 mg/dL (6-20); Carbon Dioxide 30 mmol/L (22-29); Chloride 103 mmol/L (98-107); Globulin 2.3 g/dL (1.3-4.6); Glomerular Filtration Rate 163.4 mL/min (90-130); Glucose 82 mg/dL (65-115); Osmolality Calculated 292 mOsm/kg (285-295); Potassium 4.4 mmol/L (3.5-5.1); Sodium 140 mmol/L (136-145); Total Bilirubin 0.2 mg/dL (0.15-1.2); Total Protein 5.8 g/dL (6.6-8.7)
--- NOTE | 2020-12-05 17:27 | ONC FU_ITS ---
Dr. Michaels Patient Follow-Up Note Patient: Kim Nettles Unit #: [id number]: 1960 Dicatated By: Sha Michaels M.D.Date of Visit:December 05, 2020 Onc Med Follow-up/Prog Note Chief Complaint: Lung cancer. 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 She was seen by Maria G Shah in August 2016 for treatment of pneumonia. A chest x-ray on 08/27/2016 showed an indistinct increased density in the left upper lobe measuring about 3 cm. It was suspicious for a mass lesion. There was evidence of chronic emphysema. There were no other pulmonary parenchymal densities. Further evaluation with chest CT on 09/03/2016 confirmed a spiculated noncalcified soft tissue mass in the left upper lobe laterally. It appeared to extend to and involve the left lateral pleural margin. It measured 1.5 x 2.3 x 2.8 cm. There were no other mass lesions noted. There was no axillary, supraclavicular, mediastinal, or hilar masses or adenopathy. There was no pleural effusion. There did appear to be trace pericardial effusion. There were centrilobular emphysematous changes throughout the lung parenchyma. There was suspected left adrenal adenoma measuring 1.3 x 2.2 cm. A near water density lesion in the right upper lobe of the liver measuring 1.2 cm appeared consistent with an incidental cyst. There was no evidence of any metastatic involvement. She was referred to Dr. Kinsey. Her pulmonary function studies in 09/28/2016 were adequate with FEV 2.68, 47% of predicted. On 10/07/2016 she underwent thoracotomy with left upper lobe apical posterior segmentectomy. She was found to have moderately intense adhesions, precluding a complete left upper lobectomy. As such, the procedure was limited to formal segmentectomy. 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 It was mostly moderately differentiated, but focally it was high-grade (poorly differentiated). It measured 2.4 x 1.9 cm. The resection margins were free of tumor, but tumor was noted to extend onto the pleural surface. Pathologic staging was T2a, (PL 2), NX, as there were no lymph nodes included in the specimen. She has had an uneventful postoperative recovery. I had seen her initially on 11/11/2016. There appeared to be no indication for adjuvant chemotherapy, and she was followed on observation/expectant management. As of her follow-up visit in June 2017 she appeared stable clinically, there was no evidence of recurrence/progression of the lung cancer on her restaging chest CT. She had a follow-up visit with Camilo Molina on 06/15/2020. She complained of fatigue, and she was noted to have a significant weight loss. Her laboratory studies included CBC showing elevated hemoglobin/hematocrit levels at 17.8 g and 54.9%. The white blood cell count was 8200 and the platelet count was 369,000. Her comprehensive metabolic profile was unremarkable and her TSH level was normal 2.33 ???IU/mL. A battery of tumor markers was obtained and her CEA level was found to be significantly elevated at 303.6 ng/mL. Her restaging CT scans of the chest, abdomen, and pelvis on 06/19/2020 showed postoperative changes at the left lung apex and moderate centrilobular emphysematous changes. A noncalcified 5 mm pulmonary nodule in the left lower lobe was indeterminate. There were no other pulmonary mass lesions and there was no mediastinal or hilar lymphadenopathy noted. There was evidence of hepatomegaly with enlargement of the right hepatic lobe. There was extensive cholelithiasis with gallbladder distention and further evaluation with ultrasound was recommended. There was thickening and induration involving the distal sigmoid colon suspicious for diverticulitis. A small amount of free fluid was noted in the pelvis. With the abnormal CT findings in the sigmoid colon and with the significantly elevated CEA level, she was recommended to have further evaluation with colonoscopy. The procedure was done on 07/16/2020. It showed moderate diverticulosis in the sigmoid colon, but there was no evidence of malignancy in the sigmoid colon and there were no other abnormal findings noted. She had further evaluation with PET/CT on 08/10/2020. It showed multiple FDG positive mediastinal lymph nodes in the right and left paratracheal, subaortic, and subcarinal territories, strongly suspicious for recurrence. An index node in the subcarinal territory measured 1.4 cm with SUV 9.6. A 1.1 x 0.6 cm left pleural implant at the second intercostal space had SUV 4.3, suggestive of a malignant implant. There were no other areas of abnormal uptake on that study. On 08/22/2020 she underwent bronchoscopy with EBUS and FNA biopsy of station 7 lymph node. There were no endobronchial lesions identified on the bronchoscopy. The endobronchial ultrasound did show mediastinal and left hilar lymphadenopathy. Cytology on the FNA biopsy was positive for metastatic poorly differentiated non-small cell carcinoma. The tumor cells showed positive staining for CK high molecular weight and for CK 8/18. There was cytoplasmic staining for p63. The TTF-1 was negative. The Ki-67 was high at 50%. A next generation sequencing study was requested by liquid biopsy, but there was insufficient circulating tumor derived cell free DNA to obtain meaningful results. The PD-L1 expression was negative at < 1%. With her disease localized to lung and mediastinal lymph nodes, she appeared to be appropriate candidate for radiation with concurrent weekly carboplatin/paclitaxel chemotherapy. She began her cycle 1 carboplatin/paclitaxel on 10/10/2020. She was then able to continue her weekly infusions on schedule. She received her week 6 treatment on 11/14/2020. She completed radiation on 11/20/2020 to a total dose of 6000 cGy, administered in 30 fractions. Her medical history is otherwise significant for underlying COPD. She has had no other ongoing medical illnesses. She has a history of smoking 2 packs of cigarettes daily for 25 years. She had cut down following her lung surgery. INTERIM HISTORY: Restaging chest CT on 12/03/2024 showed improvement in the previously described mediastinal and subcarinal adenopathy. There was no residual abnormalities in the area of the previously described suspected pleural implant. Micronodular infiltrates were noted in the lingula and left lower lobe medially, new from previous studies. The appearance was consistent with infectious or inflammatory process. A previously described left lower lobe nodule measuring 5 to 6 mm was also noted to have resolved. She is seen for a follow-up visit. She has not been feeling good, mainly due to pain in her throat/upper chest, particularly when she tries to swallow. She is having difficulty eating and she has lost weight. Her energy is not been good. She has still been trying to work when she can. ECOG score is 1. She does not have fever or night sweats. She has had no mouth sores. She has shortness of breath and she is using oxygen as needed. She has cough, mainly at night. She is bringing up yellowish sputum. She has some nausea. She has no other GI or complaints. She is not having any other pain right now, but she sometimes does have headache. She occasionally has lightheadedness. She has no numbness/paresthesia or other focal neurologic symptoms. Medications: Advair Diskus 1 Puff(s) (of 250-50 mcg/dose) Aerosol Powder, Breath Activated Inhalation b.i.d., Anacin 1 (400-32 mg) Tablet Oral t.i.d., Gabapentin 1 (300 mg) Capsule Oral t.i.d. PRN, Lisinopril 1 Tablet (of 20 mg) Oral daily, LORazepam 1 Tablet (of 1 mg) Oral t.i.d. PRN, oxyCODONE HCl 5 mL (of 5 mg/5mL) Solution Oral q 4 hours, Prochlorperazine Maleate 1 Tablet (of 10 mg) Oral q 4 hours PRN Allergies: No Known Allergies. Vital Signs: Performed on December 05, 2020 15:22 Height - 64.00 in Weight - 97.2 lbs (LOW) BSA - 1.44 sq.m BMI - 16.68 (LOW) Temperature - 97.9 F (LOW) Pulse - 98 /min Respiration - 18 /min BP - 92/59 mm(hg) O2 Sat - 92 % (LOW) Pain - 8 Fatigue - 7 Physical Examination: Constitutional - She appears somewhat weak generally, Eyes - Sclerae nonicteric. Conjunctivae clear, ENMT - No lesions noted in the oral cavity, Hematologic/Lymphatic - No cervical, clavicular, or axillary adenopathy, Respiratory - Lungs show diminished air movement with coarse breath sounds bilaterally. There are scattered rales present, Cardiovascular - Heart rhythm is regular. There is no murmur, gallop, or rub noted, Abdomen - Soft. Liver and spleen are not enlarged. There is no abdominal mass or ascites noted and there is no inguinal adenopathy, Extremities - No edema, Neurologic - No focal neurologic deficits noted. Lab/Imaging: Test performed on December 05, 2020 11:59 Sodium 140 mmol/L Potassium 4.4 mmol/L Chloride 103 mmol/L CO2 30 mmol/L Anion Gap 11.4 BUN 21 mg/dL Creatinine 0.4 mg/dL Cr Clearance (Est) 112.1300 mL/min eGFR 163.4 mL/min Glucose 82 mg/dL Osmolality - Calculated 292 mOsm/kg Calcium 8.0 mg/dL Protein, Total 5.8 g/dL Albumin 3.5 g/dL Globulin 2.3 g/dL Bilirubin, Total 0.2 mg/dL ALT (SGPT) 9 U/L AST (SGOT) 12 U/L Alkaline Phosphatase 68 IU/L WBC 5.6 10 3/uL RBC 5.18 10 6/uL HGB 15.0 g/dL HCT 47.4 % MCV 91.5 fL MCH 29.0 pg MCHC 31.6 g/dL RDW 20.4 % Platelet Count 339 10 3/cmm MPV 10.9 fL Neutrophils 3.99 10 3/uL Lymphocytes 0.5 10 3/uL Monocytes 0.6 10 3/uL Eosinophils 0.4 10 3/uL Basophils 0.1 10 3/uL Neutrophil % 71.5 % Lymphocyte % 9.0 % Monocyte % 10.8 % Eosinophil % 7.4 % Basophils % 0.9 % NRBC % 0 % Problem List: 1. Invasive adenocarcinoma involving the upper lobe of the left lung. She underwent left thoracotomy with left upper lobe segmentectomy on 10/07/2016. Her disease was pathologic stage T2a, (PL2), NX, as there was involvement of the pleural surface, but no lymph nodes were included in the specimen. Resection margins were free. By clinical evaluation, her disease was stage IB (T2a, N0, M0). She had no further treatment. 2. She now has evidence of recurrence with biopsy-proven involvement in mediastinal lymph nodes. There is also a suspected left pleural implant by PET/CT, consistent with stage MARC (M1a) disease. 3. COPD. 4. Hypertension. Problems Addressed with this Encounter and Plan: 1. Patient with invasive adenocarcinoma involving the upper lobe of the left lung, stage IB (pT2a, cN0, M0). She underwent left thoracotomy with left upper lobe segmentectomy on 10/07/2016. She had no further treatment. She had presented in June 2020 with fatigue and weight loss. She was found to have a significantly CEA level. Her restaging CT scans showed abnormal findings in the sigmoid colon, but colonoscopy showed no evidence of malignancy. As such, the elevated CEA level remains unexplained. PET/CT showed multiple FDG positive mediastinal lymph nodes in the right and left paratracheal, subaortic, and subcarinal territories, strongly suspicious for recurrence. A 1.1 x 0.6 cm left pleural implant at the second intercostal space had SUV 4.3, suggestive of a malignant implant. There were no other areas of abnormal uptake on that study. On 08/22/2020 she underwent bronchoscopy with EBUS and FNA biopsy of station 7 lymph node. There were no endobronchial lesions identified on the bronchoscopy. The endobronchial ultrasound did show mediastinal and left hilar lymphadenopathy. Cytology on the FNA biopsy was positive for metastatic poorly differentiated non-small cell carcinoma. The Ki-67 was high at 50%. The tumor was found to have low PD-L1 expression at <1%. With disease limited to lung and mediastinal lymph nodes, she was treated with definitive radiation concurrently with weekly carboplatin/paclitaxel chemotherapy. The radiation was administered from 10/10/2020 through 11/20/2020 to a total dose of 6000 cGy delivered in 30 fractions. During that time she completed 6 weekly infusions of carboplatin/paclitaxel. Her treatment was complicated by fatigue and esophagitis. She has had a good response by follow-up chest CT. At this point she continues to have significant fatigue and she also is still having esophagitis symptoms. With evidence of response to the chemoradiation, she will be eligible now for maintenance immunotherapy with durvalumab. I anticipate starting treatment within the next 1 to 2 weeks, subject to verification of insurance coverage. In the meantime, her chest CT also reported micronodular infiltrates in the lingula and left lower lobe medially, consistent with infectious or inflammatory process. She will be given empiric antibiotic coverage with Augmentin. 2. She has ongoing esophagitis symptoms. She has had associated weight loss. I will start empiric treatment with fluconazole 100 mg daily for 15 days and pantoprazole 40 mg daily. She will continue symptomatic management with liquid oxycodone preparation. With her blood pressure low she is to hold her lisinopril now. Signed By: Sha Michaels M.D. <<Signature on File>>
== END 2020-12-09 23:59 | disposition home or self-care (01) ==
LOC: ONCMED 05:35
PROVIDERS: Absent Provider Radiology Radiation Oncology; Visit Provider Internal Medicine Medical Oncology
DX: Z51.0 Encounter for antineoplastic radiation therapy (principal); Z51.11 Encounter for antineoplastic chemotherapy; C34.12 Malignant neoplasm of upper lobe, left bronchus or lung; C77.1 Secondary and unspecified malignant neoplasm of intrathoracic lymph nodes; C78.2 Secondary malignant neoplasm of pleura; J44.9 Chronic obstructive pulmonary disease, unspecified; I10 Essential (primary) hypertension; Z79.899 Other long term (current) drug therapy
CPT/HCPCS: 36415; 36591; 36593; 71260; 77336; 77387; 77412; 80053; 85025; 96367; 96374; 96375; 96376; 96413; 96417; 99214; 99215; J1100; J1200; J2469; J2997; J3490; J7030; J7050; J9045; J9267; Q9967

== ENCOUNTER → 2020-12-18 09:13 | Outpatient (BNVA) | payer BC, SELFPAY | PROVIDERS: Referring Provider Internal Medicine Medical Oncology; Visit Provider Internal Medicine Medical Oncology | DX: C34.12 Malignant neoplasm of upper lobe, left bronchus or lung (principal) | CPT/HCPCS: 80053; 85025 ==

== ENCOUNTER 2021-01-02 05:36 | Outpatient (RCR) | payer BC, SELFPAY ==
[2020-12-19 10:06] LABS: Carcinoembryonic Antigen 10.4 ng/mL (0.0-4.7)
--- NOTE | 2020-12-19 10:13 | ONCRAD EPV_ITS ---
Radiation Oncology Follow-Up Note Patient Name: Kim Nettles Date of : 1960 Date of Service: 12/19/2020 Attending Physician: Gabriel Arvizu M.D. Kim Nettles returned to my office this morning for a routinely scheduled follow-up appointment. She completed thoracic radiotherapy in November for the management a recurrent non-small cell lung cancer. An apicoposterior segmentectomy performed in 2016 diagnosed a pathological stage IB adenocarcinoma of the left upper lobe of the lung. A PET/CT identified mediastinal lymphadenopathy with EBUS biopsy confirming a poorly-differentiated NSCLCa. Thoracic radiation therapy was delivered between the dates of October 10, 2020 through November 20, 2020. A prescribed dose of 60 Gy was delivered in 30 fractions encompassing 42 elapsed days. On review of systems, she described continued odynophagia despite anti-fungal treatment. On physical examination, she weighed 97 lbs and her temperature was 98.2???F. Her blood pressure was 101/66 mmHg. The pulse was 78 bpm and the respiratory rate was 18 breaths per minute. Her oxygen saturation while breathing ambient air was 94%. Auscultation of the posterior lung garza identified bronchial breath sounds. In summary, Ms. Daley returned for a routine post-radiotherapy follow-up. I will refill the oxycodone elixir. She will begin immunotherapy as scheduled with her medical oncologist. Signed by: Dr. Gabriel Arvizu 12/19/2020 10:12:40 AM
--- NOTE | 2021-01-15 01:06 | ONC FU_ITS ---
[facility] Patient Note Patient: Kim Nettles Unit #: [id number]: 1960 Dictated By: Tonny IbarraDate of Visit: Jan 02, 2021 Onc MED Follow-Up/Prog Note Chief Complaint: Lung cancer. 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 She was seen by Maria G Shah in August 2016 for treatment of pneumonia. A chest x-ray on 08/27/2016 showed an indistinct increased density in the left upper lobe measuring about 3 cm. It was suspicious for a mass lesion. There was evidence of chronic emphysema. There were no other pulmonary parenchymal densities. Further evaluation with chest CT on 09/03/2016 confirmed a spiculated noncalcified soft tissue mass in the left upper lobe laterally. It appeared to extend to and involve the left lateral pleural margin. It measured 1.5 x 2.3 x 2.8 cm. There were no other mass lesions noted. There was no axillary, supraclavicular, mediastinal, or hilar masses or adenopathy. There was no pleural effusion. There did appear to be trace pericardial effusion. There were centrilobular emphysematous changes throughout the lung parenchyma. There was suspected left adrenal adenoma measuring 1.3 x 2.2 cm. A near water density lesion in the right upper lobe of the liver measuring 1.2 cm appeared consistent with an incidental cyst. There was no evidence of any metastatic involvement. She was referred to Dr. Kinsey. Her pulmonary function studies in 09/28/2016 were adequate with FEV 2.68, 47% of predicted. On 10/07/2016 she underwent thoracotomy with left upper lobe apical posterior segmentectomy. She was found to have moderately intense adhesions, precluding a complete left upper lobectomy. As such, the procedure was limited to formal segmentectomy. 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 It was mostly moderately differentiated, but focally it was high-grade (poorly differentiated). It measured 2.4 x 1.9 cm. The resection margins were free of tumor, but tumor was noted to extend onto the pleural surface. Pathologic staging was T2a, (PL 2), NX, as there were no lymph nodes included in the specimen. She has had an uneventful postoperative recovery. Dr Michaels had seen her initially on 11/11/2016. There appeared to be no indication for adjuvant chemotherapy, and she was followed on observation/expectant management. As of her follow-up visit in June 2017 she appeared stable clinically, there was no evidence of recurrence/progression of the lung cancer on her restaging chest CT. She had a follow-up visit with Camilo Molina on 06/15/2020. She complained of fatigue, and she was noted to have a significant weight loss. Her laboratory studies included CBC showing elevated hemoglobin/hematocrit levels at 17.8 g and 54.9%. The white blood cell count was 8200 and the platelet count was 369,000. Her comprehensive metabolic profile was unremarkable and her TSH level was normal 2.33 ???IU/mL. A battery of tumor markers was obtained and her CEA level was found to be significantly elevated at 303.6 ng/mL. Her restaging CT scans of the chest, abdomen, and pelvis on 06/19/2020 showed postoperative changes at the left lung apex and moderate centrilobular emphysematous changes. A noncalcified 5 mm pulmonary nodule in the left lower lobe was indeterminate. There were no other pulmonary mass lesions and there was no mediastinal or hilar lymphadenopathy noted. There was evidence of hepatomegaly with enlargement of the right hepatic lobe. There was extensive cholelithiasis with gallbladder distention and further evaluation with ultrasound was recommended. There was thickening and induration involving the distal sigmoid colon suspicious for diverticulitis. A small amount of free fluid was noted in the pelvis. With the abnormal CT findings in the sigmoid colon and with the significantly elevated CEA level, she was recommended to have further evaluation with colonoscopy. The procedure was done on 07/16/2020. It showed moderate diverticulosis in the sigmoid colon, but there was no evidence of malignancy in the sigmoid colon and there were no other abnormal findings noted. She had further evaluation with PET/CT on 08/10/2020. It showed multiple FDG positive mediastinal lymph nodes in the right and left paratracheal, subaortic, and subcarinal territories, strongly suspicious for recurrence. An index node in the subcarinal territory measured 1.4 cm with SUV 9.6. A 1.1 x 0.6 cm left pleural implant at the second intercostal space had SUV 4.3, suggestive of a malignant implant. There were no other areas of abnormal uptake on that study. On 08/22/2020 she underwent bronchoscopy with EBUS and FNA biopsy of station 7 lymph node. There were no endobronchial lesions identified on the bronchoscopy. The endobronchial ultrasound did show mediastinal and left hilar lymphadenopathy. Cytology on the FNA biopsy was positive for metastatic poorly differentiated non-small cell carcinoma. The tumor cells showed positive staining for CK high molecular weight and for CK 8/18. There was cytoplasmic staining for p63. The TTF-1 was negative. The Ki-67 was high at 50%. A next generation sequencing study was requested by liquid biopsy, but there was insufficient circulating tumor derived cell free DNA to obtain meaningful results. The PD-L1 expression was negative at < 1%. With her disease localized to lung and mediastinal lymph nodes, she appeared to be appropriate candidate for radiation with concurrent weekly carboplatin/paclitaxel chemotherapy. She began her cycle 1 carboplatin/paclitaxel on 10/10/2020. She was then able to continue her weekly infusions on schedule. She received her week 6 treatment on 11/14/2020. She completed radiation on 11/20/2020 to a total dose of 6000 cGy, administered in 30 fractions. Her medical history is otherwise significant for underlying COPD. She has had no other ongoing medical illnesses. She has a history of smoking 2 packs of cigarettes daily for 25 years. She had cut down following her lung surgery. INTERIM HISTORY: Restaging chest CT on 12/03/2024 showed improvement in the previously described mediastinal and subcarinal adenopathy. There was no residual abnormalities in the area of the previously described suspected pleural implant. Micronodular infiltrates were noted in the lingula and left lower lobe medially, new from previous studies. The appearance was consistent with infectious or inflammatory process. A previously described left lower lobe nodule measuring 5 to 6 mm was also noted to have resolved. Mrs. Hernandez is here today for follow-up. She had 531 on December 05, 2020. She was felt to have infectious or inflammatory processes as her chest CT indicated she had micronodular infiltrates in the lingula and left lower lobe medially. She was placed on empiric antibiotic coverage with Augmentin and fluconazole (for esophagitis). She is here today for 2-week follow-up. Presented to start her on maintenance durvalumab however given her symptoms at that time that was held. She was able to proceed with the durvalumab on December 19, 2020 and has tolerated it well. She is here today for follow-up and states she is feeling much better overall. She has completed the antibiotics prescribed on her December 05, 2020 visit. And feels that her breathing is better overall. Her fatigue is improved and her esophagitis symptoms have essentially resolved. She denies any new concerns. She denies any fever or chills. She denies night sweats. She states her appetite is good. She has had some cough its been slightly productive with thick yellow-whitish sputum at times but she denies any hemoptysis. She denies any current nausea or vomiting. She has had no diarrhea or constipation. She denies any new pain. She is had no neuropathy. She continues to work and be as active as she can around the house. Her ECOG is 1. Past Medical History: Chronic obstructive pulmonary disease Hypertension Lung cancer Past Surgical History: Exploratory laparotomy with lysis of adhesions Exploratory laparotomy with temporary colostomy for diverticulitis Right internal jugular PowerPort???Dr. Ng[facility] in 2020 Thoracotomy with left upper lobe apical posterior segmentectomy in 2017 Allergies: No Known Allergies. Medications: Advair Diskus 1 Puff(s) (of 250-50 mcg/dose) Aerosol Powder, Breath Activated Inhalation b.i.d. Anacin 1 (400-32 mg) Tablet Oral t.i.d. Gabapentin 1 (300 mg) Capsule Oral t.i.d. PRN Lisinopril 1 Tablet (of 20 mg) Tablet Oral daily LORazepam 1 Tablet (of 1 mg) Oral t.i.d. PRN oxyCODONE HCl 5 mL (of 5 mg/5mL) Solution Oral q 4 hours Prochlorperazine Maleate 1 Tablet (of 10 mg) Oral q 4 hours PRN Family History: Ms. Nettles's mother at age 61: Liver Cancer. Ms. Nettles's father at age 72: COPD. Ms. Nettles has 3 brothers: 1 alive, 2 . Ms. Nettles's first brother's brain aneurysm. Another brother's aneurism. She has 1 sister who is alive. She has 1 son who is : leukemia. .Father had COPD and heart disease. He at age 72. Mother of liver cancer at age 61. A brother from cerebral aneurysm at age 49. A son of leukemia at age 12. Social History: Ms. Nettles is single and she is an unknown. She is a daily smoker who has smoked 1.0 pack/day for 28 years. She is a former drinker. Ms. Nettles reports the following support systems: lives alone, lives in own house, and adequate transportation available for expected visits. Her diet consists of regular meals. She indicates her activity level as: daily activities. She has a history of smoking 2 packs of cigarettes daily for 25 years. She cut down to 1 pack per day following her lung surgery. She has had some alcohol use in the past, not heavy. She quit drinking approximatley 3 years ago. Review Of Symptoms: <See Above> Vital Signs: Performed on Jan 02, 2021 15:22 Height - 64.00 in Weight - 98.0 lbs (HIGH) BSA - 1.44 sq.m BMI - 16.82 (LOW) Temperature - 97.7 F (LOW) Pulse - 90 /min Respiration - 18 /min BP - 100/70 mm(hg) O2 Sat - 98 % Pain - 0 Fatigue - 0,0 - Fully active, able to carry on all predisease activities without restrictions. (ECOG) Physical Examination: Constitutional Alert, oriented, no acute distress. Skin pink, warm and dry. Head Normocephalic; atraumatic. Eyes Conjunctivae and sclerae are clear and without icterus. Pupils are reactive and equal. Neck Supple without masses or thyromegaly. No jugular venous distension. Respiratory Lungs are clear to auscultation without rhonchi or wheezing. Cardiovascular Regular rate and rhythm of heart without murmurs,clicks, gallops or rubs. Chest Chest is symmetric without chest wall deformities. Right internal jugular PowerPort insertion site is unremarkable. Back/Spine Non-tender to palpation. Extremities No visible deformities, no cyanosis, clubbing or edema. Musculoskeletal No tenderness or swelling, normal range of motion without obvious weakness. Integumentary No rashes or lesions. Neurologic No sensory or motor deficits, normal cerebellar function, normal gait. Psychiatric Alert and oriented times three. Coherent speech. Verbalizes understanding of our discussions today. Laboratory:Test performed on Dec 18, 2020 09:20 CEA 10.4 ng/mL Test performed on December 05, 2020 11:59 Sodium 140 mmol/L Potassium 4.4 mmol/L Chloride 103 mmol/L CO2 30 mmol/L Anion Gap 11.4 BUN 21 mg/dL Creatinine 0.4 mg/dL Cr Clearance (Est) 112.1300 mL/min eGFR 163.4 mL/min Glucose 82 mg/dL Osmolality - Calculated 292 mOsm/kg Calcium 8.0 mg/dL Protein, Total 5.8 g/dL Albumin 3.5 g/dL Globulin 2.3 g/dL Bilirubin, Total 0.2 mg/dL ALT (SGPT) 9 U/L AST (SGOT) 12 U/L Alkaline Phosphatase 68 IU/L WBC 5.6 10 3/uL RBC 5.18 10 6/uL HGB 15.0 g/dL HCT 47.4 % MCV 91.5 fL MCH 29.0 pg MCHC 31.6 g/dL RDW 20.4 % Platelet Count 339 10 3/cmm MPV 10.9 fL Neutrophils 3.99 10 3/uL Lymphocytes 0.5 10 3/uL Monocytes 0.6 10 3/uL Eosinophils 0.4 10 3/uL Basophils 0.1 10 3/uL Neutrophil % 71.5 % Lymphocyte % 9.0 % Monocyte % 10.8 % Eosinophil % 7.4 % Basophils % 0.9 % NRBC % 0 % Test performed on Oct 30, 2020 09:10 Magnesium 1.8 mg/dL TSH 1.32 uIU/mL Test performed on Aug 02, 2020 08:10 ESR (Sed Rate) 2 mm/hr Test performed on Aug 02, 2020 00:00 Manual Diff Cancelled via OM: Cancelled in Connected System Impression: 1. Invasive adenocarcinoma involving the upper lobe of the left lung. She underwent left thoracotomy with left upper lobe segmentectomy on 10/07/2016. Her disease was pathologic stage T2a, (PL2), NX, as there was involvement of the pleural surface, but no lymph nodes were included in the specimen. Resection margins were free. By clinical evaluation, her disease was stage IB (T2a, N0, M0). She had no further treatment. 2. She now has evidence of recurrence with biopsy-proven involvement in mediastinal lymph nodes. There is also a suspected left pleural implant by PET/CT, consistent with stage MARC (M1a) disease. 3. COPD. 4. Hypertension. Plan/Problems Addressed at this Visit: 1. Invasive adenocarcinoma involving the upper lobe of the left lung, stage IB (pT2a, cN0, M0). She underwent left thoracotomy with left upper lobe segmentectomy on 10/07/2016. She had no further treatment. She had presented in June 2020 with fatigue and weight loss. She was found to have a significantly CEA level. Her restaging CT scans showed abnormal findings in the sigmoid colon, but colonoscopy showed no evidence of malignancy. As such, the elevated CEA level remains unexplained. PET/CT showed multiple FDG positive mediastinal lymph nodes in the right and left paratracheal, subaortic, and subcarinal territories, strongly suspicious for recurrence. A 1.1 x 0.6 cm left pleural implant at the second intercostal space had SUV 4.3, suggestive of a malignant implant. There were no other areas of abnormal uptake on that study. On 08/22/2020 she underwent bronchoscopy with EBUS and FNA biopsy of station 7 lymph node. There were no endobronchial lesions identified on the bronchoscopy. The endobronchial ultrasound did show mediastinal and left hilar lymphadenopathy. Cytology on the FNA biopsy was positive for metastatic poorly differentiated non-small cell carcinoma. The Ki-67 was high at 50%. The tumor was found to have low PD-L1 expression at <1%. With disease limited to lung and mediastinal lymph nodes, she was treated with definitive radiation concurrently with weekly carboplatin/paclitaxel chemotherapy. The radiation was administered from 10/10/2020 through 11/20/2020 to a total dose of 6000 cGy delivered in 30 fractions. During that time she completed 6 weekly infusions of carboplatin/paclitaxel. Her treatment was complicated by fatigue and esophagitis. She has had a good response by follow-up chest CT. She is eligible for maintenance immunotherapy with durvalumab. It was somewhat delayed getting started as she had micro nodular infiltrates in the lingula and left lower lobe medially consistent with infectious inflammatory process. She was given empiric antibiotic coverage with Augmentin. She was also having significant gastritis symptoms and was treated with fluconazole and Protonix. She was able to pursue maintenance durvalumab on December 19, 2020. She has tolerated it well. A. She is on durvalumab fixed monthly dose. She was treated on December 19, 2020. B. She is tolerating it well thus far. She is had no signs of pneumonitis, colitis, joint pain, confusion or fever or chills. C. She will be due for her next dose in 2 weeks. She request to be treated on January 16, 2021. 2. She has ongoing esophagitis symptoms. She has had associated weight loss. She was treated with empiric fluconazole 100 mg daily for 15 days and pantoprazole 40 mg daily on December 05, 2020. Those symptoms have now resolved. 3. Follow-up plan A. She will return in 2 weeks for Imfinzi/durvalumab cycle 2. She is on monthly fixed dosing. B. She will have CBC CMP TSH at that time. She requested be treated on January 16, 2021. C. She will have follow-up in [address] Michaels with CBC CMP and TSH for her third cycle of Imfinzi. D. Mrs. Nettles was instructed to contact us in interim should questions or problems arise. Signed By: Tonny Ibarra-, [facility] Sha Michaels MD <<Signature on File>>
== END 2021-01-08 23:59 | disposition home or self-care (01) ==
LOC: ONCMED 05:36
PROVIDERS: Internal Medicine Medical Oncology; Absent Provider Radiology Radiation Oncology; Visit Provider Nurse Practitioner
DX: Z51.12 Encounter for antineoplastic immunotherapy (principal); C34.12 Malignant neoplasm of upper lobe, left bronchus or lung; C77.1 Secondary and unspecified malignant neoplasm of intrathoracic lymph nodes; C78.2 Secondary malignant neoplasm of pleura; J44.9 Chronic obstructive pulmonary disease, unspecified; I10 Essential (primary) hypertension; Z79.899 Other long term (current) drug therapy
CPT/HCPCS: 82378; 96413; 99024; 99214; J7050; J9173

== ENCOUNTER → 2021-01-14 09:36 | Outpatient (BNVA) | payer BC, SELFPAY | PROVIDERS: Referring Provider Internal Medicine Medical Oncology; Visit Provider Internal Medicine Medical Oncology | DX: C34.12 Malignant neoplasm of upper lobe, left bronchus or lung; C77.1 Secondary and unspecified malignant neoplasm of intrathoracic lymph nodes; C78.2 Secondary malignant neoplasm of pleura | CPT/HCPCS: 80053; 84443; 85025 ==

== ENCOUNTER 2021-01-16 06:27 | Outpatient (RCR) | payer OTHER, SELFPAY | END 2021-02-08 23:59 | disposition home or self-care (01) | LOC: ONCMED 06:27 | PROVIDERS: Absent Provider Radiology Radiation Oncology; Visit Provider Internal Medicine Medical Oncology | DX: Z51.12 Encounter for antineoplastic immunotherapy (principal); C34.12 Malignant neoplasm of upper lobe, left bronchus or lung; C77.1 Secondary and unspecified malignant neoplasm of intrathoracic lymph nodes; C78.2 Secondary malignant neoplasm of pleura; Z79.899 Other long term (current) drug therapy | CPT/HCPCS: 96413; J7050; J9173 ==

== ENCOUNTER → 2021-02-21 09:18 | Outpatient (BNVA) | payer OTHER, SELFPAY | PROVIDERS: Visit Provider Nurse Practitioner Family | DX: J96.11 Chronic respiratory failure with hypoxia (principal); J96.12 Chronic respiratory failure with hypercapnia; R59.0 Localized enlarged lymph nodes; Z85.118 Personal history of other malignant neoplasm of bronchus and lung | CPT/HCPCS: 80053; 84443; 85025 ==

== ENCOUNTER 2021-02-27 08:00 | Outpatient (RCR) | payer OTHER, SELFPAY ==
[2021-02-24 11:28] LABS: Carcinoembryonic Antigen 0.8 ng/mL (0.0-4.7)
--- NOTE | 2021-02-24 12:32 | CT_ITS ---
WS: [id number] CT CHEST, ABDOMEN AND PELVIS WITH CONTRAST. HISTORY: LUNG CA TECHNIQUE: Contiguous 5 mm axial imaging performed through the chest, abdomen and pelvis with IV cont rast, oral contrast has been provided. Coronal and sagittal reformats chest. Coronal and sagittal ref ormats through the abdomen and pelvis. All CT scans at use at least one of the se dose optimization techniques: automated exposure control; mA and/or kV adjustment per patient size (includes targeted exams where dose is matched to clinical indication); or iterative reconstruction. CONTRAST: Omnipaque 300; 75 mL IV. DLP: 926.05 mGy.cm COMPARISON: Chest CT 12/03/2020, abdomen and pelvis CT 06/19/2020. PET/CT 08/10/[address]: Status post partial LEFT upper lobe resection. Severe chronic emphysematous changes through out both lungs. Postsurgical changes are noted is stable. No new or recurrent mass identified. Improv ed aeration at the lingula with resolves small nodules. No recurrent or enlarging axillary, hilar med iastinal lymph nodes. Largest lymph node at the LEFT hilum measures 5 mm. Mild diffuse thickening of the esophageal wall. Dense atherosclerosis of aorta. Pulmonary artery is dilated. Heart size is vielka l. No pericardial or pleural effusions. Small hiatal hernia. Abdomen CT: Numerous small stable hypodensities consistent with cysts. The largest superior RIGHT lob e measures 10 mm. There is also very mild central bile duct dilatation which is stable. Cholelithiasi s in a nondistended gallbladder. Lobulated spleen is unchanged. Pancreas is very difficult to visuali ze as there is no fat surrounding the pancreas. Other structures. Adrenal glands are poorly visualize d. LEFT adrenal gland appears mildly hyperplastic but stable. Cortical scar with calcified cyst in th e upper pole of the RIGHT kidney is unchanged. No obstruction. Additional cyst mid LEFT kidney. No ob struction. Extensive calcification within the aorta and iliac arteries. Diffuse fecal retention and constipation. No obstructive pattern. Pelvic CT: Urinary bladder is well distended. There is a small amount of free fluid in the pelvis. Et iology is uncertain. This was noted also on prior examinations. Mild compression deformities at L1 and L5 are stable. Stable sclerotic focus within T11. Stable scler otic focus LEFT femoral head. CT/CT chest abd pel w con* IMPRESSION: 1. No evidence of recurrent neoplastic disease within the chest, abdomen or pe lvis. 2. Partial lobectomy LEFT upper lobe. Stable postsurgical changes. 3. No recurrent adenopathy in the mediastinum or hilum. 4. Extensive atherosclerosis aorta and common iliac arteries. 5. Cholelithiasis. 6. Resolved 5 mm nodule LEFT upper lobe.
[2021-02-24] MEDS: iohexol 300 mg/mL 50 mL Btl IV (13:39)
[2021-02-24] MEDS: iohexol 300 mg/mL 100 mL Btl IV (14:36)
--- NOTE | 2021-02-24 17:31 | ONC FU_ITS ---
Dr. Michaels Patient Follow-Up Note Patient: Kim Nettles Unit #: [id number]: 1960 Dicatated By: Sha Michaels M.D.Date of Visit:Feb 24, 2021 Onc Med Follow-up/Prog Note Chief Complaint: Lung cancer. 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 She was seen by Maria G Shah in August 2016 for treatment of pneumonia. A chest x-ray on 08/27/2016 showed an indistinct increased density in the left upper lobe measuring about 3 cm. It was suspicious for a mass lesion. There was evidence of chronic emphysema. There were no other pulmonary parenchymal densities. Further evaluation with chest CT on 09/03/2016 confirmed a spiculated noncalcified soft tissue mass in the left upper lobe laterally. It appeared to extend to and involve the left lateral pleural margin. It measured 1.5 x 2.3 x 2.8 cm. There were no other mass lesions noted. There was no axillary, supraclavicular, mediastinal, or hilar masses or adenopathy. There was no pleural effusion. There did appear to be trace pericardial effusion. There were centrilobular emphysematous changes throughout the lung parenchyma. There was suspected left adrenal adenoma measuring 1.3 x 2.2 cm. A near water density lesion in the right upper lobe of the liver measuring 1.2 cm appeared consistent with an incidental cyst. There was no evidence of any metastatic involvement. She was referred to Dr. Kinsey. Her pulmonary function studies in 09/28/2016 were adequate with FEV 2.68, 47% of predicted. On 10/07/2016 she underwent thoracotomy with left upper lobe apical posterior segmentectomy. She was found to have moderately intense adhesions, precluding a complete left upper lobectomy. As such, the procedure was limited to formal segmentectomy. 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 It was mostly moderately differentiated, but focally it was high-grade (poorly differentiated). It measured 2.4 x 1.9 cm. The resection margins were free of tumor, but tumor was noted to extend onto the pleural surface. Pathologic staging was T2a, (PL 2), NX, as there were no lymph nodes included in the specimen. She has had an uneventful postoperative recovery. I had seen her initially on 11/11/2016. There appeared to be no indication for adjuvant chemotherapy, and she was followed on observation/expectant management. As of her follow-up visit in June 2017 she appeared stable clinically, there was no evidence of recurrence/progression of the lung cancer on her restaging chest CT. She had a follow-up visit with Camilo Molina on 06/15/2020. She complained of fatigue, and she was noted to have a significant weight loss. Her laboratory studies included CBC showing elevated hemoglobin/hematocrit levels at 17.8 g and 54.9%. The white blood cell count was 8200 and the platelet count was 369,000. Her comprehensive metabolic profile was unremarkable and her TSH level was normal 2.33 ???IU/mL. A battery of tumor markers was obtained and her CEA level was found to be significantly elevated at 303.6 ng/mL. Her restaging CT scans of the chest, abdomen, and pelvis on 06/19/2020 showed postoperative changes at the left lung apex and moderate centrilobular emphysematous changes. A noncalcified 5 mm pulmonary nodule in the left lower lobe was indeterminate. There were no other pulmonary mass lesions and there was no mediastinal or hilar lymphadenopathy noted. There was evidence of hepatomegaly with enlargement of the right hepatic lobe. There was extensive cholelithiasis with gallbladder distention and further evaluation with ultrasound was recommended. There was thickening and induration involving the distal sigmoid colon suspicious for diverticulitis. A small amount of free fluid was noted in the pelvis. With the abnormal CT findings in the sigmoid colon and with the significantly elevated CEA level, she was recommended to have further evaluation with colonoscopy. The procedure was done on 07/16/2020. It showed moderate diverticulosis in the sigmoid colon, but there was no evidence of malignancy in the sigmoid colon and there were no other abnormal findings noted. She had further evaluation with PET/CT on 08/10/2020. It showed multiple FDG positive mediastinal lymph nodes in the right and left paratracheal, subaortic, and subcarinal territories, strongly suspicious for recurrence. An index node in the subcarinal territory measured 1.4 cm with SUV 9.6. A 1.1 x 0.6 cm left pleural implant at the second intercostal space had SUV 4.3, suggestive of a malignant implant. There were no other areas of abnormal uptake on that study. On 08/22/2020 she underwent bronchoscopy with EBUS and FNA biopsy of station 7 lymph node. There were no endobronchial lesions identified on the bronchoscopy. The endobronchial ultrasound did show mediastinal and left hilar lymphadenopathy. Cytology on the FNA biopsy was positive for metastatic poorly differentiated non-small cell carcinoma. The tumor cells showed positive staining for CK high molecular weight and for CK 8/18. There was cytoplasmic staining for p63. The TTF-1 was negative. The Ki-67 was high at 50%. A next generation sequencing study was requested by liquid biopsy, but there was insufficient circulating tumor derived cell free DNA to obtain meaningful results. The PD-L1 expression was negative at < 1%. With her disease localized to lung and mediastinal lymph nodes, she appeared to be appropriate candidate for radiation with concurrent weekly carboplatin/paclitaxel chemotherapy. She began her cycle 1 carboplatin/paclitaxel on 10/10/2020. She was then able to continue her weekly infusions on schedule. She received her week 6 treatment on 11/14/2020. She completed radiation on 11/20/2020 to a total dose of 6000 cGy, administered in 30 fractions. Her medical history is otherwise significant for underlying COPD. She has had no other ongoing medical illnesses. She has a history of smoking 2 packs of cigarettes daily for 25 years. She had cut down following her lung surgery. INTERIM HISTORY: Restaging chest CT on 12/03/2024 showed improvement in the previously described mediastinal and subcarinal adenopathy. There was no residual abnormalities in the area of the previously described suspected pleural implant. Micronodular infiltrates were noted in the lingula and left lower lobe medially, new from previous studies. The appearance was consistent with infectious or inflammatory process. A previously described left lower lobe nodule measuring 5 to 6 mm was also noted to have resolved. With those findings, she was recommended to proceed with maintenance immunotherapy with durvalumab. She began cycle 1 on 12/19/2020. At that point her CEA level had declined to 10.4 ng/mL. She tolerated that treatment without significant toxicity, and she continued with her cycle 2 of durvalumab on 01/16/2021. She is seen for a follow-up visit. She has not been feeling is good generally, though she says she has good days and bad days. Overall, she has had some decline in her energy/activity tolerance, and she has been having to rest more. Her ECOG score is 1. She says her appetite could be better. She has had further weight loss. She does not have fever or night sweats. She has not had sore mouth or throat. Some days she is more short of breath. She is using oxygen at night. She has just occasional cough. She does not complain of chest pain. She still has nausea occasionally. She has no other GI or complaints. She has pain at times in her back and in her stomach. She has tried taking gabapentin, but it made her feel drunk. She reports having headaches, but not like she used to have. She has just occasional dizziness. She has no numbness/paresthesia or other focal neurologic symptoms. Medications: Advair Diskus 1 Puff(s) (of 250-50 mcg/dose) Aerosol Powder, Breath Activated Inhalation b.i.d., Anacin 1 (400-32 mg) Tablet Oral t.i.d., Lisinopril 1 Tablet (of 20 mg) Tablet Oral daily, LORazepam 1 Tablet (of 1 mg) Oral t.i.d. PRN, oxyCODONE HCl 5 mL (of 5 mg/5mL) Solution Oral q 4 hours, Prochlorperazine Maleate 1 Tablet (of 10 mg) Oral q 4 hours PRN, traZODone HCl (50 mg) Tablet Oral at bedtime Allergies: No Known Allergies. Vital Signs: Performed on Feb 24, 2021 11:00 Height - 64.00 in Weight - 91 lbs (LOW) BSA - 1.40 sq.m BMI - 15.62 (LOW) Temperature - 97.7 F (LOW) Pulse - 80 /min Respiration - 18 /min BP - 114/74 mm(hg) O2 Sat - 92 % (LOW) Pain - 0 Fatigue - 5 Physical Examination: Constitutional - She appears somewhat weak generally, Eyes - Sclerae nonicteric. Conjunctivae clear, ENMT - There is some white coating on the tongue. There are no other lesions noted in the oral cavity, Hematologic/Lymphatic - No cervical, clavicular, or axillary adenopathy, Respiratory - Lungs sound clear with diminished air movement bilaterally, Cardiovascular - Heart rhythm is regular. There is no murmur, gallop, or rub noted, Abdomen - Soft and nontender. Liver and spleen are not enlarged. There is no abdominal mass or ascites noted and there is no inguinal adenopathy, Extremities - No edema, Neurologic - No focal neurologic deficits noted. Lab/Imaging: Test performed on Feb 21, 2021 08:13 Sodium 137 mmol/L TSH 2.49 uIU/mL Potassium 3.7 mmol/L Chloride 101 mmol/L CO2 23 mmol/L Anion Gap 16.7 BUN 7 mg/dL Creatinine 0.5 mg/dL Cr Clearance (Est) 78.9400 mL/min eGFR 126.3 mL/min Glucose 79 mg/dL Osmolality - Calculated 281 mOsm/kg Calcium 9.2 mg/dL Protein, Total 6.9 g/dL Albumin 4.4 g/dL Globulin 2.5 g/dL Bilirubin, Total 1.9 mg/dL ALT (SGPT) 15 Units/L AST (SGOT) 20 Units/L Alkaline Phosphatase 218 IU/L WBC 3.6 10^3/uL RBC 5.47 10^6/uL HGB 16.8 g/dL HCT 51.8 % MCV 94.7 fl MCH 30.7 pg MCHC 32.4 g/dL RDW 16.4 % Platelet Count 337 10^3/uL MPV 10.8 fl Neutrophils 2.19 10^3/uL Lymphocytes 0.5 10^3/uL Monocytes 0.4 10^3/uL Eosinophils 0.4 10^3/uL Basophils 0.1 10^3/uL Neutrophil % 60.3 % Lymphocyte % 14.3 % Monocyte % 12.1 % Eosinophil % 11.6 % Basophils % 1.4 % Problem List: 1. Invasive adenocarcinoma involving the upper lobe of the left lung. She underwent left thoracotomy with left upper lobe segmentectomy on 10/07/2016. Her disease was pathologic stage T2a, (PL2), NX, as there was involvement of the pleural surface, but no lymph nodes were included in the specimen. Resection margins were free. By clinical evaluation, her disease was stage IB (T2a, N0, M0). She had no further treatment. 2. She now has evidence of recurrence with biopsy-proven involvement in mediastinal lymph nodes. There is also a suspected left pleural implant by PET/CT, consistent with stage MARC (M1a) disease. 3. COPD. 4. Hypertension. Problems Addressed with this Encounter and Plan: 1. Patient with invasive adenocarcinoma involving the upper lobe of the left lung, stage IB (pT2a, cN0, M0). She underwent left thoracotomy with left upper lobe segmentectomy on 10/07/2016. She had no further treatment. She had presented in June 2020 with fatigue and weight loss. She was found to have a significantly CEA level. Her restaging CT scans showed abnormal findings in the sigmoid colon, but colonoscopy showed no evidence of malignancy. As such, the elevated CEA level remains unexplained. PET/CT showed multiple FDG positive mediastinal lymph nodes in the right and left paratracheal, subaortic, and subcarinal territories, strongly suspicious for recurrence. A 1.1 x 0.6 cm left pleural implant at the second intercostal space had SUV 4.3, suggestive of a malignant implant. There were no other areas of abnormal uptake on that study. On 08/22/2020 she underwent bronchoscopy with EBUS and FNA biopsy of station 7 lymph node. There were no endobronchial lesions identified on the bronchoscopy. The endobronchial ultrasound did show mediastinal and left hilar lymphadenopathy. Cytology on the FNA biopsy was positive for metastatic poorly differentiated non-small cell carcinoma. The Ki-67 was high at 50%. The tumor was found to have low PD-L1 expression at <1%. With disease limited to lung and mediastinal lymph nodes, she was treated with definitive radiation concurrently with weekly carboplatin/paclitaxel chemotherapy. The radiation was administered from 10/10/2020 through 11/20/2020 to a total dose of 6000 cGy delivered in 30 fractions. During that time she completed 6 weekly infusions of carboplatin/paclitaxel. Her treatment was complicated by fatigue and esophagitis. She had a good response by follow-up chest CT, and based on those findings she was recommended to proceed with maintenance immunotherapy with durvalumab. She began cycle 1 on 12/19/2020. At that point there had been a significant decline in her CEA level, to 10.4 ng/mL. She tolerated the treatment well, and she continue with cycle 2 on 01/16/2021.. Since her last visit, she has noted some increase in fatigue and she is having some nausea/anorexia. There has been further decline in her CEA level, now to 0.8 ng/mL. However, there also been an increase in her total bilirubin and alkaline phosphatase. As such, she will be scheduled for restaging CT scans of the chest, abdomen, and pelvis. She will have further evaluation as indicated. 2. She had treatment related esophagitis symptoms. Those have now improved, but she continues to have some anorexia/nausea, and she has had further weight loss. She will be given a prescription for Marinol to start 2.5 mg twice daily, subject to verification of insurance coverage. Signed By: Sha Michaels M.D. <<Signature on File>>
[2021-02-27] MEDS: ipratropium-albuterol 3 mL Neb INHALATION (10:50)
== END 2021-03-11 23:59 | disposition home or self-care (01) ==
LOC: RAD 08:00
PROVIDERS: Absent Provider Radiology Radiation Oncology; Visit Provider Internal Medicine Medical Oncology
DX: Z51.12 Encounter for antineoplastic immunotherapy (principal); C34.12 Malignant neoplasm of upper lobe, left bronchus or lung; C77.2 Secondary and unspecified malignant neoplasm of intra-abdominal lymph nodes; J44.9 Chronic obstructive pulmonary disease, unspecified; I10 Essential (primary) hypertension; Z79.899 Other long term (current) drug therapy
CPT/HCPCS: 71260; 74177; 82378; 96413; 99214; J7050; J9173

== ENCOUNTER 2021-02-27 08:08 | Outpatient (CLI) | payer OTHER, SELFPAY ==
--- NOTE | 2021-02-27 08:14 | US_ITS ---
WS: [id number] RIGHT UPPER QUADRANT ULTRASOUND HISTORY: GALLSTONES PER 02/24 CT SCAN COMPARISON: CT 02/24/2021 Liver: 16.0 cm in length. Normal size liver. Hepatic cyst along the diaphragmatic surface measures 1. 5 x 1.0 x 1.1 cm. No intrapelvic dilatation. Gallbladder: Normally distended gallbladder with stones. No pericholecystic fluid. CBD: 0.3 cm Pancreas: Obscured by bowel gas. Right kidney: 11.2 cm in length. Normal size and echogenicity. No hydronephrosis or mass. Aorta and IVC: Normal size IVC. Aorta is not visualized. No ascites. US/US gall bladder [id number] IMPRESSION: 1. Cholelithiasis without acute cholecystitis. 2. 1.5 cm hepatic cyst.
== END 2021-02-27 08:09 | disposition home or self-care (01) ==
LOC: RAD 08:12
PROVIDERS: Visit Provider Internal Medicine Medical Oncology
DX: K80.20 Calculus of gallbladder without cholecystitis without obstruction (principal); K76.89 Other specified diseases of liver
CPT/HCPCS: 76705

== ENCOUNTER → 2021-03-26 09:25 | Outpatient (BNVA) | payer OTHER, SELFPAY | PROVIDERS: Referring Provider Internal Medicine Medical Oncology; Visit Provider Internal Medicine Medical Oncology | DX: C34.12 Malignant neoplasm of upper lobe, left bronchus or lung (principal); Z79.899 Other long term (current) drug therapy | CPT/HCPCS: 80053; 84443; 85025 ==

== ENCOUNTER 2021-03-27 06:06 | Outpatient (RCR) | payer OTHER, SELFPAY | END 2021-04-10 23:59 | disposition home or self-care (01) | LOC: ONCMED 06:06 | PROVIDERS: Absent Provider Radiology Radiation Oncology; PCP Family Medicine; Visit Provider Internal Medicine Medical Oncology | DX: Z51.12 Encounter for antineoplastic immunotherapy (principal); C34.12 Malignant neoplasm of upper lobe, left bronchus or lung; C77.1 Secondary and unspecified malignant neoplasm of intrathoracic lymph nodes; C78.2 Secondary malignant neoplasm of pleura; Z79.899 Other long term (current) drug therapy | CPT/HCPCS: 96413; J7050; J9173 ==

== ENCOUNTER 2021-04-28 06:31 | Outpatient (RCR) | payer OTHER, SELFPAY ==
[2021-04-28 09:25] LABS: Basophils # 0.1 10^3/uL (0.0-0.1); Basophils % 0.8 %; Eosinophils # 0.1 10^3/uL (0.0-0.8); Eosinophils % 1.4 %; Lymphocytes # 0.4 10^3/uL (0.8-4.8); Lymphocytes % 5.8 %; Mean Corpuscular HGB Conc 32.7 g/dL (30.0-36.0); Mean Corpuscular Hemoglobin 30.5 pg (28.0-34.0); Mean Corpuscular Volume 93.4 fl (81-99); Mean Platelet Volume 11.5 fL (7.4-10.4); Monocytes # 0.6 10^3/uL (0.2-0.9); Neutrophils % 82.7 %; Nucleated Red Blood Cells % 0 %; Platelet Count 282 10^3/cmm (130-400); Red Blood Count 5.57 10^6/uL (4.1-5.3); Red Cell Distribution Width 19.3 % (12.1-15.1); White Blood Count 6.5 10^3/uL (4.0-10.0)
[2021-04-28 09:53] LABS: Alanine Aminotransferase 7 U/L (0-33); Albumin Level 3.9 g/dL (3.5-5.2); Alkaline Phosphatase 57 IU/L (35-105); Anion Gap 11.1 (5-19); Aspartate Amino Transferase 13 U/L (0-32); Blood Urea Nitrogen 21 mg/dL (6-20); Calcium 8.9 mg/dL (8.5-10.5); Carbon Dioxide 32 mmol/L (22-29); Chloride 103 mmol/L (98-107); Free T4 Free Thyroxine 0.72 ng/dL (0.82-1.77); Globulin 2.8 g/dL (1.3-4.6); Glomerular Filtration Rate 126.3 mL/min (90-130); Glucose 123 mg/dL (65-115); Osmolality Calculated 298 mOsm/kg (285-295); Potassium 4.1 mmol/L (3.5-5.1); Sodium 142 mmol/L (136-145); Thyroid Stimulating Hormone 48.61 uIU/mL (0.27-4.20); Total Bilirubin 0.2 mg/dL (0.15-1.2); Total Protein 6.7 g/dL (6.6-8.7)
[2021-04-28] MEDS: sodium chloride 0.9% 250 ML 75 ML IV (12:10)
--- NOTE | 2021-05-06 23:34 | ONC FU_ITS ---
[facility] Patient Note Patient: Kim Nettles Unit #: [id number]: 1960 Dictated By: Tonny IbarraDate of Visit: Apr 28, 2021 Onc MED Follow-Up/Prog Note Chief Complaint: Lung cancer. 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 She was seen by Maria G Shah in August 2016 for treatment of pneumonia. A chest x-ray on 08/27/2016 showed an indistinct increased density in the left upper lobe measuring about 3 cm. It was suspicious for a mass lesion. There was evidence of chronic emphysema. There were no other pulmonary parenchymal densities. Further evaluation with chest CT on 09/03/2016 confirmed a spiculated noncalcified soft tissue mass in the left upper lobe laterally. It appeared to extend to and involve the left lateral pleural margin. It measured 1.5 x 2.3 x 2.8 cm. There were no other mass lesions noted. There was no axillary, supraclavicular, mediastinal, or hilar masses or adenopathy. There was no pleural effusion. There did appear to be trace pericardial effusion. There were centrilobular emphysematous changes throughout the lung parenchyma. There was suspected left adrenal adenoma measuring 1.3 x 2.2 cm. A near water density lesion in the right upper lobe of the liver measuring 1.2 cm appeared consistent with an incidental cyst. There was no evidence of any metastatic involvement. She was referred to Dr. Kinsey. Her pulmonary function studies in 09/28/2016 were adequate with FEV 2.68, 47% of predicted. On 10/07/2016 she underwent thoracotomy with left upper lobe apical posterior segmentectomy. She was found to have moderately intense adhesions, precluding a complete left upper lobectomy. As such, the procedure was limited to formal segmentectomy. 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 It was mostly moderately differentiated, but focally it was high-grade (poorly differentiated). It measured 2.4 x 1.9 cm. The resection margins were free of tumor, but tumor was noted to extend onto the pleural surface. Pathologic staging was T2a, (PL 2), NX, as there were no lymph nodes included in the specimen. She has had an uneventful postoperative recovery. Dr Michaels had seen her initially on 11/11/2016. There appeared to be no indication for adjuvant chemotherapy, and she was followed on observation/expectant management. As of her follow-up visit in June 2017 she appeared stable clinically, there was no evidence of recurrence/progression of the lung cancer on her restaging chest CT. She had a follow-up visit with Camilo Molina on 06/15/2020. She complained of fatigue, and she was noted to have a significant weight loss. Her laboratory studies included CBC showing elevated hemoglobin/hematocrit levels at 17.8 g and 54.9%. The white blood cell count was 8200 and the platelet count was 369,000. Her comprehensive metabolic profile was unremarkable and her TSH level was normal 2.33 ???IU/mL. A battery of tumor markers was obtained and her CEA level was found to be significantly elevated at 303.6 ng/mL. Her restaging CT scans of the chest, abdomen, and pelvis on 06/19/2020 showed postoperative changes at the left lung apex and moderate centrilobular emphysematous changes. A noncalcified 5 mm pulmonary nodule in the left lower lobe was indeterminate. There were no other pulmonary mass lesions and there was no mediastinal or hilar lymphadenopathy noted. There was evidence of hepatomegaly with enlargement of the right hepatic lobe. There was extensive cholelithiasis with gallbladder distention and further evaluation with ultrasound was recommended. There was thickening and induration involving the distal sigmoid colon suspicious for diverticulitis. A small amount of free fluid was noted in the pelvis. With the abnormal CT findings in the sigmoid colon and with the significantly elevated CEA level, she was recommended to have further evaluation with colonoscopy. The procedure was done on 07/16/2020. It showed moderate diverticulosis in the sigmoid colon, but there was no evidence of malignancy in the sigmoid colon and there were no other abnormal findings noted. She had further evaluation with PET/CT on 08/10/2020. It showed multiple FDG positive mediastinal lymph nodes in the right and left paratracheal, subaortic, and subcarinal territories, strongly suspicious for recurrence. An index node in the subcarinal territory measured 1.4 cm with SUV 9.6. A 1.1 x 0.6 cm left pleural implant at the second intercostal space had SUV 4.3, suggestive of a malignant implant. There were no other areas of abnormal uptake on that study. On 08/22/2020 she underwent bronchoscopy with EBUS and FNA biopsy of station 7 lymph node. There were no endobronchial lesions identified on the bronchoscopy. The endobronchial ultrasound did show mediastinal and left hilar lymphadenopathy. Cytology on the FNA biopsy was positive for metastatic poorly differentiated non-small cell carcinoma. The tumor cells showed positive staining for CK high molecular weight and for CK 8/18. There was cytoplasmic staining for p63. The TTF-1 was negative. The Ki-67 was high at 50%. A next generation sequencing study was requested by liquid biopsy, but there was insufficient circulating tumor derived cell free DNA to obtain meaningful results. The PD-L1 expression was negative at < 1%. With her disease localized to lung and mediastinal lymph nodes, she appeared to be appropriate candidate for radiation with concurrent weekly carboplatin/paclitaxel chemotherapy. She began her cycle 1 carboplatin/paclitaxel on 10/10/2020. She was then able to continue her weekly infusions on schedule. She received her week 6 treatment on 11/14/2020. She completed radiation on 11/20/2020 to a total dose of 6000 cGy, administered in 30 fractions. Her medical history is otherwise significant for underlying COPD. She has had no other ongoing medical illnesses. She has a history of smoking 2 packs of cigarettes daily for 25 years. She had cut down following her lung surgery. INTERIM HISTORY: Restaging chest CT on 12/03/2024 showed improvement in the previously described mediastinal and subcarinal adenopathy. There was no residual abnormalities in the area of the previously described suspected pleural implant. Micronodular infiltrates were noted in the lingula and left lower lobe medially, new from previous studies. The appearance was consistent with infectious or inflammatory process. A previously described left lower lobe nodule measuring 5 to 6 mm was also noted to have resolved. With those findings, she was recommended to proceed with maintenance immunotherapy with durvalumab. She began cycle 1 on 12/19/2020. At that point her CEA level had declined to 10.4 ng/mL. She tolerated that treatment without significant toxicity, and she continued with her cycle 2 of durvalumab on 01/16/2021. She is now completed 4 cycles of the durvalumab as of March 27, 2021. She is here today for follow-up consideration of cycle 5. She states she is doing well overall. Her main complaint is that she is having trouble gaining weight. We discussed many dietary ideas and encouraged her to not monitor her diet so closely and have encouraged her to supplement with Ensure or boost or [place] instant breakfast mix along with her usual meals. Her weight today is essentially stable it was 90.4 pounds today and on February 24 it was 91 pounds. However in November it was 97.2 pounds. We discussed grazing often throughout the day rather than 3 big meals a day if that is problematic for her. She states otherwise she is doing well she states her breathing is good. She has occasional cough but no hemoptysis. Her cough is nonproductive. She denies any fever or chills. She denies any excessive fatigue or muscle aches. She has had no joint pain. As noted in previous notes she has tried gabapentin but that made her sedated and she has no neuropathy symptoms now so she is not taking it. She denies any chest pain or angina symptoms. She denies any diarrhea or constipation. She states overall she is feeling good. Her ECOG is 1. Past Medical History: Chronic obstructive pulmonary disease Hypertension Lung cancer Past Surgical History: Exploratory laparotomy with lysis of adhesions Exploratory laparotomy with temporary colostomy for diverticulitis Flu vaccine in 2020 Right internal jugular PowerPort???Dr. Ng???[facility] in 2020 Thoracotomy with left upper lobe apical posterior segmentectomy in 2017 Allergies: No Known Allergies. Medications: Advair Diskus 1 Puff(s) (of 250-50 mcg/dose) Aerosol Powder, Breath Activated Inhalation b.i.d. Anacin 1 (400-32 mg) Tablet Oral t.i.d. Lisinopril 1 Tablet (of 20 mg) Tablet Oral daily LORazepam 1 Tablet (of 1 mg) Oral t.i.d. PRN oxyCODONE HCl 5 mL (of 5 mg/5mL) Solution Oral q 4 hours Prochlorperazine Maleate 1 Tablet (of 10 mg) Oral q 4 hours PRN traZODone HCl (50 mg) Tablet Oral at bedtime Family History: Ms. Nettles's mother at age 61: Liver Cancer. Ms. Nettles's father at age 72: COPD. Ms. Nettles has 3 brothers: 1 alive, 2 . Ms. Nettles's first brother's brain aneurysm. Another brother's aneurism. She has 1 sister who is alive. She has 1 son who is : leukemia. .Father had COPD and heart disease. He at age 72. Mother of liver cancer at age 61. A brother from cerebral aneurysm at age 49. A son of leukemia at age 12. Social History: Ms. Nettles is single and she is an unknown. She is a daily smoker who has smoked 1.0 pack/day for 28 years. She is a former drinker. Ms. Nettles reports the following support systems: lives alone, lives in own house, and adequate transportation available for expected visits. Her diet consists of regular meals. She indicates her activity level as: daily activities. She has a history of smoking 2 packs of cigarettes daily for 25 years. She cut down to 1 pack per day following her lung surgery. She has had some alcohol use in the past, not heavy. She quit drinking approximatley 3 years ago. Review Of Symptoms: <See Above> Vital Signs: Performed on Apr 28, 2021 11:27 Height - 64.00 in Weight - 90.4 lbs (LOW) BSA - 1.40 sq.m BMI - 15.52 (LOW) Temperature - 97.6 F (LOW) Pulse - 73 /min Respiration - 20 /min BP - 106/74 mm(hg) O2 Sat - 91 % (LOW) Pain - 0 Fatigue - 3,1 - No physically strenuous activity, but ambulatory and able to carry out light or sedentary work (e.g. office work, light house work). (ECOG) Physical Examination: Constitutional Alert, oriented, no acute distress. Skin pink, warm and dry. Head Normocephalic; atraumatic. Eyes Conjunctivae and sclerae are clear and without icterus. Pupils are reactive and equal. Neck Supple without masses or thyromegaly. No jugular venous distension. Hematologic/Lymphatic No petechiae or purpura. No tender or palpable lymph nodes in the cervical or supraclavicular areas. Respiratory Lungs are clear to auscultation without rhonchi or wheezing. Cardiovascular Regular rate and rhythm of heart without murmurs,clicks, gallops or rubs. Chest Chest is symmetric without chest wall deformities. Right internal jugular PowerPort insertion site is unremarkable. Abdomen Non-tender, non-distended, no masses or ascites. Good bowel sounds noted in all quads. No guarding or rebound tenderness. No pulsatile masses. Back/Spine Non-tender to palpation. Extremities No visible deformities, no cyanosis, clubbing or edema. Musculoskeletal No tenderness or swelling, normal range of motion without obvious weakness. Integumentary No rashes or lesions. Neurologic No sensory or motor deficits, normal cerebellar function, normal gait. Psychiatric Alert and oriented times three. Coherent speech. Verbalizes understanding of our discussions today. Laboratory:Test performed on Apr 28, 2021 08:46 Sodium 142 mmol/L T4, Free 0.72 ng/dL TSH 48.61 uIU/mL Potassium 4.1 mmol/L Chloride 103 mmol/L CO2 32 mmol/L Anion Gap 11.1 BUN 21 mg/dL Creatinine 0.5 mg/dL Cr Clearance (Est) 78.42 mL/min eGFR 126.3 mL/min Glucose 123 mg/dL Osmolality - Calculated 298 mOsm/kg Calcium 8.9 mg/dL Protein, Total 6.7 g/dL Albumin 3.9 g/dL Globulin 2.8 g/dL Bilirubin, Total 0.2 mg/dL ALT (SGPT) 7 U/L AST (SGOT) 13 U/L Alkaline Phosphatase 57 IU/L WBC 6.5 10 3/uL RBC 5.57 10 6/uL HGB 17.0 g/dL HCT 52.0 % MCV 93.4 fl MCH 30.5 pg MCHC 32.7 g/dL RDW 19.3 % Platelet Count 282 10 3/cmm MPV 11.5 fL Neutrophils 5.40 10 3/uL Lymphocytes 0.4 10 3/uL Monocytes 0.6 10 3/uL Eosinophils 0.1 10 3/uL Basophils 0.1 10 3/uL Neutrophil % 82.7 % Lymphocyte % 5.8 % Monocyte % 9.0 % Eosinophil % 1.4 % Basophils % 0.8 % NRBC % 0 % Test performed on Feb 21, 2021 09:18 CEA 0.8 ng/mL Test performed on Oct 30, 2020 09:10 Magnesium 1.8 mg/dL Impression: 1. Invasive adenocarcinoma involving the upper lobe of the left lung. She underwent left thoracotomy with left upper lobe segmentectomy on 10/07/2016. Her disease was pathologic stage T2a, (PL2), NX, as there was involvement of the pleural surface, but no lymph nodes were included in the specimen. Resection margins were free. By clinical evaluation, her disease was stage IB (T2a, N0, M0). She had no further treatment. 2. She now has evidence of recurrence with biopsy-proven involvement in mediastinal lymph nodes. There is also a suspected left pleural implant by PET/CT, consistent with stage MARC (M1a) disease. 3. COPD. 4. Hypertension. Plan/Problems Addressed at this Visit: 1. Invasive adenocarcinoma involving the upper lobe of the left lung, stage IB (pT2a, cN0, M0). She underwent left thoracotomy with left upper lobe segmentectomy on 10/07/2016. She had no further treatment. She had presented in June 2020 with fatigue and weight loss. She was found to have a significantly CEA level. Her restaging CT scans showed abnormal findings in the sigmoid colon, but colonoscopy showed no evidence of malignancy. As such, the elevated CEA level remains unexplained. PET/CT showed multiple FDG positive mediastinal lymph nodes in the right and left paratracheal, subaortic, and subcarinal territories, strongly suspicious for recurrence. A 1.1 x 0.6 cm left pleural implant at the second intercostal space had SUV 4.3, suggestive of a malignant implant. There were no other areas of abnormal uptake on that study. On 08/22/2020 she underwent bronchoscopy with EBUS and FNA biopsy of station 7 lymph node. There were no endobronchial lesions identified on the bronchoscopy. The endobronchial ultrasound did show mediastinal and left hilar lymphadenopathy. Cytology on the FNA biopsy was positive for metastatic poorly differentiated non-small cell carcinoma. The Ki-67 was high at 50%. The tumor was found to have low PD-L1 expression at <1%. With disease limited to lung and mediastinal lymph nodes, she was treated with definitive radiation concurrently with weekly carboplatin/paclitaxel chemotherapy. The radiation was administered from 10/10/2020 through 11/20/2020 to a total dose of 6000 cGy delivered in 30 fractions. During that time she completed 6 weekly infusions of carboplatin/paclitaxel. Her treatment was complicated by fatigue and esophagitis. She has had a good response by follow-up chest CT. She is eligible for maintenance immunotherapy with durvalumab. It was somewhat delayed getting started as she had micro nodular infiltrates in the lingula and left lower lobe medially consistent with infectious inflammatory process. She was given empiric antibiotic coverage with Augmentin. She was also having significant gastritis symptoms and was treated with fluconazole and Protonix. She was able to pursue maintenance durvalumab on December 19, 2020. She has tolerated it well. A. She is on durvalumab fixed monthly dose. She was treated last on 2020. She has had no signs of pneumonitis, colitis, joint pain, confusion or fever or chills. B. Proceed with cycle 5 durvalumab. C. Supportive care as needed. D. Nutrition/diet supplementation with Ensure boost or [place] Instant Breakfast mix. She may also utilize protein powder. We have discussed that she not have dietary restrictions. E. We did discuss her labs from today which reveal a WBC of 6.5, hemoglobin 17, platelets 282,000 and ANC of 5400.. Potassium 4.1 random glucose 123 creatinine 0.5 and LFTs are normal. Her TSH is 48.61 with a free T4 of 0.72. She does have prescription for thyroid medications but states she has not been taking them because I just cannot remember them . 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 She will need to take her thyroid medications or we cannot continue her immunotherapy. She states that she will definitely take her thyroid medication and will plan to follow up her TSH in 1 month. 3. Follow-up plan A. She will return in 4 weeks for Imfinzi/durvalumab cycle 6. She is on monthly fixed dosing. B. She will have CBC CMP TSH at that time. D. Ms. Bethel was instructed to contact us in interim should questions or problems arise. Signed By: Tonny Ibarra-, [facility] Sha Michaels MD <<Signature on File>>
== END 2021-05-11 23:59 | disposition home or self-care (01) ==
LOC: ONCMED 06:31
PROVIDERS: Internal Medicine Medical Oncology; PCP Family Medicine; Visit Provider Nurse Practitioner
DX: Z51.12 Encounter for antineoplastic immunotherapy (principal); C34.12 Malignant neoplasm of upper lobe, left bronchus or lung; C77.2 Secondary and unspecified malignant neoplasm of intra-abdominal lymph nodes; J44.9 Chronic obstructive pulmonary disease, unspecified; I10 Essential (primary) hypertension; Z79.899 Other long term (current) drug therapy
CPT/HCPCS: 80053; 84439; 84443; 85025; 96413; 99215; J7050; J9173

== ENCOUNTER 2021-05-23 21:33 | Inpatient (IN) | payer OTHER, SELFPAY ==
[2021-05-23 21:36] VITALS: BP 99/61; PULSE 88; RESP 16; TEMP 37.2; O2SAT 93; BMI 15.7
--- NOTE | 2021-05-23 22:01 | XRR_ITS ---
PROCEDURE INFORMATION: Exam: XR Chest Exam date and time: 05/23/2021 10:01 PM Age: 60 years old Clinical indication: Shortness of breath; Prior surgery; Surgery date: 6+ months; Surgery type: Port; Additional info: SOB TECHNIQUE: Imaging protocol: XR of the chest. Views: 1 view. COMPARISON: CT chest abd pel w con* 02/24/2021 2:30 PM FINDINGS: Tubes, catheters and devices: Right-sided Port-A-Cath. Lungs: Emphysematous changes. Prominent interstitial markings may reflect some interstitial fibrotic changes or developing bronchopneumonia right greater than left. Pleural spaces: Unremarkable. No pleural effusion. No pneumothorax. Heart/Mediastinum: Cardiomegaly. Bones/joints: Unremarkable. XR/XR chest 1V portable [id number] IMPRESSION: 1. Cardiomegaly. 2. Emphysematous changes. 3. Prominent interstitial markings may reflect some interstitial fibrotic changes or developing bronchopneumonia right greater than left. Radiation Dose CTDIVOL = (mGy): DLP = (mGy-cm)
--- NOTE | 2021-05-23 22:02 | ECG_ITS ---
[facility] Test Date: 2021-05-23 Pat Name: Kim Nettles Department: Room: Gender: Female E Tailer: : 1960 Requested By: Jack Kirkland Order Number: [id number] [place] MD: Twyla Cedeno M.D. Measurements Intervals [place] Rate: 86 P: 85 AL: 134 QRS: 167 QRSD: 86 T: 77 QT: 333 QTc: 399 Interpretive Statements SINUS RHYTHM WITH SINUS ARRHYTHMIA LATERAL MYOCARDIAL INFARCTION , OF INDETERMINATE AGE [40+ ms Q WAVE AND/OR ST/T ABNORMALITY IN I/aVL/V5/V6] No previous ECG available for comparison Electronically Signed On 05-27-2021 12:46:41 G[employer] DISPATCHER by Twyla Cedeno M.D. [email or web address]
[2021-05-23 22:15] LABS: Basophils # 0.1 10^3/uL (0.0-0.1); Basophils % 0.7 %; Eosinophils % 0.1 %; Hematocrit 52.8 % (37.0-47.0); Hemoglobin 16.3 g/dL (11.5-15.3); Lymphocytes # 0.4 10^3/uL (0.8-4.8); Lymphocytes % 5.7 %; Mean Corpuscular HGB Conc 30.9 g/dL (30.0-36.0); Mean Corpuscular Volume 97.1 fl (81-99); Mean Platelet Volume 11.6 fL (7.4-10.4); Monocytes # 1.4 10^3/uL (0.2-0.9); Monocytes % 18.1 %; Neutrophils # 5.68 10^3/uL (1.8-7.7); Neutrophils % 74.9 %; Nucleated Red Blood Cells % 0 %; Platelet Count 411 10^3/cmm (130-400); Red Blood Count 5.44 10^6/uL (4.1-5.3); Red Cell Distribution Width 19.5 % (12.1-15.1); White Blood Count 7.6 10^3/uL (4.0-10.0)
[2021-05-23 22:32] LABS: Troponin(5th) Baseline 7 ng/L (0-10)
[2021-05-23 22:35] VITALS: RESP 20; O2SAT 92
[2021-05-23 22:35] LABS: D Dimer 0.59 ug/mIFEU (0-0.59)
[2021-05-23] MEDS: morphine 4 mg/mL SDV 1 mL IVP (22:35)
[2021-05-23] MEDS: ondansetron 2 mg/ML SDV 2 mL 4 MG IVP (22:35)
[2021-05-23 22:40] LABS: Lactic Sepsis W/Reflex 0.8 mmol/L (0.5-2.2)
[2021-05-23 22:42] LABS: Alanine Aminotransferase 13 U/L (0-33); Albumin Level 3.5 g/dL (3.5-5.2); Alkaline Phosphatase 74 IU/L (35-105); Anion Gap 13.4 (5-19); Aspartate Amino Transferase 12 U/L (0-32); Blood Urea Nitrogen 15 mg/dL (6-20); Calcium 9.1 mg/dL (8.5-10.5); Carbon Dioxide 39 mmol/L (22-29); Chloride 95 mmol/L (98-107); Globulin 2.7 g/dL (1.3-4.6); Glomerular Filtration Rate 163.4 mL/min (90-130); Glucose 107 mg/dL (65-115); NT Pro B Type Natriuretic Pept 1055 pg/mL (0-125); Osmolality Calculated 297 mOsm/kg (285-295); Potassium 4.4 mmol/L (3.5-5.1); Sodium 143 mmol/L (136-145); Total Bilirubin 0.5 mg/dL (0.15-1.2); Total Protein 6.2 g/dL (6.6-8.7)
[2021-05-23 22:49] LABS: ABG PH Result 7.35 (7.35-7.45); Arterial Blood Gas Hematocrit 49.2 % (37-47); Base Excess ABG 14.2 mmol/L (-2.0-2.0); Blood Gas Allen Test Pos; Blood Gas Sample Site Brachial, right; Blood Gas Sample Type Arterial; Carboxyhemoglobin 0.7 %THgb (0.4-20.1); HCO3 ABG 44.7 mmol/L (22-26); HGB O2 Sat 84.1 % (95-100); Oxygen Device NC; PO2 ABG 55.2 mmHg (80.0-100.0)
[2021-05-23] MEDS: ipratropium-albuterol 3 mL Neb INHALATION (22:55)
[2021-05-23 23:00] VITALS: PULSE 89; RESP 15; O2SAT 94
[2021-05-24] VITALS (14 sets, daily range): BP systolic 90–109; BP diastolic 47–74; PULSE 59–81; RESP 14–24; TEMP 36.5–36.7; O2SAT 92–98; BMI 15.0
[2021-05-24 00:50] LABS: SARS Covid-2 Antigen Negative (Negative)
[2021-05-24] MEDS: FUROsemide 10 mg/mL SDV 4mL 40 MG IVP (00:54)
[2021-05-24] MEDS: levofloxacin-dextrose 5 % 750 MG/150 ML PREMIX 100 MG IV (00:54)
--- NOTE | 2021-05-24 01:04 | W.ED.SOB ---
HPI - SOB/Dyspnea General: Chief Complaint: Shortness of Breath/Dyspnea Stated Complaint: SOB Time Seen by Provider: 05/23/21 22:01 History of Present Illness: HPI Narrative: 60-year-old female with a history of lung cancer. She has COPD as well. She presents with worsening shortness of breath, cough, sputum production. She has had upper oxygen usage the past couple of days. She says she has probably been sick for the last 2 weeks, worsening in severity MD elicited complaint: shortness of breath Pertinent past history: COPD and other Onset (ago): day(s) Context: recent illness Timing: constant and progressively worsening Severity: moderate Exacerbating factors: lying flat, exertion and coughing Relieving factors: oxygen Known history of: COPD and other Associated symptoms: Reports chest congestion and cough; Deny abdominal pain, chest pain, fever(s), nausea or vomiting Treatment prior to arrival: oxygen and bronchodilator Review of Systems Const: Denies: fever(s) Card: Denies: chest pain Resp: Reports: chest congestion GI: Denies: abdominal pain, nausea or vomiting [facility] ED PFSH: Medical History (Updated 05/24/21 @ 01:16 by Jack Schmitt DO) COPD (chronic obstructive pulmonary disease) History of lung cancer HTN (hypertension), benign Surgical History (Updated 10/02/20 @ 13:07 by Gurvinder Ng MD) H/O colonoscopy (07/16/20) H/O colostomy H/O exploratory laparotomy H/O pneumonectomy Hx of tubal ligation Port-A-Cath in place (10/02/20) Family History Mother Cancer liver Son Cancer age 12 leukemia Other Hypertension Denies family history of CAD (coronary artery disease) Dementia Anesthesia complication Bleeding disorder Social History Smoking and tobacco status: current every day smoker cigarettes Packs smoked per day: 1 Years cigarettes smoked: 30 Quit status (tobacco): has tried quititng Smoking risk assessment/counseling performed?: Yes Alcohol intake: never Counseling given: No Counseling given: No Lives independently: Yes Household members: significant other Marital status: Single Current occupational status: employed History of recent travel: No Current gender identity: Female Female Reproductive History: Spontaneous abortions: No Physical Exam Const: COMMON NORMALS: patient oriented x3 and alert GENERAL APPEARANCE: ill appearing and frail appearing HENMT: COMMON NORMALS: normocephalic HEAD & SCALP: normocephalic Chest: COMMONS NORMALS: normal inspection of the chest Resp: EFFORT & INSPECTION: Yes tachypneic, Yes labored and Yes retractions (Mild) AUSCULTATION: rhonchi and wheezes Cardio: COMMON NORMALS: regular rate and Peripheral pulses 2+ throughout RATE: regular rate RHYTHM: abnormal rhythm with ectopic beats PERIPHERAL PULSES: Peripheral pulses 2+ throughout GI: COMMON NORMALS: Normal to inspection, nondistended, normoactive bowel sounds present Neuro: COMMON NORMALS: patient oriented x3 SENSORIUM/ORIENTATION: Yes alert Course Consultations: Consultation #1: lia Time: 01:11 Vital Signs: Vital signs: Vital Signs Temperature 99.0 F 05/23/21 21:36 Pulse Rate 89 05/23/21 23:00 Respiratory Rate 24 H 05/24/21 01:44 Blood Pressure 99/61 05/23/21 21:36 Pulse Oximetry 94 05/24/21 01:44 MDM - SOB/Dyspnea MDM Narrative: Medical decision making narrative: Hypoxic respiratory failure in a patient with bilateral infiltrates. She is Covid negative. Her D-dimer is negative. White blood cell count of 7.6 hemoglobin of 16.3. BNP is slightly elevated. Troponin is 7 EKG shows a sinus rhythm with sinus arrhythmia. No acute ST changes she is placed on BiPAP for significant hypoxia despite 5 to 6 L nasal cannula O2. Lab Data: Labs: Lab Results 05/23/21 05/23/21 05/23/21 21:45 21:45 21:45 WBC 7.6 10^3/uL 10^3/ uL (4.0-10.0) RBC 5.44 10^6/uL H 10 ^6/uL (4.1-5.3) Hgb 16.3 g/dL H g/dL (11.5-15.3) Hct 52.8 % H % (37.0-47.0) MCV 97.1 fl fl (81-99) MCH 30.0 pg pg (28.0-34.0) MCHC 30.9 g/dL g/dL (30.0-36.0) RDW 19.5 % H % (12.1-15.1) Plt Count 411 10^3/cmm H 10 ^3/cmm (130-400) MPV 11.6 fL H fL (7.4-10.4) Neut % (Auto) 74.9 % % Lymph % (Auto) 5.7 % % [place] % (Auto) 18.1 % % Eos % (Auto) 0.1 % % Baso % (Auto) 0.7 % % Neut # (Auto) 5.68 10^3/uL 10^3 /uL (1.8-7.7) Lymph # (Auto) 0.4 10^3/uL L 10^ 3/uL (0.8-4.8) [place] # (Auto) 1.4 10^3/uL H 10^ 3/uL (0.2-0.9) Eos # (Auto) 0.0 10^3/uL 10^3/ uL (0.0-0.8) Baso # (Auto) 0.1 10^3/uL 10^3/ uL (0.0-0.1) Nucleated RBC % (a uto) 0 % % Nucleated RBCs # 0.0 /100WBC /100W BC D-Dimer 0.59 ug/mIFEU ug/ mIFEU (0-0.59) Specimen Type Sample Site ABG pH ABG pO2 ABG HCO3 ABG Base Excess [place] Test Hematocrit Hgb O2 Saturation Carboxyhemoglobin Methemoglobin Total Hemoglobin O2 Delivery Device O2 Liters/Min Caregivers Non Medical ID Sodium 143 mmol/L mmol/L (136-145) Potassium 4.4 mmol/L mmol/L (3.5-5.1) Chloride 95 mmol/L L mmol/ L (98-107) Carbon Dioxide 39 mmol/L H mmol/ L (22-29) Anion Gap 13.4 (5-19) BUN 15 mg/dL mg/dL (6-20) Creatinine 0.4 mg/dL L mg/dL (0.5-0.9) GFR Calculation 163.4 mL/min H mL /min (90-130) Glucose 107 mg/dL mg/dL (65-115) Calculated Osmolal ity 297 mOsm/kg H mOs m/kg (285-295) Lactic Acid Calcium 9.1 mg/dL mg/dL (8.5-10.5) Total Bilirubin 0.5 mg/dL mg/dL (0.15-1.2) AST 12 U/L U/L (0-32) ALT 13 U/L U/L (0-33) Alkaline Phosphata se 74 IU/L IU/L (35-105) Troponin T Baselin e Troponin T 120 Min point [place] Delta Troponin T NT-Pro-B Natriuret Pep 1055 pg/mL H pg/m L (0-125) Total Protein 6.2 g/dL L g/dL (6.6-8.7) Albumin 3.5 g/dL g/dL (3.5-5.2) Globulin 2.7 g/dL g/dL (1.3-4.6) SARS-CoV-2 Ag (Rap id) 05/23/21 05/23/21 05/23/21 21:45 22:05 22:38 WBC RBC Hgb Hct MCV MCH MCHC RDW Plt Count MPV Neut % (Auto) Lymph % (Auto) [place] % (Auto) Eos % (Auto) Baso % (Auto) Neut # (Auto) Lymph # (Auto) [place] # (Auto) Eos # (Auto) Baso # (Auto) Nucleated RBC % (a uto) Nucleated RBCs # D-Dimer Specimen Type Arterial Sample Site Brachial, right ABG pH 7.35 (7.35-7.45) ABG pO2 55.2 mmHg L mmHg (80.0-100.0) ABG HCO3 44.7 mmol/L H mmo l/L (22-26) ABG Base Excess 14.2 mmol/L H mmo l/L (-2.0-2.0) Harman Test Pos Hematocrit 49.2 % H % (37-47) Hgb O2 Saturation 84.1 % L % (95-100) Carboxyhemoglobin 0.7 %THgb %THgb (0.4-20.1) Methemoglobin 1.0 % % (0.4-1.5) Total Hemoglobin 16.0 g/dL g/dL (12-16) O2 Delivery Device Nc O2 Liters/Min 3.0 % % Caregivers Non Medical ID [email or web address] Sodium Potassium Chloride Carbon Dioxide Anion Gap BUN Creatinine GFR Calculation Glucose Calculated Osmolal ity Lactic Acid 0.8 mmol/L mmol/L (0.5-2.2) Calcium Total Bilirubin AST ALT Alkaline Phosphata se Troponin T Baselin e 7 ng/L ng/L (0-10) Troponin T 120 Min point [place] Delta Troponin T NT-Pro-B Natriuret Pep Total Protein Albumin Globulin SARS-CoV-2 Ag (Rap id) 05/23/21 05/24/21 23:50 00:46 WBC RBC Hgb Hct MCV MCH MCHC RDW Plt Count MPV Neut % (Auto) Lymph % (Auto) [place] % (Auto) Eos % (Auto) Baso % (Auto) Neut # (Auto) Lymph # (Auto) [place] # (Auto) Eos # (Auto) Baso # (Auto) Nucleated RBC % (a uto) Nucleated RBCs # D-Dimer Specimen Type Sample Site ABG pH ABG pO2 ABG HCO3 ABG Base Excess Harman Test Hematocrit Hgb O2 Saturation Carboxyhemoglobin Methemoglobin Total Hemoglobin O2 Delivery Device O2 Liters/Min Caregivers Non Medical ID Sodium Potassium Chloride Carbon Dioxide Anion Gap BUN Creatinine GFR Calculation Glucose Calculated Osmolal ity Lactic Acid Calcium Total Bilirubin AST ALT Alkaline Phosphata se Troponin T Baselin e Troponin T 120 Min point [place] 6.70 ng/L ng/L (0-10) Delta Troponin T -0.30 ABS# L ABS# (0-10) NT-Pro-B Natriuret Pep Total Protein Albumin Globulin SARS-CoV-2 Ag (Rap id) Negative (Negative) Discharge Plan Discharge Patient Disposition: Admitted As Inpatient Clinical Impression: COPD (chronic obstructive pulmonary disease) Qualifiers: Chronic bronchitis type: mucopurulent Respiratory failure Qualifiers: Chronicity: acute on chronic Respiratory failure complication: hypoxia Qualified Code(s): J96.21 - Acute and chronic respiratory failure with hypoxia Condition: Fair Coding Level of Care Code 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
[2021-05-24] MEDS: HYDROmorphone 1 mg/mL INJ 1 mL 0.5 MG IVP (01:44)
--- NOTE | 2021-05-24 01:51 | P.HP_ITS ---
Providers/Chief Complaint Primary Care Provider: Graciela Diamond MD Chief Complaint: SOB History of Present Illness Kim Nettles is a 60 year old female with past medical history of lung adenocarcinoma, status post thoracotomy, chemotherapy. Currently she is on immunotherapy managed by Dr. Michaels. She presents today with complaints of shortness of breath, increased cough productive with yellow mucus, not feeling well. Her symptoms started about 4 days ago and progressively got worse. The patient was found to have significant hypoxia and respiratory distress. She was started on BiPAP. Currently she reports feeling slightly better. She also has history of oxygen dependent COPD. Unfortunately she still continues smoking. S he denies similar episodes in the past. Chest x-ray revealed bilateral infiltrates worse on the right. No nausea vomiting, no diarrhea. Denies chest pain. Review of Systems General: Reports: 10 or more systems reviewed and unremarkable except in HPI and below Medications/Allergies Home Medications Medication Instructions Recorded Confirmed Last Taken Type lisinopril 20 mg tablet 20 mg PO DAILY 30 Days #30 tab 09/16/20 03/26/21 10/01/20 Rx sertraline 25 mg tablet 25 mg PO DAILY 30 Days #30 tab 09/16/20 03/26/21 Rx hydrocodone-acetaminophen 1 tab PO Q6H PRN #20 tab 10/02/20 03/26/21 Unknown Rx tiotropium 2.5 mcg-olodaterol 2.5 2 puff INHALATION DAILY 30 Days #4 12/17/20 03/26/21 Unknown Rx mcg/actuation mist for inhalation g dronabinol 2.5 mg capsule 2.5 mg PO BID 03/26/21 03/26/21 Unknown History Allergies Allergy/AdvReac Type Severity Reaction Status Date / Time No Known Allergies Allergy Verified 03/26/21 09:03 PFSH Acute PFSH: Medical History (Updated 05/24/21 @ 01:56 by Gil Mcfarland) COPD (chronic obstructive pulmonary disease) History of lung cancer HTN (hypertension), benign Surgical History (Updated 10/02/20 @ 13:07 by Gurvinder Ng MD) H/O colonoscopy (07/16/20) H/O colostomy H/O exploratory laparotomy H/O pneumonectomy Hx of tubal ligation Port-A-Cath in place (10/02/20) Family History Mother Cancer liver Son Cancer age 12 leukemia Other Hypertension Denies family history of CAD (coronary artery disease) Dementia Anesthesia complication Bleeding disorder Social History Smoking and tobacco status: current every day smoker cigarettes Packs smoked per day: 1 Years cigarettes smoked: 30 Quit status (tobacco): has tried quititng Smoking risk assessment/counseling performed?: Yes Alcohol intake: never Counseling given: No Counseling given: No Lives independently: Yes Household members: significant other Marital status: Single Current occupational status: employed History of recent travel: No Current gender identity: Female Female Reproductive History: Spontaneous abortions: No Vitals/I&O/Wt Last Vital Signs Temp 99.0 F 05/23/21 21:36 Pulse 89 05/23/21 23:00 Resp 24 H 05/24/21 01:44 BP 99/61 05/23/21 21:36 Pulse Ox 94 05/24/21 01:44 Weight last 48 hrs Weight 41.73 kg Physical Exam Narrative: EXAM NARRATIVE: The patient is awake alert oriented. Mild distress secondary to BiPAP. Normal speech. Responses are adequate. Mood and affect are appropriate. Skin is warm and dry. Moist mucous membranes Eyes PERRL, extraocular muscles are intact Neck supple. No JVD Lungs bilateral coarse breath sounds, bilateral wheezes more pronounced in the upper zones. Mild tachypnea Heart S1, S2, regular Abdomen soft, nontender, bowel sounds are present Extremities trace edema no cyanosis no calf tenderness bilaterally Neuro examination is nonfocal. Data : 05/23/21 21:45 05/23/21 21:45 Other Labs: Laboratory Results WBC 7.6 10^3/uL (4.0-10.0) 05/23/21 21:45 RBC 5.44 10^6/uL (4.1-5.3) H 05/23/21 21:45 Hgb 16.3 g/dL (11.5-15.3) H 05/23/21 21:45 Hct 52.8 % (37.0-47.0) H 05/23/21 21:45 MCV 97.1 fl (81-99) 05/23/21 21:45 MCH 30.0 pg (28.0-34.0) 05/23/21 21:45 MCHC 30.9 g/dL (30.0-36.0) 05/23/21 21:45 RDW 19.5 % (12.1-15.1) H 05/23/21 21:45 Plt Count 411 10^3/cmm (130-400) H 05/23/21 21:45 MPV 11.6 fL (7.4-10.4) H 05/23/21 21:45 Neut % (Auto) 74.9 % 05/23/21 21:45 Lymph % (Auto) 5.7 % 05/23/21 21:45 [place] % (Auto) 18.1 % 05/23/21 21:45 Eos % (Auto) 0.1 % 05/23/21 21:45 Baso % (Auto) 0.7 % 05/23/21 21:45 Neut # (Auto) 5.68 10^3/uL (1.8-7.7) 05/23/21 21:45 Lymph # (Auto) 0.4 10^3/uL (0.8-4.8) L 05/23/21 21:45 [place] # (Auto) 1.4 10^3/uL (0.2-0.9) H 05/23/21 21:45 Eos # (Auto) 0.0 10^3/uL (0.0-0.8) 05/23/21 21:45 Baso # (Auto) 0.1 10^3/uL (0.0-0.1) 05/23/21 21:45 Nucleated RBC % (auto) 0 % 05/23/21 21:45 Nucleated RBCs # 0.0 /100WBC 05/23/21 21:45 D-Dimer 0.59 ug/mIFEU (0-0.59) 05/23/21 21:45 Specimen Type Arterial 05/23/21 22:38 Sample Site Brachial, right 05/23/21 22:38 ABG pH 7.35 (7.35-7.45) 05/23/21 22:38 ABG pO2 55.2 mmHg (80.0-100.0) L 05/23/21 22:38 ABG HCO3 44.7 mmol/L (22-26) H 05/23/21 22:38 ABG Base Excess 14.2 mmol/L (-2.0-2.0) H 05/23/21 22:38 Harman Test Pos 05/23/21 22:38 Hematocrit 49.2 % (37-47) H 05/23/21 22:38 Hgb O2 Saturation 84.1 % (95-100) L 05/23/21 22:38 Carboxyhemoglobin 0.7 %THgb (0.4-20.1) 05/23/21 22:38 Methemoglobin 1.0 % (0.4-1.5) 05/23/21 22:38 Total Hemoglobin 16.0 g/dL (12-16) 05/23/21 22:38 O2 Delivery Device Nc 05/23/21 22:38 O2 Liters/Min 3.0 % 05/23/21 22:38 Bulb Grower ID [email or web address] 05/23/21 22:38 Sodium 143 mmol/L (136-145) 05/23/21 21:45 Potassium 4.4 mmol/L (3.5-5.1) 05/23/21 21:45 Chloride 95 mmol/L (98-107) L 05/23/21 21:45 Carbon Dioxide 39 mmol/L (22-29) H 05/23/21 21:45 Anion Gap 13.4 (5-19) 05/23/21 21:45 BUN 15 mg/dL (6-20) 05/23/21 21:45 Creatinine 0.4 mg/dL (0.5-0.9) L 05/23/21 21:45 GFR Calculation 163.4 mL/min (90-130) H 05/23/21 21:45 Glucose 107 mg/dL (65-115) 05/23/21 21:45 Calculated Osmolality 297 mOsm/kg (285-295) H 05/23/21 21:45 Lactic Acid 0.8 mmol/L (0.5-2.2) 05/23/21 22:05 Calcium 9.1 mg/dL (8.5-10.5) 05/23/21 21:45 Total Bilirubin 0.5 mg/dL (0.15-1.2) 05/23/21 21:45 AST 12 U/L (0-32) 05/23/21 21:45 ALT 13 U/L (0-33) 05/23/21 21:45 Alkaline Phosphatase 74 IU/L (35-105) 05/23/21 21:45 Troponin T Baseline 7 ng/L (0-10) 05/23/21 21:45 Troponin T 120 Minute 6.70 ng/L (0-10) 05/24/21 00:46 Delta Troponin T -0.30 ABS# (0-10) L 05/24/21 00:46 NT-Pro-B Natriuret Pep 1055 pg/mL (0-125) H 05/23/21 21:45 Total Protein 6.2 g/dL (6.6-8.7) L 05/23/21 21:45 Albumin 3.5 g/dL (3.5-5.2) 05/23/21 21:45 Globulin 2.7 g/dL (1.3-4.6) 05/23/21 21:45 SARS-CoV-2 Ag (Rapid) Negative (Negative) 05/23/21 23:50 Impressions Chest X-Ray 05/23/21 22:01 IMPRESSION: 1. Cardiomegaly. 2. Emphysematous changes. 3. Prominent interstitial markings may reflect some interstitial fibrotic changes or developing bronchopneumonia right greater than left. Radiation Dose CTDIVOL = (mGy): DLP = (mGy-cm) EKG is reviewed. Shows old Q waves. A&P Assessment and plan (1) Acute and chronic respiratory failure with hypoxia: Status: Acute (2) COPD with acute exacerbation: Status: Acute (3) Pneumonitis: Status: Acute (4) Pneumonia: Status: Acute (5) History of lung cancer: Status: Acute Additional A&P Information 40-year-old female with past medical history of lung cancer, COPD, status post thoracotomy, chemotherapy, currently on immunotherapy, continuous tobacco use who is presenting with shortness of breath and increased cough. COPD acute exacerbation secondary to immune mediated pneumonitis versus pneumonia. Associated acute hypoxic respiratory failure. We will continue BiPAP until her symptoms improve, supplemental oxygen, systemic steroids which will help with the bronchospasm as well as possible pneumonitis, antibiotics, respiratory treatments. We will check her procalcitonin level. Will discuss her hospitalization with her oncologist in the morning. We will check her TSH. 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 Unclear whether she takes thyroid medications at this point. DVT prophylaxis. Lovenox. CODE STATUS. She wants to be full code. The plan of care was discussed with the patient and her family. They verbalized understanding and agreement. Attestations Medical Necessity Statement*: Based on my assessment of patient's current condition, diagnosis and plan of care I expect that the patient will spend more than 2 midnights in the hospital. 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
[2021-05-24 02:33] LABS: Procalcitonin 0.07 ng/mL (0-0.5)
[2021-05-24] MEDS: enoxaparin 40 mg/0.4 mL Syringe SUBCUT (02:34)
[2021-05-24] MEDS: cefTRIAXone 1,000 MG in sodium chloride 0.9% (plus) 50 ML 100 MG IV (02:34)
--- NOTE | 2021-05-24 04:02 | ECG_ITS ---
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 Measurements Intervals [place] Rate: 70 P: 83 [place]: 127 QRS: 87 QRSD: 94 T: 93 QT: 373 QTc: 404 Interpretive Statements SINUS RHYTHM WITH SINUS ARRHYTHMIA Compared to ECG 05/24/2021 00:16:56 Right-axis deviation no longer present Electronically Signed On 05-25-2021 13:26:52 NEURODIAGNOSTIC TECHNOLOGIST by Twyla Cedeno M.D. [id number]
[2021-05-24] MEDS: ipratropium-albuterol 3 mL Neb INHALATION ×2 (07:45→23:35)
[2021-05-24] MEDS: lisinopril 20 mg Tablet PO (09:33)
[2021-05-24] MEDS: sertraline 50 mg Tablet 25 MG PO (09:33)
[2021-05-24] MEDS: doxycycline 100 mg Tablet PO (09:33)
[2021-05-24] MEDS: dronabinol 2.5 mg Capsule PO ×2 (11:50→17:26)
--- NOTE | 2021-05-24 13:48 | PC.PT ---
Patient sleeping soundly on multiple attempts today, and appears not eating her meals at all, was up late at emergency room; will reattempt evaluation tomorrow.
[2021-05-24] MEDS: piperacillin-tazobactam 3.375 GM in sodium chloride 0.9% (plus) 50 ML IV ×2 (15:38→23:52)
--- NOTE | 2021-05-24 16:54 | P.PN_ITS ---
Subjective Subjective: Interval history: Patient was seen and examined this morning continues to complain of worsening shortness of breath as well as cough, very weak and frail. Medications: Reviewed: Yes Vitals/I&O/Wt Last Vital Signs Temp 97.8 F 05/24/21 12:00 Pulse 64 05/24/21 15:31 Resp 17 05/24/21 12:00 BP 105/74 05/24/21 12:00 Pulse Ox 92 05/24/21 15:31 05/24/21 05/24/21 05/24/21 06:59 14:59 22:59 Intake Total 240 / 240 Balance 240 / 240 Weight last 48 hrs Weight 39.916 kg Weight 41.73 kg Physical Exam Const: COMMON NORMALS: patient oriented x3 HENMT: COMMON NORMALS: normocephalic and atraumatic HEAD & SCALP: normocephalic and atraumatic Resp: EFFORT & INSPECTION: Yes symmetric chest movement OTHER: Coarse breath sounds bilaterally Cardio: COMMON NORMALS: regular rate, regular rhythm, S1 normal heart sound present, S2 normal heart sound present, No gallops present (Cardio), No murmurs present (Cardio), No rub (Cardio) and Peripheral pulses 2+ throughout RATE: regular rate RHYTHM: regular rhythm HEART SOUNDS: S1 normal heart sound present and S2 normal heart sound present PERIPHERAL PULSES: Peripheral pulses 2+ throughout GI: COMMON NORMALS: Normal to inspection, nondistended, normoactive bowel sounds present, Soft to palpation, non-tender, No hepatosplenomegaly present and no masses AUSCULTATION: Yes normoactive bowel sounds PALPATION: Yes Soft to palpation and Yes No hepatosplenomegaly present RECTAL EXAM: deferred Extremity: COMMON NORMALS: no clubbing, cyanosis or edema and no pedal edema Neuro: COMMON NORMALS: patient oriented x3 Data : 05/23/21 21:45 05/23/21 21:45 A&P Assessment and plan (1) Acute and chronic respiratory failure with hypoxia: Acute on chronic hypoxic respiratory failure secondary to pneumonia (possible immune mediated pneumonitis) Patient came in with chief complaint of worsening shortness of breath and cough with yellow sputum, generalized weakness and fatigue. X-ray chest: Bilateral infiltrates. Sputum culture Urine Legionella antigen Urine bacterial antigen control panel builder x-ray chest Duo nebs Mucomyst inhalation Vancomycin, Zosyn, doxycycline Solu-Medrol 60 mg IV q. 12 H Daily Status: Acute (2) COPD with acute exacerbation: Status: Acute (3) Pneumonitis: Status: Acute (4) Pneumonia: Status: Acute (5) History of lung cancer: Status: Acute Additional A&P Information 40-year-old female with past medical history of lung cancer, COPD, status post thoracotomy, chemotherapy, currently on immunotherapy, continuous tobacco use who is presenting with shortness of breath and increased cough. COPD acute exacerbation secondary to immune mediated pneumonitis versus pneumonia. Associated acute hypoxic respiratory failure. We will continue BiPAP until her symptoms improve, supplemental oxygen, systemic steroids which will help with the bronchospasm as well as possible pneumonitis, antibiotics, respiratory treatments. We will check her procalcitonin level. Will discuss her hospitalization with her oncologist in the morning. We will check her TSH. 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 Unclear whether she takes thyroid medications at this point. DVT prophylaxis. Lovenox. CODE STATUS. She wants to be full code. The plan of care was discussed with the patient and her family. They verbalized understanding and agreement. Attestations Medical Necessity Statement*: Patient needs to be in the hospital for management of pneumonia. Coding Level of Care Code Acute Channel Lip Stiffener Insoles for [facility] Diagnoses Acute and chronic respiratory failure with hypoxia J96.21 COPD with acute exacerbation J44.1 Pneumonitis J18.9 Pneumonia J18.9 History of lung cancer Z85.118
[2021-05-24] MEDS: guaiFENesin 600 mg Tablet 1200 MG PO (17:26)
[2021-05-24] MEDS: vancomycin 750 MG in sodium chloride 0.9% 250 ML 250 MG IV (17:48)
[2021-05-24] MEDS: acetaminophen 325 mg Tablet 650 MG PO (18:21)
[2021-05-24] MEDS: doxycycline 100 MG in sodium chloride 0.9% (plus) 100 ML IV (19:27)
[2021-05-25] VITALS (16 sets, daily range): BP systolic 95–115; BP diastolic 57–74; PULSE 62–88; RESP 16–20; TEMP 36.6–36.9; O2SAT 90–98
[2021-05-25] MEDS: enoxaparin 40 mg/0.4 mL Syringe SUBCUT (02:15)
[2021-05-25] MEDS: ipratropium-albuterol 3 mL Neb INHALATION ×6 (03:17→23:44)
[2021-05-25] MEDS: acetylcysteine 200 mg/mL SDV 4 mL 100 MG INHALATION ×5 (04:00→23:44)
[2021-05-25] MEDS: vancomycin 750 MG in sodium chloride 0.9% 250 ML 250 MG IV ×2 (05:40→16:35)
[2021-05-25 05:43] LABS: Basophils % 0.3 %; Hematocrit 53.7 % (37.0-47.0); Hemoglobin 16.4 g/dL (11.5-15.3); Lymphocytes # 0.2 10^3/uL (0.8-4.8); Mean Corpuscular HGB Conc 30.5 g/dL (30.0-36.0); Mean Corpuscular Hemoglobin 30.8 pg (28.0-34.0); Mean Corpuscular Volume 100.9 fl (81-99); Monocytes # 0.9 10^3/uL (0.2-0.9); Monocytes % 9.7 %; Neutrophils # 8.11 10^3/uL (1.8-7.7); Neutrophils % 87.1 %; Nucleated Red Blood Cells % 0 %; Platelet Count 401 10^3/cmm (130-400); Red Blood Count 5.32 10^6/uL (4.1-5.3); Red Cell Distribution Width 19.2 % (12.1-15.1); White Blood Count 9.3 10^3/uL (4.0-10.0)
[2021-05-25 06:19] LABS: Blood Urea Nitrogen 27 mg/dL (6-20); Chloride 93 mmol/L (98-107); Glomerular Filtration Rate 163.4 mL/min (90-130); Glucose 80 mg/dL (65-115); Magnesium 2.1 mg/dL (1.7-2.3); Osmolality Calculated 298 mOsm/kg (285-295); Sodium 142 mmol/L (136-145)
[2021-05-25 06:29] LABS: Anion Gap 8.9 (5-19); Carbon Dioxide 45 mmol/L (22-29); Potassium 4.9 mmol/L (3.5-5.1)
[2021-05-25] MEDS: guaiFENesin 600 mg Tablet 1200 MG PO ×2 (08:26→16:36)
[2021-05-25] MEDS: sertraline 50 mg Tablet 25 MG PO (08:27)
[2021-05-25] MEDS: lisinopril 20 mg Tablet PO (08:27)
[2021-05-25] MEDS: doxycycline 100 MG in sodium chloride 0.9% (plus) 100 ML IV ×2 (08:27→19:52)
[2021-05-25] MEDS: piperacillin-tazobactam 3.375 GM in sodium chloride 0.9% (plus) 50 ML IV ×2 (09:26→15:17)
[2021-05-25] MEDS: dronabinol 2.5 mg Capsule PO ×2 (10:35→16:36)
--- NOTE | 2021-05-25 10:39 | P.PN_ITS ---
Subjective Subjective: Interval history: Patient was seen and examined this morning SOB has improved. Though she is still requiring 8 to 12Ls supplemental oxygen through high flow. At home she is on as needed oxygen. Coughing has improved. Medications: Reviewed: Yes Vitals/I&O/Wt Last Vital Signs Temp 98.1 F 05/25/21 07:07 Pulse 67 05/25/21 09:38 Resp 20 H 05/25/21 09:35 BP 108/69 05/25/21 07:07 Pulse Ox 94 05/25/21 09:35 05/24/21 05/25/21 05/25/21 22:59 06:59 14:59 Intake Total 520 / 520 680 / 1200 Balance 520 / 520 680 / 1200 Weight last 48 hrs Weight 39.916 kg Weight 41.73 kg Physical Exam Const: COMMON NORMALS: patient oriented x3 HENMT: COMMON NORMALS: normocephalic and atraumatic HEAD & SCALP: normocephalic and atraumatic Resp: EFFORT & INSPECTION: Yes symmetric chest movement OTHER: Coarse breath sounds bilaterally Cardio: COMMON NORMALS: regular rate, regular rhythm, S1 normal heart sound present, S2 normal heart sound present, No gallops present (Cardio), No murmurs present (Cardio), No rub (Cardio) and Peripheral pulses 2+ throughout RATE: regular rate RHYTHM: regular rhythm HEART SOUNDS: S1 normal heart sound present and S2 normal heart sound present PERIPHERAL PULSES: Peripheral pulses 2+ throughout GI: COMMON NORMALS: Normal to inspection, nondistended, normoactive bowel sounds present, Soft to palpation, non-tender, No hepatosplenomegaly present and no masses AUSCULTATION: Yes normoactive bowel sounds PALPATION: Yes Soft to palpation and Yes No hepatosplenomegaly present RECTAL EXAM: deferred Extremity: COMMON NORMALS: no clubbing, cyanosis or edema and no pedal edema Neuro: COMMON NORMALS: patient oriented x3 Data : 05/25/21 04:29 05/25/21 04:29 A&P Assessment and plan (1) Acute and chronic respiratory failure with hypoxia: Acute on chronic hypoxic respiratory failure secondary to pneumonia (possible immune mediated pneumonitis) Patient came in with chief complaint of worsening shortness of breath and cough with yellow sputum, generalized weakness and fatigue. X-ray chest: Bilateral infiltrates. Sputum culture : Urine Legionella antigen Urine bacterial antigen control panel tester x-ray chest Duo nebs Mucomyst inhalation Vancomycin, Zosyn, doxycycline Solu-Medrol 60 mg IV q. 12 H Daily Status: Acute (2) COPD with acute exacerbation: Status: Acute (3) Pneumonitis: Status: Acute (4) Pneumonia: Status: Acute (5) History of lung cancer: Status: Acute Additional A&P Information 40-year-old female with past medical history of lung cancer, COPD, status post thoracotomy, chemotherapy, currently on immunotherapy, continuous tobacco use who is presenting with shortness of breath and increased cough. COPD acute exacerbation secondary to immune mediated pneumonitis versus pneumonia. Associated acute hypoxic respiratory failure. We will continue BiPAP until her symptoms improve, supplemental oxygen, systemic steroids which will help with the bronchospasm as well as possible pneumonitis, antibiotics, respiratory treatments. We will check her procalcitonin level. Will discuss her hospitalization with her oncologist in the morning. We will check her TSH. 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 Unclear whether she takes thyroid medications at this point. DVT prophylaxis. Lovenox. CODE STATUS. She wants to be full code. The plan of care was discussed with the patient and her family. They verbalized understanding and agreement. Attestations Medical Necessity Statement*: Patient is to be in hospital for management of Acute on chronic hypoxic respiratory failure. Coding Level of Care Code Acute Hockey Instructor for Zeeshan Perez Exam Detailed Diagnoses Acute and chronic respiratory failure with hypoxia J96.21 COPD with acute exacerbation J44.1 Pneumonitis J18.9 Pneumonia J18.9 History of lung cancer Z85.118
--- NOTE | 2021-05-25 11:47 | PC.NURSE ---
PT PT PLACED UP IN CHAIR PER PT - WITHIN MINUTES PT REQUESTING TO RETURN TO BED - PT EDUCATED PER THIS NURSE OF NEED TO REMAIN IN CHAIR - WILL CONTINUE TO MONITOR
--- NOTE | 2021-05-25 14:50 | PC.OT ---
Two attempts to see patient today. Refused therapy both times, said she was just too weak and fatigued to get up or participate in any way.
[2021-05-26] VITALS (12 sets, daily range): BP systolic 100–125; BP diastolic 61–73; PULSE 62–92; RESP 17–18; TEMP 36.4–36.8; O2SAT 90–95
[2021-05-26] MEDS: piperacillin-tazobactam 3.375 GM in sodium chloride 0.9% (plus) 50 ML IV ×3 (00:25→16:22)
[2021-05-26] MEDS: enoxaparin 40 mg/0.4 mL Syringe SUBCUT (02:27)
[2021-05-26 05:24] LABS: Basophils % 0.3 %; Hematocrit 48.9 % (37.0-47.0); Hemoglobin 15.2 g/dL (11.5-15.3); Lymphocytes # 0.3 10^3/uL (0.8-4.8); Lymphocytes % 2.7 %; Mean Corpuscular HGB Conc 31.1 g/dL (30.0-36.0); Mean Corpuscular Hemoglobin 30.2 pg (28.0-34.0); Mean Corpuscular Volume 97.2 fl (81-99); Mean Platelet Volume 10.6 fL (7.4-10.4); Monocytes # 0.8 10^3/uL (0.2-0.9); Monocytes % 7.4 %; Neutrophils # 9.21 10^3/uL (1.8-7.7); Neutrophils % 89.1 %; Nucleated Red Blood Cells % 0 %; Platelet Count 419 10^3/cmm (130-400); Red Blood Count 5.03 10^6/uL (4.1-5.3); Red Cell Distribution Width 18.9 % (12.1-15.1); White Blood Count 10.3 10^3/uL (4.0-10.0)
[2021-05-26 05:44] LABS: Vancomycin Trough 5.2 ug/mL (10-15)
[2021-05-26 05:57] LABS: Anion Gap 3.8 (5-19); Blood Urea Nitrogen 17 mg/dL (6-20); Calcium 8.5 mg/dL (8.5-10.5); Chloride 98 mmol/L (98-107); Glomerular Filtration Rate 163.4 mL/min (90-130); Glucose 96 mg/dL (65-115); Osmolality Calculated 297 mOsm/kg (285-295); Potassium 4.8 mmol/L (3.5-5.1); Sodium 143 mmol/L (136-145)
[2021-05-26 05:58] LABS: Carbon Dioxide 46 mmol/L (22-29)
[2021-05-26] MEDS: vancomycin 1,000 MG in sodium chloride 0.9% 250 ML 250 MG IV ×3 (06:46→22:20)
[2021-05-26] MEDS: sertraline 50 mg Tablet 25 MG PO (08:15)
[2021-05-26] MEDS: guaiFENesin 600 mg Tablet 1200 MG PO ×2 (08:16→17:25)
[2021-05-26] MEDS: lisinopril 20 mg Tablet PO (08:28)
[2021-05-26] MEDS: doxycycline 100 MG in sodium chloride 0.9% (plus) 100 ML IV ×2 (08:29→19:54)
[2021-05-26] MEDS: acetylcysteine 200 mg/mL SDV 4 mL 100 MG INHALATION ×4 (08:37→20:20)
[2021-05-26] MEDS: ipratropium-albuterol 3 mL Neb INHALATION ×4 (08:38→20:20)
--- NOTE | 2021-05-26 09:25 | PC.OT ---
OT TREATMENT PLAN ADJUSTED TO REFLECT WEDNESDAY-WEDNESDAY TREATMENTS 5X WEEK. WITH PERMISSION OF EVALUATING THERAPIST.
--- NOTE | 2021-05-26 10:45 | CT_ITS ---
WS: [id number] CTA OF THE CHEST WITH PULMONARY EMBOLISM PROTOCOL TECHNIQUE: High-resolution contrast enhanced CTA of the chest with coronal and sagittal reformatted i mages with pulmonary embolism protocol. MIP images are also reviewed. CLINICAL INFORMATION: sob COMPARISON: None. DLP: 366.[address] scans at [facility] use at least one of these dose optimization techniques: automated e xposure control; mA and/or kV adjustment per patient size (includes targeted exams where dose is matc hed to clinical indication); or iterative reconstruction. FINDINGS: Proximal main pulmonary arteries are normal. Motion artifact degrades some images. Segmental and subs egmental pulmonary arteries appear normal. No filling defects. No evidence of pulmonary embolus. Part ial lobectomy left upper lobe. Pleural and parenchymal scarring left lung apex. Advanced chronic emphysematous changes. Bulla formation left upper lobe. Interstitial thickening in t he right lower lobe with small right greater than left pleural effusions. Patchy infiltrates in right lower lobe. Recommend correlation for pneumonia. Dependent atelectasis right upper lobe and right lo wer lobe. No mediastinal or hilar lymphadenopathy. Cholecystectomy clips. Hepatomegaly. Small right hepatic cys t. Calcified right renal cyst. Left renal cyst. Small esophageal hiatal hernia. CT/CT angio chest PE protcl [id number] IMPRESSION: 1. No evidence of pulmonary embolus. 2. Interstitial thickening in the right greater than left lower lobe with smal l right greater than left pleural effusions. Patchy infiltrates in right lower lobe. Recommend correlation for pneumonia. 3. No mediastinal or hilar lymphadenopathy. 4. Small esophageal hiatal hernia. 5. No other significant changes from the prior exams
[2021-05-26] MEDS: iohexol 350 mg/mL 100 mL Btl IV (12:13)
[2021-05-26] MEDS: FUROsemide 10 mg/mL SDV 4mL 40 MG IVP (12:53)
[2021-05-26] MEDS: levothyroxine 50 mcg Tablet PO (13:40)
[2021-05-26] MEDS: dronabinol 2.5 mg Capsule PO ×2 (13:40→16:22)
[2021-05-26] MEDS: acetaminophen 325 mg Tablet 650 MG PO (16:22)
--- NOTE | 2021-05-26 22:02 | P.PN_ITS ---
Subjective Subjective: Interval history: Patient was seen this morning, she sitting up the side of bed, continues to complain of shortness of breath, fatigue, weakness, he is she is received both Covid vaccinations Vitals/I&O/Wt Last Vital Signs Temp 97.8 F 05/26/21 20:42 Pulse 66 05/26/21 20:42 Resp 18 05/26/21 20:42 BP 102/62 05/26/21 20:42 Pulse Ox 93 05/26/21 20:42 05/26/21 05/26/21 05/26/21 06:59 14:59 22:59 Intake Total 150 / 960 1020 / 1020 490 / 1510 Output Total 625 / 1025 Balance -475 / -65 1020 / 1020 490 / 1510 Physical Exam Const: COMMON NORMALS: no acute distress and patient oriented x3 GENERAL APPEARANCE: frail appearing HENMT: COMMON NORMALS: normocephalic HEAD & SCALP: normocephalic Resp: COMMON NORMALS: normal respiratory effort, No retractions, No use of accessory muscles and clear to auscultation bilaterally AUSCULTATION: clear to auscultation bilaterally Cardio: COMMON NORMALS: regular rate, regular rhythm, S1 normal heart sound present and S2 normal heart sound present RATE: regular rate RHYTHM: regular rhythm HEART SOUNDS: S1 normal heart sound present and S2 normal heart sound present GI: COMMON NORMALS: Normal to inspection, nondistended, normoactive bowel sounds present, Soft to palpation, non-tender and No hepatosplenomegaly present PALPATION: Yes Soft to palpation and Yes No hepatosplenomegaly present Extremity: COMMON NORMALS: no pedal edema Neuro: COMMON NORMALS: patient oriented x3 Psych: COMMON NORMALS: mental status grossly normal Data : 05/26/21 04:56 05/26/21 04:56 Micro: Microbiology 05/25/21 06:55 MRSA Culture - Final Nose 05/26/21 12:40 Gram Stain - Final Sputum - Expectorated Sputum 05/26/21 11:05 Blood Culture - Preliminary Blood SPECIMEN COLLECTED 05/26/21 11:02 Blood Culture - Preliminary Blood SPECIMEN COLLECTED 05/26/21 02:30 Bacterial Antigens - Final Urine,Voided 05/26/21 02:30 Legionella Urinary Antigen - Final Urine,Voided A&P Assessment and plan (1) Acute and chronic respiratory failure with hypoxia: Acute on chronic hypoxic respiratory failure secondary to pneumonia (possible immune mediated pneumonitis) Patient came in with chief complaint of worsening shortness of breath and cough with yellow sputum, generalized weakness and fatigue. Requiring 12 L BiPAP as needed during the day, BiPAP schedule during the night CT angiogram of the chest is negative for pulmonary embolism,Interstitial thickening in the right greater than left lower lobe with small right greater than left pleural effusions. Patchy infiltrates in right lower lobe. Recommend correlation for pneumonia. Sputum culture : Pending Urine Legionella antigen negative Urine bacterial antigen panel negative Duo nebs Mucomyst inhalation Vancomycin, Zosyn, doxycycline Solu-Medrol 60 mg IV q. 12 H Daily Status: Acute (2) COPD with acute exacerbation: Status: Acute (3) Pneumonitis: Status: Acute (4) Pneumonia: Status: Acute (5) History of lung cancer: Status: Acute Additional A&P Information 60-year-old female with past medical history of lung cancer, COPD, status post thoracotomy, chemotherapy, currently on immunotherapy, continuous tobacco use who is presenting with shortness of breath and increased cough. DVT prophylaxis. Lovenox. CODE STATUS. She wants to be full code. The plan of care was discussed with the patient and her family. They verbalized understanding and agreement. Attestations Medical Necessity Statement*: Patient requires hospitalization for acute respiratory failure with hypoxia secondary COPD, pneumonia Coding Level of Care Code Acute Digital Forensic Analyst for Zeeshan Perez Diagnoses Acute and chronic respiratory failure with hypoxia J96.21 COPD with acute exacerbation J44.1 Pneumonitis J18.9 Pneumonia J18.9 History of lung cancer Z85.118
[2021-05-27] VITALS (10 sets, daily range): BP systolic 96–114; BP diastolic 59–73; PULSE 62–92; RESP 17–20; TEMP 36.3–37; O2SAT 90–98
[2021-05-27] MEDS: piperacillin-tazobactam 3.375 GM in sodium chloride 0.9% (plus) 50 ML IV ×4 (00:51→23:56)
[2021-05-27] MEDS: enoxaparin 40 mg/0.4 mL Syringe SUBCUT (01:46)
--- NOTE | 2021-05-27 06:05 | PC.NURSE ---
This nurse called and spoke to pharmacy and asked about hanging her next dose of vancomycin since her trough was still pending, per pharmacy he said to go ahead and hang it, her last trough was 5.2.
[2021-05-27] MEDS: vancomycin 1,000 MG in sodium chloride 0.9% 250 ML 250 MG IV ×2 (06:12→17:18)
[2021-05-27 06:44] LABS: Basophils % 0.4 %; Hematocrit 51.7 % (37.0-47.0); Hemoglobin 16.4 g/dL (11.5-15.3); Lymphocytes # 0.3 10^3/uL (0.8-4.8); Lymphocytes % 3.1 %; Mean Corpuscular HGB Conc 31.7 g/dL (30.0-36.0); Mean Corpuscular Hemoglobin 30.1 pg (28.0-34.0); Mean Platelet Volume 10.6 fL (7.4-10.4); Monocytes # 0.8 10^3/uL (0.2-0.9); Neutrophils # 7.42 10^3/uL (1.8-7.7); Nucleated Red Blood Cells % 0 %; Platelet Count 436 10^3/cmm (130-400); Red Blood Count 5.44 10^6/uL (4.1-5.3); White Blood Count 8.5 10^3/uL (4.0-10.0)
[2021-05-27 07:01] LABS: NT Pro B Type Natriuretic Pept 1000 pg/mL (0-125); Procalcitonin 0.09 ng/mL (0-0.5)
[2021-05-27 07:02] LABS: Vancomycin Trough 21.3 ug/mL (10-15)
[2021-05-27 07:12] LABS: Anion Gap 17.5 (5-19); Blood Urea Nitrogen 19 mg/dL (6-20); C Reactive Protein 27.6 mg/L (0.0-4.9); Carbon Dioxide 39 mmol/L (22-29); Chloride 90 mmol/L (98-107); Glomerular Filtration Rate 85.6 mL/min (90-130); Glucose 125 mg/dL (65-115); Magnesium 1.9 mg/dL (1.7-2.3); Osmolality Calculated 298 mOsm/kg (285-295); Phosphorus 4.8 mg/dL (2.5-4.5); Potassium 4.5 mmol/L (3.5-5.1); Sodium 142 mmol/L (136-145)
[2021-05-27] MEDS: sertraline 50 mg Tablet 25 MG PO (07:48)
[2021-05-27] MEDS: guaiFENesin 600 mg Tablet 1200 MG PO ×2 (07:49→17:18)
[2021-05-27] MEDS: doxycycline 100 MG in sodium chloride 0.9% (plus) 100 ML IV ×2 (07:49→21:12)
[2021-05-27] MEDS: levothyroxine 50 mcg Tablet PO (07:49)
[2021-05-27] MEDS: acetaminophen 325 mg Tablet 650 MG PO (07:49)
[2021-05-27] MEDS: lisinopril 20 mg Tablet PO (07:52)
--- NOTE | 2021-05-27 08:09 | PC.NURSE ---
Visitors approved per Dr. Valadez.
[2021-05-27] MEDS: acetylcysteine 200 mg/mL SDV 4 mL 100 MG INHALATION ×4 (08:50→20:44)
[2021-05-27] MEDS: ipratropium-albuterol 3 mL Neb INHALATION ×4 (08:53→20:44)
[2021-05-27] MEDS: FUROsemide 10 mg/mL SDV 4mL 40 MG IVP (10:13)
[2021-05-27] MEDS: dronabinol 2.5 mg Capsule PO ×2 (12:46→17:18)
[2021-05-27 16:11] LABS: Coronavirus Test Green County Not Detected
--- NOTE | 2021-05-27 18:55 | PM.PN ---
Subjective Subjective: Interval history: Patient was seen this morning, no fevers, no chills, no nausea, vomiting, she is frustrated as she still on 12 L Vitals/I&O/Wt Last Vital Signs Temp 97.9 F 05/27/21 15:44 Pulse 90 05/27/21 17:11 Resp 20 H 05/27/21 17:11 BP 110/73 05/27/21 15:44 Pulse Ox 91 05/27/21 17:11 05/27/21 05/27/21 05/27/21 06:59 14:59 22:59 Intake Total 300 / 1959 760 / 760 Balance 300 / 1959 760 / 760 Physical Exam Const: COMMON NORMALS: no acute distress and patient oriented x3 GENERAL APPEARANCE: frail appearing Resp: COMMON NORMALS: normal respiratory effort, No retractions and No use of accessory muscles AUSCULTATION: crackles Cardio: COMMON NORMALS: regular rate, regular rhythm, S1 normal heart sound present and S2 normal heart sound present RATE: regular rate RHYTHM: regular rhythm HEART SOUNDS: S1 normal heart sound present and S2 normal heart sound present GI: COMMON NORMALS: Normal to inspection, nondistended, normoactive bowel sounds present and Soft to palpation PALPATION: Yes Soft to palpation Extremity: COMMON NORMALS: no pedal edema Neuro: COMMON NORMALS: patient oriented x3 Psych: COMMON NORMALS: mental status grossly normal Data : 05/27/21 05:34 05/27/21 05:34 Micro: Microbiology 05/26/21 12:40 Gram Stain - Final Sputum - Expectorated Sputum Sputum Culture - Preliminary 05/26/21 11:05 Blood Culture - Preliminary Blood NEGATIVE TO DATE 05/26/21 11:02 Blood Culture - Preliminary Blood NEGATIVE TO DATE 05/25/21 06:55 MRSA Culture - Final Nose A&P Assessment and plan (1) Acute and chronic respiratory failure with hypoxia: Acute on chronic hypoxic respiratory failure secondary to pneumonia (possible immune mediated pneumonitis) Patient came in with chief complaint of worsening shortness of breath and cough with yellow sputum, generalized weakness and fatigue. Requiring 12 L BiPAP as needed during the day, BiPAP schedule during the night CT angiogram of the chest is negative for pulmonary embolism,Interstitial thickening in the right greater than left lower lobe with small right greater than left pleural effusions. Patchy infiltrates in right lower lobe. Recommend correlation for pneumonia. Sputum culture : Pending Urine Legionella antigen negative Urine bacterial antigen panel negative Duo nebs Mucomyst inhalation Vancomycin, Zosyn, doxycycline Solu-Medrol 60 mg IV q. 12 H Daily BMP elevated to greater than 1000, will give 1 dose of Lasix, will order cardiac echocardiogram Status: Acute (2) COPD with acute exacerbation: Status: Acute (3) Pneumonitis: Status: Acute (4) Pneumonia: Status: Acute (5) History of lung cancer: Status: Acute Additional A&P Information 60-year-old female with past medical history of lung cancer, COPD, status post thoracotomy, chemotherapy, currently on immunotherapy, continuous tobacco use who is presenting with shortness of breath and increased cough. DVT prophylaxis. Lovenox. CODE STATUS. She wants to be full code. The plan of care was discussed with the patient and her family. They verbalized understanding and agreement. Attestations Medical Necessity Statement*: Patient requires hospitalization for acute respiratory failure secondary to COPD, pneumonia Coding Level of Care Code Acute Chemist Physical for Zeeshan Perez Diagnoses Acute and chronic respiratory failure with hypoxia J96.21 COPD with acute exacerbation J44.1 Pneumonitis J18.9 Pneumonia J18.9 History of lung cancer Z85.118
[2021-05-28] VITALS (15 sets, daily range): BP systolic 96–120; BP diastolic 60–67; PULSE 60–95; RESP 16–18; TEMP 36.3–37.1; O2SAT 86–98
[2021-05-28] MEDS: enoxaparin 40 mg/0.4 mL Syringe SUBCUT (02:08)
--- NOTE | 2021-05-28 04:53 | PC.NURSE ---
This nurse hung patient's morning dose of vancomycin per pharmacy, van trough was 21.3 but the schedule changed to Q 12HRS.
[2021-05-28] MEDS: vancomycin 1,000 MG in sodium chloride 0.9% 250 ML 250 MG IV (05:10)
[2021-05-28 05:37] LABS: Basophils % 0.3 %; Eosinophils % 0.3 %; Hemoglobin 16.3 g/dL (11.5-15.3); Lymphocytes # 0.3 10^3/uL (0.8-4.8); Mean Corpuscular Volume 93.9 fl (81-99); Mean Platelet Volume 10.6 fL (7.4-10.4); Monocytes # 0.9 10^3/uL (0.2-0.9); Monocytes % 12.7 %; Neutrophils # 5.93 10^3/uL (1.8-7.7); Neutrophils % 81.5 %; Nucleated Red Blood Cells % 0 %; Platelet Count 401 10^3/cmm (130-400); Red Blood Count 5.43 10^6/uL (4.1-5.3); Red Cell Distribution Width 18.7 % (12.1-15.1); White Blood Count 7.3 10^3/uL (4.0-10.0)
[2021-05-28 06:09] LABS: NT Pro B Type Natriuretic Pept 327 pg/mL (0-125); Procalcitonin 0.07 ng/mL (0-0.5)
[2021-05-28 06:21] LABS: Alanine Aminotransferase 9 U/L (0-33); Albumin Level 2.9 g/dL (3.5-5.2); Alkaline Phosphatase 64 IU/L (35-105); Aspartate Amino Transferase 11 U/L (0-32); Blood Urea Nitrogen 17 mg/dL (6-20); C Reactive Protein 16.9 mg/L (0.0-4.9); Calcium 8.7 mg/dL (8.5-10.5); Chloride 91 mmol/L (98-107); Globulin 2.5 g/dL (1.3-4.6); Glomerular Filtration Rate 102.3 mL/min (90-130); Glucose 91 mg/dL (65-115); Magnesium 1.9 mg/dL (1.7-2.3); Osmolality Calculated 293 mOsm/kg (285-295); Phosphorus 3.6 mg/dL (2.5-4.5); Sodium 141 mmol/L (136-145); Total Bilirubin 0.2 mg/dL (0.15-1.2); Total Protein 5.4 g/dL (6.6-8.7)
[2021-05-28 06:49] LABS: Carbon Dioxide 44 mmol/L (22-29)
[2021-05-28] MEDS: piperacillin-tazobactam 3.375 GM in sodium chloride 0.9% (plus) 50 ML IV ×2 (09:08→16:43)
[2021-05-28] MEDS: doxycycline 100 MG in sodium chloride 0.9% (plus) 100 ML IV ×2 (09:09→20:37)
[2021-05-28] MEDS: sertraline 50 mg Tablet 25 MG PO (09:33)
[2021-05-28] MEDS: guaiFENesin 600 mg Tablet 1200 MG PO ×2 (09:33→18:58)
[2021-05-28] MEDS: levothyroxine 50 mcg Tablet PO (09:33)
[2021-05-28] MEDS: acetylcysteine 200 mg/mL SDV 4 mL 100 MG INHALATION ×4 (10:10→19:54)
[2021-05-28] MEDS: ipratropium-albuterol 3 mL Neb INHALATION ×5 (10:11→19:54)
--- NOTE | 2021-05-28 11:40 | PC.NURSE ---
nurse and rt notified of O2 at 86%
--- NOTE | 2021-05-28 13:21 | P.PN_ITS ---
Subjective Subjective: Interval history: Patient was seen this morning, she is down to 8 L, she tells me that she peed a lot with the Lasix Vitals/I&O/Wt Last Vital Signs Temp 98.2 F 05/28/21 11:39 Pulse 74 05/28/21 13:04 Resp 16 05/28/21 13:02 BP 120/67 05/28/21 11:39 Pulse Ox 97 05/28/21 13:02 05/27/21 05/28/21 05/28/21 22:59 06:59 14:59 Intake Total 400 / 1160 300 / 1460 100 / 100 Output Total 400 / 400 Balance 400 / 1160 300 / 1460 -300 / -300 Physical Exam Const: COMMON NORMALS: no acute distress and patient oriented x3 GENERAL APPEARANCE: frail appearing Resp: COMMON NORMALS: normal respiratory effort, No retractions, No use of accessory muscles and clear to auscultation bilaterally AUSCULTATION: clear to auscultation bilaterally Cardio: COMMON NORMALS: regular rate, regular rhythm, S1 normal heart sound present and S2 normal heart sound present RATE: regular rate RHYTHM: regular rhythm HEART SOUNDS: S1 normal heart sound present and S2 normal heart sound present GI: COMMON NORMALS: Normal to inspection, nondistended, normoactive bowel sounds present, Soft to palpation and non-tender PALPATION: Yes Soft to palpation Extremity: COMMON NORMALS: no pedal edema Neuro: COMMON NORMALS: patient oriented x3 Psych: COMMON NORMALS: mental status grossly normal Data : 05/28/21 04:45 05/28/21 04:45 Micro: Microbiology 05/26/21 12:40 Gram Stain - Final Sputum - Expectorated Sputum Sputum Culture - Final 05/26/21 11:05 Blood Culture - Preliminary Blood NEGATIVE TO DATE 05/26/21 11:02 Blood Culture - Preliminary Blood NEGATIVE TO DATE A&P Assessment and plan (1) Acute and chronic respiratory failure with hypoxia: Acute on chronic hypoxic respiratory failure secondary to pneumonia (possible immune mediated pneumonitis) Patient came in with chief complaint of worsening shortness of breath and cough with yellow sputum, generalized weakness and fatigue. Requiring 12 L BiPAP as needed during the day, BiPAP schedule during the night CT angiogram of the chest is negative for pulmonary embolism,Interstitial thickening in the right greater than left lower lobe with small right greater than left pleural effusions. Patchy infiltrates in right lower lobe. Recommend correlation for pneumonia. Sputum culture : Pending Urine Legionella antigen negative Urine bacterial antigen panel negative MRSA screen negative Duo nebs Mucomyst inhalation Stop vancomycin, continue Zosyn, doxycycline Solu-Medrol 60 mg IV q. 12 H Daily Echocardiogram pending, hold off on Lasix today Status: Acute (2) COPD with acute exacerbation: Status: Acute (3) Pneumonitis: Status: Acute (4) Pneumonia: Status: Acute (5) History of lung cancer: Status: Acute Additional A&P Information 60-year-old female with past medical history of lung cancer, COPD, status post thoracotomy, chemotherapy, currently on immunotherapy, continuous tobacco use who is presenting with shortness of breath and increased cough. DVT prophylaxis. Lovenox. CODE STATUS. She wants to be full code. The plan of care was discussed with the patient and her family. They verbalized understanding and agreement. Attestations Medical Necessity Statement*: Patient has hospitalization for acute respiratory failure Coding Level of Care Code Acute Drop Wire Operator for Zeeshan Perez Diagnoses Acute and chronic respiratory failure with hypoxia J96.21 COPD with acute exacerbation J44.1 Pneumonitis J18.9 Pneumonia J18.9 History of lung cancer Z85.118
--- NOTE | 2021-05-28 18:57 | USCV_ITS ---
Kim Nettles Age: 60 Gender: F : 1960 Exam Date: 05/28/2021 07:36 Ordering Phys: Tarik Valadez MD Technologist: TANMAY Exam Location[place] [facility] [place]: SHORTNESS OF BREATH BP: 101 / 60 HR: 75 Rhythm: Sinus Technical Quality: Adequate MEASUREMENTS (Male / Female) Normal Values 2D ECHO LV Diastolic Diameter PLAX 3.7 cm 4.2 - 5.9 / 3.9 - 5.3 cm LV Systolic Diameter PLAX 2.3 cm IVS Diastolic Thickness 1.5 cm 0.6 - 1.0 / 0.6 - 0.9 cm IVS Systolic Thickness 1.4 cm LVPW Diastolic Thickness 1.5 cm 0.6 - 1.0 / 0.6 - 0.9 cm LVPW Systolic Thickness 1.7 cm RV Chamber Size 3.4 cm LVOT Diameter 2.0 cm LV Ejection Fraction 2D Teich 69.6 % LV Ejection Fraction MOD 2C 69.0 % LV Ejection Fraction 2C AL 67.6 % LA Diameter 2.5 cm LA Width 3.0 cm LA Height 4.2 cm RA Width 2.5 cm RA Height 3.3 cm Aorta at Sinotubular Diameter 2.2 cm DOPPLER AV Peak Velocity 115.0 cm/s LVOT Peak Velocity 98.0 cm/s AV Area Cont Eq vti 3.0 cm squared AV Area Cont Eq pk 2.7 cm squared MV Area PHT 4.1 cm squared Mitral E to A Ratio 0.6 MV E' Velocity 30.5 cm/s Mitral E to MV E' Ratio 6.3 Mitral E to LV E' Lateral Ratio 5.3 Mitral E to LV E' Septal Ratio 7.9 TR Peak Velocity 230.0 cm/s TR Peak Gradient 21.2 mmHg TR Mean Velocity 182.4 cm/s TR Mean Gradient 13.8 mmHg TR Velocity Time Integral 61.6 cm TV Peak E Velocity 42.0 cm/s Right Atrial Pressure 3.0 mmHg Pulmonary Artery Systolic Pressu 24.2 mmHg PV Peak Velocity 83.0 cm/s RV Acceleration Time 0.1 s RV Ejection Time 0.3 s RV AcT/ET 0.3 FINDINGS Left Ventricle Normal left ventricular cavity size. Increased left ventricular wall thickness. Mild left ventricular hypertrophy. Left ventricular ejection fraction is estimated at 65-70 %. Normal diastolic function. Right Ventricle Normal right ventricular size and systolic function. Right ventricular systolic pressure 27 mmHg. Right Atrium Normal right atrial size. Left Atrium Upper normal left atrial size. Mitral Valve Thickened mitral valve. No mitral valve stenosis. Trace mitral valve regurgitation. Aortic Valve Mildly thickened trileaflet aortic valve. No aortic valve stenosis. No aortic valve regurgitation. Tricuspid Valve Structurally normal tricuspid valve. Trace to mild tricuspid valve regurgitation. Pulmonic Valve Pulmonic valve not well visualized. No pulmonary valve stenosis. Trace pulmonary valve regurgitation. Pericardium Small pericardial effusion noted along right ventricle (8mm). No evidence of hemodynamic compromise. Aorta Normal size aortic root and proximal ascending aorta. Normal- sized inferior vena cava with > 50% respiratory variation. CONCLUSIONS 1. Normal left ventricular cavity size. Mild concentric left ventricular hypertrophy. Left ventricular ejection fraction is estimated at 65-70 %. Normal diastolic function. 2. Normal right ventricular size and systolic function. 3. Pulmonary artery pressure estimated at 27 mmHg. 4. Trace to mild tricuspid valve regurgitation. 5. Small pericardial effusion noted along right ventricle. 6. No prior similar studies to compare. Twyla Cedeno MD (Electronically Signed) Final Date: 28 May 2021 15:17 S
[2021-05-29] VITALS (9 sets, daily range): BP systolic 112–134; BP diastolic 62–74; PULSE 57–89; RESP 16–18; TEMP 36.7–37.2; O2SAT 85–97
[2021-05-29] MEDS: piperacillin-tazobactam 3.375 GM in sodium chloride 0.9% (plus) 50 ML IV ×2 (00:02→09:32)
[2021-05-29] MEDS: enoxaparin 40 mg/0.4 mL Syringe SUBCUT (01:36)
[2021-05-29 05:39] LABS: Basophils % 0.2 %; Hematocrit 49.6 % (37.0-47.0); Hemoglobin 16.2 g/dL (11.5-15.3); Lymphocytes # 0.2 10^3/uL (0.8-4.8); Lymphocytes % 2.8 %; Mean Corpuscular HGB Conc 32.7 g/dL (30.0-36.0); Mean Corpuscular Hemoglobin 29.9 pg (28.0-34.0); Mean Corpuscular Volume 91.7 fl (81-99); Mean Platelet Volume 10.4 fL (7.4-10.4); Monocytes # 0.5 10^3/uL (0.2-0.9); Monocytes % 6.2 %; Neutrophils # 7.82 10^3/uL (1.8-7.7); Neutrophils % 89.9 %; Nucleated Red Blood Cells % 0 %; Platelet Count 369 10^3/cmm (130-400); Red Blood Count 5.41 10^6/uL (4.1-5.3); Red Cell Distribution Width 18.4 % (12.1-15.1); White Blood Count 8.7 10^3/uL (4.0-10.0)
[2021-05-29 06:10] LABS: NT Pro B Type Natriuretic Pept 318 pg/mL (0-125); Procalcitonin 0.08 ng/mL (0-0.5)
[2021-05-29 06:23] LABS: Alanine Aminotransferase 9 U/L (0-33); Albumin Level 2.9 g/dL (3.5-5.2); Alkaline Phosphatase 60 IU/L (35-105); Anion Gap 11.3 (5-19); Aspartate Amino Transferase 11 U/L (0-32); Blood Urea Nitrogen 20 mg/dL (6-20); Calcium 8.5 mg/dL (8.5-10.5); Carbon Dioxide 37 mmol/L (22-29); Chloride 96 mmol/L (98-107); Globulin 2.3 g/dL (1.3-4.6); Glomerular Filtration Rate 102.3 mL/min (90-130); Glucose 110 mg/dL (65-115); Magnesium 1.7 mg/dL (1.7-2.3); Osmolality Calculated 293 mOsm/kg (285-295); Phosphorus 3.7 mg/dL (2.5-4.5); Potassium 4.3 mmol/L (3.5-5.1); Sodium 140 mmol/L (136-145); Total Bilirubin 0.3 mg/dL (0.15-1.2); Total Protein 5.2 g/dL (6.6-8.7)
[2021-05-29] MEDS: doxycycline 100 MG in sodium chloride 0.9% (plus) 100 ML IV (07:39)
[2021-05-29] MEDS: levothyroxine 50 mcg Tablet PO (07:45)
[2021-05-29] MEDS: lisinopril 20 mg Tablet PO (07:45)
[2021-05-29] MEDS: guaiFENesin 600 mg Tablet 1200 MG PO (07:46)
[2021-05-29] MEDS: sertraline 50 mg Tablet 25 MG PO (07:46)
[2021-05-29] MEDS: ipratropium-albuterol 3 mL Neb INHALATION ×2 (08:16→11:39)
[2021-05-29] MEDS: acetylcysteine 200 mg/mL SDV 4 mL 100 MG INHALATION ×2 (08:16→11:39)
[2021-05-29] MEDS: FUROsemide 10 mg/mL SDV 2mL 20 MG IVP (09:34)
--- NOTE | 2021-05-29 12:12 | P.DS_ITS ---
Discharge Providers Date of Admission: 05/24/21 01:22 Date of Discharge: May 29, 2021 Attending Provider at Admission: Gil Mcfarland Attending Provider at Discharge: Tarik Valadez MD Primary Care Provider: Graciela Diamond MD Diagnoses at Discharge Discharge Diagnosis (1) Acute and chronic respiratory failure with hypoxia: Status: Acute (2) COPD with acute exacerbation: Status: Acute (3) Pneumonitis: Status: Acute (4) Pneumonia: Status: Acute (5) History of lung cancer: Status: Acute Reason for Visit Reason for Visit: SOB Hospital Course Hospital Course This is a 60-year-old female with a past medical history of lung adenocarcinoma status post thoracotomy, status post chemotherapy, currently on immunotherapy, has a port in place, managed by Dr. Michaels, COPD, quit smoking about a month ago who presents to [facility] due to shortness of breath. She has received her flu vaccine. Has received [employer] vaccine for COVID-19. Has not received any booster vaccination Patient was admitted to [facility] for acute on chronic respiratory failure with hypoxia secondary to COPD exacerbation, pneumonia, managed with BiPAP therapy, oxygen therapy, broad-spectrum antibiotic therapy, steroid therapy, CT angiogram was negative for pulmonary emboli, with patchy infiltrate right lower lobe, bilateral pleural effusions, did receive diuresis, clinically monitor. Patient is slow clinical progress, required 12 L for some period of time, before slowly being deescalated to 6 L of discharge. Covid PCR was negative. Patient was discharged on antibiotic therapy, steroid therapy, inhaler therapy, with instructions to stop smoking. Discharged on her home 6 L, follow-up with pulmonary, follow-up with Dr. Michaels. Patient was advised if she were to have any worsening fevers, cough, shortness of breath go to emergency room. Physical Exam Const: COMMON NORMALS: no acute distress and patient oriented x3 Resp: COMMON NORMALS: normal respiratory effort, No retractions, No use of accessory muscles and clear to auscultation bilaterally AUSCULTATION: clear to auscultation bilaterally Cardio: COMMON NORMALS: regular rate, regular rhythm, S1 normal heart sound present and S2 normal heart sound present RATE: regular rate RHYTHM: regular rhythm HEART SOUNDS: S1 normal heart sound present and S2 normal heart sound present GI: COMMON NORMALS: Normal to inspection, nondistended, normoactive bowel sounds present, Soft to palpation and non-tender PALPATION: Yes Soft to palpation Extremity: COMMON NORMALS: no pedal edema Neuro: COMMON NORMALS: patient oriented x3 Psych: COMMON NORMALS: mental status grossly normal Discharge Data Data Completed and Pending: Completed Studies During Hospitalization Category Date Time Status CT angio chest PE protcl [id number] Rout ine Cat Scan 05/26/21 10:45 Completed XR chest 1V jeffrey ble [id number] Urgent Exams 05/23/21 22:01 Completed CV. echo complete * [id number] Routine Ultrasound 05/28/21 18:57 Completed Pending at discharge Category Date Time Status Arterial Blood Ga s W/Coox Stat Lab 05/23/21 22:38 Results Blood Culture Sta t Lab 05/26/21 11:05 Results Comprehensive Met abolic Panel AM LA BS Lab 05/30/21 04:00 Ordered Labs from last 24 hours 05/29/21 05/29/21 05:20 05:20 WBC 8.7 RBC 5.41 H Hgb 16.2 H Hct 49.6 H MCV 91.7 MCH 29.9 MCHC 32.7 RDW 18.4 H Plt Count 369 MPV 10.4 Neut % (Auto) 89.9 Lymph % (Auto) 2.8 [place] % (Auto) 6.2 Eos % (Auto) 0.0 Baso % (Auto) 0.2 Neut # (Auto) 7.82 H Lymph # (Auto) 0.2 L [place] # (Auto) 0.5 Eos # (Auto) 0.0 Baso # (Auto) 0.0 Nucleated RBC % (a uto) 0 Nucleated RBCs # 0.0 Sodium 140 Potassium 4.3 Chloride 96 L Carbon Dioxide 37 H Anion Gap 11.3 BUN 20 Creatinine 0.6 GFR Calculation 102.3 Glucose 110 Calculated Osmolal ity 293 Calcium 8.5 Phosphorus 3.7 Magnesium 1.7 Total Bilirubin 0.3 AST 11 ALT 9 Alkaline Phosphata se 60 C-Reactive Protein 9.0 H NT-Pro-B Natriuret Pep 318 H Total Protein 5.2 L Albumin 2.9 L Globulin 2.3 Procalcitonin 0.08 Vitals: Last Vital Signs Temp 98.6 F 05/29/21 10:57 Pulse 89 05/29/21 11:43 Resp 16 05/29/21 11:39 BP 112/62 05/29/21 10:57 Pulse Ox 89 L 05/29/21 11:39 Discharge Plan Discharge Patient Disposition: Home Condition: Stable Prescriptions: New guaifenesin [Mucinex] 600 mg Tablet Extended Release 12hr 600 mg PO BID 30 Days Qty: 60 RF: 0 levofloxacin 750 mg tablet 750 mg PO DAILY 5 Days Qty: 5 RF: 0 fluticasone propion-salmeterol [Wixela Inhub] 500-50 mcg/dose blister with device 1 inh inhalation BID 30 Days Qty: 60 RF: 0 albuterol sulfate 90 mcg/actuation HFA aerosol inhaler 1 inh inhalation Q6H PRN (Reason: shortness of breath or wheezing) Qty: 8.5 RF: 0 prednisone 10 mg tablet See Rx Instructions .ROUTE .COMPLEX Qty: 53 RF: 0 Incruse Ellipta 62.5 mcg/actuation blister with device 1 inh inhalation DAILY 30 Days Qty: 30 RF: 0 Continued trazodone 50 mg Tablet 50 mg PO BEDTIME RF: 0 levothyroxine 50 mcg Tablet 50 mcg PO DAILY RF: 0 Anacin 400-32 mg Tablet 1 tab PO Q4H PRN (Reason: Pain) RF: 0 Discharge Orders: Discharge Order (Routine); Ordered 05/29/21 Ordered By: Tarik Valadez Referrals: Sha Michaels MD [Hospitalist] - 1 month Frances Arauz MD [Physician] - 1 week Graciela Diamond MD [Primary Care Provider] - Discharge Diet: Cardiac Discharge Activity: Resume usual activity Patient Instructions: Opioid Safety Activity Restrictions/Additional Instructions: -Please hydrate well -Please take antibiotics as prescribed -Please use inhalers as prescribed -If you have worsening shortness of breath, fevers can please go to the emergency room -Use steroids as prescribed -Please stop smoking Discharge Attestations Time Spent in Discharge Care*: less than 30 min Quality Metrics Clinical Quality Measures During this hospital stay, did patient experience: None Coding Level of Care Code Acute [facility] note Diagnoses Acute and chronic respiratory failure with hypoxia J96.21 COPD with acute exacerbation J44.1 Pneumonitis J18.9 Pneumonia J18.9 History of lung cancer Z85.118
[2021-05-30 14:32] LABS: ABG PCO2 81.5 mmHg (35-45)
== END 2021-05-29 14:36 | disposition home or self-care (01) | DRG 193 ==
LOC: ER 05-24 01:48 → MEDSURG 05-24 02:41
PROVIDERS: Internal Medicine; Admitting Provider Internal Medicine; Emergency Provider Emergency Medicine; PCP Family Medicine; Visit Provider Family Medicine
DX: J18.9 Pneumonia, unspecified organism (principal); J96.21 Acute and chronic respiratory failure with hypoxia; J44.1 Chronic obstructive pulmonary disease with (acute) exacerbation; J44.0 Chronic obstructive pulmonary disease with (acute) lower respiratory infection; C34.90 Malignant neoplasm of unspecified part of unspecified bronchus or lung; F17.210 Nicotine dependence, cigarettes, uncomplicated; I10 Essential (primary) hypertension; Z90.2 Acquired absence of lung [part of]; Z92.21 Personal history of antineoplastic chemotherapy; Z79.899 Other long term (current) drug therapy; Z99.81 Dependence on supplemental oxygen; Z79.891 Long term (current) use of opiate analgesic; Z93.3 Colostomy status; Z95.9 Presence of cardiac and vascular implant and graft, unspecified
CPT/HCPCS: 36415; 36600; 71045; 71275; 80048; 80053; 80202; 82805; 83605; 83735; 83880; 84100; 84145; 84443; 84484; 85025; 85378; 86140; 86403; 87040; 87070; 87205; 87426; 87449; 87635; 87641; 93005; 93306; 94640; 94660; 94664; 96365; 96367; 96372; 96375; 97110; 97161; 97165; 97530; 97535; 99291; J0696; J1170; J1650; J1940; J1956; J2270; J2405; J2543; J2930; J3370; J3490; J7050; J7608; Q0167; Q9967

== ENCOUNTER 2021-06-11 06:20 | Outpatient (RCR) | payer OTHER, SELFPAY ==
[2021-06-11 08:31] LABS: Basophils # 0.1 10^3/uL (0.0-0.1); Eosinophils # 0.1 10^3/uL (0.0-0.8); Eosinophils % 0.9 %; Hematocrit 42.3 % (37.0-47.0); Hemoglobin 14.6 g/dL (11.5-15.3); Lymphocytes # 0.4 10^3/uL (0.8-4.8); Lymphocytes % 4.8 %; Mean Corpuscular HGB Conc 34.5 g/dL (30.0-36.0); Mean Corpuscular Hemoglobin 31.3 pg (28.0-34.0); Mean Corpuscular Volume 90.6 fl (81-99); Mean Platelet Volume 9.8 fL (7.4-10.4); Monocytes # 0.5 10^3/uL (0.2-0.9); Monocytes % 5.9 %; Neutrophils # 6.93 10^3/uL (1.8-7.7); Neutrophils % 85.7 %; Nucleated Red Blood Cells % 0 %; Platelet Count 510 10^3/cmm (130-400); Red Blood Count 4.67 10^6/uL (4.1-5.3); Red Cell Distribution Width 18.7 % (12.1-15.1); White Blood Count 8.1 10^3/uL (4.0-10.0)
[2021-06-11 08:59] LABS: Alanine Aminotransferase 12 U/L (0-33); Albumin Level 3.7 g/dL (3.5-5.2); Alkaline Phosphatase 76 IU/L (35-105); Anion Gap 18.1 (5-19); Aspartate Amino Transferase 13 U/L (0-32); Blood Urea Nitrogen 20 mg/dL (6-20); Carbon Dioxide 24 mmol/L (22-29); Chloride 103 mmol/L (98-107); Globulin 1.8 g/dL (1.3-4.6); Glomerular Filtration Rate 126.3 mL/min (90-130); Glucose 84 mg/dL (65-115); Osmolality Calculated 294 mOsm/kg (285-295); Potassium 4.1 mmol/L (3.5-5.1); Sodium 141 mmol/L (136-145); Thyroid Stimulating Hormone 18.52 uIU/mL (0.27-4.20); Total Bilirubin 0.2 mg/dL (0.15-1.2); Total Protein 5.5 g/dL (6.6-8.7)
[2021-06-11 09:56] LABS: Carcinoembryonic Antigen 11.9 ng/mL (0.0-4.7)
--- NOTE | 2021-06-14 13:49 | ONC FU_ITS ---
Dr. Michaels Patient Follow-Up Note Patient: Kim Nettles Unit #: [id number]: 1960 Dicatated By: Sha Michaels M.D.Date of Visit:Jun 11, 2021 Onc Med Follow-up/Prog Note Chief Complaint: Lung cancer. 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 She was seen by Maria G Shah in August 2016 for treatment of pneumonia. A chest x-ray on 08/27/2016 showed an indistinct increased density in the left upper lobe measuring about 3 cm. It was suspicious for a mass lesion. There was evidence of chronic emphysema. There were no other pulmonary parenchymal densities. Further evaluation with chest CT on 09/03/2016 confirmed a spiculated noncalcified soft tissue mass in the left upper lobe laterally. It appeared to extend to and involve the left lateral pleural margin. It measured 1.5 x 2.3 x 2.8 cm. There were no other mass lesions noted. There was no axillary, supraclavicular, mediastinal, or hilar masses or adenopathy. There was no pleural effusion. There did appear to be trace pericardial effusion. There were centrilobular emphysematous changes throughout the lung parenchyma. There was suspected left adrenal adenoma measuring 1.3 x 2.2 cm. A near water density lesion in the right upper lobe of the liver measuring 1.2 cm appeared consistent with an incidental cyst. There was no evidence of any metastatic involvement. She was referred to Dr. Kinsey. Her pulmonary function studies in 09/28/2016 were adequate with FEV 2.68, 47% of predicted. On 10/07/2016 she underwent thoracotomy with left upper lobe apical posterior segmentectomy. She was found to have moderately intense adhesions, precluding a complete left upper lobectomy. As such, the procedure was limited to formal segmentectomy. 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 It was mostly moderately differentiated, but focally it was high-grade (poorly differentiated). It measured 2.4 x 1.9 cm. The resection margins were free of tumor, but tumor was noted to extend onto the pleural surface. Pathologic staging was T2a, (PL 2), NX, as there were no lymph nodes included in the specimen. She has had an uneventful postoperative recovery. I had seen her initially on 11/11/2016. There appeared to be no indication for adjuvant chemotherapy, and she was followed on observation/expectant management. As of her follow-up visit in June 2017 she appeared stable clinically, there was no evidence of recurrence/progression of the lung cancer on her restaging chest CT. She had a follow-up visit with Camilo Molina on 06/15/2020. She complained of fatigue, and she was noted to have a significant weight loss. Her laboratory studies included CBC showing elevated hemoglobin/hematocrit levels at 17.8 g and 54.9%. The white blood cell count was 8200 and the platelet count was 369,000. Her comprehensive metabolic profile was unremarkable and her TSH level was normal 2.33 ???IU/mL. A battery of tumor markers was obtained and her CEA level was found to be significantly elevated at 303.6 ng/mL. Her restaging CT scans of the chest, abdomen, and pelvis on 06/19/2020 showed postoperative changes at the left lung apex and moderate centrilobular emphysematous changes. A noncalcified 5 mm pulmonary nodule in the left lower lobe was indeterminate. There were no other pulmonary mass lesions and there was no mediastinal or hilar lymphadenopathy noted. There was evidence of hepatomegaly with enlargement of the right hepatic lobe. There was extensive cholelithiasis with gallbladder distention and further evaluation with ultrasound was recommended. There was thickening and induration involving the distal sigmoid colon suspicious for diverticulitis. A small amount of free fluid was noted in the pelvis. With the abnormal CT findings in the sigmoid colon and with the significantly elevated CEA level, she was recommended to have further evaluation with colonoscopy. The procedure was done on 07/16/2020. It showed moderate diverticulosis in the sigmoid colon, but there was no evidence of malignancy in the sigmoid colon and there were no other abnormal findings noted. She had further evaluation with PET/CT on 08/10/2020. It showed multiple FDG positive mediastinal lymph nodes in the right and left paratracheal, subaortic, and subcarinal territories, strongly suspicious for recurrence. An index node in the subcarinal territory measured 1.4 cm with SUV 9.6. A 1.1 x 0.6 cm left pleural implant at the second intercostal space had SUV 4.3, suggestive of a malignant implant. There were no other areas of abnormal uptake on that study. On 08/22/2020 she underwent bronchoscopy with EBUS and FNA biopsy of station 7 lymph node. There were no endobronchial lesions identified on the bronchoscopy. The endobronchial ultrasound did show mediastinal and left hilar lymphadenopathy. Cytology on the FNA biopsy was positive for metastatic poorly differentiated non-small cell carcinoma. The tumor cells showed positive staining for CK high molecular weight and for CK 8/18. There was cytoplasmic staining for p63. The TTF-1 was negative. The Ki-67 was high at 50%. A next generation sequencing study was requested by liquid biopsy, but there was insufficient circulating tumor derived cell free DNA to obtain meaningful results. The PD-L1 expression was negative at < 1%. With her disease localized to lung and mediastinal lymph nodes, she appeared to be appropriate candidate for radiation with concurrent weekly carboplatin/paclitaxel chemotherapy. She began her cycle 1 carboplatin/paclitaxel on 10/10/2020. She was then able to continue her weekly infusions on schedule. She received her week 6 treatment on 11/14/2020. She completed radiation on 11/20/2020 to a total dose of 6000 cGy, administered in 30 fractions. Her medical history is otherwise significant for underlying COPD. She has had no other ongoing medical illnesses. She has a history of smoking 2 packs of cigarettes daily for 25 years. She had cut down following her lung surgery. INTERIM HISTORY: Restaging chest CT on 12/03/2020 showed improvement in the previously described mediastinal and subcarinal adenopathy. There was no residual abnormalities in the area of the previously described suspected pleural implant. Micronodular infiltrates were noted in the lingula and left lower lobe medially, new from previous studies. The appearance was consistent with infectious or inflammatory process. A previously described left lower lobe nodule measuring 5 to 6 mm was also noted to have resolved. With those findings, she was recommended to proceed with maintenance immunotherapy with durvalumab. She began cycle 1 on 12/19/2020. At that point her CEA level had declined to 10.4 ng/mL. She tolerated that treatment without significant toxicity. She then continued the durvalumab at 4-week intervals. As of 04/28/2021 she received her 5th cycle of treatment. On 05/24/2020 when she was admitted to the hospital with acute hypoxic respiratory failure. Her CT pulmonary angiogram showed no evidence of pulmonary embolus. There was interstitial thickening noted in the lower lobes, right greater than left and there were small pleural effusions, also right greater than left. Patchy infiltrates were noted in the right lower lobe. There was no mediastinal or hilar lymphadenopathy. Covid test was negative. She improved on empiric treatment with antibiotic, steroid, and inhalation therapy. She was discharged home on Levaquin 750 mg daily for 5 days and a prednisone taper. She is seen for a follow-up visit. She is feeling better since discharge from the hospital. She has quit smoking. She is getting energy back and she also has noted improved appetite. She still has limited activity. ECOG score is 1. She has not had fever. She occasionally wakes up with sweating. She has not had sore mouth or throat. She does not complain of cough. Her breathing is better now, and she is back to just using oxygen as needed. She occasionally has chest pain. She has no GI or complaints. She has no significant joint or bone pain. She does not complain of headache or dizziness, and she has no focal neurologic symptoms. Medications: Advair Diskus 1 Puff(s) (of 250-50 mcg/dose) Aerosol Powder, Breath Activated Inhalation b.i.d., Anacin 1 (400-32 mg) Tablet Oral t.i.d., LORazepam 1 Tablet (of 1 mg) Oral t.i.d. PRN, oxyCODONE HCl 5 mL (of 5 mg/5mL) Solution Oral q 4 hours, Prochlorperazine Maleate 1 Tablet (of 10 mg) Oral q 4 hours PRN, traZODone HCl (50 mg) Tablet Oral at bedtime Allergies: No Known Allergies. Vital Signs: Performed on Jun 11, 2021 10:45 Height - 64.00 in Weight - 96.2 lbs (HIGH) BSA - 1.43 sq.m BMI - 16.51 (LOW) Temperature - 97.6 F (LOW) Pulse - 78 /min Respiration - 18 /min BP - 119/74 mm(hg) O2 Sat - 92 % (LOW) Pain - 0 Fatigue - 1 Physical Examination: Constitutional - She appears somewhat weak generally, Eyes - Sclerae nonicteric. Conjunctivae clear, ENMT - No lesions noted in the oral cavity, Hematologic/Lymphatic - No cervical, clavicular, or axillary adenopathy, Respiratory - Lungs show slightly coarse breath sounds and diminished air movement bilaterally, Cardiovascular - Heart rhythm is regular. There is no murmur, gallop, or rub noted, Abdomen - Soft. Liver and spleen are not enlarged. There is no abdominal mass or ascites noted and there is no inguinal adenopathy, Extremities - No edema, Neurologic - No focal neurologic deficits noted. Lab/Imaging: Test performed on Jun 11, 2021 08:15 Sodium 141 mmol/L TSH 18.52 uIU/mL Potassium 4.1 mmol/L Chloride 103 mmol/L CO2 24 mmol/L Anion Gap 18.1 BUN 20 mg/dL Creatinine 0.5 mg/dL Cr Clearance (Est) 83.45 mL/min eGFR 126.3 mL/min Glucose 84 mg/dL Osmolality - Calculated 294 mOsm/kg Calcium 8.0 mg/dL Protein, Total 5.5 g/dL Albumin 3.7 g/dL Globulin 1.8 g/dL Bilirubin, Total 0.2 mg/dL ALT (SGPT) 12 U/L AST (SGOT) 13 U/L Alkaline Phosphatase 76 IU/L WBC 8.1 10 3/uL RBC 4.67 10 6/uL HGB 14.6 g/dL HCT 42.3 % MCV 90.6 fl MCH 31.3 pg MCHC 34.5 g/dL RDW 18.7 % Platelet Count 510 10 3/cmm MPV 9.8 fL Neutrophils 6.93 10 3/uL Lymphocytes 0.4 10 3/uL Monocytes 0.5 10 3/uL Eosinophils 0.1 10 3/uL Basophils 0.1 10 3/uL Neutrophil % 85.7 % Lymphocyte % 4.8 % Monocyte % 5.9 % Eosinophil % 0.9 % Basophils % 1.0 % NRBC % 0 % CEA 11.9 ng/mL Problem List: 1. Invasive adenocarcinoma involving the upper lobe of the left lung. She underwent left thoracotomy with left upper lobe segmentectomy on 10/07/2016. Her disease was pathologic stage T2a, (PL2), NX, as there was involvement of the pleural surface, but no lymph nodes were included in the specimen. Resection margins were free. By clinical evaluation, her disease was stage IB (T2a, N0, M0). She had no further treatment. 2. She now has evidence of recurrence with biopsy-proven involvement in mediastinal lymph nodes. There is also a suspected left pleural implant by PET/CT, consistent with stage MARC (M1a) disease. 3. COPD. 4. Hypertension. Problems Addressed with this Encounter and Plan: Patient with invasive adenocarcinoma involving the upper lobe of the left lung, stage IB (pT2a, cN0, M0). She underwent left thoracotomy with left upper lobe segmentectomy on 10/07/2016. She had no further treatment. She had presented in June 2020 with fatigue and weight loss. She was found to have a significantly CEA level. Her restaging CT scans showed abnormal findings in the sigmoid colon, but colonoscopy showed no evidence of malignancy. As such, the elevated CEA level remains unexplained. PET/CT showed multiple FDG positive mediastinal lymph nodes in the right and left paratracheal, subaortic, and subcarinal territories, strongly suspicious for recurrence. A 1.1 x 0.6 cm left pleural implant at the second intercostal space had SUV 4.3, suggestive of a malignant implant. There were no other areas of abnormal uptake on that study. On 08/22/2020 she underwent bronchoscopy with EBUS and FNA biopsy of station 7 lymph node. There were no endobronchial lesions identified on the bronchoscopy. The endobronchial ultrasound did show mediastinal and left hilar lymphadenopathy. Cytology on the FNA biopsy was positive for metastatic poorly differentiated non-small cell carcinoma. The Ki-67 was high at 50%. The tumor was found to have low PD-L1 expression at <1%. With disease limited to lung and mediastinal lymph nodes, she was treated with definitive radiation concurrently with weekly carboplatin/paclitaxel chemotherapy. The radiation was administered from 10/10/2020 through 11/20/2020 to a total dose of 6000 cGy delivered in 30 fractions. During that time she completed 6 weekly infusions of carboplatin/paclitaxel. Her treatment was complicated by fatigue and esophagitis. She had a good response by follow-up chest CT, and based on those findings she was recommended to proceed with maintenance immunotherapy with durvalumab. She began cycle 1 on 12/19/2020. At that point there had been a significant decline in her CEA level, to 10.4 ng/mL. She tolerated the treatment well, and she then continued the durvalumab at 4-week intervals. She received her 5th cycle on 04/28/2021. On 05/24/2021 she was admitted to the hospital with acute hypoxic respiratory failure. Her CT pulmonary angiogram did show some interstitial thickening in the lower lobes and patchy infiltrates in the right lower lobe. There was no obvious pneumonia and there was no evidence of pulmonary embolism. She improved on empiric treatment with antibiotic, steroid, and inhalation therapy. At this point it is uncertain to what extent the illness was due to COPD exacerbation versus possible treatment related pneumonitis. However, I suspect at least some component was treatment related. As such, the durvalumab will be put on hold, at least temporarily. She will continue prednisone at 10 mg daily. I will see her again in 1 month. Signed By: Sha Michaels M.D. <<Signature on File>>
== END 2021-07-11 23:59 | disposition home or self-care (01) ==
LOC: ONCMED 06:20
PROVIDERS: PCP Family Medicine; Visit Provider Internal Medicine Medical Oncology
DX: C34.12 Malignant neoplasm of upper lobe, left bronchus or lung (principal); C77.2 Secondary and unspecified malignant neoplasm of intra-abdominal lymph nodes; J44.9 Chronic obstructive pulmonary disease, unspecified; I10 Essential (primary) hypertension; R53.82 Chronic fatigue, unspecified; R63.4 Abnormal weight loss; Z79.52 Long term (current) use of systemic steroids; Z79.899 Other long term (current) drug therapy; Z92.3 Personal history of irradiation
CPT/HCPCS: 36591; 80053; 82378; 84443; 85025; 90471; 90670; 99215

== ENCOUNTER 2021-07-29 08:47 | Outpatient (RCR) | payer OTHER, SELFPAY ==
[2021-07-29 09:37] LABS: Basophils # 0.1 10^3/uL (0.0-0.1); Basophils % 1.4 %; Eosinophils # 0.9 10^3/uL (0.0-0.8); Eosinophils % 12.1 %; Hematocrit 47.1 % (37.0-47.0); Hemoglobin 14.8 g/dL (11.5-15.3); Lymphocytes # 0.6 10^3/uL (0.8-4.8); Lymphocytes % 8.3 %; Mean Corpuscular HGB Conc 31.4 g/dL (30.0-36.0); Mean Corpuscular Hemoglobin 29.8 pg (28.0-34.0); Mean Corpuscular Volume 94.8 fl (81-99); Mean Platelet Volume 10.6 fL (7.4-10.4); Monocytes # 0.8 10^3/uL (0.2-0.9); Monocytes % 10.7 %; Neutrophils # 5.02 10^3/uL (1.8-7.7); Neutrophils % 65.8 %; Nucleated Red Blood Cells % 0 %; Platelet Count 390 10^3/cmm (130-400); Red Blood Count 4.97 10^6/uL (4.1-5.3); Red Cell Distribution Width 16.8 % (12.1-15.1); White Blood Count 7.6 10^3/uL (4.0-10.0)
[2021-07-29 10:16] LABS: Alanine Aminotransferase 6 U/L (0-33); Albumin Level 3.4 g/dL (3.5-5.2); Alkaline Phosphatase 72 IU/L (35-105); Anion Gap 11.2 (5-19); Aspartate Amino Transferase 8 U/L (0-32); Blood Urea Nitrogen 16 mg/dL (6-20); Calcium 8.1 mg/dL (8.5-10.5); Carbon Dioxide 34 mmol/L (22-29); Chloride 102 mmol/L (98-107); Free T4 Free Thyroxine 0.98 ng/dL (0.82-1.77); Glomerular Filtration Rate 163.4 mL/min (90-130); Glucose 83 mg/dL (65-115); Osmolality Calculated 296 mOsm/kg (285-295); Potassium 4.2 mmol/L (3.5-5.1); Sodium 143 mmol/L (136-145); Thyroid Stimulating Hormone 6.14 uIU/mL (0.27-4.20); Total Bilirubin 0.2 mg/dL (0.15-1.2); Total Protein 5.4 g/dL (6.6-8.7)
--- NOTE | 2021-07-29 18:44 | ONC FU_ITS ---
Dr. Michaels Patient Follow-Up Note Patient: Kim Nettles Unit #: [id number]: 1960 Dicatated By: Sha Michaels M.D.Date of Visit:Jul 29, 2021 Onc Med Follow-up/Prog Note Chief Complaint: Lung cancer. 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 She was seen by Maria G Shah in August 2016 for treatment of pneumonia. A chest x-ray on 08/27/2016 showed an indistinct increased density in the left upper lobe measuring about 3 cm. It was suspicious for a mass lesion. There was evidence of chronic emphysema. There were no other pulmonary parenchymal densities. Further evaluation with chest CT on 09/03/2016 confirmed a spiculated noncalcified soft tissue mass in the left upper lobe laterally. It appeared to extend to and involve the left lateral pleural margin. It measured 1.5 x 2.3 x 2.8 cm. There were no other mass lesions noted. There was no axillary, supraclavicular, mediastinal, or hilar masses or adenopathy. There was no pleural effusion. There did appear to be trace pericardial effusion. There were centrilobular emphysematous changes throughout the lung parenchyma. There was suspected left adrenal adenoma measuring 1.3 x 2.2 cm. A near water density lesion in the right upper lobe of the liver measuring 1.2 cm appeared consistent with an incidental cyst. There was no evidence of any metastatic involvement. She was referred to Dr. Kinsey. Her pulmonary function studies in 09/28/2016 were adequate with FEV 2.68, 47% of predicted. On 10/07/2016 she underwent thoracotomy with left upper lobe apical posterior segmentectomy. She was found to have moderately intense adhesions, precluding a complete left upper lobectomy. As such, the procedure was limited to formal segmentectomy. 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 It was mostly moderately differentiated, but focally it was high-grade (poorly differentiated). It measured 2.4 x 1.9 cm. The resection margins were free of tumor, but tumor was noted to extend onto the pleural surface. Pathologic staging was T2a, (PL 2), NX, as there were no lymph nodes included in the specimen. She has had an uneventful postoperative recovery. I had seen her initially on 11/11/2016. There appeared to be no indication for adjuvant chemotherapy, and she was followed on observation/expectant management. As of her follow-up visit in June 2017 she appeared stable clinically, there was no evidence of recurrence/progression of the lung cancer on her restaging chest CT. She had a follow-up visit with Camilo Molina on 06/15/2020. She complained of fatigue, and she was noted to have a significant weight loss. Her laboratory studies included CBC showing elevated hemoglobin/hematocrit levels at 17.8 g and 54.9%. The white blood cell count was 8200 and the platelet count was 369,000. Her comprehensive metabolic profile was unremarkable and her TSH level was normal 2.33 ???IU/mL. A battery of tumor markers was obtained and her CEA level was found to be significantly elevated at 303.6 ng/mL. Her restaging CT scans of the chest, abdomen, and pelvis on 06/19/2020 showed postoperative changes at the left lung apex and moderate centrilobular emphysematous changes. A noncalcified 5 mm pulmonary nodule in the left lower lobe was indeterminate. There were no other pulmonary mass lesions and there was no mediastinal or hilar lymphadenopathy noted. There was evidence of hepatomegaly with enlargement of the right hepatic lobe. There was extensive cholelithiasis with gallbladder distention and further evaluation with ultrasound was recommended. There was thickening and induration involving the distal sigmoid colon suspicious for diverticulitis. A small amount of free fluid was noted in the pelvis. With the abnormal CT findings in the sigmoid colon and with the significantly elevated CEA level, she was recommended to have further evaluation with colonoscopy. The procedure was done on 07/16/2020. It showed moderate diverticulosis in the sigmoid colon, but there was no evidence of malignancy in the sigmoid colon and there were no other abnormal findings noted. She had further evaluation with PET/CT on 08/10/2020. It showed multiple FDG positive mediastinal lymph nodes in the right and left paratracheal, subaortic, and subcarinal territories, strongly suspicious for recurrence. An index node in the subcarinal territory measured 1.4 cm with SUV 9.6. A 1.1 x 0.6 cm left pleural implant at the second intercostal space had SUV 4.3, suggestive of a malignant implant. There were no other areas of abnormal uptake on that study. On 08/22/2020 she underwent bronchoscopy with EBUS and FNA biopsy of station 7 lymph node. There were no endobronchial lesions identified on the bronchoscopy. The endobronchial ultrasound did show mediastinal and left hilar lymphadenopathy. Cytology on the FNA biopsy was positive for metastatic poorly differentiated non-small cell carcinoma. The tumor cells showed positive staining for CK high molecular weight and for CK 8/18. There was cytoplasmic staining for p63. The TTF-1 was negative. The Ki-67 was high at 50%. A next generation sequencing study was requested by liquid biopsy, but there was insufficient circulating tumor derived cell free DNA to obtain meaningful results. The PD-L1 expression was negative at < 1%. With her disease localized to lung and mediastinal lymph nodes, she appeared to be appropriate candidate for radiation with concurrent weekly carboplatin/paclitaxel chemotherapy. She began her cycle 1 carboplatin/paclitaxel on 10/10/2020. She was then able to continue her weekly infusions on schedule. She received her week 6 treatment on 11/14/2020. She completed radiation on 11/20/2020 to a total dose of 6000 cGy, administered in 30 fractions. Her medical history is otherwise significant for underlying COPD. She has had no other ongoing medical illnesses. She has a history of smoking 2 packs of cigarettes daily for 25 years. She had cut down following her lung surgery. INTERIM HISTORY: Restaging chest CT on 12/03/2020 showed improvement in the previously described mediastinal and subcarinal adenopathy. There was no residual abnormalities in the area of the previously described suspected pleural implant. Micronodular infiltrates were noted in the lingula and left lower lobe medially, new from previous studies. The appearance was consistent with infectious or inflammatory process. A previously described left lower lobe nodule measuring 5 to 6 mm was also noted to have resolved. With those findings, she was recommended to proceed with maintenance immunotherapy with durvalumab. She began cycle 1 on 12/19/2020. At that point her CEA level had declined to 10.4 ng/mL. She tolerated that treatment without significant toxicity. She then continued the durvalumab at 4-week intervals. As of 04/28/2021 she received her 5th cycle of treatment. On 05/24/2020 when she was admitted to the hospital with acute hypoxic respiratory failure. Her CT pulmonary angiogram showed no evidence of pulmonary embolus. There was interstitial thickening noted in the lower lobes, right greater than left and there were small pleural effusions, also right greater than left. Patchy infiltrates were noted in the right lower lobe. There was no mediastinal or hilar lymphadenopathy. Covid test was negative. She improved on empiric treatment with antibiotic, steroid, and inhalation therapy. She was discharged home on Levaquin 750 mg daily for 5 days and a prednisone taper. At her follow-up visit on 06/11/2021 she was showing clinical improvement. I did opt to put her treatment on hold, as I was concerned about the possibility of treatment related pneumonitis. On 07/22/2021 she was seen in the emergency room at [facility] with multiple complaints, mainly chest and abdominal pain. Her CT scans of the chest, abdomen, and pelvis showed no acute pulmonary infiltrates or nodules. There was hepatomegaly with multiple small lucencies noted in both lobes, the largest in the right lobe measuring 8.5 mm. There were no other findings to suggest metastatic disease. There was cholelithiasis but without evidence of cholecystitis. She was noted to have severe constipation, for which she was started on MiraLAX. She is seen now for a follow-up visit. She has been feeling better generally since her ER visit. Her bowels have been moving more regularly and abdominal pain has resolved. Her energy is better, though she still has limited activity. ECOG score is 2. Appetite also has improved. She has no fever or night sweats. She does not complain of cough. She is still using oxygen as needed, but her breathing is better. She did stop smoking with the hospitalization in May. She has continued to have some pain in the left lateral chest area. She has no other GI or complaints. She has no other joint or bone pain. She reports having a little bit of headache. She has no focal neurologic symptoms. Medications: Advair Diskus 1 Puff(s) (of 250-50 mcg/dose) Aerosol Powder, Breath Activated Inhalation b.i.d., Anacin 1 (400-32 mg) Tablet Oral t.i.d., LORazepam 1 Tablet (of 1 mg) Oral t.i.d. PRN, oxyCODONE HCl 5 mL (of 5 mg/5mL) Solution Oral q 4 hours, Prochlorperazine Maleate 1 Tablet (of 10 mg) Oral q 4 hours PRN, traZODone HCl (50 mg) Tablet Oral at bedtime Allergies: No Known Allergies. Vital Signs: Performed on Jul 29, 2021 11:20 Height - 64.00 in Weight - 100.2 lbs (HIGH) BSA - 1.46 sq.m BMI - 17.20 (LOW) Temperature - 98.7 F Pulse - 80 /min Respiration - 20 /min BP - 110/62 mm(hg) O2 Sat - 91 % (LOW) Pain - 4 Fatigue - 4 Physical Examination: Constitutional - She appears somewhat weak generally, Eyes - Sclerae nonicteric. Conjunctivae clear, ENMT - No lesions noted in the oral cavity, Hematologic/Lymphatic - No cervical, clavicular, or axillary adenopathy, Respiratory - Lungs sound clear with diminished air movement bilaterally, Cardiovascular - Heart rhythm is regular. There is no murmur, gallop, or rub noted, Abdomen - Soft. Liver and spleen are not enlarged. There is no abdominal mass or ascites noted and there is no inguinal adenopathy, Extremities - Slight edema, Neurologic - No focal neurologic deficits noted. Lab/Imaging: Test performed on Jul 29, 2021 09:25 Sodium 143 mmol/L T4, Free 0.98 ng/dL TSH 6.14 uIU/mL Potassium 4.2 mmol/L Chloride 102 mmol/L CO2 34 mmol/L Anion Gap 11.2 BUN 16 mg/dL Creatinine 0.4 mg/dL Cr Clearance (Est) 108.66 mL/min eGFR 163.4 mL/min Glucose 83 mg/dL Osmolality - Calculated 296 mOsm/kg Calcium 8.1 mg/dL Protein, Total 5.4 g/dL Albumin 3.4 g/dL Globulin 2.0 g/dL Bilirubin, Total 0.2 mg/dL ALT (SGPT) 6 U/L AST (SGOT) 8 U/L Alkaline Phosphatase 72 IU/L WBC 7.6 10 3/uL RBC 4.97 10 6/uL HGB 14.8 g/dL HCT 47.1 % MCV 94.8 fl MCH 29.8 pg MCHC 31.4 g/dL RDW 16.8 % Platelet Count 390 10 3/cmm MPV 10.6 fL Neutrophils 5.02 10 3/uL Lymphocytes 0.6 10 3/uL Monocytes 0.8 10 3/uL Eosinophils 0.9 10 3/uL Basophils 0.1 10 3/uL Neutrophil % 65.8 % Lymphocyte % 8.3 % Monocyte % 10.7 % Eosinophil % 12.1 % Basophils % 1.4 % NRBC % 0 % Problem List: 1. Invasive adenocarcinoma involving the upper lobe of the left lung. She underwent left thoracotomy with left upper lobe segmentectomy on 10/07/2016. Her disease was pathologic stage T2a, (PL2), NX, as there was involvement of the pleural surface, but no lymph nodes were included in the specimen. Resection margins were free. By clinical evaluation, her disease was stage IB (T2a, N0, M0). She had no further treatment. 2. She now has evidence of recurrence with biopsy-proven involvement in mediastinal lymph nodes. There is also a suspected left pleural implant by PET/CT, consistent with stage MARC (M1a) disease. 3. COPD. 4. Hypertension. Problems Addressed with this Encounter and Plan: 1. Patient with invasive adenocarcinoma involving the upper lobe of the left lung, stage IB (pT2a, cN0, M0). She underwent left thoracotomy with left upper lobe segmentectomy on 10/07/2016. She had no further treatment. She had presented in June 2020 with fatigue and weight loss. She was found to have a significantly CEA level. Her restaging CT scans showed abnormal findings in the sigmoid colon, but colonoscopy showed no evidence of malignancy. As such, the elevated CEA level remains unexplained. PET/CT showed multiple FDG positive mediastinal lymph nodes in the right and left paratracheal, subaortic, and subcarinal territories, strongly suspicious for recurrence. A 1.1 x 0.6 cm left pleural implant at the second intercostal space had SUV 4.3, suggestive of a malignant implant. There were no other areas of abnormal uptake on that study. On 08/22/2020 she underwent bronchoscopy with EBUS and FNA biopsy of station 7 lymph node. There were no endobronchial lesions identified on the bronchoscopy. The endobronchial ultrasound did show mediastinal and left hilar lymphadenopathy. Cytology on the FNA biopsy was positive for metastatic poorly differentiated non-small cell carcinoma. The Ki-67 was high at 50%. The tumor was found to have low PD-L1 expression at <1%. With disease limited to lung and mediastinal lymph nodes, she was treated with definitive radiation concurrently with weekly carboplatin/paclitaxel chemotherapy. The radiation was administered from 10/10/2020 through 11/20/2020 to a total dose of 6000 cGy delivered in 30 fractions. During that time she completed 6 weekly infusions of carboplatin/paclitaxel. Her treatment was complicated by fatigue and esophagitis. She had a good response by follow-up chest CT, and based on those findings she was recommended to proceed with maintenance immunotherapy with durvalumab. She began cycle 1 on 12/19/2020. At that point there had been a significant decline in her CEA level, to 10.4 ng/mL. She tolerated the treatment well, and she then continued the durvalumab at 4-week intervals. She received her 5th cycle on 04/28/2021. On 05/24/2021 she was admitted to the hospital with acute hypoxic respiratory failure. Her CT pulmonary angiogram did show some interstitial thickening in the lower lobes and patchy infiltrates in the right lower lobe. There was no evidence of pulmonary embolism. She improved on empiric treatment with antibiotic, steroid, and inhalation therapy. As of her follow-up visit on 06/11/2021 her treatment was put on hold, as I was concerned about the possibility of treatment induced pneumonitis. On 07/22/2021 she was seen in the emergency room with abdominal pain and constipation. On review of her CT scans, there is significant improvement in the appearance of the right lower lobe compared to the May 2021 study, and in retrospect it appears very likely that that illness was due to pneumonia. The liver lesions appear unchanged from previous studies, consistent with benign disease. As there has been no definite evidence of disease progression, she will now restart maintenance durvalumab at 1500 mg by IV infusion. She returns in 4 weeks. 2. She developed hypothyroidism on her immunotherapy. Her TSH has been gradually declining on replacement therapy. She continues levothyroxine at 75 mcg daily. Signed By: Sha Michaels M.D. <<Signature on File>>
[2021-07-30 20:42] LABS: Carcinoembryonic Antigen 9.9 ng/mL (0.0-4.7)
== END 2021-08-11 23:59 | disposition home or self-care (01) ==
LOC: ONCMED 08:47
PROVIDERS: PCP Family Medicine; Visit Provider Internal Medicine Medical Oncology
DX: Z51.12 Encounter for antineoplastic immunotherapy (principal); C34.12 Malignant neoplasm of upper lobe, left bronchus or lung; C77.2 Secondary and unspecified malignant neoplasm of intra-abdominal lymph nodes; J44.9 Chronic obstructive pulmonary disease, unspecified; I10 Essential (primary) hypertension; E03.9 Hypothyroidism, unspecified; Z79.899 Other long term (current) drug therapy; Z92.3 Personal history of irradiation; Z92.21 Personal history of antineoplastic chemotherapy; Z90.2 Acquired absence of lung [part of]
CPT/HCPCS: 80053; 82378; 84439; 84443; 85025; 96413; 99215; J7050; J9173

== ENCOUNTER 2021-08-12 22:09 | Inpatient (IN) | payer OTHER, MEDICAID, SELFPAY ==
[2021-08-12 22:11] VITALS: BP 116/71; PULSE 110; RESP 20; TEMP 37.1; O2SAT 85; BMI 17.5
--- NOTE | 2021-08-12 22:15 | ECG_ITS ---
[facility] Test Date: 2021-08-12 Pat Name: Kim Nettles Department: Room: Gender: Female [employer]: : 1960 Requested By: Lenora Valencia Order Number: [id number] [place] MD: Steve Mathews M.D. Measurements Intervals [place] Rate: 101 P: 66 RI: 133 QRS: -69 QRSD: 90 T: 86 QT: 250 QTc: 325 Interpretive Statements SINUS TACHYCARDIA WITH OCCASIONAL VENTRICULAR PREMATURE COMPLEXES POSSIBLE LEFT ATRIAL ENLARGEMENT [-0.1mV P-WAVE IN V1/V2] LEFT AXIS DEVIATION [QRS AXIS < -30] SEPTAL MYOCARDIAL INFARCTION , OF INDETERMINATE AGE [40+ ms Q WAVE IN V1/V2] Compared to ECG 05/24/2021 06:27:14 Ventricular premature complex(es) now present Left-axis deviation now present Myocardial infarct finding now present Sinus rhythm no longer present Sinus arrhythmia no longer present Electronically Signed On 08-13-2021 18:31:24 DRAG SAWYER by Steve Mathews M.D. [email or web address]
--- NOTE | 2021-08-12 22:15 | XRR_ITS ---
PROCEDURE INFORMATION: Exam: XR Chest Exam date and time: 08/12/2021 10:15 PM Age: 61 years old Clinical indication: Shortness of breath; Prior surgery; Surgery type: Left lung. Chest port. ; Patient HX: SOB with hypoxia. History of lung cancer. TECHNIQUE: Imaging protocol: XR of the chest. Views: 1 view. COMPARISON: CT chest abd pel w con* 07/22/2021 9:46 PM FINDINGS: Tubes, catheters and devices: Right chest tunnel Port-A-Cath terminates in the mid to distal SVC with unremarkable position. Lungs: Emphysematous lung changes. Extensive opacities of the right lung with right upper lobe predominance. Pleural spaces: Unremarkable. No pleural effusion. No pneumothorax. Heart/Mediastinum: Unremarkable. No cardiomegaly. Bones/joints: Demineralized bones. No acute thoracic fractures. XR/XR chest 1V portable [id number] IMPRESSION: Areas of consolidation in the right lung consistent with pneumonia.
--- NOTE | 2021-08-12 22:19 | W.ED.SOB ---
HPI - SOB/Dyspnea General: Chief Complaint: Shortness of Breath/Dyspnea Stated Complaint: SOB Time Seen by Provider: 08/12/21 22:10 Source: patient and EMS Mode of arrival: EMS Limitations: no limitations History of Present Illness: HPI Narrative: 61-year-old female who has a history of lung cancer states she had recently finished chemo states that over the last 2 to 3 days she been having fever cough and increasing shortness of breath she states she wears 6 L at baseline here she is in the mid 80s on her 6 L. She states that she is getting extreme dyspnea with any activity denies any vomiting or diarrhea. EMS states she had a temperature of 101. Associated symptoms: Reports fever(s); Deny abdominal pain, chest pain, nausea or vomiting Review of Systems Const: Reports: fever(s), chills and body aches Eyes: Denies: blurry vision or eye discomfort ENMT: Denies: throat pain or dental pain Card: Denies: chest pain Resp: Reports: dyspnea, productive cough and wheezing GI: Denies: abdominal pain, nausea, vomiting or diarrhea : Denies: dysuria Musc: Denies: neck pain or back pain Skin/Breast: Denies: rash Neuro: Denies: headache(s) Psych: Denies: depression Mikey/Lymph: Denies: easy bruising All/Imm: Denies: urticaria PFSH ED PFSH: Medical History COPD (chronic obstructive pulmonary disease) History of lung cancer HTN (hypertension), benign OFF all med since fall 2020 Malignant neoplasm of upper lobe, left bronchus or lung Surgical History H/O colonoscopy (07/16/20) H/O colostomy H/O exploratory laparotomy H/O pneumonectomy Hx of tubal ligation Port-A-Cath in place (10/02/20) Family History Mother Cancer liver Son Cancer age 12 leukemia Other Hypertension Denies family history of CAD (coronary artery disease) Dementia Anesthesia complication Bleeding disorder Social History Quit status (tobacco): has quit using tobacco Former quit date comment: Quit 05/2021 Smoking risk assessment/counseling performed?: Yes Alcohol intake: never Counseling given: No Counseling given: No Lives independently: Yes Household members: significant other Marital status: Single Current occupational status: employed History of recent travel: No Current gender identity: Female Female Reproductive History: Spontaneous abortions: No Physical Exam Const: COMMON NORMALS: patient oriented x3 GENERAL APPEARANCE: in distress and ill appearing HENMT: COMMON NORMALS: normocephalic and atraumatic HEAD & SCALP: normocephalic and atraumatic Eye: COMMON NORMALS: Equal, round and reactive pupils present and EOMs intact bilaterally PUPIL: Yes Equal, round and reactive pupils present Neck/C-Spine: COMMON NORMALS: full ROM and supple Chest: COMMONS NORMALS: normal inspection of the chest and normal palpation of entire chest wall Resp: EFFORT & INSPECTION: Yes tachypneic and Yes labored AUSCULTATION: rales and wheezes Cardio: COMMON NORMALS: regular rate, regular rhythm and No murmurs present (Cardio) RATE: regular rate RHYTHM: regular rhythm GI: COMMON NORMALS: Normal to inspection, nondistended, normoactive bowel sounds present, Soft to palpation, non-tender and no masses PALPATION: Yes Soft to palpation Extremity: COMMON NORMALS: normal to inspection and full ROM Neuro: COMMON NORMALS: patient oriented x3, moves all extremities and no focal motor deficits Psych: COMMON NORMALS: mental status grossly normal, Normal thought process present and cooperative THOUGHT PROCESS: Normal thought process present Skin: COMMON NORMALS: no rashes or lesions noted and no wounds GENERAL SKIN EXAM: no rashes or lesions noted Course Vital Signs: Vital signs: Vital Signs Temperature 98.8 F 08/12/21 22:11 Pulse Rate 87 08/12/21 23:56 Respiratory Rate 20 H 08/12/21 23:56 Blood Pressure 123/75 08/12/21 23:56 Pulse Oximetry 90 08/12/21 23:56 MDM - SOB/Dyspnea Medical Decision Making Patient presents here with pneumonia x-ray has appearance of bacterial pneumonia also Covid positive as well she does have an elevated white count and believe she has both bacterial pneumonia and Covid pneumonia patient started on IV antibiotics spoke to hospitalist and will admit. Lab Data : 08/12/21 22:15 08/12/21 22:15 Labs/Radiology: Radiology Impressions Chest X-Ray 08/12/21 22:15 IMPRESSION: Areas of consolidation in the right lung consistent with pneumonia. Laboratory Results WBC 17.0 10^3/uL (4.0-10.0) H 08/12/21 22:15 RBC 5.11 10^6/uL (4.1-5.3) 08/12/21 22:15 Hgb 15.4 g/dL (11.5-15.3) H 08/12/21 22:15 Hct 45.6 % (37.0-47.0) 08/12/21 22:15 MCV 89.2 fl (81-99) 08/12/21 22:15 MCH 30.1 pg (28.0-34.0) 08/12/21 22:15 MCHC 33.8 g/dL (30.0-36.0) 08/12/21 22:15 RDW 16.8 % (12.1-15.1) H 08/12/21 22:15 Plt Count 337 10^3/cmm (130-400) 08/12/21 22:15 MPV 12.0 fL (7.4-10.4) H 08/12/21 22:15 Neut % (Auto) 94.9 % 08/12/21 22:15 Lymph % (Auto) 0.7 % 08/12/21 22:15 [place] % (Auto) 3.3 % 08/12/21 22:15 Eos % (Auto) 0.0 % 08/12/21 22:15 Baso % (Auto) 0.2 % 08/12/21:15 Neut # (Auto) 16.09 10^3/uL (1.8-7.7) H 08/12/21 22:15 Lymph # (Auto) 0.1 10^3/uL (0.8-4.8) L 08/12/21 22:15 [place] # (Auto) 0.6 10^3/uL (0.2-0.9) 08/12/21 22:15 Eos # (Auto) 0.0 10^3/uL (0.0-0.8) 08/12/21 22:15 Baso # (Auto) 0.0 10^3/uL (0.0-0.1) 08/12/21 22:15 Nucleated RBC % (auto) 0.2 % 08/12/21 22:15 Nucleated RBCs # 0.0 /100WBC 08/12/21 22:15 PT 13.90 SECONDS (12.1-14.9) 08/12/21 22:15 INR 1.04 (0.8-1.2) 08/12/21 22:15 Specimen Type Arterial 08/12/21 23:23 Sample Site Brachial, right 08/12/21 23:23 ABG pH 7.40 (7.35-7.45) 08/12/21 23:23 ABG pCO2 55.3 mmHg (35-45) H 08/12/21 23:23 ABG pO2 51.5 mmHg (80.0-100.0) L 08/12/21 23:23 ABG HCO3 34.4 mmol/L (22-26) H 08/12/21 23:23 ABG Base Excess 7.6 mmol/L (-2.0-2.0) H 08/12/21 23:23 Harman Test Pos 08/12/21 23:23 Hematocrit 44.9 % (37-47) 08/12/21 23:23 Hgb O2 Saturation 84.1 % (95-100) L 08/12/21 23:23 Carboxyhemoglobin 0.7 %THgb (0.4-20.1) 08/12/21 23:23 Methemoglobin 0.4 % (0.4-1.5) 08/12/21 23:23 Total Hemoglobin 14.7 g/dL (12-16) 08/12/21 23:23 O2 Delivery Device Nc 08/12/21 23:23 O2 Liters/Min 6.0 % 08/12/21 23:23 Liability Claims Examiner ID Buttr 08/12/21 23:23 Sodium 139 mmol/L (136-145) 08/12/21 22:15 Potassium 2.9 mmol/L (3.5-5.1) L 08/12/21 22:15 Chloride 95 mmol/L (98-107) L 08/12/21 22:15 Carbon Dioxide 33 mmol/L (22-29) H 08/12/21 22:15 Anion Gap 13.9 (5-19) 08/12/21 22:15 BUN 20 mg/dL (8-23) 08/12/21 22:15 Creatinine 0.5 mg/dL (0.5-0.9) 08/12/21 22:15 GFR Calculation 125.9 mL/min (90-130) 08/12/21 22:15 Glucose 98 mg/dL (65-115) 08/12/21 22:15 Calculated Osmolality 291 mOsm/kg (285-295) 08/12/21 22:15 Lactic Acid 1.5 mmol/L (0.5-2.2) 08/12/21 22:15 Calcium 8.6 mg/dL (8.5-10.5) 08/12/21 22:15 Total Bilirubin 0.5 mg/dL (0.15-1.2) 08/12/21 22:15 AST 10 U/L (0-32) 08/12/21 22:15 ALT < 5 U/L (0-33) 08/12/21 22:15 Alkaline Phosphatase 109 IU/L (35-105) H 08/12/21 22:15 Total Protein 5.5 g/dL (6.6-8.7) L 08/12/21 22:15 Albumin 2.7 g/dL (3.5-5.2) L 08/12/21 22:15 Globulin 2.8 g/dL (1.3-4.6) 08/12/21 22:15 Coronavirus 229E (PCR) Not detected (NOT DETECT) 08/12/21 22:15 SARS-CoV-2 (PCR) Detected (NOT DETECT) A 08/12/21 22:15 Imaging Data CXR: I personally reviewed and interpreted this imaging study as follows: My impression: r sided pneumonia EKG Data EKG 1: I personally reviewed and interpreted this EKG as follows: EKG Interpretation Date: 08/12/21 EKG interpretation time: 22:34 Interpretation: sinus tach hr [address] or t wave abnormalities qrs 90 qtc 308 Discharge Plan Discharge Patient Disposition: Admitted As Inpatient Clinical Impression: Acute respiratory failure with hypoxemia, COVID-19 Condition: Stable Coding Level of Care Code ED Senior Field Engineer for Chg Fwd Exam Comprehensive
[2021-08-12 22:35] LABS: Basophils % 0.2 %; Hematocrit 45.6 % (37.0-47.0); Hemoglobin 15.4 g/dL (11.5-15.3); Lymphocytes # 0.1 10^3/uL (0.8-4.8); Lymphocytes % 0.7 %; Mean Corpuscular HGB Conc 33.8 g/dL (30.0-36.0); Mean Corpuscular Hemoglobin 30.1 pg (28.0-34.0); Mean Corpuscular Volume 89.2 fl (81-99); Monocytes # 0.6 10^3/uL (0.2-0.9); Monocytes % 3.3 %; Neutrophils # 16.09 10^3/uL (1.8-7.7); Neutrophils % 94.9 %; Nucleated Red Blood Cells % 0.2 %; Platelet Count 337 10^3/cmm (130-400); Red Blood Count 5.11 10^6/uL (4.1-5.3); Red Cell Distribution Width 16.8 % (12.1-15.1)
[2021-08-12] MEDS: sodium chloride 0.9% 1,000 ML 999 ML IV ×2 (22:39→23:03)
[2021-08-12 22:40] LABS: INR 1.04 (0.8-1.2)
[2021-08-12 22:45] LABS: Lactic Sepsis W/Reflex 1.5 mmol/L (0.5-2.2)
[2021-08-12] MEDS: piperacillin-tazobactam 3.375 GM in sodium chloride 0.9% (plus) 50 ML IV (22:49)
[2021-08-12 22:50] LABS: Alanine Aminotransferase < 5 U/L (0-33); Albumin Level 2.7 g/dL (3.5-5.2); Alkaline Phosphatase 109 IU/L (35-105); Anion Gap 13.9 (5-19); Aspartate Amino Transferase 10 U/L (0-32); Blood Urea Nitrogen 20 mg/dL (8-23); Calcium 8.6 mg/dL (8.5-10.5); Carbon Dioxide 33 mmol/L (22-29); Chloride 95 mmol/L (98-107); Globulin 2.8 g/dL (1.3-4.6); Glomerular Filtration Rate 125.9 mL/min (90-130); Glucose 98 mg/dL (65-115); Osmolality Calculated 291 mOsm/kg (285-295); Sodium 139 mmol/L (136-145); Total Bilirubin 0.5 mg/dL (0.15-1.2); Total Protein 5.5 g/dL (6.6-8.7)
[2021-08-12 22:52] LABS: Potassium 2.9 mmol/L (3.5-5.1)
[2021-08-12 22:58] LABS: Slide Review Slide Review Perform
[2021-08-12] MEDS: vancomycin 1,000 MG in sodium chloride 0.9% 250 ML 250 MG IV (23:03)
[2021-08-12 23:21] VITALS: PULSE 88; RESP 24; O2SAT 87
[2021-08-12] MEDS: ipratropium-albuterol 3 mL Neb INHALATION (23:21)
[2021-08-12 23:35] LABS: ABG PCO2 55.3 mmHg (35-45); Arterial Blood Gas Hematocrit 44.9 % (37-47); Base Excess ABG 7.6 mmol/L (-2.0-2.0); Blood Gas Allen Test Pos; Blood Gas Sample Site Brachial, right; Blood Gas Sample Type Arterial; Carboxyhemoglobin 0.7 %THgb (0.4-20.1); HCO3 ABG 34.4 mmol/L (22-26); HGB O2 Sat 84.1 % (95-100); Methemoglobin 0.4 % (0.4-1.5); Oxygen Device NC; PO2 ABG 51.5 mmHg (80.0-100.0); Total Hemoglobin 14.7 g/dL (12-16)
[2021-08-12 23:56] VITALS: BP 123/75; PULSE 87; RESP 20; O2SAT 90
--- NOTE | 2021-08-12 23:58 | PC.NURSE ---
IV left upper arm infiltrated. was removed and warm compresses have been applied
[2021-08-13] VITALS (20 sets, daily range): BP systolic 83–153; BP diastolic 57–80; PULSE 60–82; RESP 16–28; TEMP 36.2–36.7; O2SAT 90–98
[2021-08-13 00:11] LABS: Adenovirus Not Detected (NOT DETECT); Chlamydia Pneumoniae Not Detected (NOT DETECT); Coronavirus 229E,HKU1,NL63,OC4 Not Detected (NOT DETECT); Human Metapneumovirus Not Detected (NOT DETECT); Human Rhinovirus/Enterovirus Not Detected (NOT DETECT); Influenza A Not Detected (NOT DETECT); Influenza A H1 Not Detected (NOT DETECT); Influenza A H1-2009 Not Detected (NOT DETECT); Influenza A H3 Not Detected (NOT DETECT); Influenza B Not Detected (NOT DETECT); Mycoplasma Pneumoniae Not Detected (NOT DETECT); Parainfluenza Virus Type 1 Not Detected (NOT DETECT); Parainfluenza Virus Type 2 Not Detected (NOT DETECT); Parainfluenza Virus Type 3 Not Detected (NOT DETECT); Parainfluenza Virus Type 4 Not Detected (NOT DETECT); Respiratory Syncytial Virus A Not Detected (NOT DETECT); Respiratory Syncytial Virus B Not Detected (NOT DETECT); SARS-COV-2 Detected (NOT DETECT)
--- NOTE | 2021-08-13 02:22 | P.HP_ITS ---
Providers/Chief Complaint Primary Care Provider: Graciela Diamond MD Chief Complaint: SOB History of Present Illness Kim Nettles is a 61 year old female with past medical history of HTN, COPD on 6 Ls home oxygen, adenocarcinoma of the lung status post chemotherapy, currently on immunotherapy, Came in with chief complaint of worsening shortness of breath, non productive cough , fever, generalized weakness, fatigue , poor appetite going on for the last 2 to 3 days, upon arrival in the ER she was saturating in the mid 80s on 6 L home oxygen. She was worked up for above-mentioned complaint. X-ray chest was done: Which showed: Extensive right lung field infiltrates Pertinent labs: WBC 17 , H&H: 15.4/ 45.6 , plt : 337 , serum sodium 139 serum potassium 2.9, BUN and serum creatinine: 20/0.5 , ABG: pH 7.40, pco2 : 55 , PO2: 51 , on 6 L oxygen Covid PCR: Positive Patient was started on Vanco and Zosyn in the ER, she also received 1 dose of Solu-Medrol, as well as nebs in the ER. Review of Systems General: Reports: 10 or more systems reviewed and unremarkable except in HPI and below Const: Denies: diaphoresis Card: Denies: palpitations, edema, orthopnea or leg pain with exertion Resp: Denies: wheezing or pain on inspiration GI: Denies: abdominal pain, nausea, vomiting, diarrhea or constipation : Denies: flank pain Musc: Denies: back pain, extremity pain or extremity swelling Neuro: Denies: headache(s), difficulty walking or confusion Medications/Allergies Home Medications Medication Instructions Recorded Confirmed Last Taken Type aspirin-caffeine 400 mg-32 mg 1 tab PO Q4H PRN 05/24/21 07/31/21 Unknown History tablet (Anacin) trazodone 50 mg tablet 50 mg PO BEDTIME 05/24/21 07/31/21 Unknown History albuterol sulfate 90 mcg/actuation 1 inh INHALATION Q6H PRN #8.5 g 06/09/21 07/31/21 Unknown Rx aerosol inhaler fluticasone 500 mcg-salmeterol 50 1 inh INHALATION BID 30 Days #60 ea 06/09/21 07/31/21 Unknown Rx mcg/dose blistr powdr for inhalation (Wixela Inhub) umeclidinium 62.5 mcg/actuation 1 inh INHALATION DAILY 30 Days #30 06/09/21 07/31/21 Unknown Rx blister powder for inhalation ea (Incruse Ellipta) benzonatate 100 mg capsule 100 mg PO TID PRN #90 cap 07/31/21 07/31/21 Unknown Rx (Tessalon Perles) dextromethorphan polistirex 30 10 ml PO Q12H PRN #89 ml MDD 20 ml 07/31/21 07/31/21 Unknown Rx mg/5 mL oral susp ext.release 12hr esomeprazole magnesium 40 mg 40 mg PO DAILY 07/31/21 07/31/21 Unknown History capsule,delayed release levothyroxine 88 mcg tablet 88 mcg PO DAILY 30 Days #30 tab 07/31/21 07/31/21 Unknown Rx ondansetron HCl 4 mg tablet 4 mg PO Q6H 07/31/21 07/31/21 Unknown History (Zofran) prochlorperazine maleate 10 mg 10 mg PO QID PRN 07/31/21 07/31/21 Unknown History tablet sertraline 50 mg tablet 50 mg PO DAILY 30 Days #30 tab 07/31/21 07/31/21 Unknown Rx Allergies Allergy/AdvReac Type Severity Reaction Status Date / Time No Known Allergies Allergy Verified 08/12/21 22:19 PFSH Acute PFSH: Medical History COPD (chronic obstructive pulmonary disease) History of lung cancer HTN (hypertension), benign OFF all med since fall 2020 Malignant neoplasm of upper lobe, left bronchus or lung Surgical History H/O colonoscopy (07/16/20) H/O colostomy H/O exploratory laparotomy H/O pneumonectomy Hx of tubal ligation Port-A-Cath in place (10/02/20) Family History Mother Cancer liver Son Cancer age 12 leukemia Other Hypertension Denies family history of CAD (coronary artery disease) Dementia Anesthesia complication Bleeding disorder Social History Quit status (tobacco): has quit using tobacco Former quit date comment: Quit 05/2021 Smoking risk assessment/counseling performed?: Yes Alcohol intake: never Counseling given: No Counseling given: No Lives independently: Yes Household members: significant other Marital status: Single Current occupational status: employed History of recent travel: No Current gender identity: Female Female Reproductive History: Spontaneous abortions: No Vitals/I&O/Wt Last Vital Signs Temp 98.8 F 08/12/21 22:11 Pulse 87 08/12/21 23:56 Resp 20 H 08/12/21 23:56 BP 123/75 08/12/21 23:56 Pulse Ox 90 08/12/21 23:56 Weight last 48 hrs Weight 46.266 kg Physical Exam Const: COMMON NORMALS: patient oriented x3 HENMT: COMMON NORMALS: normocephalic, atraumatic, hearing grossly normal bilaterally and external ears normal HEAD & SCALP: normocephalic and atraumatic EXTERNAL EAR: Yes external ears normal Eye: COMMON NORMALS: no scleral icterus GENERAL EYE: appearance normal, both eyes and all related structures Chest: COMMONS NORMALS: normal inspection of the chest and normal palpation of entire chest wall CHEST: Yes Symmetrical chest wall rise Resp: EFFORT & INSPECTION: Yes symmetric chest movement OTHER: Diminished Air entry B/L, tachypneic, use of accessory muscles of respiration, Cardio: COMMON NORMALS: regular rate, regular rhythm, S1 normal heart sound present, S2 normal heart sound present, No gallops present (Cardio), No murmurs present (Cardio), No rub (Cardio) and Peripheral pulses 2+ throughout RATE: regular rate RHYTHM: regular rhythm HEART SOUNDS: S1 normal heart sound present and S2 normal heart sound present PERIPHERAL PULSES: Peripheral pulses 2+ throughout GI: COMMON NORMALS: Normal to inspection, nondistended, normoactive bowel sounds present, Soft to palpation, non-tender, No hepatosplenomegaly present and no masses AUSCULTATION: Yes normoactive bowel sounds PALPATION: Yes Soft to palpation and Yes No hepatosplenomegaly present RECTAL EXAM: deferred Extremity: COMMON NORMALS: no clubbing, cyanosis or edema and no pedal edema Neuro: COMMON NORMALS: patient oriented x3 Data : 08/12/21 22:15 08/13/21 04:25 Micro: Microbiology 08/12/21 22:45 Blood Culture - Preliminary Blood SPECIMEN COLLECTED 08/12/21 22:15 Blood Culture - Preliminary Blood SPECIMEN COLLECTED CXR: My impression: Extensive right lung field infiltrate Radiologist's impression: Lungs: Emphysematous lung changes. Extensive opacities of the right lung with right upper lobe predominance. Pleural spaces: Unremarkable. No pleural effusion. No pneumothorax. Heart/Mediastinum: Unremarkable. No cardiomegaly. Bones/joints: Demineralized bones. No acute thoracic fractures. EKG 1: My Interpretation: Sinus tachycardia, with PVCs,LAD Director Of Global Marketing Interpretation: SINUS TACHYCARDIA WITH OCCASIONAL VENTRICULAR PREMATURE COMPLEXES POSSIBLE LEFT ATRIAL ENLARGEMENT? [-0.1mV P-WAVE IN V1/V2] LEFT AXIS DEVIATION? [QRS AXIS < -30] EKG computer-generated impression: Chest X-Ray 08/12/21 22:15 IMPRESSION: Areas of consolidation in the right lung consistent with pneumonia. A&P Assessment and plan (1) Acquired hypothyroidism: Status: Acute (2) Malignant neoplasm of upper lobe, left bronchus or lung: Status: Acute (3) COPD (chronic obstructive pulmonary disease): Status: Acute Qualifiers: COPD type: chronic bronchitis Chronic bronchitis type: mucopurulent Qualified Code(s): J41.1 - Mucopurulent chronic bronchitis (4) Pneumonia due to COVID-19 virus: Status: Acute (5) Hypokalemia: Status: Acute (6) Acute on chronic respiratory failure with hypoxemia: Status: Acute Plan Assessment: #Acute on chronic hypoxemic , hypercapnic respiratory failure secondary to Covid pneumonia cannot conclusively rule out superimposed bacterial pneumonia. #COPD #Hypothyroidism #Hypokalemia #History of adenocarcinoma of the lung status post chemotherapy #HTN Plan: Currently she is on Covid protocol (follow inflammatory markers, ESR , CRP , D- dimer, LDH , ferritin ) Follow procalcitonin, blood culture, sputum Gram stain and culture. Continue dexamethasone 6 mg IV daily for 10 days Continue remdesivir for 5 days Duo nebs, inhaler Supplemental oxygen as needed, currently patient is requiring high flow oxygen through nasal cannula, Continue broad-spectrum antibiotic Vanco and cefepime Continue levothyroxine Lovenox for DVT prophylaxis #CODE STATUS: Limited resuscitation Attestations Medical Necessity Statement*: Patient is to be in hospital for management of Covid pneumonia.Anticipated length of stay greater than 2 midnights, Time Spent in Patient Care: Greater than 35 minutes Coding Level of Care Code Acute Residential Substance Abuse Counselor for g Fwd Exam Comprehensive Diagnoses Acquired hypothyroidism E03.9 Malignant neoplasm of upper lobe, left bronchus or lung C34.12 COPD (chronic obstructive pulmonary disease) J41.1 COPD type: chronic bronchitis Chronic bronchitis type: mucopurulent Pneumonia due to COVID-19 virus U07.1; J12.82 Hypokalemia E87.6 Acute on chronic respiratory failure with hypoxemia J96.21
[2021-08-13] MEDS: ipratropium-albuterol 3 mL Neb INHALATION ×4 (02:40→22:31)
[2021-08-13] MEDS: enoxaparin 40 mg/0.4 mL Syringe SUBCUT (02:52)
[2021-08-13] MEDS: lidocaine 1% 5 ML in potassium chloride premix 100 ML 25 ML IV (02:53)
[2021-08-13] MEDS: cefepime 2,000 MG in sodium chloride 0.9% (plus) 50 ML 100 MG IV ×3 (02:55→19:45)
--- NOTE | 2021-08-13 02:58 | PC.PHAR ---
Vancomycin is dosed at 750mg IVPB every 12 hours to produce a predicted trough level of 15.95 (population based pharmacokinetic analysis). A trough level has been ordered from the lab to be obtained before the fourth dose to confirm and adjust if needed.
[2021-08-13] MEDS: acetaminophen 325 mg Tablet 650 MG PO ×2 (03:02→08:22)
[2021-08-13] MEDS: remdesivir 200 MG in sodium chloride 0.9% (100 ml) 100 ML 100 MG IV (04:20)
[2021-08-13 04:47] LABS: Basophils # 0.1 10^3/uL (0.0-0.1); Basophils % 0.8 %; Eosinophils % 0.2 %; Hematocrit 42.5 % (37.0-47.0); Hemoglobin 14.1 g/dL (11.5-15.3); Lymphocytes # 0.2 10^3/uL (0.8-4.8); Lymphocytes % 0.9 %; Mean Corpuscular HGB Conc 33.2 g/dL (30.0-36.0); Mean Corpuscular Volume 90.4 fl (81-99); Mean Platelet Volume 11.6 fL (7.4-10.4); Monocytes # 0.5 10^3/uL (0.2-0.9); Monocytes % 2.9 %; Neutrophils # 15.48 10^3/uL (1.8-7.7); Nucleated Red Blood Cells % 0.2 %; Platelet Count 292 10^3/cmm (130-400); Red Cell Distribution Width 17.1 % (12.1-15.1); White Blood Count 16.7 10^3/uL (4.0-10.0)
[2021-08-13] MEDS: sodium chloride 0.9% 1,000 ML 999 ML IV (05:00)
[2021-08-13 05:03] LABS: D Dimer 0.78 ug/mIFEU (0-0.59)
[2021-08-13 05:20] LABS: Anion Gap 13.4 (5-19); Blood Urea Nitrogen 15 mg/dL (8-23); C Reactive Protein 331.5 mg/L (0.0-4.9); Calcium 8.4 mg/dL (8.5-10.5); Carbon Dioxide 27 mmol/L (22-29); Chloride 103 mmol/L (98-107); Ferritin 500 ng/mL (15-150); Glomerular Filtration Rate 226.9 mL/min (90-130); Glucose 108 mg/dL (65-115); Lactate Dehydrogenase 122 U/L (135-214); Osmolality Calculated 291 mOsm/kg (285-295); Potassium 3.4 mmol/L (3.5-5.1); Sodium 140 mmol/L (136-145)
[2021-08-13 05:29] LABS: Procalcitonin 2.28 ng/mL (0-0.5)
[2021-08-13] MEDS: sodium chloride 0.9% 500 ML IV (05:40)
[2021-08-13 05:57] LABS: Erythrocyte Sedimentation Rate 38 mm/hr (0-15)
[2021-08-13 06:32] LABS: Slide Review Slide Review Perform
[2021-08-13] MEDS: levothyroxine 88 mcg Tablet PO (09:15)
[2021-08-13] MEDS: zinc gluconate 50 mg Tablet PO (09:15)
[2021-08-13] MEDS: pantoprazole DR 40 mg Tablet PO (09:15)
[2021-08-13] MEDS: ascorbic acid 500 mg Tablet 1000 MG PO ×2 (09:15→19:45)
[2021-08-13] MEDS: sertraline 50 mg Tablet PO (09:15)
[2021-08-13] MEDS: vancomycin 750 MG in sodium chloride 0.9% 250 ML 250 MG IV (11:26)
[2021-08-13] MEDS: potassium chloride ER 20 mEq Tablet 40 MEQ PO (13:59)
--- NOTE | 2021-08-13 16:01 | PC.NURSE ---
PATIENT UP TO BEDSIDE COMMODE. PATIENT ASSISTANCE NOT REQUIRED. PATIENT TOLERATED MOVEMENT WELL. PATIENT RECONNECTED TO CARDIAC MONITORS. NO FURTHER NEEDS.
--- NOTE | 2021-08-13 18:02 | PC.NURSE ---
Carolin received at 1725 from ER.
[2021-08-13] MEDS: trazodone 50 mg Tablet PO (19:45)
--- NOTE | 2021-08-13 19:53 | PC.NURSE ---
Received report from RONEL Mcdaniel. Patient resting in bed talking on the phone. Denies needs or pain presently. No distress observed. Instructed patient on trazadone and plan for the night. Patient verbalized complete understanding. Will continue to monitor.
[2021-08-14] VITALS (14 sets, daily range): BP systolic 86–117; BP diastolic 54–76; PULSE 74–90; RESP 16–26; TEMP 36.6–37.2; O2SAT 89–94
[2021-08-14] MEDS: enoxaparin 40 mg/0.4 mL Syringe SUBCUT (00:23)
[2021-08-14] MEDS: vancomycin 750 MG in sodium chloride 0.9% 250 ML 250 MG IV (00:23)
[2021-08-14] MEDS: ipratropium-albuterol 3 mL Neb INHALATION ×3 (03:21→14:47)
[2021-08-14 03:42] LABS: Basophils % 0.1 %; Eosinophils % 0.1 %; Hematocrit 40.3 % (37.0-47.0); Hemoglobin 13.1 g/dL (11.5-15.3); Lymphocytes # 0.2 10^3/uL (0.8-4.8); Lymphocytes % 1.1 %; Mean Corpuscular HGB Conc 32.5 g/dL (30.0-36.0); Mean Corpuscular Hemoglobin 29.4 pg (28.0-34.0); Mean Corpuscular Volume 90.6 fl (81-99); Mean Platelet Volume 12.1 fL (7.4-10.4); Monocytes # 1.2 10^3/uL (0.2-0.9); Monocytes % 6.5 %; Neutrophils % 88.3 %; Nucleated Red Blood Cells % 0.1 %; Platelet Count 332 10^3/cmm (130-400); Red Blood Count 4.45 10^6/uL (4.1-5.3); Red Cell Distribution Width 17.9 % (12.1-15.1)
[2021-08-14 03:55] LABS: D Dimer 1.28 ug/mIFEU (0-0.59)
[2021-08-14 04:03] LABS: Neutrophils # 15.87 10^3/uL (1.8-7.7)
[2021-08-14 04:05] LABS: Slide Review Slide Review Perform
[2021-08-14 04:13] LABS: Anion Gap 11.7 (5-19); Blood Urea Nitrogen 15 mg/dL (8-23); C Reactive Protein 309.7 mg/L (0.0-4.9); Calcium 8.7 mg/dL (8.5-10.5); Carbon Dioxide 25 mmol/L (22-29); Chloride 108 mmol/L (98-107); Ferritin 651 ng/mL (15-150); Glomerular Filtration Rate 226.9 mL/min (90-130); Glucose 104 mg/dL (65-115); Osmolality Calculated 293 mOsm/kg (285-295); Potassium 3.7 mmol/L (3.5-5.1); Sodium 141 mmol/L (136-145)
[2021-08-14 04:17] LABS: Lactate Dehydrogenase 234 U/L (135-214)
[2021-08-14 04:21] LABS: Procalcitonin 2.14 ng/mL (0-0.5)
[2021-08-14 04:38] LABS: Erythrocyte Sedimentation Rate 44 mm/hr (0-15)
[2021-08-14] MEDS: remdesivir 100 MG in sodium chloride 0.9% (100 ml) 100 ML IV (05:29)
[2021-08-14] MEDS: dexamethasone 4 mg/mL INJ 6 MG IVP (05:29)
--- NOTE | 2021-08-14 07:21 | CTR_ITS ---
PROCEDURE INFORMATION: Exam: CTA Chest With Contrast Exam date and time: 08/14/2021 7:21 AM Age: 61 years old Clinical indication: Shortness of breath; Prior surgery; Surgery type: Lt lung; Patient HX: Lung cancer; Additional info: Hypoxia , covid TECHNIQUE: Imaging protocol: Computed tomographic angiography of the chest with contrast. 3D rendering (Not supervised by radiologist): MIP and/or 3D reconstructed images were created by the technologist. Radiation optimization: All CT scans at this facility use at least one of these dose optimization techniques: automated exposure control; mA and/or kV adjustment per patient size (includes targeted exams where dose is matched to clinical indication); or iterative reconstruction. Contrast material: OMNI 350; Contrast volume: 62 ml; Contrast route: INTRAVENOUS (IV); COMPARISON: CT angio chest PE protcl [id number] 05/26/2021 12:06 PM RADIATION DOSE METRICS: Total DLP (mGy-cm): 481.43 FINDINGS: Tubes, catheters and devices: Stable right Mediport catheter. Pulmonary arteries: No pulmonary embolus or aortic dissection. Aorta: Calcification of the thoracic aorta and/or great vessels consistent with atherosclerotic vessel disease. Calcification of the abdominal aorta and/or iliac arteries consistent with atherosclerotic vessel disease. Lungs: Continued volume loss in the left upper lobe consistent with previous resection. Interval appearance of severe right-sided pneumonia with air bronchograms. Pleural spaces: Bilateral mild to moderate pleural fluid collections. Heart: Severe calcified coronary artery disease. Mild anasarca consistent with right heart failure versus hypoproteinemia versus renal failure. Lymph nodes: [id number] mediastinal adenopathy with severe right hilar adenopathy most consistent with reactive adenopathy. Bones/joints: Unremarkable. No acute fracture. Soft tissues: See Heart finding. CT/CT angio chest PE protcl [id number] IMPRESSION: 1. Bilateral mild to moderate pleural fluid collections. 2. No pulmonary embolus or aortic dissection. 3. Stable right Mediport catheter. 4. Mild anasarca consistent with right heart failure versus hypoproteinemia versus renal failure. 5. Continued volume loss in the left upper lobe consistent with previous resection. 6. Interval appearance of severe right-sided pneumonia with air bronchograms. 7. [id number] mediastinal adenopathy with severe right hilar adenopathy most consistent with reactive adenopathy.
[2021-08-14] MEDS: ascorbic acid 500 mg Tablet 1000 MG PO ×2 (09:21→17:53)
[2021-08-14] MEDS: levothyroxine 88 mcg Tablet PO (09:21)
[2021-08-14] MEDS: zinc gluconate 50 mg Tablet PO (09:22)
[2021-08-14] MEDS: sertraline 50 mg Tablet PO (09:22)
[2021-08-14] MEDS: lactated ringers 1,000 ML 999 ML IV (09:22)
[2021-08-14] MEDS: pantoprazole DR 40 mg Tablet PO (09:22)
--- NOTE | 2021-08-14 09:23 | P.PN_ITS ---
Subjective Subjective: Interval history: Patient has not worsened overnight, no overnight events, currently on 6 L, requested CTA chest rule out PE D-dimer 1.2 CRP 209 Procalcitonin 2.1, afebrile, Vitals/I&O/Wt Last Vital Signs Temp 98.0 F 08/14/21 07:15 Pulse 76 08/14/21 07:15 Resp 21 H 08/14/21 07:15 BP 93/54 08/14/21 07:15 Pulse Ox 94 08/14/21 07:15 08/13/21 08/14/21 08/14/21 22:59 06:59 14:59 Intake Total 540 / 1195 500 / 1695 Balance 540 / 1195 500 / 1695 Weight last 48 hrs Weight 46.266 kg Physical Exam Narrative: EXAM NARRATIVE: Patient was resting comfortably in her bed Saturating well on 6 L nasal cannula No acute respite distress Cachectic malnourished Right-sided Mediport Abdomen soft S1, S2 Nonfocal neuro exam Awake and alert Data : 08/14/21 02:30 08/14/21 02:30 Micro: Microbiology 08/12/21 22:45 Blood Culture - Preliminary Blood NEGATIVE TO DATE 08/12/21 22:15 Blood Culture - Preliminary Blood NEGATIVE TO DATE 08/13/21 06:05 MRSA Culture - Final Nose A&P Assessment and plan (1) Acute on chronic respiratory failure with hypoxemia: Status: Acute (2) Hypokalemia: Status: Acute (3) Pneumonia due to COVID-19 virus: Status: Acute (4) Acute respiratory failure with hypoxemia: Status: Acute (5) COVID-19: Status: Acute (6) Malignant neoplasm of upper lobe, left bronchus or lung: Status: Acute (7) Acquired hypothyroidism: Status: Acute (8) COPD with acute exacerbation: Status: Acute (9) Port-A-Cath in place: Status: Acute Plan COVID-19 related hypoxia Superimposed bacterial infection Procalcitonin 2.1 Continue antibiotic coverage Patient is afebrile, mild worsening of leukocytosis CT chest to rule out PE D-dimer 1.2 I will continue vancomycin and cefepime for today Currently doing well on 6 L nasal cannula, Patient is full code Discontinue limited resuscitation orders Regular diet DVT prophylaxis on board Attestations Medical Necessity Statement*: Continue medical management Time Spent in Patient Care: 15 Coding Level of Care Code Acute Restaurant Line Server for Chg Fwd Diagnoses Acute on chronic respiratory failure with hypoxemia J96.21 Hypokalemia E87.6 Pneumonia due to COVID-19 virus U07.1; J12.82 Acute respiratory failure with hypoxemia J96.01 COVID-19 U07.1 Malignant neoplasm of upper lobe, left bronchus or lung C34.12 Acquired hypothyroidism E03.9 COPD with acute exacerbation J44.1 Port-A-Cath in place Z95.828
--- NOTE | 2021-08-14 09:34 | PC.CHAP ---
Pastoral Care Encounter/Spiritual Assessment Type of Contact [] Declined clinic nurse visit [] Patient/Family/Request visit [] Outpatient visit [] Follow-up visit [] Physician referral [] Code/Alert [x] Routine visit [] Staff referral [] Actively dying [x] Patient sleeping [] Family support [] [] Out of room [] Palliative care [] [] Receiving care in room [] Pre-surgical visit [] Trauma [] Long length of stay [] ICU visit [] Other: Relational/Emotional Strength [] Patient feels connected with others/family/visitors/staff [] Distress [] Loneliness/isolation [] Abandonment Spirituality of Patient [] Person of Jacqueline [] Attends Orthodoxy of their Jacqueline [] Believes in Prayer [] Reads Bible or Christian materials [] There are Spiritual issues to be addressed Warehouse Logistics Manager Interventions [x] Prayer [] Active listening [] Non-anxious presence [] Spiritual/emotional support [] Crisis/trauma care [] Spiritual counseling [] Bereavement support [] Provided bereavement packet [] Provided Bible/devotional materials [] Provided toy/stuffed animal, coloring book to patient or family member [] Provided Communion [] Anointing/[place] [] Salvation [x] Completed spiritual assessment [] Other: Impact on Illness or Injury [] Angry [] Fearful [] Anxious [] Often cries [] Exhaustion [] Unable to work [] Unable to attend presybeterian [] Unable to walk/stand [] Unable to read [] Unable to drive [] Unable to eat/drink [] Unable to sleep [] Unable to be with family [] Patient intubated [] Other: Summary Time spent with patient
[2021-08-14] MEDS: cefepime 2,000 MG in sodium chloride 0.9% (plus) 50 ML 100 MG IV ×2 (10:15→21:35)
[2021-08-14 11:28] LABS: Vancomycin Trough 7.5 ug/mL (10-15)
[2021-08-14] MEDS: vancomycin 1,000 MG in sodium chloride 0.9% 250 ML 250 MG IV (13:57)
[2021-08-14] MEDS: iohexol 350 mg/mL 100 mL Btl IV (17:31)
[2021-08-14] MEDS: trazodone 50 mg Tablet PO (21:35)
[2021-08-15] VITALS (19 sets, daily range): BP systolic 117–163; BP diastolic 73–100; PULSE 68–112; RESP 18–30; TEMP 36.4–36.8; O2SAT 87–96
[2021-08-15] MEDS: vancomycin 1,000 MG in sodium chloride 0.9% 250 ML 250 MG IV (00:27)
[2021-08-15] MEDS: enoxaparin 40 mg/0.4 mL Syringe SUBCUT (01:43)
[2021-08-15] MEDS: ipratropium-albuterol 3 mL Neb INHALATION ×4 (03:18→22:12)
[2021-08-15 03:39] LABS: ABG PH Result 7.27 (7.35-7.45); Base Excess ABG 2.6 mmol/L (-2.0-2.0); Blood Gas Allen Test Pos; Blood Gas Sample Type Arterial; HCO3 ABG 31.7 mmol/L (22-26)
[2021-08-15 03:40] LABS: Blood Gas Sample Site Brachial, right; Oxygen Device NC
[2021-08-15 03:43] LABS: ABG PCO2 68.6 mmHg (35-45)
[2021-08-15] MEDS: remdesivir 100 MG in sodium chloride 0.9% (100 ml) 100 ML IV (05:26)
--- NOTE | 2021-08-15 05:40 | PC.NURSE ---
Frequent safety and comfort rounds continue. Orders and/or nursing care completed as indicated. Patient monitored for response to intervention and treatment(s). Education provided includes IV antibiotics and reasons for use]. 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 Will continue to monitor.
[2021-08-15] MEDS: dexamethasone 4 mg/mL INJ 6 MG IVP (05:59)
--- NOTE | 2021-08-15 06:16 | PC.NURSE ---
Patient called to state that she had not been able to sleep even though she had taken a trazadone. Educated on steroids having a side effect that could keep her awake. Patient verbalized understanding.
[2021-08-15 06:36] LABS: D Dimer 1.49 ug/mIFEU (0-0.59)
[2021-08-15 06:39] LABS: Basophils % 0.2 %; Eosinophils % 0.1 %; Hematocrit 37.7 % (37.0-47.0); Hemoglobin 12.6 g/dL (11.5-15.3); Lymphocytes # 0.2 10^3/uL (0.8-4.8); Lymphocytes % 1.5 %; Mean Corpuscular HGB Conc 33.4 g/dL (30.0-36.0); Mean Corpuscular Hemoglobin 29.7 pg (28.0-34.0); Mean Corpuscular Volume 88.9 fl (81-99); Mean Platelet Volume 12.3 fL (7.4-10.4); Monocytes # 1.3 10^3/uL (0.2-0.9); Monocytes % 9.4 %; Neutrophils # 10.38 10^3/uL (1.8-7.7); Neutrophils % 78.5 %; Nucleated Red Blood Cells # 0.1 /100WBC; Nucleated Red Blood Cells % 0.5 %; Platelet Count 312 10^3/cmm (130-400); Red Blood Count 4.24 10^6/uL (4.1-5.3); Red Cell Distribution Width 18.1 % (12.1-15.1); White Blood Count 13.2 10^3/uL (4.0-10.0)
[2021-08-15 06:52] LABS: Anion Gap 12.6 (5-19); Blood Urea Nitrogen 14 mg/dL (8-23); C Reactive Protein 87.4 mg/L (0.0-4.9); Calcium 8.7 mg/dL (8.5-10.5); Carbon Dioxide 26 mmol/L (22-29); Chloride 105 mmol/L (98-107); Ferritin 427 ng/mL (15-150); Glomerular Filtration Rate 362.3 mL/min (90-130); Glucose 86 mg/dL (65-115); Osmolality Calculated 290 mOsm/kg (285-295); Potassium 3.6 mmol/L (3.5-5.1); Sodium 140 mmol/L (136-145)
[2021-08-15 06:53] LABS: Lactate Dehydrogenase 242 U/L (135-214)
[2021-08-15 07:07] LABS: Erythrocyte Sedimentation Rate 24 mm/hr (0-15)
[2021-08-15 07:49] LABS: Slide Review Slide Review Perform
--- NOTE | 2021-08-15 09:04 | PM.PN ---
Subjective Subjective: Interval history: Patient is morning is endorsing feeling better however her oxygen requirement has gone up to 10 L She is saturating 88 to 89% Chest congestion Afebrile She had a bowel movement yesterday, urinating without difficulty Vitals/I&O/Wt Last Vital Signs Temp 98.3 F 08/15/21 03:50 Pulse 81 08/15/21 03:52 Resp 21 H 08/15/21 03:49 BP 120/73 08/15/21 03:49 Pulse Ox 92 08/15/21 03:49 08/14/21 08/15/21 08/15/21 22:59 06:59 14:59 Intake Total / 2081 340 / 2422 Balance 670 / 2081 340 / 2422 Physical Exam Narrative: EXAM NARRATIVE: Patient is lying flat in her bed Saturating 88 to 89% on 10 L nasal cannula high flow Bilateral breath sounds with rhonchi, coarse in nature on expiration noted right greater than left No use of respiratory sensory muscle Dried mucous membranes Emaciated malnourished Abdomen soft No signs of edema Awake and alert S1, S2 Data : 08/15/21 05:10 08/15/21 05:10 A&P Assessment and plan (1) Acute on chronic respiratory failure with hypoxemia: Status: Acute (2) Pneumonia due to COVID-19 virus: Status: Acute (3) Hypokalemia: Status: Acute (4) Acute respiratory failure with hypoxemia: Status: Acute (5) COVID-19: Status: Acute (6) Malignant neoplasm of upper lobe, left bronchus or lung: Status: Acute (7) COPD with acute exacerbation: Status: Acute (8) Depression: Status: Acute Qualifiers: Depression Type: reactive depression Qualified Code(s): F32.9 - Major depressive disorder, single episode, unspecified (9) Mediastinal lymphadenopathy: Status: Acute (10) History of lung cancer: Status: Acute Plan Acute on chronic hypoxic respiratory failure Superimposed bacterial infection with ongoing COVID-19 Continue steroids Decadron and remdesivir Oxygen requirement has increased to 10 L today CTA rule out PE Coarse expiratory rhonchi noted MRSA PCR negative Blood cultures negative to date Procalcitonin is high however leukocytosis trending down Respiratory acidosis we will put her on BiPAP for now Continue cefepime, I will discontinue vancomycin Current medical management Regular diet DVT prophylaxis Lovenox Patient is at high risk for deterioration as she carries underlying lung cancer and she is using 6 L of oxygen at home she is full code Attestations Medical Necessity Statement*: Continue medical management Time Spent in Patient Care: 15min Coding Level of Care Code Acute 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
[2021-08-15] MEDS: cefepime 2,000 MG in sodium chloride 0.9% (plus) 50 ML 100 MG IV ×2 (10:29→20:25)
[2021-08-15] MEDS: levothyroxine 88 mcg Tablet PO (10:30)
[2021-08-15] MEDS: zinc gluconate 50 mg Tablet PO (10:30)
[2021-08-15] MEDS: ascorbic acid 500 mg Tablet 1000 MG PO ×2 (10:30→18:02)
[2021-08-15] MEDS: sertraline 50 mg Tablet PO (10:31)
[2021-08-15] MEDS: pantoprazole DR 40 mg Tablet PO (10:31)
[2021-08-15] MEDS: piperacillin-tazobactam 3.375 GM in sodium chloride 0.9% (plus) 50 ML IV ×2 (11:25→18:02)
[2021-08-15 17:08] LABS: ABG PCO2 58.2 mmHg (35-45); ABG PH Result 7.39 (7.35-7.45); Arterial Blood Gas Hematocrit 42.3 % (37-47); Base Excess ABG 8.2 mmol/L (-2.0-2.0); Blood Gas Allen Test Pos; Blood Gas Operator Identificat MONRO; Blood Gas Sample Site Brachial, right; Blood Gas Sample Type Arterial; HCO3 ABG 35.3 mmol/L (22-26); Oxygen Device BIPAP; PO2 ABG 75.1 mmHg (80.0-100.0)
--- NOTE | 2021-08-15 19:29 | PC.NURSE ---
o2 sat decreased in to 80's.abg's drawn this morning...acidotic with po2 56.placed on bipap at 60% fio2.tolerated well
[2021-08-15] MEDS: trazodone 50 mg Tablet PO (20:25)
[2021-08-16] VITALS (15 sets, daily range): BP systolic 128–166; BP diastolic 73–85; PULSE 58–88; RESP 16–28; TEMP 36.9; O2SAT 84–94
[2021-08-16] MEDS: enoxaparin 40 mg/0.4 mL Syringe SUBCUT (01:38)
[2021-08-16] MEDS: piperacillin-tazobactam 3.375 GM in sodium chloride 0.9% (plus) 50 ML IV ×3 (01:39→16:54)
[2021-08-16 03:51] LABS: Erythrocyte Sedimentation Rate 4 mm/hr (0-15)
[2021-08-16] MEDS: ipratropium-albuterol 3 mL Neb INHALATION ×4 (03:57→22:03)
[2021-08-16 04:09] LABS: D Dimer 1.65 ug/mIFEU (0-0.59)
[2021-08-16 04:13] LABS: ABG PCO2 57.3 mmHg (35-45); ABG PH Result 7.43 (7.35-7.45); Arterial Blood Gas Hematocrit 41.7 % (37-47); Base Excess ABG 10.9 mmol/L (-2.0-2.0); Blood Gas Allen Test Pos; Blood Gas Sample Site Brachial, right; Blood Gas Sample Type Arterial; HCO3 ABG 37.6 mmol/L (22-26); Oxygen Device NC; PO2 ABG 50.9 mmHg (80.0-100.0)
[2021-08-16 04:14] LABS: Blood Urea Nitrogen 15 mg/dL (8-23); C Reactive Protein 50.9 mg/L (0.0-4.9); Carbon Dioxide 34 mmol/L (22-29); Chloride 102 mmol/L (98-107); Glomerular Filtration Rate 226.9 mL/min (90-130); Glucose 104 mg/dL (65-115); Lactate Dehydrogenase 191 U/L (135-214); Osmolality Calculated 297 mOsm/kg (285-295); Sodium 143 mmol/L (136-145)
[2021-08-16 04:23] LABS: Ferritin 344 ng/mL (15-150)
[2021-08-16] MEDS: remdesivir 100 MG in sodium chloride 0.9% (100 ml) 100 ML IV (05:58)
[2021-08-16 08:03] LABS: Basophils % 0.3 %; Eosinophils # 0.1 10^3/uL (0.0-0.8); Eosinophils % 0.8 %; Hematocrit 42.1 % (37.0-47.0); Hemoglobin 14.1 g/dL (11.5-15.3); Lymphocytes # 0.5 10^3/uL (0.8-4.8); Lymphocytes % 4.5 %; Mean Corpuscular HGB Conc 33.5 g/dL (30.0-36.0); Mean Corpuscular Hemoglobin 29.4 pg (28.0-34.0); Mean Corpuscular Volume 87.7 fl (81-99); Mean Platelet Volume 11.1 fL (7.4-10.4); Monocytes # 1.1 10^3/uL (0.2-0.9); Monocytes % 8.9 %; Nucleated Red Blood Cells % 0.3 %; Platelet Count 410 10^3/cmm (130-400); Red Cell Distribution Width 17.9 % (12.1-15.1)
[2021-08-16 08:12] LABS: Neutrophils % 84.9 %
[2021-08-16] MEDS: levothyroxine 88 mcg Tablet PO (08:20)
[2021-08-16] MEDS: zinc gluconate 50 mg Tablet PO (08:20)
[2021-08-16] MEDS: sertraline 50 mg Tablet PO (08:20)
[2021-08-16] MEDS: pantoprazole DR 40 mg Tablet PO (08:20)
[2021-08-16] MEDS: ascorbic acid 500 mg Tablet 1000 MG PO ×2 (08:20→17:02)
[2021-08-16] MEDS: cefepime 2,000 MG in sodium chloride 0.9% (plus) 50 ML 100 MG IV ×2 (08:21→20:40)
[2021-08-16] MEDS: dexamethasone 4 mg/mL INJ 6 MG IVP (08:21)
[2021-08-16] MEDS: lanolin oint 7 gm 1 APPLIC TOPICAL (10:06)
--- NOTE | 2021-08-16 10:13 | PM.PN ---
Subjective Subjective: Interval history: Patient is endorsing pain however PO2 50 on 8 L I bumped her heated nasal cannula to 10 L this morning, she is not endorsing any chest pain or shortness of breath stating that she try to walk in her bedroom without any worsening of her symptoms, she was asking me if she could be discharged home, I clearly stated that she is not ready to be discharged and her hypoxia has worsened instead of improving Patient is able to void without any issues 1 bowel movement Vitals/I&O/Wt Last Vital Signs Temp 97.5 F L 08/15/21 20:00 Pulse 70 08/16/21 09:00 Resp 20 H 08/16/21 08:50 BP 130/77 08/16/21 05:51 Pulse Ox 89 L 08/16/21 08:50 08/15/21 08/16/21 08/16/21 22:59 06:59 14:59 Intake Total 850 / 1380 290 / 1670 268 / 268 Balance 850 / 780 290 / 1070 268 / 268 Physical Exam Narrative: EXAM NARRATIVE: Patient was sitting comfortably in her bed Saturating 86% on 8 L I bumped her nasal cannula oxygen to 10 L, S1, S2 Rhonchi crackles and crepitation noted right greater than left Nonlabored breathing Cachectic malnourished S1, S2 Nonfocal neuro exam Clinically looks dehydrated Data : 08/16/21 07:25 08/16/21 02:55 Micro: Microbiology 08/15/21 14:30 Gram Stain - Final Sputum - Expectorated Sputum A&P Assessment and plan (1) Acute on chronic respiratory failure with hypoxemia: Status: Acute (2) Hypokalemia: Status: Acute (3) Pneumonia due to COVID-19 virus: Status: Acute (4) Acute respiratory failure with hypoxemia: Status: Acute (5) COPD with acute exacerbation: Status: Acute (6) Malignant neoplasm of upper lobe, left bronchus or lung: Status: Acute (7) Acquired hypothyroidism: Status: Acute (8) COPD (chronic obstructive pulmonary disease): Status: Acute Qualifiers: COPD type: chronic bronchitis Chronic bronchitis type: mucopurulent Qualified Code(s): J41.1 - Mucopurulent chronic bronchitis (9) History of lung cancer: Status: Acute (10) Port-A-Cath in place: Status: Acute Plan COVID-19 related hypoxia Underlying lung cancer PO2 50 on 8 L high flow nasal cannula Increase oxygen to 10 L this morning, clinically she is not experiencing any symptoms or anxiety In fact he was asking if she could be discharged home, I am not plan to discharge her until her O2 requirement is between 5 to 6 L and saturation above 88% at least She is full code No signs of PE, will obtain venous Doppler Continue Decadron Continue Zosyn for superimposed bacterial infection Regular diet DVT prophylaxis Lovenox 40 mg Attestations Medical Necessity Statement*: Continue medical management Time Spent in Patient Care: 15 Coding Level of Care Code 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
--- NOTE | 2021-08-16 10:20 | USR_ITS ---
PROCEDURE INFORMATION: Exam: US Duplex Lower Extremity Veins, Bilateral Exam date and time: 08/16/2021 10:20 AM Age: 61 years old Clinical indication: Other: Elevated d dimer; Additional info: High dimer , hypoxia , leg swollen TECHNIQUE: Imaging protocol: Real-time duplex ultrasound of the extremities with 2-D contreras scale, color Doppler flow and spectral waveform analysis with image documentation. Complete exam focused on the bilateral lower extremity veins. COMPARISON: CT chest abd pel w con* 07/22/2021 9:46 PM FINDINGS: Right deep veins: Unremarkable. The common femoral, femoral, proximal profunda femoral, popliteal, posterior tibial and peroneal veins are patent without thrombus. Normal Doppler waveforms. Normal compressibility and/or augmentation response. Right superficial veins: Saphenofemoral junction is patent without thrombus. Left deep veins: Unremarkable. The common femoral, femoral, proximal profunda femoral, popliteal, posterior tibial and peroneal veins are patent without thrombus. Normal Doppler waveforms. Normal compressibility and/or augmentation response. Left superficial veins: Saphenofemoral junction is patent without thrombus. Soft tissues: Unremarkable. US/[place] [id number] IMPRESSION: No sonographic evidence of deep vein thrombosis.
[2021-08-16] MEDS: potassium chloride ER 20 mEq Tablet PO (11:46)
--- NOTE | 2021-08-16 11:59 | PC.NURSE ---
report called to [facility]
--- NOTE | 2021-08-16 14:27 | PC.NURSE ---
transferred to med surg room 257.
[2021-08-16] MEDS: potassium chloride ER 20 mEq Tablet 40 MEQ PO (16:54)
[2021-08-16] MEDS: acetaminophen 325 mg Tablet 650 MG PO (17:13)
[2021-08-16] MEDS: benzonatate 100 mg Capsule PO (17:13)
[2021-08-16] MEDS: trazodone 50 mg Tablet PO (20:40)
[2021-08-17] VITALS (12 sets, daily range): BP systolic 131–159; BP diastolic 71–80; PULSE 58–72; RESP 15–20; TEMP 36.3–36.9; O2SAT 89–97
[2021-08-17] MEDS: enoxaparin 40 mg/0.4 mL Syringe SUBCUT (02:06)
[2021-08-17] MEDS: piperacillin-tazobactam 3.375 GM in sodium chloride 0.9% (plus) 50 ML IV ×3 (02:06→17:21)
[2021-08-17] MEDS: ipratropium-albuterol 3 mL Neb INHALATION ×4 (03:11→20:27)
[2021-08-17 03:47] LABS: ABG PH Result 7.47 (7.35-7.45); Arterial Blood Gas Hematocrit 42.2 % (37-47); Base Excess ABG 14.3 mmol/L (-2.0-2.0); Blood Gas Allen Test Pos; Blood Gas Sample Site Radial, left; Blood Gas Sample Type Arterial; HCO3 ABG 40.6 mmol/L (22-26); Oxygen Device NC; PO2 ABG 59.7 mmHg (80.0-100.0)
[2021-08-17] MEDS: remdesivir 100 MG in sodium chloride 0.9% (100 ml) 100 ML IV (07:19)
[2021-08-17 07:39] LABS: Anion Gap 10.7 (5-19); Blood Urea Nitrogen 10 mg/dL (8-23); Calcium 7.7 mg/dL (8.5-10.5); Carbon Dioxide 36 mmol/L (22-29); Chloride 99 mmol/L (98-107); Glomerular Filtration Rate 362.3 mL/min (90-130); Glucose 74 mg/dL (65-115); Osmolality Calculated 292 mOsm/kg (285-295); Potassium 3.7 mmol/L (3.5-5.1); Sodium 142 mmol/L (136-145)
[2021-08-17 07:48] LABS: Procalcitonin 0.28 ng/mL (0-0.5)
[2021-08-17] MEDS: dexamethasone 4 mg/mL INJ 6 MG IVP (08:25)
[2021-08-17] MEDS: cefepime 2,000 MG in sodium chloride 0.9% (plus) 50 ML 100 MG IV ×2 (08:41→21:45)
[2021-08-17] MEDS: sertraline 50 mg Tablet PO (08:41)
[2021-08-17] MEDS: potassium chloride ER 20 mEq Tablet PO (08:41)
[2021-08-17] MEDS: ascorbic acid 500 mg Tablet 1000 MG PO ×2 (08:41→17:21)
[2021-08-17] MEDS: FUROsemide 20 mg Tablet PO (08:41)
[2021-08-17] MEDS: zinc gluconate 50 mg Tablet PO (08:41)
[2021-08-17] MEDS: pantoprazole DR 40 mg Tablet PO (08:41)
[2021-08-17] MEDS: levothyroxine 88 mcg Tablet PO (08:41)
--- NOTE | 2021-08-17 12:05 | P.PN_ITS ---
Subjective Subjective: Interval history: This morning patient is resting comfortably in her bed Currently on 8 L nasal cannula I asked patient to ambulate and see if her oxygen saturation stays above 88% she is very eager and motivated to return home Vitals/I&O/Wt Last Vital Signs Temp 98.5 F 08/17/21 08:00 Pulse 68 08/17/21 09:25 Resp 18 08/17/21 09:25 BP 139/72 08/17/21 08:00 Pulse Ox 90 08/17/21 09:25 08/16/21 08/17/21 08/17/21 22:59 06:59 14:59 Intake Total 580 / 1258 290 / 1548 150 / 150 Output Total 300 / 300 400 / 700 900 / 900 Balance 280 / 958 -110 / 848 -750 / -750 Physical Exam Narrative: EXAM NARRATIVE: Dehydrated Malnourished Cachectic Laying comfortably in her bed Saturating well on 8 L nasal cannula Abdomen soft Rhonchi and crackle improved since yesterday on lung auscultation Nonfocal neuro exam Dry cracked lips No active chest pain S1, S2 Data : 08/16/21 07:25 08/17/21 05:35 Micro: Microbiology 08/15/21 14:30 Gram Stain - Final Sputum - Expectorated Sputum Sputum Culture - Preliminary A&P Assessment and plan (1) Acute on chronic respiratory failure with hypoxemia: Status: Acute (2) Hypokalemia: Status: Acute (3) Pneumonia due to COVID-19 virus: Status: Acute (4) Acute respiratory failure with hypoxemia: Status: Acute (5) Malignant neoplasm of upper lobe, left bronchus or lung: Status: Acute (6) History of lung cancer: Status: Acute (7) COPD with acute exacerbation: Status: Acute Plan Hypoxia related to COVID-19 COPD exacerbation due to COVID-19 Acute on chronic hypoxia Underlying lung cancer history Immunocompromise Secondary bacterial infection continue cefepime and Zosyn, MRSA PCR negative Not a candidate of Actemra or baricitinib She was treated with remdesivir and Decadron Currently on 8 L of oxygen Plan is to wean her down and see if we are able to discharge her in next 24 hours She is motivated and eager to return home No signs of PE, procalcitonin not remarkable Type II AK no active chest pain no EKG changes consistent with ischemia or infarction troponin trending down Afebrile Hypokalemia: Repleted Moderate pleural effusion, her hypoxia and FiO2 requirement has not worsened I will hold off on thoracentesis Attestations Medical Necessity Statement*: Discharge in next 24 hours if O2 requirement is stable on ambulation Time Spent in Patient Care: 15 Coding Level of Care 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
[2021-08-17] MEDS: lanolin oint 7 gm 1 APPLIC TOPICAL (13:39)
[2021-08-17] MEDS: zolpidem 5 mg Tablet PO (20:38)
[2021-08-18] VITALS (14 sets, daily range): BP systolic 120–165; BP diastolic 68–88; PULSE 62–88; RESP 16–24; TEMP 36.5–36.9; O2SAT 85–94
[2021-08-18] MEDS: piperacillin-tazobactam 3.375 GM in sodium chloride 0.9% (plus) 50 ML IV ×2 (01:26→10:21)
[2021-08-18] MEDS: enoxaparin 40 mg/0.4 mL Syringe SUBCUT (01:27)
[2021-08-18] MEDS: ipratropium-albuterol 3 mL Neb INHALATION ×4 (03:11→19:41)
[2021-08-18 03:37] LABS: ABG PCO2 49.3 mmHg (35-45); ABG PH Result 7.55 (7.35-7.45); Arterial Blood Gas Hematocrit 43.4 % (37-47); Base Excess ABG 17.8 mmol/L (-2.0-2.0); Blood Gas Allen Test Pos; Blood Gas Sample Site Radial, right; Blood Gas Sample Type Arterial; HCO3 ABG 42.9 mmol/L (22-26); Oxygen Device NC; PO2 ABG 55.8 mmHg (80.0-100.0)
[2021-08-18 06:49] LABS: Basophils % 0.2 %; Eosinophils # 0.2 10^3/uL (0.0-0.8); Eosinophils % 1.3 %; Hemoglobin 14.8 g/dL (11.5-15.3); Lymphocytes # 0.6 10^3/uL (0.8-4.8); Lymphocytes % 3.4 %; Mean Corpuscular HGB Conc 34.4 g/dL (30.0-36.0); Mean Corpuscular Hemoglobin 29.6 pg (28.0-34.0); Mean Platelet Volume 11.4 fL (7.4-10.4); Monocytes % 5.4 %; Neutrophils # 14.12 10^3/uL (1.8-7.7); Nucleated Red Blood Cells % 0 %; Platelet Count 549 10^3/cmm (130-400); Red Cell Distribution Width 17.3 % (12.1-15.1); White Blood Count 18.3 10^3/uL (4.0-10.0)
[2021-08-18 07:06] LABS: Anion Gap 18.3 (5-19); Blood Urea Nitrogen 8 mg/dL (8-23); C Reactive Protein 35.1 mg/L (0.0-4.9); Calcium 8.9 mg/dL (8.5-10.5); Carbon Dioxide 32 mmol/L (22-29); Chloride 93 mmol/L (98-107); Glomerular Filtration Rate 362.3 mL/min (90-130); Glucose 69 mg/dL (65-115); Osmolality Calculated 287 mOsm/kg (285-295); Potassium 3.3 mmol/L (3.5-5.1); Sodium 140 mmol/L (136-145)
[2021-08-18 07:13] LABS: Procalcitonin 0.18 ng/mL (0-0.5)
[2021-08-18] MEDS: cefepime 2,000 MG in sodium chloride 0.9% (plus) 50 ML 100 MG IV ×2 (08:05→20:54)
[2021-08-18] MEDS: ascorbic acid 500 mg Tablet 1000 MG PO ×2 (08:06→18:12)
[2021-08-18] MEDS: zinc gluconate 50 mg Tablet PO (08:06)
[2021-08-18] MEDS: FUROsemide 20 mg Tablet PO (08:06)
[2021-08-18] MEDS: levothyroxine 88 mcg Tablet PO (08:06)
[2021-08-18] MEDS: potassium chloride ER 20 mEq Tablet PO (08:06)
[2021-08-18] MEDS: sertraline 50 mg Tablet PO (08:06)
[2021-08-18] MEDS: dexamethasone 4 mg/mL INJ 6 MG IVP (08:06)
[2021-08-18] MEDS: pantoprazole DR 40 mg Tablet PO (08:07)
[2021-08-18 08:17] LABS: Neutrophils % 89.7 %; Slide Review Slide Review Perform
[2021-08-18] MEDS: levofloxacin-dextrose 5% 750 mg-150 mL Premix 100 MG IV (13:53)
--- NOTE | 2021-08-18 16:12 | P.DS_ITS ---
Discharge Providers Date of Admission: 08/13/21 02:53 Date of Discharge: August 18, 2021 Attending Provider at Admission: Alli Garcia MD Attending Provider at Discharge: Jh Agosto DO Primary Care Provider: Graciela Diamond MD Diagnoses at Discharge Discharge Diagnosis (1) Acute on chronic respiratory failure with hypoxemia: Status: Acute (2) Hypokalemia: Status: Acute (3) Pneumonia due to COVID-19 virus: Status: Acute (4) Acute respiratory failure with hypoxemia: Status: Acute (5) Malignant neoplasm of upper lobe, left bronchus or lung: Status: Acute (6) History of lung cancer: Status: Acute (7) COPD with acute exacerbation: Status: Acute Reason for Visit Reason for Visit: SOB Hospital Course Hospital Course 61-year-old female who has history of lung cancer, chronic hypoxia uses 6 L at h ome , presented for COVID-19 related hypoxia, she has acute on chronic hypoxia, superimposed bacterial infection evident on CTA chest, no signs of PE, I have kept her on cefepime and Zosyn, she has not shown any signs of sepsis or febrile episodes, she is eager to return home. On 08/18/2021 she was on 10L. We proceeded with a home oxygen evaluation for a new order. She completed decadron and levaquin course. She is in fair condition. She understands the risks of discharge but says her son can care for her and she will be provided oxygen. Physical Exam Narrative: EXAM NARRATIVE: Thin frail cachectic white female in no acute distress. Heart: Regular normal S1-S2 without loud murmur Lungs: Severely diminished throughout no discernible breath sounds in left lung best air movement in the right upper lobe which is surprising because that is where her pneumonia was found. Abdomen flat soft nontender nondistended positive bowel sounds Extremities no edema. Skin Skin: Marked ecchymoses on extremities Neurologic alert oriented to person place time and situation. Mood: Frustrated and angry. Discharge Data Studies Completed and Pending Completed Studies During Hospitalization Category Date Time Status CTA PE [CT angio chest PE protcl [id number]] Routine Cat Scan 08/14/21 07:21 Completed XR chest 1V portable [id number] Urgent Exams 08/12/21 22:15 [place] [id number] Routine Ultrasound 08/16/21 10:20 Completed Pending at discharge Category Date Time Status Bacterial Antigen Routine Lab 08/13/21 02:14 Uncollected Radiology Impressions Chest X-Ray 08/12/21 22:15 IMPRESSION: Areas of consolidation in the right lung consistent with pneumonia. Chest CTA 08/14/21 07:21 IMPRESSION: 1. Bilateral mild to moderate pleural fluid collections. 2. No pulmonary embolus or aortic dissection. 3. Stable right Mediport catheter. 4. Mild anasarca consistent with right heart failure versus hypoproteinemia versus renal failure. 5. Continued volume loss in the left upper lobe consistent with previous resection. 6. Interval appearance of severe right-sided pneumonia with air bronchograms. 7. [id number] mediastinal adenopathy with severe right hilar adenopathy most consistent with reactive adenopathy. Venous Duplex 08/16/21 10:20 IMPRESSION: No sonographic evidence of deep vein thrombosis. Laboratory Results WBC 18.3 10^3/uL (4.0-10.0) H 08/18/21 05:26 Corrected WBC Cancelled 08/16/21 02:55 RBC 5.00 10^6/uL (4.1-5.3) 08/18/21 05:26 Hgb 14.8 g/dL (11.5-15.3) 08/18/21 05:26 Hct 43.0 % (37.0-47.0) 08/18/21 05:26 MCV 86.0 fl (81-99) 08/18/21 05:26 MCH 29.6 pg (28.0-34.0) 08/18/21 05:26 MCHC 34.4 g/dL (30.0-36.0) 08/18/21 05:26 RDW 17.3 % (12.1-15.1) H 08/18/21 05:26 Plt Count 549 10^3/cmm (130-400) H 08/18/21 05:26 MPV 11.4 fL (7.4-10.4) H 08/18/21 05:26 Gran % Cancelled 08/16/21 02:55 Neut % (Auto) 89.7 % 08/18/21 05:26 Lymph % (Auto) 3.4 % 08/18/21 05:26 [place]umpkin % (Auto) 5.4 % 08/18/21 05:26 Eos % (Auto) 1.3 % 08/18/21 05:26 Baso % (Auto) 0.2 % 08/18/21 05:26 Neut # (Auto) 14.12 10^3/uL (1.8-7.7) H 08/18/21 05:26 Lymph # (Auto) 0.6 10^3/uL (0.8-4.8) L 08/18/21 05:26 [place]umpkin # (Auto) 1.0 10^3/uL (0.2-0.9) H 08/18/21 05:26 Eos # (Auto) 0.2 10^3/uL (0.0-0.8) 08/18/21 05:26 Baso # (Auto) 0.0 10^3/uL (0.0-0.1) 08/18/21 05:26 Absolute Gran (auto) Cancelled 08/16/21 02:55 Nucleated RBC % (auto) 0 % 08/18/21 05:26 Nucleated RBCs # 0.0 /100WBC 08/18/21 05:26 ESR 4 mm/hr (0-15) 08/16/21 02:55 PT 13.90 SECONDS (12.1-14.9) 08/12/21 22:15 INR 1.04 (0.8-1.2) 08/12/21 22:15 D-Dimer 1.65 ug/mIFEU (0-0.59) H 08/16/21 02:55 Specimen Type Arterial 08/18/21 03:26 Sample Site Radial, right 08/18/21 03:26 ABG pH 7.55 (7.35-7.45) H 08/18/21 03:26 ABG pCO2 49.3 mmHg (35-45) H 08/18/21 03:26 ABG pO2 55.8 mmHg (80.0-100.0) L 08/18/21 03:26 ABG HCO3 42.9 mmol/L (22-26) H 08/18/21 03:26 ABG Base Excess 17.8 mmol/L (-2.0-2.0) H 08/18/21 03:26 Harman Test Pos 08/18/21 03:26 Hematocrit 43.4 % (37-47) 08/18/21 03:26 Hgb O2 Saturation 84.1 % (95-100) L 08/12/21 23:23 Carboxyhemoglobin 0.7 %THgb (0.4-20.1) 08/12/21 23:23 Methemoglobin 0.4 % (0.4-1.5) 08/12/21 23:23 Total Hemoglobin 14.7 g/dL (12-16) 08/12/21 23:23 O2 Delivery Device Nc 08/18/21 03:26 O2 Liters/Min 12.0 % 08/18/21 03:26 FiO2 60.0 % 08/15/21 16:57 Staff Forester ID Buttr 08/18/21 03:26 Sodium 140 mmol/L (136-145) 08/18/21 05:26 Potassium 3.3 mmol/L (3.5-5.1) L 08/18/21 05:26 Chloride 93 mmol/L (98-107) L 08/18/21 05:26 Carbon Dioxide 32 mmol/L (22-29) H 08/18/21 05:26 Anion Gap 18.3 (5-19) 08/18/21 05:26 BUN 8 mg/dL (8-23) 08/18/21 05:26 Creatinine 0.2 mg/dL (0.5-0.9) L 08/18/21 05:26 GFR Calculation 362.3 mL/min (90-130) H 08/18/21 05:26 Glucose 69 mg/dL (65-115) 08/18/21 05:26 Calculated Osmolality 287 mOsm/kg (285-295) 08/18/21 05:26 Lactic Acid 1.5 mmol/L (0.5-2.2) 08/12/21 22:15 Calcium 8.9 mg/dL (8.5-10.5) 08/18/21 05:26 Ferritin 344 ng/mL (15-150) H 08/16/21 02:55 Total Bilirubin 0.5 mg/dL (0.15-1.2) 08/12/21 22:15 AST 10 U/L (0-32) 08/12/21 22:15 ALT < 5 U/L (0-33) 08/12/21 22:15 Alkaline Phosphatase 109 IU/L (35-105) H 08/12/21 22:15 Lactate Dehydrogenase 191 U/L (135-214) 08/16/21 02:55 C-Reactive Protein 35.1 mg/L (0.0-4.9) H 08/18/21 05:26 Total Protein 5.5 g/dL (6.6-8.7) L 08/12/21 22:15 Albumin 2.7 g/dL (3.5-5.2) L 08/12/21 22:15 Globulin 2.8 g/dL (1.3-4.6) 08/12/21 22:15 Procalcitonin 0.18 ng/mL (0-0.5) 08/18/21 05:26 Vancomycin Trough 7.5 ug/mL (10-15) L 08/14/21 10:40 Coronavirus 229E (PCR) Not detected (NOT DETECT) 08/12/21 22:15 SARS-CoV-2 (PCR) Detected (NOT DETECT) A 08/12/21 22:15 Vitals Last Vital Signs Temp 97.8 F 08/18/21 12:00 Pulse 78 08/18/21 14:50 Resp 18 08/18/21 14:50 BP 136/86 08/18/21 12:00 Pulse Ox 93 08/18/21 14:50 Discharge Plan Discharge Patient Disposition: Home Condition: Fair Prescriptions: New zinc gluconate 50 mg Tablet 50 mg PO DAILY 30 Days Qty: 30 0RF ascorbic acid (vitamin C) [Vitamin C] 500 mg Tablet 1,000 mg PO BID 30 Days Qty: 120 0RF fluticasone propion-salmeterol [Advair Diskus] 250-50 mcg/dose Blister With Device 1 puff inhalation BID.RESPIRATORY 30 Days Qty: 1 0RF Umeclidinium [Incruse Ellipta] 1 inh inhalation DAILY 30 Days Qty: 1 0RF Continued albuterol sulfate 90 mcg/actuation HFA aerosol inhaler 1 inh inhalation Q6H PRN (Reason: shortness of breath or wheezing) Qty: 8.5 2RF ondansetron HCl [Zofran] 4 mg tablet 4 mg PO Q6H 0RF esomeprazole magnesium 40 mg capsule,delayed release(DR/EC) 40 mg PO DAILY 0RF levothyroxine 88 mcg tablet 88 mcg PO DAILY 30 Days Qty: 30 2RF sertraline 50 mg tablet 50 mg PO DAILY 30 Days Qty: 30 2RF Rx Instructions: dose increase dextromethorphan polistirex 30 mg/5 mL suspension,extended rel 12 hr 10 ml PO Q12H MDD 20 ml PRN (Reason: cough) Qty: 89 2RF benzonatate [Tessalon Perles] 100 mg capsule 100 mg PO TID PRN (Reason: cough) Qty: 90 2RF trazodone 50 mg Tablet 50 - 100 mg PO BEDTIME 0RF hydrocodone-acetaminophen 5-325 mg tablet 1 - 2 tab PO Q4H PRN (Reason: Pain) 0RF Discharge Orders: Discharge Order (Routine); Ordered 08/18/21 Ordered By: Jh Agosto Referrals: Graciela Diamond MD [Primary Care Provider] - 08/26/21 8:30 am Discharge Diet: Advance as tolerated Discharge Activity: Increase activity as tolerated Patient Instructions: Opioid Safety Discharge Attestations Time Spent in Discharge Care*: greater than 30 min Quality Metrics Clinical Quality Measures [ No reported AMI, CVA or VTE this stay] Coding Level of Care Code Acute [facility] DC note Diagnoses Acute on chronic respiratory failure with hypoxemia J96.21 Hypokalemia E87.6 Pneumonia due to COVID-19 virus U07.1; J12.82 Acute respiratory failure with hypoxemia J96.01 Malignant neoplasm of upper lobe, left bronchus or lung C34.12 History of lung cancer Z85.118 COPD with acute exacerbation J44.1
--- NOTE | 2021-08-18 17:02 | PM.PN ---
Subjective Subjective: Interval history: First thing patient says when I walk in the room I want to go home. Upon return to room just now after trying to arrange patient going home and explained to patient that she is requiring much more oxygen than she was previously on and explained to patient that we would not want her to the hospital patient was inclined to stay. Vitals/I&O/Wt Last Vital Signs Temp 97.8 F 08/18/21 12:00 Pulse 78 08/18/21 14:50 Resp 18 08/18/21 14:50 BP 136/86 08/18/21 12:00 Pulse Ox 93 08/18/21 14:50 08/18/21 08/18/21 08/18/21 06:59 14:59 22:59 Intake Total 50 / 590 92.292 / 92.292 150 / 242.292 Output Total 400 / 2400 1999 Balance -350 / -1810 -1907.708 / -1907.708 150 / -1757.708 Physical Exam Narrative: EXAM NARRATIVE: Thin frail cachectic white female in no acute distress. Heart: Regular normal S1-S2 without loud murmur Lungs: Severely diminished throughout no discernible breath sounds in left lung best air movement in the right upper lobe which is surprising because that is where her pneumonia was found. Abdomen flat soft nontender nondistended positive bowel sounds Extremities no edema. Skin Skin: Marked ecchymoses on extremities Neurologic alert oriented to person place time and situation. Mood: Frustrated and angry. Data : 08/18/21 05:26 08/18/21 05:26 Micro: Microbiology 08/12/21 22:45 Blood Culture - Final Blood NO GROWTH AFTER 5 DAYS 08/12/21 22:15 Blood Culture - Final Blood NO GROWTH AFTER 5 DAYS 08/15/21 14:30 Gram Stain - Final Sputum - Expectorated Sputum Sputum Culture - Final A&P Assessment and plan (1) Acute on chronic respiratory failure with hypoxemia: Status: Acute (2) Hypokalemia: Status: Acute (3) Pneumonia due to COVID-19 virus: Status: Acute (4) Acute respiratory failure with hypoxemia: Status: Acute (5) Malignant neoplasm of upper lobe, left bronchus or lung: Status: Acute (6) History of lung cancer: Status: Acute (7) COPD with acute exacerbation: Status: Acute Plan Hypoxia related to COVID-19 COPD exacerbation due to COVID-19 Acute on chronic hypoxia H/O lung cancer s/p RUL resection Immunocompromise Secondary bacterial infection. D/ W pharmacy. Will change to cefepime and Levaquin. Note: MRSA PCR negative therefore will not add Vancomycin. Not a candidate of Actemra or baricitinib She was treated with remdesivir and Decadron; cont decadron more for COPD Currently on 10L L of oxygen; with ambulation she was over 15L No signs of PE, procalcitonin not remarkable Type II CA no active chest pain no EKG changes consistent with ischemia or infarction troponin trending down Afebrile Hypokalemia: Repleted Moderate pleural effusion, her hypoxia and FiO2 requirement has not worsened. ? thoracentesis Attestations Medical Necessity Statement*: Patient remains with acute hypoxic respiratory failure requiring much more oxygen than previous. 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
[2021-08-18] MEDS: zolpidem 5 mg Tablet PO (20:54)
[2021-08-19] VITALS (15 sets, daily range): BP systolic 109–137; BP diastolic 63–77; PULSE 60–97; RESP 16–31; TEMP 36.4–37.2; O2SAT 87–98
[2021-08-19] MEDS: ipratropium-albuterol 3 mL Neb INHALATION ×4 (02:12→21:13)
[2021-08-19] MEDS: enoxaparin 40 mg/0.4 mL Syringe SUBCUT (03:06)
[2021-08-19] MEDS: sertraline 50 mg Tablet PO (08:23)
[2021-08-19] MEDS: dexamethasone 4 mg/mL INJ 6 MG IVP (08:23)
[2021-08-19] MEDS: FUROsemide 20 mg Tablet PO (08:23)
[2021-08-19] MEDS: ascorbic acid 500 mg Tablet 1000 MG PO ×2 (08:23→18:07)
[2021-08-19] MEDS: levothyroxine 88 mcg Tablet PO (08:23)
[2021-08-19] MEDS: potassium chloride ER 20 mEq Tablet PO (08:23)
[2021-08-19] MEDS: pantoprazole DR 40 mg Tablet PO (08:23)
[2021-08-19] MEDS: cefepime 2,000 MG in sodium chloride 0.9% (plus) 50 ML 100 MG IV ×2 (08:24→21:09)
[2021-08-19] MEDS: zinc gluconate 50 mg Tablet PO (08:29)
--- NOTE | 2021-08-19 11:11 | P.PN_ITS ---
Subjective Subjective: Pt denies any symptoms of sob/dypsnea/breathlessness or pain. Still asking to go home, but more unstanding today. Vitals/I&O/Wt Last Vital Signs Temp 97.7 F 08/19/21 04:00 Pulse 76 08/19/21 09:39 Resp 18 08/19/21 09:31 BP 137/73 08/19/21 04:00 Pulse Ox 87 L 08/19/21 09:39 08/18/21 08/19/21 08/19/21 22:59 06:59 14:59 Intake Total 440 / 532.292 230 / 230 Output Total 200 / 2200 200 / 2400 Balance 240 / -1667.708 -200 / -1867.708 230 / 230 Physical Exam Narrative: Thin frail cachectic white female in no acute distress but with blue lips. PUlse ox 83% on 8 L. I adjust to 10L then 15L while examing and talking to her. She never got above 88% Heart: Regular normal S1-S2 without loud murmur Lungs: Remains Severely diminished throughout no discernible breath sounds in left lung best air movement in the right upper lobe which is surprising because that is where her pneumonia was found. Abdomen flat soft nontender nondistended positive bowel sounds Extremities no edema. Skin: Marked ecchymoses on extremities Neurologic alert oriented to person place time and situation. Mood: Frustrated and depressed Data : 08/18/21 05:26 08/18/21 05:26 A&P Assessment and plan (1) Acute on chronic respiratory failure with hypoxemia: Status: Acute (2) Hypokalemia: Status: Acute (3) Pneumonia due to COVID-19 virus: Status: Acute (4) Acute respiratory failure with hypoxemia: Status: Acute (5) Malignant neoplasm of upper lobe, left bronchus or lung: Status: Acute (6) History of lung cancer: Status: Acute (7) COPD with acute exacerbation: Status: Acute Plan Hypoxia persistent. Requiring increase back up to 15L with emergent call to RT for neb and possible BIPAP. Most likely related to dense right upper lobe infiltrate or mucus plugging. She is s/p COVID however I do not think COVID is contributing to her condition at this time. She has moderate degress of COPD based on last PFT. She is not wheezing on exam. She is in remission with lung cancer. Consulted and spoke with Dr. Tineo. We discussed bronch. I spoke with pt about her severe condition and asked about intubation. She said I guess Yes, but I don't really want to . What would happen if I didn't I explained possible vs very symptomatic, however, we can treat with medications to obtain confort. She wanted to discuss with boyfriend who is at work and unavailable per pt at this time. Acute on chronic hypoxia H/O lung cancer s/p RUL resection Pneumonia: on cefepime and Levaquin. Note: MRSA PCR negative therefore will not add Vancomycin. Type II NH no active chest pain no EKG changes consistent with ischemia or infarction troponin trending down Afebrile Hypokalemia: Repleted on 08/17, will follow. Moderate pleural effusion, her hypoxia and FiO2 requirement worsened. ? thoracentesis. D/W Dr. Tineo. Attestations Medical Necessity Statement*: persistent hypoxia. Pulmonary consult for additional procedures. Coding Level of Care Code Acute [place] for [facility] Fwd Diagnoses Acute on chronic respiratory failure with hypoxemia J96.21 Hypokalemia E87.6 Pneumonia due to COVID-19 virus U07.1; J12.82 Acute respiratory failure with hypoxemia J96.01 Malignant neoplasm of upper lobe, left bronchus or lung C34.12 History of lung cancer Z85.118 COPD with acute exacerbation J44.1
--- NOTE | 2021-08-19 11:13 | XR_ITS ---
WS: [id number] PORTABLE CHEST HISTORY: pneumonia COMPARISON: 08/12/2021 and 05/23/2021 Right-sided Mediport with tip in the distal SVC. Hyperinflated lungs from emphysema. Very dense area of consolidation in the RIGHT upper lobe extendin g along the fissure has moderately improved. There is still interstitial thickening and reticulation/ nodularity extending into the RIGHT hilar region. Overall improving. Mild persistent interstitial thi ckening in the RIGHT lower lobe. There is a new area of increased density and consolidation posterior to the LEFT heart. Due to rapid onset this is probably pneumonia. Small bilateral pleural effusions. No pneumothorax. Postsurgical clips are noted within the LEFT apex and in the LEFT suprahilar region . Cardiac size: Normal. Mediastinum/Aorta: Mild atherosclerosis aorta. No osseous abnormality seen. XR/XR chest 1V portable [id number] IMPRESSION: 1. Moderate improvement in the RIGHT upper lobe pneumonia and the pneumonitis in the RIGHT lower lobe. Recommend continued close follow-up to ensure resoluti on. 2. New nodularity posterior to LEFT heart. Due to sudden onset likely pneumoni a or atelectasis. 3. Small bilateral pleural effusions. 4. Postsurgical resection changes at the LEFT apex.
[2021-08-19] MEDS: levofloxacin-dextrose 5% 750 mg-150 mL Premix 100 MG IV (14:37)
--- NOTE | 2021-08-19 16:02 | PM.CONSULT ---
Providers/Reason For Consult Consulting Physician/Specialty*: Juan Miguel Tineo MD / Pulmonary Critical care Reason for Consult*: Acute hypoxic respiratory failure secondary to ARDS due to Covid/right upper lobe pneumonia patient with history of lung cancer s/p chemotherapy Requesting Physician: Jh Agosto DO Attending Physician: Jh Agosto DO Primary Care Provider: Graciela Diamond MD History of Present Illness History of Present Illness Kim Nettles is a 61 year old female past medical history of HTN, COPD on 6 Ls? home oxygen,? adenocarcinoma of the lung status post chemotherapy, currently on immunotherapy, admitted on 08/13/2021 with chief complaint of worsening shortness of breath, nonproductive cough-she was saturating mid 80s on 6 L home oxygen. Chest x-ray on admission showed extensive right lung infiltrates with leukocytosis, Covid PCR positive. ABG on admission on 6 L 7.4 . Patient was started on vancomycin and Zosyn, later changed to cefepime, completed 5 days of remdesivir, currently on dexamethasone [address] angiogram 08/14/2021 ruled out PE, showed bilateral mild to moderate pleural effusions, severe right-sided pneumonia with air bronchograms. Gradually her O2 requirement increased up to 10 L and initially improved down to 8 L and there were plans to discharge home yesterday, but over last 24 hours her oxygen requirements has gone up and currently she is on high flow nasal cannula 45 L and 85% saturating 90%. Pulmonary critical care consulted for possible bronchoscopy and worsening oxygen requirements. Upon review of oncology clinic note In 2016 she was diagnosed with invasive adenocarcinoma involving left upper lobe, stage Ib,.-S/p thoracotomy with left upper lobe apical posterior segmentectomy and as adjuvant chemotherapy was not indicated-she was under expectant management ; later again in August 2020-her cancer was staged as progression to stage Sariah with biopsy-proven involvement in mediastinal lymph nodes and with PET/CT evidence of left pleural implant-she received 6 weeks chemotherapy and radiation in October 2020 and since then she was on maintenance therapy with monthly immunotherapy durvalumab. She was admitted to hospital on 05/24/2021 for acute hypoxic respiratory failure, CTA ruled out PE but showed some interstitial thickening in the lower lobes and patchy infiltrates in right lower lobe which improved with empiric treatment with antibiotic, steroid and inhalations. It was uncertain if it was COPD exacerbation versus possible treatment related pneumonitis. And since then durvalumab was on hold and she was continued on prednisone 10 mg daily. Patient seen at bedside today, her boyfriend and her son were at bedside as well -Appeared in moderate respiratory distress on high flow nasal cannula saturating 94% on 45 L 85% -However chest x-ray today morning showed improving right upper lobe and lower lobe infiltrates -Understands that she may deteriorate respiratory sands and may need intubation -Plan is to transfer to ICU for close observation for next 24 to 48 hours -Other labs and imaging reviewed Review of Systems General: Reports: 10 or more systems reviewed and unremarkable except in HPI and below Medications/Allergies Home Medications Medication Instructions Recorded Confirmed Last Taken Type trazodone 50 mg tablet 50 - 100 mg PO BEDTIME 05/24/21 08/13/21 Unknown History albuterol sulfate 90 mcg/actuation 1 inh INHALATION Q6H PRN #8.5 g 06/09/21 08/13/21 Unknown Rx aerosol inhaler benzonatate 100 mg capsule 100 mg PO TID PRN #90 cap 07/31/21 08/13/21 Unknown Rx ([place] Oneil) dextromethorphan polistirex 30 10 ml PO Q12H PRN #89 ml MDD 20 ml 07/31/21 08/13/21 Unknown Rx mg/5 mL oral susp ext.release 12hr esomeprazole magnesium 40 mg 40 mg PO DAILY 07/31/21 08/13/21 Unknown History capsule,delayed release levothyroxine 88 mcg tablet 88 mcg PO DAILY 30 Days #30 tab 07/31/21 08/13/21 Unknown Rx ondansetron HCl 4 mg tablet 4 mg PO Q6H 07/31/21 08/13/21 Unknown History (Zofran) sertraline 50 mg tablet 50 mg PO DAILY 30 Days #30 tab 07/31/21 08/13/21 Unknown Rx hydrocodone 5 mg-acetaminophen 325 1 - 2 tab PO Q4H PRN 08/13/21 08/13/21 Unknown History mg tablet ascorbic acid (vitamin C) 500 mg 1,000 mg PO BID 30 Days #120 tab 08/18/21 Unknown Rx tablet (Vitamin C) fluticasone 250 mcg-salmeterol 50 1 puff INHALATION BID.RESPIRATORY 08/18/21 Unknown Rx mcg/dose blistr powdr for 30 Days #1 ea inhalation (Advair Diskus) umeclidinium [Incruse Ellipta] 1 inh INHALATION DAILY 30 Days #1 08/18/21 Unknown Rx device zinc gluconate 50 mg tablet 50 mg PO DAILY 30 Days #30 tab 08/18/21 Unknown Rx Allergies Allergy/AdvReac Type Severity Reaction Status Date / Time No Known Allergies Allergy Verified 08/12/21 22:19 Current Medications Generic Name Dose Route Start Last Admin Trade Name Freq PRN Reason Stop Dose Admin Acetaminophen 650 mg 08/13/21 02:10 08/16/21 17:13 Acetaminophen 325 Mg Tablet PO 650 mg Q6H PRN Administration Mild/Mod Pain Or Temp >/= 101 Albuterol/Ipratropium 3 ml 08/14/21 21:00 08/19/21 14:50 Ipratropium-Albuterol 3 Ml Neb INHALATION 3 ml Q6H.RESPIRATORY LUANN Administration Ascorbic Acid 1,000 mg 08/13/21 09:00 08/19/21 08:23 Ascorbic Acid 500 Mg Tablet PO 1,000 mg BID LUANN Administration Benzonatate 100 mg 08/13/21 02:14 08/16/21 17:13 Benzonatate 100 Mg Capsule PO 100 mg TID PRN Administration COUGH Dexamethasone 6 mg 08/14/21 07:00 08/19/21 08:23 Dexamethasone 4 Mg/Ml Inj IVP 6 mg Q24H LUANN Administration Enoxaparin Sodium 40 mg 08/13/21 02:15 08/19/21 03:06 Enoxaparin 40 Mg/0.4 Ml Syringe SUBCUT 40 mg Q24H LUANN Administration Furosemide 20 mg 08/17/21 08:00 08/19/21 08:23 Furosemide 20 Mg Tablet PO 20 mg DAILY@0800 LUANN Administration Cefepime HCl 2,000 mg/ Sodium 50 mls @ 100 mls/hr 08/13/21 08:30 08/19/21 09:07 Chloride IV Infused Q12H LUANN Infusion Levofloxacin/Dextrose 750 mg in 150 mls @ 100 mls/hr 08/18/21 13:00 08/19/21 14:37 Levaquin-D5w IV 100 mls/hr Q24H LUANN Administration Lanolin 1 applic 08/16/21 09:35 08/17/21 13:39 Lanolin Oint 7 Gm TOPICAL 1 applic PRN PRN Administration DRYNESS Levothyroxine Sodium 88 mcg 08/13/21 09:00 08/19/21 08:23 Levothyroxine 88 Mcg Tablet PO 88 mcg DAILY LUANN Administration Non-Formulary Medication 1 inh 08/13/21 09:00 08/19/21 07:59 Umeclidinium [Incruse Ellipta] INHALATION Not Given DAILY LUANN Pantoprazole Sodium 40 mg 08/13/21 09:00 08/19/21 08:[address] 40 Mg Tablet PO 40 mg DAILY LUANN Administration Potassium Chloride 20 meq 08/17/21 09:00 08/19/21 08:23 Potassium Chloride Er 20 Meq Tablet PO 20 meq DAILY LUANN Administration Fluticasone/Salmeterol 1 puff 08/13/21 20:00 08/19/21 09:31 Fluticasone-Salmeterol 250-50 Diskus INHALATION 1 puff BID.RESPIRATORY LUANN Administration Sertraline HCl 50 mg 08/13/21 09:00 08/19/21 08:23 Sertraline 50 Mg Tablet PO 50 mg DAILY LUANN Administration Zinc Gluconate 50 mg 08/13/21 09:00 08/19/21 08:29 Zinc Gluconate 50 Mg Tablet PO 50 mg DAILY LUANN Administration Zolpidem Tartrate 5 mg 08/17/21 21:00 08/18/21 20:54 Zolpidem 5 Mg Tablet PO 5 mg BEDTIME LUANN Administration PFSH Acute PFSH: Medical History COPD (chronic obstructive pulmonary disease) History of lung cancer HTN (hypertension), benign OFF all med since fall 2020 Malignant neoplasm of upper lobe, left bronchus or lung Surgical History H/O colonoscopy (07/16/20) H/O colostomy H/O exploratory laparotomy H/O pneumonectomy Hx of tubal ligation Port-A-Cath in place (10/02/20) Family History Mother Cancer liver Son Cancer age 12 leukemia Other Hypertension Denies family history of CAD (coronary artery disease) Dementia Anesthesia complication Bleeding disorder Social History Quit status (tobacco): has quit using tobacco Former quit date comment: Quit 05/2021 Smoking risk assessment/counseling performed?: Yes Alcohol intake: never Counseling given: No Counseling given: No Lives independently: Yes Household members: significant other Marital status: Single Current occupational status: employed History of recent travel: No Current gender identity: Female Female Reproductive History: Spontaneous abortions: No Vitals/I&O/Wt Last Vital Signs Temp 98.7 F 08/19/21 12:00 Pulse 77 08/19/21 15:00 Resp 20 H 08/19/21 14:54 BP 109/67 08/19/21 12:00 Pulse Ox 90 08/19/21 14:54 08/19/21 08/19/21 08/19/21 06:59 14:59 22:59 Intake Total 230 / 230 Output Total 200 / 2400 Balance -200 / -1867.708 230 / 230 Physical Exam Narrative: General: alert, NAD in mild to moderate respiratory distress HEENT: conj clear, EOMI, PERRL, mmm, Neck: supple, no meningismus Heme: no cervical LAP Pulmonary: CTAB, no wheezing, rhonchi, crackles Cardiovascular: rrr, nl s1s2, no mrg Abdomen: soft, nt, nd, no r/g, bs+ Extremities: pulses +, no edema, no c/c : no CVA tenderness Skin: intact, no rash MSK: no back or neck pain Neurologic: grossly intact Data : 08/18/21 05:26 08/18/21 05:26 Other Labs: Radiology Impressions Chest CTA 08/14/21 07:21 IMPRESSION: 1. Bilateral mild to moderate pleural fluid collections. 2. No pulmonary embolus or aortic dissection. 3. Stable right Mediport catheter. 4. Mild anasarca consistent with right heart failure versus hypoproteinemia versus renal failure. 5. Continued volume loss in the left upper lobe consistent with previous resection. 6. Interval appearance of severe right-sided pneumonia with air bronchograms. 7. [id number] mediastinal adenopathy with severe right hilar adenopathy most consistent with reactive adenopathy. Venous Duplex 08/16/21 10:20 IMPRESSION: No sonographic evidence of deep vein thrombosis. Chest X-Ray 08/19/21 11:13 IMPRESSION: 1. Moderate improvement in the RIGHT upper lobe pneumonia and the pneumonitis in the RIGHT lower lobe. Recommend continued close follow-up to ensure resolution. 2. New nodularity posterior to LEFT heart. Due to sudden onset likely pneumonia or atelectasis. 3. Small bilateral pleural effusions. 4. Postsurgical resection changes at the LEFT apex. Laboratory Results WBC 18.3 10^3/uL (4.0-10.0) H 08/18/21 05:26 Corrected WBC Cancelled 08/16/21 02:55 RBC 5.00 10^6/uL (4.1-5.3) 08/18/21 05:26 Hgb 14.8 g/dL (11.5-15.3) 08/18/21 05:26 Hct 43.0 % (37.0-47.0) 08/18/21 05:26 MCV 86.0 fl (81-99) 08/18/21 05:26 MCH 29.6 pg (28.0-34.0) 08/18/21 05:26 MCHC 34.4 g/dL (30.0-36.0) 08/18/21 05:26 RDW 17.3 % (12.1-15.1) H 08/18/21 05:26 Plt Count 549 10^3/cmm (130-400) H 08/18/21 05:26 MPV 11.4 fL (7.4-10.4) H 08/18/21 05:26 Gran % Cancelled 08/16/21 02:55 Neut % (Auto) 89.7 % 08/18/21 05:26 Lymph % (Auto) 3.4 % 08/18/21 05:26 Wilson % (Auto) 5.4 % 08/18/21 05:26 Eos % (Auto) 1.3 % 08/18/21 05:26 Baso % (Auto) 0.2 % 08/18/21 05:26 Neut # (Auto) 14.12 10^3/uL (1.8-7.7) H 08/18/21 05:26 Lymph # (Auto) 0.6 10^3/uL (0.8-4.8) L 08/18/21 05:26 Wilson # (Auto) 1.0 10^3/uL (0.2-0.9) H 08/18/21 05:26 Eos # (Auto) 0.2 10^3/uL (0.0-0.8) 08/18/21 05:26 Baso # (Auto) 0.0 10^3/uL (0.0-0.1) 08/18/21 05:26 Absolute Gran (auto) Cancelled 08/16/21 02:55 Nucleated RBC % (auto) 0 % 08/18/21 05:26 Nucleated RBCs # 0.0 /100WBC 08/18/21 05:26 ESR 4 mm/hr (0-15) 08/16/21 02:55 PT 13.90 SECONDS (12.1-14.9) 08/12/21 22:15 INR 1.04 (0.8-1.2) 08/12/21 22:15 D-Dimer 1.65 ug/mIFEU (0-0.59) H 08/16/21 02:55 Specimen Type Arterial 08/18/21 03:26 Sample Site Radial, right 08/18/21 03:26 ABG pH 7.55 (7.35-7.45) H 08/18/21 03:26 ABG pCO2 49.3 mmHg (35-45) H 08/18/21 03:26 ABG pO2 55.8 mmHg (80.0-100.0) L 08/18/21 03:26 ABG HCO3 42.9 mmol/L (22-26) H 08/18/21 03:26 ABG Base Excess 17.8 mmol/L (-2.0-2.0) H 08/18/21 03:26 Harman Test Pos 08/18/21 03:26 Hematocrit 43.4 % (37-47) 08/18/21 03:26 Hgb O2 Saturation 84.1 % (95-100) L 08/12/21 23:23 Carboxyhemoglobin 0.7 %THgb (0.4-20.1) 08/12/21 23:23 Methemoglobin 0.4 % (0.4-1.5) 08/12/21 23:23 Total Hemoglobin 14.7 g/dL (12-16) 08/12/21 23:23 O2 Delivery Device Nc 08/18/21 03:26 O2 Liters/Min 12.0 % 08/18/21 03:26 FiO2 60.0 % 08/15/21 16:57 Used [employer] Worker ID Buttr 08/18/21 03:26 Sodium 140 mmol/L (136-145) 08/18/21 05:26 Potassium 3.3 mmol/L (3.5-5.1) L 08/18/21 05:26 Chloride 93 mmol/L (98-107) L 08/18/21 05:26 Carbon Dioxide 32 mmol/L (22-29) H 08/18/21 05:26 Anion Gap 18.3 (5-19) 08/18/21 05:26 BUN 8 mg/dL (8-23) 08/18/21 05:26 Creatinine 0.2 mg/dL (0.5-0.9) L 08/18/21 05:26 GFR Calculation 362.3 mL/min (90-130) H 08/18/21 05:26 Glucose 69 mg/dL (65-115) 08/18/21 05:26 Calculated Osmolality 287 mOsm/kg (285-295) 08/18/21 05:26 Lactic Acid 1.5 mmol/L (0.5-2.2) 08/12/21 22:15 Calcium 8.9 mg/dL (8.5-10.5) 08/18/21 05:26 Ferritin 344 ng/mL (15-150) H 08/16/21 02:55 Total Bilirubin 0.5 mg/dL (0.15-1.2) 08/12/21 22:15 AST 10 U/L (0-32) 08/12/21 22:15 ALT < 5 U/L (0-33) 08/12/21 22:15 Alkaline Phosphatase 109 IU/L (35-105) H 08/12/21 22:15 Lactate Dehydrogenase 191 U/L (135-214) 08/16/21 02:55 C-Reactive Protein 35.1 mg/L (0.0-4.9) H 08/18/21 05:26 Total Protein 5.5 g/dL (6.6-8.7) L 08/12/21 22:15 Albumin 2.7 g/dL (3.5-5.2) L 08/12/21 22:15 Globulin 2.8 g/dL (1.3-4.6) 08/12/21 22:15 Procalcitonin 0.18 ng/mL (0-0.5) 08/18/21 05:26 Vancomycin Trough 7.5 ug/mL (10-15) L 08/14/21 10:40 Coronavirus 229E (PCR) Not detected (NOT DETECT) 08/12/21 22:15 SARS-CoV-2 (PCR) Detected (NOT DETECT) A 08/12/21 22:15 A&P Assessment and plan (1) Acute on chronic respiratory failure with hypoxemia: Status: Acute (2) Pneumonia due to COVID-19 virus: Status: Acute (3) Malignant neoplasm of upper lobe, left bronchus or lung: Status: Acute (4) Chronic respiratory failure with hypoxia and hypercapnia: Status: Acute (5) COPD (chronic obstructive pulmonary disease): Status: Acute Qualifiers: COPD type: chronic bronchitis Chronic bronchitis type: mucopurulent Qualified Code(s): J41.1 - Mucopurulent chronic bronchitis (6) History of lung cancer: Status: Acute (7) History of immunotherapy: Status: Acute (8) Right upper lobe pneumonia: Status: Acute (9) Goals of care, counseling/discussion: Status: Acute Plan #Acute on chronic hypoxic respiratory failure in patient with right upper lobe pneumonia and COVID-19 positive #Underlying COPD-on 6 L home oxygen #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-s/p left upper lobe segmentectomy/chemoradiation in October 2020/immunotherapy with monthly durvalumab until May 2021 #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 at home -Admission imaging showed right upper lobe pneumonia with air bronchograms and negative for PE -Since then she was on cefepime, Levaquin ; vancomycin discontinued as MRSA nares negative -Completed 5-day course of remdesivir since admission for COVID-19 and currently on dexamethasone 6 mg IV push -Today morning chest x-ray showed improving right upper lobe and lower lobe infiltrates but new nodularity seen posterior to left heart; with increasing oxygen requirement went up from 8 L to high flow nasal cannula of 45 L and 85% saturating 90% and leukocytosis-I will add gram-positive coverage and send for sputum cultures again. -Patient is on Advair Diskus 1 puff inhalation twice daily and Incruse 1 inhalation daily for COPD -Due to sudden deterioration-recommended to add voriconazole for fungal coverage, sent for beta D glucan; galactomannan, D-dimer -Currently she is on Lasix 20 mg daily--3.6 L in the last 48 hours; potassium 3.3-on KCl 20 mEq supplementation -Full code -Patient and family updated about medical condition -DVT prophylaxis Lovenox 40 mg daily -We will transfer patient to ICU for close monitoring Recommendations conveyed to RN, RT, hospitalist taking care of the patient Consult Attestations Medical Necessity Statement: Acute hypoxic respiratory failure in patient with underlying lung cancer/COVID-19/pneumonia/requiring high flow oxygen-need close monitoring in ICU for possible respiratory deterioration Time Spent in Patient Care: Greater than 35 minutes (>than 50% of time spent in counselling and/or direct pt care on unit). Critical Care Time: The high probability of a clinically significant, sudden or life threatening deterioration of the patient's [pulmonary renal] system(s) required my full and direct attention, intervention and personal management. The critical care time is as shown. This time is in addition to time spent performing any reported procedures but includes the following: [x] Data and vital sign review and interpretation [x] Patient assessment, examination and intervention [x] Documentation [x] Medication orders and management Critical Care Time (min): 60 Coding Level of Care Code New Pt Acute [employer] for [employer] F[employer] Patient Type New History Comprehensive Exam Comprehensive Medical Decision Making High Complexity Diagnoses Acute on chronic respiratory failure with hypoxemia J96.21 Pneumonia due to COVID-19 virus U07.1; J12.82 Malignant neoplasm of upper lobe, left bronchus or lung C34.12 Chronic respiratory failure with hypoxia and hypercapnia J96.11; J96.12 COPD (chronic obstructive pulmonary disease) J41.1 COPD type: chronic bronchitis Chronic bronchitis type: mucopurulent History of lung cancer Z85.118 History of immunotherapy Z92.89 Right upper lobe pneumonia J18.9 Goals of care, counseling/discussion Z71.89 Time Spent (min) 60
[2021-08-19] MEDS: vancomycin 750 MG in sodium chloride 0.9% 250 ML 250 MG IV (18:07)
[2021-08-19 18:59] LABS: D Dimer 0.68 ug/mIFEU (0-0.59)
[2021-08-19] MEDS: zolpidem 5 mg Tablet PO (21:24)
[2021-08-20] VITALS (12 sets, daily range): BP systolic 105–129; BP diastolic 62–76; PULSE 57–98; RESP 16–20; TEMP 36.4–37; O2SAT 86–98
[2021-08-20] MEDS: enoxaparin 40 mg/0.4 mL Syringe SUBCUT (01:53)
[2021-08-20] MEDS: vancomycin 750 MG in sodium chloride 0.9% 250 ML 250 MG IV ×2 (05:50→16:36)
[2021-08-20] MEDS: pantoprazole DR 40 mg Tablet PO (08:35)
[2021-08-20] MEDS: potassium chloride ER 20 mEq Tablet PO (08:35)
[2021-08-20] MEDS: zinc gluconate 50 mg Tablet PO (08:35)
[2021-08-20] MEDS: dexamethasone 4 mg/mL INJ 6 MG IVP (08:35)
[2021-08-20] MEDS: sertraline 50 mg Tablet PO (08:35)
[2021-08-20] MEDS: FUROsemide 20 mg Tablet PO (08:36)
[2021-08-20] MEDS: ascorbic acid 500 mg Tablet 1000 MG PO ×2 (08:36→16:37)
[2021-08-20] MEDS: levothyroxine 88 mcg Tablet PO (08:36)
[2021-08-20] MEDS: cefepime 2,000 MG in sodium chloride 0.9% (plus) 50 ML 100 MG IV ×2 (08:41→20:56)
[2021-08-20] MEDS: levofloxacin-dextrose 5% 750 mg-150 mL Premix 100 MG IV (11:46)
--- NOTE | 2021-08-20 13:39 | PM.PN ---
Subjective Subjective: Heated high flow 45%, plan to wean her oxygen down, patient is not complaining of any active chest pain or shortness of breath, son at the bedside Did speak with Dr. Carson this morning as well Vitals/I&O/Wt Last Vital Signs Temp 98.6 F 08/20/21 12:00 Pulse 60 08/20/21 12:00 Resp 16 08/20/21 12:00 BP 129/76 08/20/21 12:00 Pulse Ox 93 08/20/21 12:00 08/19/21 08/20/21 08/20/21 22:59 06:59 14:59 Intake Total 1060 / 1290 250 / 1540 930 / 930 Output Total 340 / 340 400 / 400 Balance 720 / 950 250 / 1200 530 / 530 Physical Exam Narrative: Patient laying supine Currently on heated high flow No active chest pain or shortness of air Rhonchi with crackles right greater than left Bilateral breath sounds however diminished airflow Cachectic, malnourished S1, S2 Awake and alert Nonfocal neuro exam EOMI, PERRLA Data : 08/18/21 05:26 08/18/21 05:26 Micro: Microbiology 08/20/21 Unknown Bacterial Antigens - Final Urine,Voided A&P Assessment and plan (1) Goals of care, counseling/discussion: Status: Acute (2) Right upper lobe pneumonia: Status: Acute (3) History of immunotherapy: Status: Acute (4) Acute on chronic respiratory failure with hypoxemia: Status: Acute (5) Hypokalemia: Status: Acute (6) Pneumonia due to COVID-19 virus: Status: Acute (7) Acute respiratory failure with hypoxemia: Status: Acute (8) COVID-19: Status: Acute (9) Malignant neoplasm of upper lobe, left bronchus or lung: Status: Acute (10) COPD with acute exacerbation: Status: Acute (11) History of lung cancer: Status: Acute (12) Smoking: Status: Acute Plan Acute on chronic hypoxia related to COVID-19 Immunocompromise state Antiviral added by carton stenciler Continue antibiotics Wean off oxygen to nasal cannula at home she is a 6 L which is equivalent to 45L Lung imaging showing improvement of pneumonia, planning to repeat CT scan today Appreciate pulmonary recommendations Afebrile Electrolyte replenished Full code Continue Lasix There is no lab work from today, I do not see any febrile events overnight, continue Decadron and multivitamins currently patient is on cefepime, Levaquin, voriconazole and vancomycin Attestations Medical Necessity Statement*: Continue medical management Time Spent in Patient Care: 15 minutes Coding Level of Care Code Acute Soil Science Technical Officer for Zeeshan Perez Diagnoses Goals of care, counseling/discussion Z71.89 Right upper lobe pneumonia J18.9 History of immunotherapy Z92.89 Acute on chronic respiratory failure with hypoxemia J96.21 Hypokalemia E87.6 Pneumonia due to COVID-19 virus U07.1; J12.82 Acute respiratory failure with hypoxemia J96.01 COVID-19 U07.1 Malignant neoplasm of upper lobe, left bronchus or lung C34.12 COPD with acute exacerbation J44.1 History of lung cancer Z85.118 Smoking F17.200
--- NOTE | 2021-08-20 13:44 | CT_ITS ---
WS: [id number] CT CHEST WITHOUT INTRAVENOUS CONTRAST HISTORY: Hypoxia and pneumonia. History of Covid. TECHNIQUE: Contiguous 5 mm axial imaging performed on the thorax. Coronal and sagittal reformats are submitted. All CT scans at [facility] use at least one of these dose optimization techniques: automated exposure control; mA and/or kV adjustment per patient size (includes targeted exams where dose is matched to clinical indication); or iterative reconstruction. CONTRAST: None DLP: 258.72 mGy.cm COMPARISON: 08/14/2021 Lungs and central airway: Pulmonary hyperexpansion. Dense area of consolidation centered over the RIG HT hilum has moderately improved since the prior study. There is continued interstitial thickening an d reticular opacifications extending into the upper and lower lung and the RIGHT middle lobe also. Ov erall the airspace has improved. Most persistent findings are now in the RIGHT upper lobe along the f issure. LEFT pleural thickening Pleura: RIGHT pleural effusion is small to moderate increase in size since the prior study. There is a small layering LEFT pleural effusion which is stable. Heart and pericardium: Normal size heart with a pericardial effusion which is small. Mediastinum and marissa: Without IV contrast evaluation of the mediastinal structures is difficult.. Aga in noted is the dense consolidation surrounding the RIGHT hilar structures with partial obscuration a nd narrowing of the proximal bronchi. Vessels: Moderate atherosclerosis aorta. Pulmonary artery size is dilated. Chest wall and lower neck: Right-sided Mediport. Mild soft tissue anasarca. Upper abdomen: Soft tissue anasarca. Low-attenuation 1.0 cm nodule in the RIGHT lobe of the liver is unchanged. Probably representing a small cyst. Partially calcified area of cortical thinning in the R IGHT kidney. This is been present for several years and not changed. Osseous structures: Stable sclerotic focus in the inferior endplate of T11. CT/CT chest wo con [id number] IMPRESSION: 1. Moderate improvement in the dense area of consolidation centered over the R IGHT hilum causing partial airway obstruction. Recommend continued close follow -up to resolution. 2. Increase in size of the moderate RIGHT pleural effusion. 3. Stable small LEFT pleural effusion. 4. Marked emphysema. 5. Study is otherwise limited without IV contrast.
[2021-08-20] MEDS: ipratropium-albuterol 3 mL Neb INHALATION ×2 (15:31→21:01)
--- NOTE | 2021-08-20 20:16 | PM.PN ---
Subjective Subjective: Patient seen at bedside today -Currently down to 65% on high flow nasal cannula -Reported she is breathing better -Repeat CT chest showed moderate right pleural effusion with somewhat improvement in right upper lobe consolidation -Bedside ultrasound did show mild to moderate pleural effusion with stranding with no good pocket to tap -Other labs and imaging reviewed Medications: Reviewed: Yes Vitals/I&O/Wt Last Vital Signs Temp 98.4 F 08/20/21 20:00 Pulse 65 08/20/21 20:00 Resp 18 08/20/21 20:00 BP 110/67 08/20/21 20:00 Pulse Ox 93 08/20/21 20:00 08/20/21 08/20/21 08/20/21 06:59 14:59 22:59 Intake Total 250 / 1540 930 / 930 590 / 1520 Output Total 400 / 400 400 / 800 Balance 250 / 1200 530 / 530 190 / 720 Physical Exam Narrative: General: alert, NAD in mild to moderate respiratory distress HEENT: conj clear, EOMI, PERRL, mmm, Neck: supple, no meningismus Heme: no cervical LAP Pulmonary: CTAB, no wheezing, rhonchi, crackles Cardiovascular: rrr, nl s1s2, no mrg Abdomen: soft, nt, nd, no r/g, bs+ Extremities: pulses +, no edema, no c/c : no CVA tenderness Skin: intact, no rash MSK: no back or neck pain Neurologic: grossly intact Data : 08/18/21 05:26 08/18/21 05:26 Other Labs: Radiology Impressions Chest CTA 08/14/21 07:21 IMPRESSION: 1. Bilateral mild to moderate pleural fluid collections. 2. No pulmonary embolus or aortic dissection. 3. Stable right Mediport catheter. 4. Mild anasarca consistent with right heart failure versus hypoproteinemia versus renal failure. 5. Continued volume loss in the left upper lobe consistent with previous resection. 6. Interval appearance of severe right-sided pneumonia with air bronchograms. 7. [id number] mediastinal adenopathy with severe right hilar adenopathy most consistent with reactive adenopathy. Venous Duplex 08/16/21 10:20 IMPRESSION: No sonographic evidence of deep vein thrombosis. Chest X-Ray 08/19/21 11:13 IMPRESSION: 1. Moderate improvement in the RIGHT upper lobe pneumonia and the pneumonitis in the RIGHT lower lobe. Recommend continued close follow-up to ensure resolution. 2. New nodularity posterior to LEFT heart. Due to sudden onset likely pneumonia or atelectasis. 3. Small bilateral pleural effusions. 4. Postsurgical resection changes at the LEFT apex. Chest CT 08/20/21 13:44 IMPRESSION: 1. Moderate improvement in the dense area of consolidation centered over the RIGHT hilum causing partial airway obstruction. Recommend continued close follow-up to resolution. 2. Increase in size of the moderate RIGHT pleural effusion. 3. Stable small LEFT pleural effusion. 4. Marked emphysema. 5. Study is otherwise limited without IV contrast. Laboratory Results WBC 18.3 10^3/uL (4.0-10.0) H 08/18/21 05:26 Corrected WBC Cancelled 08/16/21 02:55 RBC 5.00 10^6/uL (4.1-5.3) 08/18/21 05:26 Hgb 14.8 g/dL (11.5-15.3) 08/18/21 05:26 Hct 43.0 % (37.0-47.0) 08/18/21 05:26 MCV 86.0 fl (81-99) 08/18/21 05:26 MCH 29.6 pg (28.0-34.0) 08/18/21 05:26 MCHC 34.4 g/dL (30.0-36.0) 08/18/21 05:26 RDW 17.3 % (12.1-15.1) H 08/18/21 05:26 Plt Count 549 10^3/cmm (130-400) H 08/18/21 05:26 MPV 11.4 fL (7.4-10.4) H 08/18/21 05:26 Gran % Cancelled 08/16/21 02:55 Neut % (Auto) 89.7 % 08/18/21 05:26 Lymph % (Auto) 3.4 % 08/18/21 05:26 [place] % (Auto) 5.4 % 08/18/21 05:26 Eos % (Auto) 1.3 % 08/18/21 05:26 Baso % (Auto) 0.2 % 08/18/21 05:26 Neut # (Auto) 14.12 10^3/uL (1.8-7.7) H 08/18/21 05:26 Lymph # (Auto) 0.6 10^3/uL (0.8-4.8) L 08/18/21 05:26 [place] # (Auto) 1.0 10^3/uL (0.2-0.9) H 08/18/21 05:26 Eos # (Auto) 0.2 10^3/uL (0.0-0.8) 08/18/21 05:26 Baso # (Auto) 0.0 10^3/uL (0.0-0.1) 08/18/21 05:26 Absolute Gran (auto) Cancelled 08/16/21 02:55 Nucleated RBC % (auto) 0 % 08/18/21 05:26 Nucleated RBCs # 0.0 /100WBC 08/18/21 05:26 ESR 4 mm/hr (0-15) 08/16/21 02:55 PT 13.90 SECONDS (12.1-14.9) 08/12/21 22:15 INR 1.04 (0.8-1.2) 08/12/21 22:15 D-Dimer 0.68 ug/mIFEU (0-0.59) H 08/19/21 18:10 Specimen Type Arterial 08/18/21 03:26 Sample Site Radial, right 08/18/21 03:26 ABG pH 7.55 (7.35-7.45) H 08/18/21 03:26 ABG pCO2 49.3 mmHg (35-45) H 08/18/21 03:26 ABG pO2 55.8 mmHg (80.0-100.0) L 08/18/21 03:26 ABG HCO3 42.9 mmol/L (22-26) H 08/18/21 03:26 ABG Base Excess 17.8 mmol/L (-2.0-2.0) H 08/18/21 03:26 Harman Test Pos 08/18/21 03:26 Hematocrit 43.4 % (37-47) 08/18/21 03:26 Hgb O2 Saturation 84.1 % (95-100) L 08/12/21 23:23 Carboxyhemoglobin 0.7 %THgb (0.4-20.1) 08/12/21 23:23 Methemoglobin 0.4 % (0.4-1.5) 08/12/21 23:23 Total Hemoglobin 14.7 g/dL (12-16) 08/12/21 23:23 O2 Delivery Device Nc 08/18/21 03:26 O2 Liters/Min 12.0 % 08/18/21 03:26 FiO2 60.0 % 08/15/21 16:57 Preparation Center Coordinator ID Buttr 08/18/21 03:26 Sodium 140 mmol/L (136-145) 08/18/21 05:26 Potassium 3.3 mmol/L (3.5-5.1) L 08/18/21 05:26 Chloride 93 mmol/L (98-107) L 08/18/21 05:26 Carbon Dioxide 32 mmol/L (22-29) H 08/18/21 05:26 Anion Gap 18.3 (5-19) 08/18/21 05:26 BUN 8 mg/dL (8-23) 08/18/21 05:26 Creatinine 0.2 mg/dL (0.5-0.9) L 08/18/21 05:26 GFR Calculation 362.3 mL/min (90-130) H 08/18/21 05:26 Glucose 69 mg/dL (65-115) 08/18/21 05:26 Calculated Osmolality 287 mOsm/kg (285-295) 08/18/21 05:26 Lactic Acid 1.5 mmol/L (0.5-2.2) 08/12/21 22:15 Calcium 8.9 mg/dL (8.5-10.5) 08/18/21 05:26 Ferritin 344 ng/mL (15-150) H 08/16/21 02:55 Total Bilirubin 0.5 mg/dL (0.15-1.2) 08/12/21 22:15 AST 10 U/L (0-32) 08/12/21 22:15 ALT < 5 U/L (0-33) 08/12/21 22:15 Alkaline Phosphatase 109 IU/L (35-105) H 08/12/21 22:15 Lactate Dehydrogenase 191 U/L (135-214) 08/16/21 02:55 C-Reactive Protein 35.1 mg/L (0.0-4.9) H 08/18/21 05:26 Total Protein 5.5 g/dL (6.6-8.7) L 08/12/21 22:15 Albumin 2.7 g/dL (3.5-5.2) L 08/12/21 22:15 Globulin 2.8 g/dL (1.3-4.6) 08/12/21 22:15 Procalcitonin 0.18 ng/mL (0-0.5) 08/18/21 05:26 Vancomycin Trough 7.5 ug/mL (10-15) L 08/14/21 10:40 Coronavirus 229E (PCR) Not detected (NOT DETECT) 08/12/21 22:15 SARS-CoV-2 (PCR) Detected (NOT DETECT) A 08/12/21 22:15 Micro: Microbiology 08/20/21 Unknown Bacterial Antigens - Final Urine,Voided A&P Assessment and plan (1) Acute on chronic respiratory failure with hypoxemia: Status: Acute (2) Pneumonia due to COVID-19 virus: Status: Acute (3) Malignant neoplasm of upper lobe, left bronchus or lung: Status: Acute (4) Chronic respiratory failure with hypoxia and hypercapnia: Status: Acute (5) COPD (chronic obstructive pulmonary disease): Status: Acute Qualifiers: COPD type: chronic bronchitis Chronic bronchitis type: mucopurulent Qualified Code(s): J41.1 - Mucopurulent chronic bronchitis (6) History of lung cancer: Status: Acute (7) History of immunotherapy: Status: Acute (8) Right upper lobe pneumonia: Status: Acute (9) Goals of care, counseling/discussion: Status: Acute Plan #Acute on chronic hypoxic respiratory failure in patient with RUL pneumonia and COVID-19 positive #Underlying COPD-on 6 L home oxygen #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-s/p left upper lobe segmentectomy/chemoradiation in October 2020/immunotherapy with monthly durvalumab until May 2021 #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 at home -Admission imaging showed right upper lobe pneumonia with air bronchograms and negative for PE -Since then she was on cefepime, Levaquin ; vancomycin discontinued as MRSA nares negative -Completed 5-day course of remdesivir since admission for COVID-19 and currently on dexamethasone 6 mg IV push -Today morning chest x-ray showed improving right upper lobe and lower lobe infiltrates but new nodularity seen posterior to left heart; with increasing oxygen requirement went up from 8 L to high flow nasal cannula of 45 L and 85% saturating 90% and leukocytosis-I added gram-positive coverage and send for sputum cultures again. -Due to sudden deterioration-recommended to add voriconazole for fungal coverage, pending beta D glucan; galactomannan -Repeat CT chest today showed moderate improvement in dense area of consolidation over right hilum, increase in size of moderate right pleural effusion -Bedside ultrasound examination showed mild to moderate right pleural effusion with fibrinous strands and does not have a good window to tap fluid -Overall patient says that she is breathing better today and oxygen requirement came down to 65%(her baseline 6 L at home) -Patient is on Advair Diskus 1 puff inhalation twice daily and Incruse 1 inhalation daily for COPD -Currently she is on Lasix 20 mg daily -Full code -Patient and family updated about medical condition -DVT prophylaxis Lovenox 40 mg daily -We will transfer patient to ICU for close monitoring Recommendations conveyed to RN, RT, hospitalist taking care of the patient Attestations Medical Necessity Statement*: Continue medical management Time Spent in Patient Care: Greater than 35 minutes (>than 50% of time spent in counselling and/or direct pt care on unit). 15 minutes Coding Level of Care Code Established Pt Acute Cd Reactor Operator Head for Chg Fwd Patient Type Established History Comprehensive Exam Comprehensive Medical Decision Making Moderate Complexity Diagnoses Acute on chronic respiratory failure with hypoxemia J96.21 Pneumonia due to COVID-19 virus U07.1; J12.82 Malignant neoplasm of upper lobe, left bronchus or lung C34.12 Chronic respiratory failure with hypoxia and hypercapnia J96.11; J96.12 COPD (chronic obstructive pulmonary disease) J41.1 COPD type: chronic bronchitis Chronic bronchitis type: mucopurulent History of lung cancer Z85.118 History of immunotherapy Z92.89 Right upper lobe pneumonia J18.9 Goals of care, counseling/discussion Z71.89 Time Spent (min) 38 Comment Including bedside ultrasound examination
[2021-08-20] MEDS: zolpidem 5 mg Tablet PO (20:56)
[2021-08-21] VITALS (10 sets, daily range): BP systolic 98–111; BP diastolic 64–72; PULSE 60–81; RESP 17–20; TEMP 36.5–36.8; O2SAT 87–97
[2021-08-21] MEDS: enoxaparin 40 mg/0.4 mL Syringe SUBCUT (01:15)
[2021-08-21 04:19] LABS: ABG PCO2 52.7 mmHg (35-45); ABG PH Result 7.47 (7.35-7.45); Arterial Blood Gas Hematocrit 41.6 % (37-47); Base Excess ABG 12.8 mmol/L (-2.0-2.0); Blood Gas Allen Test Pos; Blood Gas Sample Type Arterial; HCO3 ABG 38.6 mmol/L (22-26); PO2 ABG 65.9 mmHg (80.0-100.0)
[2021-08-21 04:20] LABS: Blood Gas Sample Site Radial, left; Oxygen Device HAG
[2021-08-21 06:08] LABS: Basophils % 0.3 %; Hematocrit 38.3 % (37.0-47.0); Lymphocytes # 0.2 10^3/uL (0.8-4.8); Lymphocytes % 1.8 %; Mean Corpuscular HGB Conc 33.9 g/dL (30.0-36.0); Mean Corpuscular Hemoglobin 29.1 pg (28.0-34.0); Mean Corpuscular Volume 85.7 fl (81-99); Mean Platelet Volume 10.8 fL (7.4-10.4); Monocytes # 0.6 10^3/uL (0.2-0.9); Monocytes % 4.8 %; Neutrophils # 11.51 10^3/uL (1.8-7.7); Nucleated Red Blood Cells % 0 %; Platelet Count 510 10^3/cmm (130-400); Red Blood Count 4.47 10^6/uL (4.1-5.3); Red Cell Distribution Width 17.4 % (12.1-15.1); White Blood Count 13.1 10^3/uL (4.0-10.0)
[2021-08-21 06:28] LABS: Anion Gap 9.6 (5-19); Blood Urea Nitrogen 13 mg/dL (8-23); Calcium 7.9 mg/dL (8.5-10.5); Carbon Dioxide 34 mmol/L (22-29); Chloride 97 mmol/L (98-107); Glomerular Filtration Rate 362.3 mL/min (90-130); Glucose 111 mg/dL (65-115); Osmolality Calculated 285 mOsm/kg (285-295); Potassium 3.6 mmol/L (3.5-5.1); Sodium 137 mmol/L (136-145)
[2021-08-21 06:32] LABS: Slide Review Slide Review Perform
[2021-08-21 06:51] LABS: Vancomycin Trough < 4.0 ug/mL (10-15)
[2021-08-21] MEDS: vancomycin 750 MG in sodium chloride 0.9% 250 ML 250 MG IV (06:58)
[2021-08-21] MEDS: ipratropium-albuterol 3 mL Neb INHALATION ×2 (08:37→21:18)
[2021-08-21] MEDS: ascorbic acid 500 mg Tablet 1000 MG PO ×2 (08:45→18:31)
[2021-08-21] MEDS: sertraline 50 mg Tablet PO (08:45)
[2021-08-21] MEDS: levothyroxine 88 mcg Tablet PO (08:45)
[2021-08-21] MEDS: FUROsemide 20 mg Tablet PO (08:46)
[2021-08-21] MEDS: potassium chloride ER 20 mEq Tablet PO (08:46)
[2021-08-21] MEDS: cefepime 2,000 MG in sodium chloride 0.9% (plus) 50 ML 100 MG IV ×2 (08:46→19:35)
[2021-08-21] MEDS: zinc gluconate 50 mg Tablet PO (08:46)
[2021-08-21] MEDS: pantoprazole DR 40 mg Tablet PO (08:46)
[2021-08-21] MEDS: dexamethasone 4 mg/mL INJ 6 MG IVP (09:13)
[2021-08-21] MEDS: levofloxacin-dextrose 5% 750 mg-150 mL Premix 100 MG IV (12:17)
--- NOTE | 2021-08-21 12:48 | P.PN_ITS ---
Subjective Subjective: Patient was seen and examined this morning, currently on heated high flow 65%, 45 L, patient is feeling better, she can be taken off isolation more than 10 days since symptoms developed Vitals/I&O/Wt Last Vital Signs Temp 98.2 F 08/21/21 04:00 Pulse 64 08/21/21 08:49 Resp 20 H 08/21/21 08:49 BP 98/64 08/21/21 04:00 Pulse Ox 87 L 08/21/21 08:49 08/20/21 08/21/21 08/21/21 22:59 06:59 14:59 Intake Total 760 / 1690 100 / 1790 540 / 540 Output Total 400 / 800 460 / 1260 600 / 600 Balance 360 / 890 -360 / 530 -60 / -60 Physical Exam Narrative: Patient lying comfortably in her bed Breath sounds improved bilaterally Cachectic malnourished S1, S2 No new neurological changes Appropriate mood and affect No signs of edema Data : 08/21/21 05:38 08/21/21 05:38 Micro: Microbiology 08/20/21 Unknown Bacterial Antigens - Final Urine,Voided A&P Assessment and plan (1) Goals of care, counseling/discussion: Status: Acute (2) Right upper lobe pneumonia: Status: Acute (3) History of immunotherapy: Status: Acute (4) Acute on chronic respiratory failure with hypoxemia: Status: Acute (5) Pneumonia due to COVID-19 virus: Status: Acute (6) Acute respiratory failure with hypoxemia: Status: Acute (7) Malignant neoplasm of upper lobe, left bronchus or lung: Status: Acute (8) Port-A-Cath in place: Status: Acute (9) COPD with acute exacerbation: Status: Acute Plan Yesterday CT scan showed improvement of infiltrates on right side Asked RT to wean her oxygen down to high flow nasal cannula instead of heated high flow today No febrile episodes Blood pressure on softer side, white count improved Bacterial antigens negative MRSA PCR negative I will continue steroids, cefepime, Lasix, discontinue IV Levaquin, plan to de- escalate IV voriconazole at the time of discharge At baseline she uses 6 L at home, Plan to discharge her in next 24 to 30 hours if clinically stays stable Appreciate pulmonary recommendations Attestations Medical Necessity Statement*: Discharge in next 24 to 30 hours Time Spent in Patient Care: 15 minutes Coding Level of Care Code Acute Oil And Gas Principal for Chg Fwd Diagnoses Goals of care, counseling/discussion Z71.89 Right upper lobe pneumonia J18.9 History of immunotherapy Z92.89 Acute on chronic respiratory failure with hypoxemia J96.21 Pneumonia due to COVID-19 virus U07.1; J12.82 Acute respiratory failure with hypoxemia J96.01 Malignant neoplasm of upper lobe, left bronchus or lung C34.12 Port-A-Cath in place Z95.828 COPD with acute exacerbation J44.1
--- NOTE | 2021-08-21 15:44 | PC.RESP ---
RT Shift Note Frequent safety and respiratory rounds continue. Orders completed as indicated. Patient monitored pre and post treatments throughout shift. Patient [Did.] tolerate treatments appropriately. Condition [.DidNotChange]. Patient and/or merchandiser retail representative educated on respiratory treatment and medications. Patient and/or merchandiser retail representative [verbalized understanding]. Will continue to monitor patient progress.
[2021-08-21] MEDS: zolpidem 5 mg Tablet PO (20:14)
--- NOTE | 2021-08-21 20:43 | PM.PN ---
Subjective Subjective: Patient seen at bedside today Currently on heated high flow 65%, 45 L, reported subjective improvement in her dyspnea; desaturated to 88% on ambulation -yesterday she was desaturating to mid 70s on ambulation Overall seems clinically improving -Other labs and imaging reviewed Medications: Reviewed: Yes Vitals/I&O/Wt Last Vital Signs Temp 97.7 F 08/21/21 15:39 Pulse 78 08/21/21 15:39 Resp 18 08/21/21 15:39 BP 111/69 08/21/21 15:39 Pulse Ox 90 08/21/21 15:39 08/21/21 08/21/21 08/21/21 06:59 14:59 22:59 Intake Total 100 / 1790 540 / 540 420 / 960 Output Total 460 / 1260 600 / 600 200 / 800 Balance -360 / 530 -60 / -60 220 / 160 Physical Exam Narrative: General: alert, NAD in mild to moderate respiratory distress HEENT: conj clear, EOMI, PERRL, mmm, Neck: supple, no meningismus Heme: no cervical LAP Pulmonary: Reduced breath sounds on right lower lung zone Cardiovascular: rrr, nl s1s2, no mrg Abdomen: soft, nt, nd, no r/g, bs+ Extremities: pulses +, no edema, no c/c : no CVA tenderness Skin: intact, no rash MSK: no back or neck pain Neurologic: grossly intact Data : 08/21/21 05:38 08/21/21 05:38 Other Labs: Radiology Impressions Chest CTA 08/14/21 07:21 IMPRESSION: 1. Bilateral mild to moderate pleural fluid collections. 2. No pulmonary embolus or aortic dissection. 3. Stable right Mediport catheter. 4. Mild anasarca consistent with right heart failure versus hypoproteinemia versus renal failure. 5. Continued volume loss in the left upper lobe consistent with previous resection. 6. Interval appearance of severe right-sided pneumonia with air bronchograms. 7. Qycq-[id number] mediastinal adenopathy with severe right hilar adenopathy most consistent with reactive adenopathy. Venous Duplex 08/16/21 10:20 IMPRESSION: No sonographic evidence of deep vein thrombosis. Chest X-Ray 08/19/21 11:13 IMPRESSION: 1. Moderate improvement in the RIGHT upper lobe pneumonia and the pneumonitis in the RIGHT lower lobe. Recommend continued close follow-up to ensure resolution. 2. New nodularity posterior to LEFT heart. Due to sudden onset likely pneumonia or atelectasis. 3. Small bilateral pleural effusions. 4. Postsurgical resection changes at the LEFT apex. Chest CT 08/20/21 13:44 IMPRESSION: 1. Moderate improvement in the dense area of consolidation centered over the RIGHT hilum causing partial airway obstruction. Recommend continued close follow-up to resolution. 2. Increase in size of the moderate RIGHT pleural effusion. 3. Stable small LEFT pleural effusion. 4. Marked emphysema. 5. Study is otherwise limited without IV contrast. Laboratory Results WBC 13.1 10^3/uL (4.0-10.0) H 08/21/21 05:38 Corrected WBC Cancelled 08/16/21 02:55 RBC 4.47 10^6/uL (4.1-5.3) 08/21/21 05:38 Hgb 13.0 g/dL (11.5-15.3) 08/21/21 05:38 Hct 38.3 % (37.0-47.0) 08/21/21 05:38 MCV 85.7 fl (81-99) 08/21/21 05:38 MCH 29.1 pg (28.0-34.0) 08/21/21 05:38 MCHC 33.9 g/dL (30.0-36.0) 08/21/21 05:38 RDW 17.4 % (12.1-15.1) H 08/21/21 05:38 Plt Count 510 10^3/cmm (130-400) H 08/21/21 05:38 MPV 10.8 fL (7.4-10.4) H 08/21/21 05:38 Gran % Cancelled 08/16/21 02:55 Neut % (Auto) 88.0 % 08/21/21 05:38 Lymph % (Auto) 1.8 % 08/21/21 05:38 [place] % (Auto) 4.8 % 08/21/21 05:38 Eos % (Auto) 0.0 % 08/21/21 05:38 Baso % (Auto) 0.3 % 08/21/21 05:38 Neut # (Auto) 11.51 10^3/uL (1.8-7.7) H 08/21/21 05:38 Lymph # (Auto) 0.2 10^3/uL (0.8-4.8) L 08/21/21 05:38 [place] # (Auto) 0.6 10^3/uL (0.2-0.9) 08/21/21 05:38 Eos # (Auto) 0.0 10^3/uL (0.0-0.8) 08/21/21 05:38 Baso # (Auto) 0.0 10^3/uL (0.0-0.1) 08/21/21 05:38 Absolute Gran (auto) Cancelled 08/16/21 02:55 Nucleated RBC % (auto) 0 % 08/21/21 05:38 Nucleated RBCs # 0.0 /100WBC 08/21/21 05:38 ESR 4 mm/hr (0-15) 08/16/21 02:55 PT 13.90 SECONDS (12.1-14.9) 08/12/21 22:15 INR 1.04 (0.8-1.2) 08/12/21 22:15 D-Dimer 0.68 ug/mIFEU (0-0.59) H 08/19/21 18:10 Specimen Type Arterial 08/21/21 04:07 Sample Site Radial, left 08/21/21 04:07 ABG pH 7.47 (7.35-7.45) H 08/21/21 04:07 ABG pCO2 52.7 mmHg (35-45) H 08/21/21 04:07 ABG pO2 65.9 mmHg (80.0-100.0) L 08/21/21 04:07 ABG HCO3 38.6 mmol/L (22-26) H 08/21/21 04:07 ABG Base Excess 12.8 mmol/L (-2.0-2.0) H 08/21/21 04:07 Harman Test Pos 08/21/21 04:07 Hematocrit 41.6 % (37-47) 08/21/21 04:07 Hgb O2 Saturation 84.1 % (95-100) L 08/12/21 23:23 Carboxyhemoglobin 0.7 %THgb (0.4-20.1) 08/12/21 23:23 Methemoglobin 0.4 % (0.4-1.5) 08/12/21 23:23 Total Hemoglobin 14.7 g/dL (12-16) 08/12/21 23:23 O2 Delivery Device Hag 08/21/21 04:07 O2 Liters/Min 45.0 % 08/21/21 04:07 FiO2 66.0 % 08/21/21 04:07 Drapery Inspector ID Hensa 08/21/21 04:07 Sodium 137 mmol/L (136-145) 08/21/21 05:38 Potassium 3.6 mmol/L (3.5-5.1) 08/21/21 05:38 Chloride 97 mmol/L (98-107) L 08/21/21 05:38 Carbon Dioxide 34 mmol/L (22-29) H 08/21/21 05:38 Anion Gap 9.6 (5-19) 08/21/21 05:38 BUN 13 mg/dL (8-23) 08/21/21 05:38 Creatinine 0.2 mg/dL (0.5-0.9) L 08/21/21 05:38 GFR Calculation 362.3 mL/min (90-130) H 08/21/21 05:38 Glucose 111 mg/dL (65-115) 08/21/21 05:38 Calculated Osmolality 285 mOsm/kg (285-295) 08/21/21 05:38 Lactic Acid 1.5 mmol/L (0.5-2.2) 08/12/21 22:15 Calcium 7.9 mg/dL (8.5-10.5) L 08/21/21 05:38 Ferritin 344 ng/mL (15-150) H 08/16/21 02:55 Total Bilirubin 0.5 mg/dL (0.15-1.2) 08/12/21 22:15 AST 10 U/L (0-32) 08/12/21 22:15 ALT < 5 U/L (0-33) 08/12/21 22:15 Alkaline Phosphatase 109 IU/L (35-105) H 08/12/21 22:15 Lactate Dehydrogenase 191 U/L (135-214) 08/16/21 02:55 C-Reactive Protein 35.1 mg/L (0.0-4.9) H 08/18/21 05:26 Total Protein 5.5 g/dL (6.6-8.7) L 08/12/21 22:15 Albumin 2.7 g/dL (3.5-5.2) L 08/12/21 22:15 Globulin 2.8 g/dL (1.3-4.6) 08/12/21 22:15 Procalcitonin 0.18 ng/mL (0-0.5) 08/18/21 05:26 Vancomycin Trough < 4.0 ug/mL (10-15) L 08/21/21 05:38 Coronavirus 229E (PCR) Not detected (NOT DETECT) 08/12/21 22:15 SARS-CoV-2 (PCR) Detected (NOT DETECT) A 08/12/21 22:15 A&P Assessment and plan (1) Acute on chronic respiratory failure with hypoxemia: Status: Acute (2) Pneumonia due to COVID-19 virus: Status: Acute (3) Malignant neoplasm of upper lobe, left bronchus or lung: Status: Acute (4) Chronic respiratory failure with hypoxia and hypercapnia: Status: Acute (5) COPD (chronic obstructive pulmonary disease): Status: Acute Qualifiers: COPD type: chronic bronchitis Chronic bronchitis type: mucopurulent Qualified Code(s): J41.1 - Mucopurulent chronic bronchitis (6) History of lung cancer: Status: Acute (7) History of immunotherapy: Status: Acute (8) Right upper lobe pneumonia: Status: Acute (9) Goals of care, counseling/discussion: Status: Acute Plan #Acute on chronic hypoxic respiratory failure in patient with RUL pneumonia and COVID-19 positive #Underlying COPD-on 6 L home oxygen #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-s/p left upper lobe segmentectomy/chemoradiation in October 2020/immunotherapy with monthly durvalumab until May 2021 #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 at home -Admission imaging showed right upper lobe pneumonia with air bronchograms and negative for PE -Since then she was on cefepime, Levaquin ; vancomycin discontinued as MRSA nares negative -Completed 5-day course of remdesivir since admission for COVID-19 and currently on dexamethasone 6 mg IV push -On 08/19/2020 patient oxygen requirement went up from 8 L to high flow nasal cannula of 45 L and 85% and with worsening leukocytosis- Bacterial antigens were negative and due to sudden deterioration and patient being on chemo until recently-recommended voriconazole for fungal coverage, pending beta D glucan; galactomannan can DC if galactomannan is negative -Repeat CT chest 08/20/2020 showed moderate improvement in dense area of consolidation over right hilum, increase in size of moderate right pleural effusion but Bedside ultrasound examination showed mild to moderate right pleural effusion with fibrinous strands and pleural implants-does not have a good window to tap fluid-recommend IR guided thoracentesis if they find a safe pocket -Overall patient reported improvement in her dyspnea and appetite oxygen requirement came down from 85% to 65% (her baseline 6 L at home) and is not desaturating as much on ambulation -Patient is on Advair Diskus 1 puff inhalation twice daily and Incruse 1 inhalation daily for COPD -Currently she is on Lasix 20 mg daily -Full code -Patient and family updated about medical condition -DVT prophylaxis Lovenox 40 mg daily -Continue close monitoring Recommendations conveyed to RN, RT, hospitalist taking care of the patient Attestations Medical Necessity Statement*: Continue medical management Time Spent in Patient Care: Greater than 35 minutes (>than 50% of time spent in counselling and/or direct pt care on unit). 38 minutes Coding Level of Care Code Established Pt Acute Provider Education Specialist for Chg Fwd Patient Type Established History Comprehensive Exam Comprehensive Diagnoses Acute on chronic respiratory failure with hypoxemia J96.21 Pneumonia due to COVID-19 virus U07.1; J12.82 Malignant neoplasm of upper lobe, left bronchus or lung C34.12 Chronic respiratory failure with hypoxia and hypercapnia J96.11; J96.12 COPD (chronic obstructive pulmonary disease) J41.1 COPD type: chronic bronchitis Chronic bronchitis type: mucopurulent History of lung cancer Z85.118 History of immunotherapy Z92.89 Right upper lobe pneumonia J18.9 Goals of care, counseling/discussion Z71.89 Time Spent (min) 38
[2021-08-22] VITALS (15 sets, daily range): BP systolic 98–130; BP diastolic 51–76; PULSE 64–83; RESP 16–22; TEMP 36.5–37; O2SAT 91–98
[2021-08-22 06:38] LABS: Basophils % 0.2 %; Hematocrit 38.3 % (37.0-47.0); Hemoglobin 12.8 g/dL (11.5-15.3); Lymphocytes # 0.2 10^3/uL (0.8-4.8); Lymphocytes % 1.8 %; Mean Corpuscular HGB Conc 33.4 g/dL (30.0-36.0); Mean Corpuscular Volume 86.8 fl (81-99); Mean Platelet Volume 10.9 fL (7.4-10.4); Monocytes # 0.7 10^3/uL (0.2-0.9); Monocytes % 5.5 %; Neutrophils # 11.83 10^3/uL (1.8-7.7); Neutrophils % 88.7 %; Nucleated Red Blood Cells % 0 %; Platelet Count 499 10^3/cmm (130-400); Red Blood Count 4.41 10^6/uL (4.1-5.3); Red Cell Distribution Width 17.6 % (12.1-15.1); White Blood Count 13.4 10^3/uL (4.0-10.0)
[2021-08-22 06:55] LABS: INR 1.05 (0.8-1.2); Partial Thromboplastin Time 25.5 SECONDS (23.9-36.7)
[2021-08-22 06:56] LABS: Fibrinogen 321 mg/dL (174-498)
[2021-08-22 07:05] LABS: Anion Gap 9.6 (5-19); Blood Urea Nitrogen 14 mg/dL (8-23); Calcium 7.9 mg/dL (8.5-10.5); Carbon Dioxide 35 mmol/L (22-29); Chloride 100 mmol/L (98-107); Glomerular Filtration Rate 226.9 mL/min (90-130); Glucose 138 mg/dL (65-115); Lactate Dehydrogenase 225 U/L (135-214); Osmolality Calculated 295 mOsm/kg (285-295); Potassium 3.6 mmol/L (3.5-5.1); Sodium 141 mmol/L (136-145)
[2021-08-22 07:33] LABS: Platelet Count 499 10^3/cmm (130-400)
[2021-08-22] MEDS: ascorbic acid 500 mg Tablet 1000 MG PO ×2 (08:39→17:17)
[2021-08-22] MEDS: levothyroxine 88 mcg Tablet PO (08:39)
[2021-08-22] MEDS: cefepime 2,000 MG in sodium chloride 0.9% (plus) 50 ML 100 MG IV ×2 (08:39→20:02)
[2021-08-22] MEDS: zinc gluconate 50 mg Tablet PO (08:39)
[2021-08-22] MEDS: potassium chloride ER 20 mEq Tablet PO (08:40)
[2021-08-22] MEDS: FUROsemide 20 mg Tablet PO (08:40)
[2021-08-22] MEDS: pantoprazole DR 40 mg Tablet PO (08:40)
[2021-08-22] MEDS: sertraline 50 mg Tablet PO (08:40)
[2021-08-22] MEDS: dexamethasone 4 mg/mL INJ 6 MG IVP (08:58)
--- NOTE | 2021-08-22 09:29 | PM.PN ---
Subjective Subjective: Patient is on 40% 40 L, no overnight events, patient endorsing feeling better, voiding without any issues, having bowel movement every day, thoracentesis today, plan to wean her oxygen down to nasal cannula after thoracentesis this morning Vitals/I&O/Wt Last Vital Signs Temp 98.6 F 08/22/21 07:23 Pulse 69 08/22/21 08:00 Resp 22 H 08/22/21 08:00 BP 130/72 08/22/21 07:23 Pulse Ox 91 08/22/21 08:00 08/21/21 08/22/21 08/22/21 22:59 06:59 14:59 Intake Total 420 / 960 550 / 1510 50 / 50 Output Total 200 / 800 Balance 220 / 160 550 / 710 50 / 50 Physical Exam Narrative: Patient laying comfortably in her bed Bilateral breath sounds with mild rhonchi crackles of right greater than left Cachectic malnourished Nonfocal neuro exam Abdomen is soft S1, S2 No conversational dyspnea Data : 08/22/21 06:10 08/22/21 06:10 A&P Assessment and plan (1) Goals of care, counseling/discussion: Status: Acute (2) Right upper lobe pneumonia: Status: Acute (3) History of immunotherapy: Status: Acute (4) Acute on chronic respiratory failure with hypoxemia: Status: Acute (5) Pneumonia due to COVID-19 virus: Status: Acute (6) Acute respiratory failure with hypoxemia: Status: Acute (7) Malignant neoplasm of upper lobe, left bronchus or lung: Status: Acute (8) Port-A-Cath in place: Status: Acute (9) Smoking: Status: Acute (10) History of lung cancer: Status: Acute Plan Hypoxia related to COVID-19 with underlying cancer Superimposed bacterial infection Antiviral treatment started on Wednesday Leukocytosis has improved Plan to keep antiviral antibiotics until discharge Thoracentesis today and plan to wean her oxygen down to nasal cannula plan to discharge her in next 24 hours if clinically stable Off isolation Continue voriconazole Currently on Levaquin 750 mg daily along cefepime, vancomycin discontinued Lovenox on hold for thoracentesis today Attestations Medical Necessity Statement*: Plan to discharge her in next 24 hours if clinically stable Time Spent in Patient Care: 15 minutes Coding Level of Care Code Acute Clockmaker Apprentice for Chg Fwd Diagnoses Goals of care, counseling/discussion Z71.89 Right upper lobe pneumonia J18.9 History of immunotherapy Z92.89 Acute on chronic respiratory failure with hypoxemia J96.21 Pneumonia due to COVID-19 virus U07.1; J12.82 Acute respiratory failure with hypoxemia J96.01 Malignant neoplasm of upper lobe, left bronchus or lung C34.12 Port-A-Cath in place Z95.828 Smoking F17.200 History of lung cancer Z85.118
--- NOTE | 2021-08-22 09:58 | XR_ITS ---
WS: [id number] PORTABLE CHEST HISTORY: post thoracentesis COMPARISON: 08/19/2021 Right-sided Mediport with tip in the distal SVC. Postsurgical resection site at the LEFT apex. Dense area of consolidation in the RIGHT suprahilar region with tethering and stranding extending lat erally in the RIGHT upper thorax. Overall mild improvement. Also improvement in the interstitial thic kening in the RIGHT lower lobe. Very small bilateral pleural effusions. No pneumothorax. RIGHT pleura l effusion has improved since the thoracentesis. Cardiac size: Normal. Mediastinum/Aorta: Mild atherosclerosis aorta. No osseous abnormality seen. XR/XR chest 1V portable [id number] IMPRESSION: 1. No pneumothorax status post RIGHT thoracentesis. 2. Very small bilateral RIGHT pleural effusions. 3. Consolidation with fibrosis and increased soft tissue at the RIGHT hilum mendez s slightly improved. Patient has known lung cancer.
--- NOTE | 2021-08-22 10:00 | US_ITS ---
WS: [id number] ULTRASOUND-GUIDED THORACENTESIS, RIGHT HISTORY: RIGHT pleural effusion. Procedure, risks, and complications were explained to the patient. With the patient in an upright pos ition, the skin over the RIGHT posterior thorax was cleansed with ChloraPrep and anesthetized with 1% buffered lidocaine. A 5 English Yueh needle is inserted into the pleural fluid without complication. Approximately 600 cc of clear to light yellow pleural fluid is removed without difficulty. Specimen collected for analysis as requested. / thoracentesis [id number] IMPRESSION: 1. RIGHT thoracentesis yielding 600 cc of fluid. 2. Chest radiograph to follow to evaluate for pneumothorax. 3. Pleural fluid specimen collected for analysis as requested.
[2021-08-22 10:44] LABS: Mononuclear %, Pleural Fluid 85 %; Mononuclear, Pleural Fluid # 0.097 10^3/uL; Polynuclear Cells, Pleural # 0.017 10^3/uL; Polynuclear Cells, Pleural % 15 %
[2021-08-22 10:52] LABS: Appearance, Pleural Fluid CLEAR (CLEAR); Color, Pleural Fluid Pale Yellow (Pale Yellow); PATH Referral YES; Right Pleural Fluid Right Lung
[2021-08-22 11:14] LABS: LDH Pleural Fluid 73 U/L; Total Protein Pleural Fluid 1.5 g/dL
[2021-08-22] MEDS: levoFLOXacin 750 mg Tablet PO (12:56)
--- NOTE | 2021-08-22 17:21 | XRR_ITS ---
PROCEDURE INFORMATION: Exam: XR Chest Exam date and time: 08/22/2021 5:21 PM Age: 61 years old Clinical indication: Status post thoracentesis. Shortness of breath. TECHNIQUE: Imaging protocol: XR of the chest. Views: 1 view. COMPARISON: CR XR chest 1V portable [id number] 08/22/2021 10:07 AM FINDINGS: Tubes, catheters and devices: Right port with tip in the SVC/right atrial junction. Lungs: There is prominent perihilar opacity on the right with streaky opacity extending to the peripheral chest. Milder patchy opacities are noted in the lower right chest. These findings are approximately unchanged from prior. There is slightly worsened patchy left basilar opacity and small left pleural effusion. Trace right pleural effusion. There is been prior surgery on the left. Pleural spaces: No pleural effusion. No pneumothorax. Heart/Mediastinum: The cardiac silhouette is approximately unchanged. No gross evidence of pneumomediastinum. Bones/joints: No gross fracture. XR/XR chest 1V portable [id number] IMPRESSION: 1. Prominent perihilar opacity on the right with streaky opacity extending to the peripheral chest. Milder patchy opacities are noted in the lower right chest. These findings are approximately unchanged from prior. 2. Slightly worsened patchy left basilar opacity and small left pleural effusion. Trace right pleural effusion.
[2021-08-22] MEDS: zolpidem 5 mg Tablet PO (20:03)
[2021-08-22] MEDS: ipratropium-albuterol 3 mL Neb INHALATION (20:52)
[2021-08-23] VITALS (10 sets, daily range): BP systolic 112–132; BP diastolic 53–73; PULSE 65–84; RESP 16–20; TEMP 36.6–37.1; O2SAT 89–95
[2021-08-23 06:42] LABS: Basophils % 0.2 %; Eosinophils % 0.1 %; Hematocrit 36.4 % (37.0-47.0); Hemoglobin 12.2 g/dL (11.5-15.3); Lymphocytes # 0.3 10^3/uL (0.8-4.8); Lymphocytes % 2.1 %; Mean Corpuscular HGB Conc 33.5 g/dL (30.0-36.0); Mean Corpuscular Hemoglobin 29.1 pg (28.0-34.0); Mean Corpuscular Volume 86.9 fl (81-99); Mean Platelet Volume 10.9 fL (7.4-10.4); Monocytes # 0.9 10^3/uL (0.2-0.9); Monocytes % 7.5 %; Neutrophils # 10.85 10^3/uL (1.8-7.7); Neutrophils % 88.1 %; Nucleated Red Blood Cells % 0 %; Platelet Count 453 10^3/cmm (130-400); Red Blood Count 4.19 10^6/uL (4.1-5.3); Red Cell Distribution Width 17.8 % (12.1-15.1); White Blood Count 12.3 10^3/uL (4.0-10.0)
[2021-08-23 07:03] LABS: Anion Gap 10.5 (5-19); Blood Urea Nitrogen 15 mg/dL (8-23); Calcium 7.9 mg/dL (8.5-10.5); Carbon Dioxide 34 mmol/L (22-29); Chloride 101 mmol/L (98-107); Glomerular Filtration Rate 226.9 mL/min (90-130); Glucose 111 mg/dL (65-115); Osmolality Calculated 296 mOsm/kg (285-295); Potassium 3.5 mmol/L (3.5-5.1); Sodium 142 mmol/L (136-145)
[2021-08-23] MEDS: potassium chloride ER 20 mEq Tablet PO (08:54)
[2021-08-23] MEDS: FUROsemide 20 mg Tablet PO (08:54)
[2021-08-23] MEDS: sertraline 50 mg Tablet PO (08:54)
[2021-08-23] MEDS: pantoprazole DR 40 mg Tablet PO (08:54)
[2021-08-23] MEDS: zinc gluconate 50 mg Tablet PO (08:55)
[2021-08-23] MEDS: levothyroxine 88 mcg Tablet PO (08:55)
[2021-08-23] MEDS: cefepime 2,000 MG in sodium chloride 0.9% (plus) 50 ML 100 MG IV (08:56)
[2021-08-23] MEDS: ascorbic acid 500 mg Tablet 1000 MG PO (09:03)
[2021-08-23] MEDS: dexamethasone 4 mg/mL INJ 6 MG IVP (09:03)
--- NOTE | 2021-08-23 11:56 | P.DS_ITS ---
Discharge Providers Date of Admission: 08/13/21 02:53 Date of Discharge: August 23, 2021 Attending Provider at Admission: Alli Garcia MD Attending Provider at Discharge: iMchele Sierra MD Primary Care Provider: Graciela Diamond MD Diagnoses at Discharge Discharge Diagnosis (1) Goals of care, counseling/discussion: Status: Acute (2) Right upper lobe pneumonia: Status: Acute (3) History of immunotherapy: Status: Acute (4) Acute on chronic respiratory failure with hypoxemia: Status: Acute (5) Pneumonia due to COVID-19 virus: Status: Acute (6) Acute respiratory failure with hypoxemia: Status: Acute (7) Malignant neoplasm of upper lobe, left bronchus or lung: Status: Acute (8) Port-A-Cath in place: Status: Acute (9) Smoking: Status: Acute (10) History of lung cancer: Status: Acute Reason for Visit Reason for Visit: SOB Hospital Course Hospital Course Consult note by D Datar: Kim Nettles is a 61 year old female past medical history of HTN, COPD on 6 Ls? home oxygen,? adenocarcinoma of the lung status post chemotherapy, currently on immunotherapy, admitted on 08/13/2021 with chief complaint of worsening shortness of breath, nonproductive cough-she was saturating mid 80s on 6 L home oxygen.? Chest x-ray on admission showed extensive right lung infiltrates with le ukocytosis, Covid PCR positive.? ABG on admission on 6 L 7.4 .? Patient was started on vancomycin and Zosyn, later changed to cefepime, completed 5 days of remdesivir, currently on dexamethasone 6 mg IV daily[address] CT angiogram 08/14/2021 ruled out PE, showed bilateral mild to moderate pleural effusions, severe right- sided pneumonia with air bronchograms. Gradually her O2 requirement increased up to 10 L and initially improved down to 8 L and there were plans to discharge home yesterday, but over last 24 hours her oxygen requirements has gone up and currently she is on high flow nasal cannula 45 L and 85% saturating 90%.? Pulmonary critical care consulted for possible bronchoscopy and worsening oxygen requirements. Upon review of oncology clinic note In 2016 she was diagnosed with invasive adenocarcinoma involving left upper lobe, stage Ib,.-S/p thoracotomy with left upper lobe apical posterior segmentectomy and as adjuvant chemotherapy was not indicated-she was under expectant management ; later again in August 2020-her cancer was staged as progression to stage Sariah with biopsy-proven involvement in mediastinal lymph nodes and with PET/CT evidence of left pleural implant-she received 6 weeks chemotherapy and radiation in October 2020 and since then she was on maintenance therapy with monthly immunotherapy durvalumab.? She was admitted to hospital on 05/24/2021 for acute hypoxic respiratory failure, CTA ruled out PE but showed some interstitial thickening in the lower lobes and patchy infiltrates in right lower lobe which improved with empiric treatment with antibiotic, steroid and inhalations.? It was uncertain if it was COPD exacerbation versus possible treatment related pneumonitis.? And since then durvalumab was on hold and she was continued on prednisone 10 mg daily. Patient seen at bedside today, her boyfriend and her son were at bedside as well -Appeared in moderate respiratory distress on high flow nasal cannula saturating 94% on 45 L 85% -However chest x-ray today morning showed improving right upper lobe and lower lobe infiltrates Her antibiotics were escalated, antiviral was added as well because of her immunocompromised state. Her FiO2 did improve gradually and we were finally able to bring her down to nasal cannula 5 L after right-sided thoracentesis. Thoracentesis consistent with transudative changes. Her cultures remain negative, she remained afebrile without severe worsening of leukocytosis. Repeat CT scan did show improvement of right-sided infiltrate. Patient is doing significantly better on 5 L she is saturating well 90% she is endorsing improvement in her energy. I we will discharge her on 5-day dual antibiotic regimen, Medrol pack,. Follow- up with paint spray tender within 2 weeks. After thoracentesis chest x-ray impression IMPRESSION: 1. Prominent perihilar opacity on the right with streaky opacity extending to the peripheral chest. Milder patchy opacities are noted in the lower right chest. These findings are approximately unchanged from prior. 2. Slightly worsened patchy left basilar opacity and small left pleural effusion. Trace right pleural effusion Pending result Beta d glucan assay Glactomannen assay Pleural culture and cytology Physical Exam Narrative: Patient was laying supine Bilateral breath sounds with rhonchi in the right side Soft abdomen Nonfocal neuro exam Saturating well EOMI, PERRLA No signs of edema Muscle mass loss Cachectic Malnourished Discharge Data Studies Completed and Pending Completed Studies During Hospitalization Category Date Time Status CT chest wo con [id number] Routine Cat Scan 08/20/21 13:44 Completed CTA PE [CT angio chest PE protcl [id number]] Routine Cat Scan 08/14/21 07:21 Completed CXRP [XR chest 1V portable [id number]] Routine Exams 08/22/21 09:58 Completed XR chest 1V portable [id number] Routine Exams 08/19/21 11:13 Completed XR chest 1V portable [id number] Routine Exams 08/22/21 17:21 Completed XR chest 1V portable [id number] Urgent Exams 08/12/21 22:15 [place] [id number] Routine Ultrasound 08/16/21 10:20 Completed US thoracentesis [id number] Routine Ultrasound 08/22/21 10:00 Completed Pending at discharge Category Date Time Status Fungitell Glucan Assay Routine Lab 08/19/21 18:10 Received GALACTOMANAN [Aspergillus AG,EIA,Serum] Routine Lab 08/19/21 18:10 Received Pneumocystis jiroveci Qual PCR Routine Lab 08/19/21 16:35 Ordered Sputum Culture and Gram Stain Routine Lab 08/19/21 16:51 Uncollected Radiology Impressions Chest CTA 08/14/21 07:21 IMPRESSION: 1. Bilateral mild to moderate pleural fluid collections. 2. No pulmonary embolus or aortic dissection. 3. Stable right Mediport catheter. 4. Mild anasarca consistent with right heart failure versus hypoproteinemia versus renal failure. 5. Continued volume loss in the left upper lobe consistent with previous resection. 6. Interval appearance of severe right-sided pneumonia with air bronchograms. 7. [id number] mediastinal adenopathy with severe right hilar adenopathy most consistent with reactive adenopathy. Venous Duplex 08/16/21 10:20 IMPRESSION: No sonographic evidence of deep vein thrombosis. Chest CT 08/20/21 13:44 IMPRESSION: 1. Moderate improvement in the dense area of consolidation centered over the RIGHT hilum causing partial airway obstruction. Recommend continued close follow-up to resolution. 2. Increase in size of the moderate RIGHT pleural effusion. 3. Stable small LEFT pleural effusion. 4. Marked emphysema. 5. Study is otherwise limited without IV contrast. Thoracentesis Ultrasound 08/22/21 10:00 IMPRESSION: 1. RIGHT thoracentesis yielding 600 cc of fluid. 2. Chest radiograph to follow to evaluate for pneumothorax. 3. Pleural fluid specimen collected for analysis as requested. Chest X-Ray 08/22/21 17:21 IMPRESSION: 1. Prominent perihilar opacity on the right with streaky opacity extending to the peripheral chest. Milder patchy opacities are noted in the lower right chest. These findings are approximately unchanged from prior. 2. Slightly worsened patchy left basilar opacity and small left pleural effusion. Trace right pleural effusion. Laboratory Results WBC 12.3 10^3/uL (4.0-10.0) H 08/23/21 05:24 Corrected WBC Cancelled 08/16/21 02:55 RBC 4.19 10^6/uL (4.1-5.3) 08/23/21 05:24 Hgb 12.2 g/dL (11.5-15.3) 08/23/21 05:24 Hct 36.4 % (37.0-47.0) L 08/23/21 05:24 MCV 86.9 fl (81-99) 08/23/21 05:24 MCH 29.1 pg (28.0-34.0) 08/23/21 05:24 MCHC 33.5 g/dL (30.0-36.0) 08/23/21 05:24 RDW 17.8 % (12.1-15.1) H 08/23/21 05:24 Plt Count 453 10^3/cmm (130-400) H 08/23/21 05:24 MPV 10.9 fL (7.4-10.4) H 08/23/21 05:24 Gran % Cancelled 08/16/21 02:55 Neut % (Auto) 88.1 % 08/23/21 05:24 Lymph % (Auto) 2.1 % 08/23/21 05:24 [place] % (Auto) 7.5 % 08/23/21 05:24 Eos % (Auto) 0.1 % 08/23/21 05:24 Baso % (Auto) 0.2 % 08/23/21 05:24 Neut # (Auto) 10.85 10^3/uL (1.8-7.7) H 08/23/21 05:24 Lymph # (Auto) 0.3 10^3/uL (0.8-4.8) L 08/23/21 05:24 [place] # (Auto) 0.9 10^3/uL (0.2-0.9) 08/23/21 05:24 Eos # (Auto) 0.0 10^3/uL (0.0-0.8) 08/23/21 05:24 Baso # (Auto) 0.0 10^3/uL (0.0-0.1) 08/23/21 05:24 Absolute Gran (auto) Cancelled 08/16/21 02:55 Nucleated RBC % (auto) 0 % 08/23/21 05:24 Nucleated RBCs # 0.0 /100WBC 08/23/21 05:24 ESR 4 mm/hr (0-15) 08/16/21 02:55 PT 14.00 SECONDS (12.1-14.9) 08/22/21 06:10 INR 1.05 (0.8-1.2) 08/22/21 06:10 APTT 25.5 SECONDS (23.9-36.7) 08/22/21 06:10 Fibrinogen 321 mg/dL (174-498) 08/22/21 06:10 D-Dimer 0.68 ug/mIFEU (0-0.59) H 08/19/21 18:10 Specimen Type Arterial 08/21/21 04:07 Sample Site Radial, left 08/21/21 04:07 ABG pH 7.47 (7.35-7.45) H 08/21/21 04:07 ABG pCO2 52.7 mmHg (35-45) H 08/21/21 04:07 ABG pO2 65.9 mmHg (80.0-100.0) L 08/21/21 04:07 ABG HCO3 38.6 mmol/L (22-26) H 08/21/21 04:07 ABG Base Excess 12.8 mmol/L (-2.0-2.0) H 08/21/21 04:07 Harman Test Pos 08/21/21 04:07 Hematocrit 41.6 % (37-47) 08/21/21 04:07 Hgb O2 Saturation 84.1 % (95-100) L 08/12/21 23:23 Carboxyhemoglobin 0.7 %THgb (0.4-20.1) 08/12/21 23:23 Methemoglobin 0.4 % (0.4-1.5) 08/12/21 23:23 Total Hemoglobin 14.7 g/dL (12-16) 08/12/21 23:23 O2 Delivery Device Hag 08/21/21 04:07 O2 Liters/Min 45.0 % 08/21/21 04:07 FiO2 66.0 % 08/21/21 04:07 Penetration Tester ID Alycia 08/21/21 04:07 Sodium 142 mmol/L (136-145) 08/23/21 05:24 Potassium 3.5 mmol/L (3.5-5.1) 08/23/21 05:24 Chloride 101 mmol/L (98-107) 08/23/21 05:24 Carbon Dioxide 34 mmol/L (22-29) H 08/23/21 05:24 Anion Gap 10.5 (5-19) 08/23/21 05:24 BUN 15 mg/dL (8-23) 08/23/21 05:24 Creatinine 0.3 mg/dL (0.5-0.9) L 08/23/21 05:24 GFR Calculation 226.9 mL/min (90-130) H 08/23/21 05:24 Glucose 111 mg/dL (65-115) 08/23/21 05:24 Calculated Osmolality 296 mOsm/kg (285-295) H 08/23/21 05:24 Lactic Acid 1.5 mmol/L (0.5-2.2) 08/12/21 22:15 Calcium 7.9 mg/dL (8.5-10.5) L 08/23/21 05:24 Ferritin 344 ng/mL (15-150) H 08/16/21 02:55 Total Bilirubin 0.5 mg/dL (0.15-1.2) 08/12/21 22:15 AST 10 U/L (0-32) 08/12/21 22:15 ALT < 5 U/L (0-33) 08/12/21 22:15 Alkaline Phosphatase 109 IU/L (35-105) H 08/12/21 22:15 Lactate Dehydrogenase 225 U/L (135-214) H 08/22/21 06:10 C-Reactive Protein 35.1 mg/L (0.0-4.9) H 08/18/21 05:26 Total Protein 5.5 g/dL (6.6-8.7) L 08/12/21 22:15 Albumin 2.7 g/dL (3.5-5.2) L 08/12/21 22:15 Globulin 2.8 g/dL (1.3-4.6) 08/12/21 22:15 Procalcitonin 0.18 ng/mL (0-0.5) 08/18/21 05:26 Pleural Color Pale yellow (Pale Yellow) 08/22/21 10:00 Pleural Appearance Clear (CLEAR) 08/22/21 10:00 Pleural pH 9.00 (6.5-7.5) H 08/22/21 10:00 Pleural WBC 114.000 /uL (0-1000) 08/22/21 10:00 Pleural RBC 1.000 10^3/uL 08/22/21 10:00 Pleural Mononuc # Auto 0.097 10^3/uL 08/22/21 10:00 Pleural Polynuclear % 15 % 08/22/21 10:00 Pleural Polynuclear # 0.017 10^3/uL 08/22/21 10:00 Pleural Mononuclear % 85 % 08/22/21 10:00 Pleural Other Cells Rt Right lung 08/22/21 10:00 Pleural Total Protein 1.5 g/dL 08/22/21 10:00 Pleural LDH 73 U/L 08/22/21 10:00 Pleural Glucose 126.0 mg/dL 08/22/21 10:00 Vancomycin Trough < 4.0 ug/mL (10-15) L 08/21/21 05:38 Coronavirus 229E (PCR) Not detected (NOT DETECT) 08/12/21 22:15 SARS-CoV-2 (PCR) Detected (NOT DETECT) A 08/12/21 22:15 Pathology Message Yes 08/22/21 10:00 Vitals Last Vital Signs Temp 97.9 F 08/23/21 08:47 Pulse 68 08/23/21 10:00 Resp 16 08/23/21 10:00 BP 132/71 08/23/21 08:47 Pulse Ox 93 08/23/21 10:00 Discharge Plan Discharge Patient Disposition: Home Condition: Fair Prescriptions: New Advair Diskus 250-50 mcg/dose Blister With Device 1 puff inhalation BID.RESPIRATORY 30 Days Qty: 1 0RF Vitamin C 500 mg Tablet 1,000 mg PO BID 30 Days Qty: 120 0RF zinc gluconate 50 mg Tablet 50 mg PO DAILY 30 Days Qty: 30 0RF Umeclidinium [Incruse Ellipta] 1 inh inhalation DAILY 30 Days Qty: 1 0RF cefpodoxime 200 mg tablet 200 mg PO BID Qty: 10 0RF Rx Instructions: must administer with a meal/food levofloxacin 750 mg tablet 750 mg PO DAILY 5 Days Qty: 5 0RF Medrol (Timothy) 4 mg tablets,dose pack See Rx Instructions .ROUTE .COMPLEX Qty: 21 0RF Rx Instructions: orally per package directions albuterol sulfate 90 mcg/actuation HFA aerosol inhaler 2 inh inhalation Q8H PRN (Reason: shortness of breath or wheezing) Qty: 8.5 0RF Lasix 20 mg tablet 10 mg PO EVERY OTHER DAY PRN (Reason: weight gain) Qty: 30 0RF potassium chloride 10 mEq capsule, extended release 10 meq PO EVERY OTHER DAY Qty: 30 0RF Continued albuterol sulfate 90 mcg/actuation HFA aerosol inhaler 1 inh inhalation Q6H PRN (Reason: shortness of breath or wheezing) Qty: 8.5 2RF ondansetron HCl [Zofran] 4 mg tablet 4 mg PO Q6H 0RF esomeprazole magnesium 40 mg capsule,delayed release(DR/EC) 40 mg PO DAILY 0RF levothyroxine 88 mcg tablet 88 mcg PO DAILY 30 Days Qty: 30 2RF sertraline 50 mg tablet 50 mg PO DAILY 30 Days Qty: 30 2RF Rx Instructions: dose increase dextromethorphan polistirex 30 mg/5 mL suspension,extended rel 12 hr 10 ml PO Q12H MDD 20 ml PRN (Reason: cough) Qty: 89 2RF benzonatate [Tessalon Perles] 100 mg capsule 100 mg PO TID PRN (Reason: cough) Qty: 90 2RF trazodone 50 mg Tablet 50 - 100 mg PO BEDTIME 0RF hydrocodone-acetaminophen 5-325 mg tablet 1 - 2 tab PO Q4H PRN (Reason: Pain) 0RF Discharge Orders: Discharge Order (Routine); Ordered 08/23/21 Ordered By: Michele Sierra Referrals: Datar,Juan Miguel Dailey MD [Physician] - 2 weeks Graciela Diamond MD [Primary Care Provider] - 08/26/21 8:30 am Discharge Diet: Advance as tolerated Discharge Activity: Increase activity as tolerated Patient Instructions: Zinc Sulfate (By mouth), Ascorbic Acid (By mouth), Fluticasone (By breathing), Umeclidinium (By breathing), Viral Pneumonia (DC), Acute Respiratory Failure (ED), COVID-19 (Coronavirus Disease 2019) (DC), Opioid Safety Discharge Attestations Time Spent in Discharge Care*: less than 30 min Quality Metrics Clinical Quality Measures [ No reported AMI, CVA or VTE this stay] Coding Level of Care Code Acute Chg FW DC note Diagnoses Goals of care, counseling/discussion Z71.89 Right upper lobe pneumonia J18.9 History of immunotherapy Z92.89 Acute on chronic respiratory failure with hypoxemia J96.21 Pneumonia due to COVID-19 virus U07.1; J12.82 Acute respiratory failure with hypoxemia J96.01 Malignant neoplasm of upper lobe, left bronchus or lung C34.12 Port-A-Cath in place Z95.828 Smoking F17.200 History of lung cancer Z85.118
[2021-08-23] MEDS: levoFLOXacin 750 mg Tablet PO (12:27)
--- NOTE | 2021-08-23 13:00 | PC.NURSE ---
Discussed discharge paperwork with patient and son. Meds called to [facility] [place]. Patient verberalized understanding of meds and follow up visits
[2021-08-24 17:12] LABS: Fungitell 1-3-B Glucan Assay <31 pg/mL; Interpretation NEGATIVE
[2021-08-26 17:06] LABS: Aspergillus AG,EIA,Serum NOT DETECTED; Aspergillus Galactomannan Inde <0.50
== END 2021-08-23 13:20 | disposition home or self-care (01) | DRG 177 ==
LOC: ER 08-13 01:24 → ER IP 08-13 03:04 → CSU 08-13 16:49 → MEDSURG 08-16 14:06
PROVIDERS: Internal Medicine Pulmonary Disease; Admitting Provider Internal Medicine; Emergency Provider Emergency Medicine; PCP Family Medicine; Visit Provider Internal Medicine
DX: U07.1 COVID-19 (principal); J12.82 Pneumonia due to coronavirus disease 2019; J18.9 Pneumonia, unspecified organism; I21.A1 Myocardial infarction type 2; J96.21 Acute and chronic respiratory failure with hypoxia; J96.22 Acute and chronic respiratory failure with hypercapnia; C34.12 Malignant neoplasm of upper lobe, left bronchus or lung; E87.2 Acidosis; R64 Cachexia; J90 Pleural effusion, not elsewhere classified; Z68.1 Body mass index [BMI] 19.9 or less, adult; J44.0 Chronic obstructive pulmonary disease with (acute) lower respiratory infection; E87.6 Hypokalemia; I10 Essential (primary) hypertension; E03.9 Hypothyroidism, unspecified; Z92.21 Personal history of antineoplastic chemotherapy; Z90.2 Acquired absence of lung [part of]; Z87.891 Personal history of nicotine dependence; Z99.81 Dependence on supplemental oxygen; Z95.828 Presence of other vascular implants and grafts; Z79.899 Other long term (current) drug therapy; Z92.3 Personal history of irradiation; Z79.52 Long term (current) use of systemic steroids; Z92.22 Personal history of monoclonal drug therapy
CPT/HCPCS: 32555; 36415; 36591; 36600; 71045; 71250; 71275; 80048; 80053; 80202; 80500; 82728; 82803; 82805; 82945; 83605; 83615; 83986; 84145; 84157; 85025; 85049; 85378; 85384; 85610; 85651; 85730; 86140; 86403; 87040; 87070; 87205; 87305; 87449; 87635; 87641; 89050; 93005; 93970; 94640; 94660; 94664; 94762; 96365; 96367; 96372; 96375; 99291; J0692; J1100; J1650; J1956; J2543; J2930; J3370; J3465; J3480; J7030; J7040; J7050; Q9967

== ENCOUNTER 2021-09-23 08:46 | Outpatient (CLI) | payer OTHER, MEDICAID, SELFPAY ==
[2021-09-23 09:40] LABS: Basophils # 0.2 10^3/uL (0.0-0.1); Basophils % 1.2 %; Eosinophils # 2.2 10^3/uL (0.0-0.8); Eosinophils % 18.4 %; Hematocrit 43.4 % (37.0-47.0); Hemoglobin 13.7 g/dL (11.5-15.3); Lymphocytes # 0.7 10^3/uL (0.8-4.8); Lymphocytes % 5.6 %; Mean Corpuscular HGB Conc 31.6 g/dL (30.0-36.0); Mean Corpuscular Hemoglobin 28.7 pg (28.0-34.0); Mean Platelet Volume 10.8 fL (7.4-10.4); Neutrophils # 7.77 10^3/uL (1.8-7.7); Neutrophils % 63.7 %; Nucleated Red Blood Cells % 0 %; Platelet Count 533 10^3/cmm (130-400); Red Blood Count 4.77 10^6/uL (4.1-5.3); Red Cell Distribution Width 18.6 % (12.1-15.1); White Blood Count 12.2 10^3/uL (4.0-10.0)
[2021-09-23 10:09] LABS: Carcinoembryonic Antigen 11.6 ng/mL (0.0-4.7); Thyroid Stimulating Hormone 6.84 uIU/mL (0.27-4.20)
[2021-09-23 10:20] LABS: Alanine Aminotransferase 6 U/L (0-33); Albumin Level 3.6 g/dL (3.5-5.2); Alkaline Phosphatase 84 IU/L (35-105); Anion Gap 13.6 (5-19); Aspartate Amino Transferase 9 U/L (0-32); Blood Urea Nitrogen 19 mg/dL (8-23); Carbon Dioxide 24 mmol/L (22-29); Chloride 108 mmol/L (98-107); Globulin 2.3 g/dL (1.3-4.6); Glomerular Filtration Rate 162.8 mL/min (90-130); Glucose 111 mg/dL (65-115); Osmolality Calculated 297 mOsm/kg (285-295); Potassium 3.6 mmol/L (3.5-5.1); Sodium 142 mmol/L (136-145); Total Bilirubin 0.2 mg/dL (0.15-1.2); Total Protein 5.9 g/dL (6.6-8.7)
--- NOTE | 2021-09-23 20:17 | ONC FU_ITS ---
Dr. Michaels Patient Follow-Up Note Patient: Kim Nettles Unit #: [id number]: 1960 Dicatated By: Sha Michaels M.D.Date of Visit:Sep 23, 2021 Onc Med Follow-up/Prog Note Chief Complaint: Lung cancer. 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 She was seen by Maria G Shah in August 2016 for treatment of pneumonia. A chest x-ray on 08/27/2016 showed an indistinct increased density in the left upper lobe measuring about 3 cm. It was suspicious for a mass lesion. There was evidence of chronic emphysema. There were no other pulmonary parenchymal densities. Further evaluation with chest CT on 09/03/2016 confirmed a spiculated noncalcified soft tissue mass in the left upper lobe laterally. It appeared to extend to and involve the left lateral pleural margin. It measured 1.5 x 2.3 x 2.8 cm. There were no other mass lesions noted. There was no axillary, supraclavicular, mediastinal, or hilar masses or adenopathy. There was no pleural effusion. There did appear to be trace pericardial effusion. There were centrilobular emphysematous changes throughout the lung parenchyma. There was suspected left adrenal adenoma measuring 1.3 x 2.2 cm. A near water density lesion in the right upper lobe of the liver measuring 1.2 cm appeared consistent with an incidental cyst. There was no evidence of any metastatic involvement. She was referred to Dr. Kinsey. Her pulmonary function studies in 09/28/2016 were adequate with FEV 2.68, 47% of predicted. On 10/07/2016 she underwent thoracotomy with left upper lobe apical posterior segmentectomy. She was found to have moderately intense adhesions, precluding a complete left upper lobectomy. As such, the procedure was limited to formal segmentectomy. 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 It was mostly moderately differentiated, but focally it was high-grade (poorly differentiated). It measured 2.4 x 1.9 cm. The resection margins were free of tumor, but tumor was noted to extend onto the pleural surface. Pathologic staging was T2a, (PL 2), NX, as there were no lymph nodes included in the specimen. She has had an uneventful postoperative recovery. I had seen her initially on 11/11/2016. There appeared to be no indication for adjuvant chemotherapy, and she was followed on observation/expectant management. As of her follow-up visit in June 2017 she appeared stable clinically, there was no evidence of recurrence/progression of the lung cancer on her restaging chest CT. She had a follow-up visit with Camilo Molina on 06/15/2020. She complained of fatigue, and she was noted to have a significant weight loss. Her laboratory studies included CBC showing elevated hemoglobin/hematocrit levels at 17.8 g and 54.9%. The white blood cell count was 8200 and the platelet count was 369,000. Her comprehensive metabolic profile was unremarkable and her TSH level was normal 2.33 ???IU/mL. A battery of tumor markers was obtained and her CEA level was found to be significantly elevated at 303.6 ng/mL. Her restaging CT scans of the chest, abdomen, and pelvis on 06/19/2020 showed postoperative changes at the left lung apex and moderate centrilobular emphysematous changes. A noncalcified 5 mm pulmonary nodule in the left lower lobe was indeterminate. There were no other pulmonary mass lesions and there was no mediastinal or hilar lymphadenopathy noted. There was evidence of hepatomegaly with enlargement of the right hepatic lobe. There was extensive cholelithiasis with gallbladder distention and further evaluation with ultrasound was recommended. There was thickening and induration involving the distal sigmoid colon suspicious for diverticulitis. A small amount of free fluid was noted in the pelvis. With the abnormal CT findings in the sigmoid colon and with the significantly elevated CEA level, she was recommended to have further evaluation with colonoscopy. The procedure was done on 07/16/2020. It showed moderate diverticulosis in the sigmoid colon, but there was no evidence of malignancy in the sigmoid colon and there were no other abnormal findings noted. She had further evaluation with PET/CT on 08/10/2020. It showed multiple FDG positive mediastinal lymph nodes in the right and left paratracheal, subaortic, and subcarinal territories, strongly suspicious for recurrence. An index node in the subcarinal territory measured 1.4 cm with SUV 9.6. A 1.1 x 0.6 cm left pleural implant at the second intercostal space had SUV 4.3, suggestive of a malignant implant. There were no other areas of abnormal uptake on that study. On 08/22/2020 she underwent bronchoscopy with EBUS and FNA biopsy of station 7 lymph node. There were no endobronchial lesions identified on the bronchoscopy. The endobronchial ultrasound did show mediastinal and left hilar lymphadenopathy. Cytology on the FNA biopsy was positive for metastatic poorly differentiated non-small cell carcinoma. The tumor cells showed positive staining for CK high molecular weight and for CK 8/18. There was cytoplasmic staining for p63. The TTF-1 was negative. The Ki-67 was high at 50%. A next generation sequencing study was requested by liquid biopsy, but there was insufficient circulating tumor derived cell free DNA to obtain meaningful results. The PD-L1 expression was negative at < 1%. With her disease localized to lung and mediastinal lymph nodes, she appeared to be appropriate candidate for radiation with concurrent weekly carboplatin/paclitaxel chemotherapy. She began her cycle 1 carboplatin/paclitaxel on 10/10/2020. She was then able to continue her weekly infusions on schedule. She received her week 6 treatment on 11/14/2020. She completed radiation on 11/20/2020 to a total dose of 6000 cGy, administered in 30 fractions. Her medical history is otherwise significant for underlying COPD. She has had no other ongoing medical illnesses. She has a history of smoking 2 packs of cigarettes daily for 25 years. She had cut down following her lung surgery. INTERIM HISTORY: Restaging chest CT on 12/03/2020 showed improvement in the previously described mediastinal and subcarinal adenopathy. There was no residual abnormalities in the area of the previously described suspected pleural implant. Micronodular infiltrates were noted in the lingula and left lower lobe medially, new from previous studies. The appearance was consistent with infectious or inflammatory process. A previously described left lower lobe nodule measuring 5 to 6 mm was also noted to have resolved. With those findings, she was recommended to proceed with maintenance immunotherapy with durvalumab. She began cycle 1 on 12/19/2020. At that point her CEA level had declined to 10.4 ng/mL. She tolerated that treatment without significant toxicity. She then continued the durvalumab at 4-week intervals. As of 04/28/2021 she received her 5th cycle of treatment. On 05/24/2021 she was admitted to the hospital with acute hypoxic respiratory failure. Her CT pulmonary angiogram showed no evidence of pulmonary embolus. There was interstitial thickening noted in the lower lobes, right greater than left and there were small pleural effusions, also right greater than left. Patchy infiltrates were noted in the right lower lobe. There was no mediastinal or hilar lymphadenopathy. Covid test was negative. She improved on empiric treatment with antibiotic, steroid, and inhalation therapy. She was discharged home on Levaquin 750 mg daily for 5 days and a prednisone taper. At her follow-up visit on 06/11/2021 she was showing clinical improvement. I did opt to put her treatment on hold, as I was concerned about the possibility of treatment related pneumonitis. On 07/22/2021 she was seen in the emergency room at [facility] with multiple complaints, mainly chest and abdominal pain. Her CT scans of the chest, abdomen, and pelvis showed no acute pulmonary infiltrates or nodules. There was hepatomegaly with multiple small lucencies noted in both lobes, the largest in the right lobe measuring 8.5 mm. There were no other findings to suggest metastatic disease. There was cholelithiasis but without evidence of cholecystitis. She was noted to have severe constipation, for which she was started on MiraLAX. In the absence of any evidence of progression of the lung cancer, she continued with cycle 6 of durvalumab on 07/29/2021. On 08/13/2021 she was admitted to the hospital after presenting to the emergency room with increased shortness of breath. Her CT pulmonary angiogram showed no evidence of pulmonary embolism. There were mild to moderate pleural fluid collections bilaterally and there was interval appearance of severe right-sided pneumonia with air bronchograms. Mild to moderate mediastinal adenopathy with severe right hilar adenopathy appeared reactive. Her COVID-19 PCR was positive. Her treatment included empiric IV antibiotic therapy along with remdesivir and dexamethasone. Her repeat chest CT on 08/20/2021 showed moderate improvement in the pneumonia but with increase in the moderate right pleural effusion. Her thoracentesis on 08/22/2021 revealed a cytology negative pleural fluid. She was discharged home on 08/23/2021 on dual antibiotic coverage and on a steroid taper with methylprednisolone. She is seen for a follow-up visit. She says she is feeling pretty good, though she continues to have a vague discomfort/numbness in her left lateral chest area. She says she has more energy now than she did. She is able to do some housework. ECOG score is 1. Her appetite has not been good, but lately she has been eating more. Her weight is down a few pounds. She does not have fever or night sweats. She has not had sore mouth or throat. She has only a little cough. She is sometimes short of breath. She is just using oxygen as needed. She otherwise is not having chest pain. She has no GI or complaints. She has no other joint or bone pain. She has just occasional headache. She does not complain of dizziness. She has no other focal neurologic symptoms. Medications: Anacin 1 (400-32 mg) Tablet Oral t.i.d., Levothyroxine Sodium 1 Capsule (of 88 mcg) Oral daily, LORazepam 1 Tablet (of 1 mg) Oral t.i.d. PRN, oxyCODONE HCl 5 mL (of 5 mg/5mL) Solution Oral q 4 hours, Prochlorperazine Maleate 1 Tablet (of 10 mg) Oral q 4 hours PRN Allergies: No Known Allergies. Vital Signs: Performed on Sep 23, 2021 11:17 Height - 64.00 in Weight - 97.8 lbs (LOW) BSA - 1.44 sq.m BMI - 16.79 (LOW) Temperature - 97.8 F (LOW) Pulse - 87 /min Respiration - 18 /min BP - 106/67 mm(hg) O2 Sat - 94 % (LOW) Pain - 5 Fatigue - 5 Physical Examination: Constitutional - She appears generally weak and chronically ill, Eyes - Sclerae nonicteric. Conjunctivae clear, ENMT - There is some white coating on the tongue. There are no other lesions noted in the oral cavity, Hematologic/Lymphatic - No cervical, clavicular, or axillary adenopathy, Respiratory - Lungs show diminished air movement bilaterally. There are a few scattered rales present, Cardiovascular - Heart rhythm is regular. There is no murmur, gallop, or rub noted, Chest - There is some focal tenderness in the left rib cage laterally, Abdomen - Soft. Liver and spleen are not enlarged. There is no abdominal mass or ascites noted and there is no inguinal adenopathy, Extremities - No edema, Neurologic - No focal neurologic deficits noted. Lab/Imaging: Test performed on Sep 23, 2021 09:19 Sodium 142 mmol/L TSH 6.84 uIU/mL Potassium 3.6 mmol/L Chloride 108 mmol/L CO2 24 mmol/L Anion Gap 13.6 BUN 19 mg/dL Creatinine 0.4 mg/dL Cr Clearance (Est) 104.74 mL/min eGFR 162.8 mL/min Glucose 111 mg/dL Osmolality - Calculated 297 mOsm/kg Calcium 8.0 mg/dL Protein, Total 5.9 g/dL Albumin 3.6 g/dL Globulin 2.3 g/dL Bilirubin, Total 0.2 mg/dL ALT (SGPT) 6 U/L AST (SGOT) 9 U/L Alkaline Phosphatase 84 IU/L WBC 12.2 10 3/uL RBC 4.77 10 6/uL HGB 13.7 g/dL HCT 43.4 % MCV 91.0 fl MCH 28.7 pg MCHC 31.6 g/dL RDW 18.6 % Platelet Count 533 10 3/cmm MPV 10.8 fL Neutrophils 7.77 10 3/uL Lymphocytes 0.7 10 3/uL Monocytes 1.0 10 3/uL Eosinophils 2.2 10 3/uL Basophils 0.2 10 3/uL Neutrophil % 63.7 % Lymphocyte % 5.6 % Monocyte % 8.0 % Eosinophil % 18.4 % Basophils % 1.2 % NRBC % 0 % CEA 11.6 ng/mL Problem List: 1. Invasive adenocarcinoma involving the upper lobe of the left lung. She underwent left thoracotomy with left upper lobe segmentectomy on 10/07/2016. Her disease was pathologic stage T2a, (PL2), NX, as there was involvement of the pleural surface, but no lymph nodes were included in the specimen. Resection margins were free. By clinical evaluation, her disease was stage IB (T2a, N0, M0). She had no further treatment. 2. She now has evidence of recurrence with biopsy-proven involvement in mediastinal lymph nodes. There is also a suspected left pleural implant by PET/CT, consistent with stage MARC (M1a) disease. 3. COPD. 4. Hypertension. Problems Addressed with this Encounter and Plan: 1. Patient with invasive adenocarcinoma involving the upper lobe of the left lung, stage IB (pT2a, cN0, M0). She underwent left thoracotomy with left upper lobe segmentectomy on 10/07/2016. She had no further treatment. She had presented in June 2020 with fatigue and weight loss. She was found to have a significantly CEA level. Her restaging CT scans showed abnormal findings in the sigmoid colon, but colonoscopy showed no evidence of malignancy. As such, the elevated CEA level remains unexplained. PET/CT showed multiple FDG positive mediastinal lymph nodes in the right and left paratracheal, subaortic, and subcarinal territories, strongly suspicious for recurrence. A 1.1 x 0.6 cm left pleural implant at the second intercostal space had SUV 4.3, suggestive of a malignant implant. There were no other areas of abnormal uptake on that study. On 08/22/2020 she underwent bronchoscopy with EBUS and FNA biopsy of station 7 lymph node. There were no endobronchial lesions identified on the bronchoscopy. The endobronchial ultrasound did show mediastinal and left hilar lymphadenopathy. Cytology on the FNA biopsy was positive for metastatic poorly differentiated non-small cell carcinoma. The Ki-67 was high at 50%. The tumor was found to have low PD-L1 expression at <1%. With disease limited to lung and mediastinal lymph nodes, she was treated with definitive radiation concurrently with weekly carboplatin/paclitaxel chemotherapy. The radiation was administered from 10/10/2020 through 11/20/2020 to a total dose of 6000 cGy delivered in 30 fractions. During that time she completed 6 weekly infusions of carboplatin/paclitaxel. Her treatment was complicated by fatigue and esophagitis. She had a good response by follow-up chest CT, and based on those findings she was recommended to proceed with maintenance immunotherapy with durvalumab. She began cycle 1 on 12/19/2020. At that point there had been a significant decline in her CEA level, to 10.4 ng/mL. She tolerated the treatment well, and she then continued the durvalumab at 4-week intervals. She received her 5th cycle on 04/28/2021. On 05/24/2021 she was admitted to the hospital with acute hypoxic respiratory failure. Her CT pulmonary angiogram did show some interstitial thickening in the lower lobes and patchy infiltrates in the right lower lobe. There was no evidence of pulmonary embolism. She improved on empiric treatment with antibiotic, steroid, and inhalation therapy. As of her follow-up visit on 06/11/2021 her treatment was put on hold, as I was concerned about the possibility of treatment induced pneumonitis. On 07/22/2021 she was seen in the emergency room with abdominal pain and constipation. On review of her CT scans, there is significant improvement in the appearance of the right lower lobe compared to the May 2021 study, and in retrospect it appears very likely that that illness was due to pneumonia. The liver lesions appear unchanged from previous studies, consistent with benign disease. In the absence of any evidence of progression of the lung cancer, she continued with cycle 6 of durvalumab on 07/29/2021. On 08/13/2021 she was admitted to the hospital with pneumonia in association with COVID-19 virus infection. During the hospitalization she had increasing right pleural effusion, but she was found on thoracentesis to have cytology negative pleural fluid. Overall she had gradual improvement on antibiotic therapy, remdesivir, and dexamethasone. She was discharged home on 08/23/2021 with dual antibiotic therapy and a steroid taper. At this point she continues to show gradual recovery. At least for now her treatment will remain on hold. She will be scheduled for a follow-up visit with repeat chest CT in 2 weeks. 2. She developed hypothyroidism on her immunotherapy. Her TSH has been gradually declining on replacement therapy. She continues levothyroxine, currently at 88 mcg daily. Signed By: Sha Michaels M.D. <<Signature on File>>
== END 2021-09-23 08:47 | disposition home or self-care (01) ==
PROVIDERS: PCP Family Medicine; Visit Provider Internal Medicine Medical Oncology
DX: C34.12 Malignant neoplasm of upper lobe, left bronchus or lung (principal); J44.9 Chronic obstructive pulmonary disease, unspecified; F17.210 Nicotine dependence, cigarettes, uncomplicated; I10 Essential (primary) hypertension; E03.9 Hypothyroidism, unspecified; Z79.899 Other long term (current) drug therapy
CPT/HCPCS: 36591; 80053; 82378; 84443; 85025; 99214

== ENCOUNTER 2021-10-06 09:41 | Outpatient (CLI) | payer OTHER, MEDICAID, SELFPAY ==
--- NOTE | 2021-10-06 10:15 | CT_ITS ---
WS: [id number] CT CHEST TECHNIQUE: Contrast enhanced CT of the chest with coronal and sagittal reformatted images. CLINICAL INFORMATION: LUNG CANCER COMPARISON: CT chest August 20, 2021 DLP: 458.[address] scans at [facility] use at least one of these dose optimization techniques: automated e xposure control; mA and/or kV adjustment per patient size (includes targeted exams where dose is matc hed to clinical indication); or iterative reconstruction. FINDINGS: Prior postoperative changes resection LEFT upper lobe. No evidence of disease progression in the LEFT upper lobe. Again seen is consolidation involving the RIGHT hilum with persistent narrowing of the R IGHT mainstem bronchus, RIGHT upper lobe bronchus, and bronchus intermedius. Associated airspace cons olidation about the RIGHT hilum with air bronchograms similar in appearance and slightly improved com pared to previous. Fluid and pleural thickening along the RIGHT fissure. Small RIGHT pleural effusion has improved. LEFT mainstem bronchus is patent. No axillary lymphadenopathy. Diffuse fatty infiltration of the liver. Hepatomegaly. Stable small cyst in the dome of the liver measuring 11 mm. 1.7 cm LEFT renal cyst. Adrenal glands are normal. Moderat e to advanced centrilobular emphysematous changes. Aortic and coronary calcification. Degenerative ap pearing sclerotic changes along the lower thoracic vertebral body endplates unchanged. CT/CT chest w con* [id number] IMPRESSION: 1. Prior postoperative changes resection LEFT upper lobe. No evidence of disea se progression LEFT upper lobe. 2. Persistent but improved consolidation of the RIGHT hilum with air bronchogr ams. Persistent narrowing of the RIGHT mainstem bronchus, RIGHT upper lobe bron chus, and bronchus intermedius. Recommend follow-up to resolution. 3. Associated pleural thickening and fluid along the RIGHT fissure with small RIGHT pleural effusion improved compared to previous. 4. LEFT lung is well aerated. 5. Biapical fibrosis with moderate to advanced chronic emphysematous changes. 6. No other significant changes compared to previous.
[2021-10-06] MEDS: iohexol 300 mg/mL 100 mL Btl IV (10:33)
== END 2021-10-06 09:42 | disposition home or self-care (01) ==
LOC: RAD 09:43
PROVIDERS: PCP Family Medicine; Visit Provider Internal Medicine Medical Oncology
DX: C34.12 Malignant neoplasm of upper lobe, left bronchus or lung (principal); J84.10 Pulmonary fibrosis, unspecified
CPT/HCPCS: 71260

== ENCOUNTER 2021-10-07 08:04 | Outpatient (CLI) | payer OTHER, MEDICAID, SELFPAY ==
[2021-10-07 08:30] LABS: Basophils # 0.1 10^3/uL (0.0-0.1); Basophils % 1.4 %; Eosinophils # 2.1 10^3/uL (0.0-0.8); Eosinophils % 23.2 %; Hematocrit 44.4 % (37.0-47.0); Hemoglobin 14.1 g/dL (11.5-15.3); Mean Corpuscular HGB Conc 31.8 g/dL (30.0-36.0); Mean Corpuscular Hemoglobin 28.3 pg (28.0-34.0); Mean Corpuscular Volume 89.2 fl (81-99); Mean Platelet Volume 10.3 fL (7.4-10.4); Monocytes # 0.9 10^3/uL (0.2-0.9); Monocytes % 9.8 %; Neutrophils # 4.77 10^3/uL (1.8-7.7); Neutrophils % 53.9 %; Nucleated Red Blood Cells % 0 %; Platelet Count 565 10^3/cmm (130-400); Red Blood Count 4.98 10^6/uL (4.1-5.3); Red Cell Distribution Width 18.5 % (12.1-15.1); White Blood Count 8.8 10^3/uL (4.0-10.0)
[2021-10-07 08:54] LABS: Alanine Aminotransferase < 5 U/L (0-33); Albumin Level 3.7 g/dL (3.5-5.2); Alkaline Phosphatase 71 IU/L (35-105); Anion Gap 11.3 (5-19); Aspartate Amino Transferase 9 U/L (0-32); Blood Urea Nitrogen 14 mg/dL (8-23); Calcium 8.9 mg/dL (8.5-10.5); Carbon Dioxide 28 mmol/L (22-29); Chloride 105 mmol/L (98-107); Globulin 2.3 g/dL (1.3-4.6); Glomerular Filtration Rate 162.8 mL/min (90-130); Glucose 113 mg/dL (65-115); Osmolality Calculated 293 mOsm/kg (285-295); Potassium 3.3 mmol/L (3.5-5.1); Sodium 141 mmol/L (136-145); Total Bilirubin 0.2 mg/dL (0.15-1.2)
--- NOTE | 2021-10-07 18:46 | ONC FU_ITS ---
Dr. Michaels Patient Follow-Up Note Patient: Kim Nettles Unit #: [id number]: 1960 Dicatated By: Sha Michaels M.D.Date of Visit:Oct 07, 2021 Onc Med Follow-up/Prog Note Chief Complaint: Lung cancer. 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 She was seen by Maria G Shah in August 2016 for treatment of pneumonia. A chest x-ray on 08/27/2016 showed an indistinct increased density in the left upper lobe measuring about 3 cm. It was suspicious for a mass lesion. There was evidence of chronic emphysema. There were no other pulmonary parenchymal densities. Further evaluation with chest CT on 09/03/2016 confirmed a spiculated noncalcified soft tissue mass in the left upper lobe laterally. It appeared to extend to and involve the left lateral pleural margin. It measured 1.5 x 2.3 x 2.8 cm. There were no other mass lesions noted. There was no axillary, supraclavicular, mediastinal, or hilar masses or adenopathy. There was no pleural effusion. There did appear to be trace pericardial effusion. There were centrilobular emphysematous changes throughout the lung parenchyma. There was suspected left adrenal adenoma measuring 1.3 x 2.2 cm. A near water density lesion in the right upper lobe of the liver measuring 1.2 cm appeared consistent with an incidental cyst. There was no evidence of any metastatic involvement. She was referred to Dr. Kinsey. Her pulmonary function studies in 09/28/2016 were adequate with FEV 2.68, 47% of predicted. On 10/07/2016 she underwent thoracotomy with left upper lobe apical posterior segmentectomy. She was found to have moderately intense adhesions, precluding a complete left upper lobectomy. As such, the procedure was limited to formal segmentectomy. 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 It was mostly moderately differentiated, but focally it was high-grade (poorly differentiated). It measured 2.4 x 1.9 cm. The resection margins were free of tumor, but tumor was noted to extend onto the pleural surface. Pathologic staging was T2a, (PL 2), NX, as there were no lymph nodes included in the specimen. She has had an uneventful postoperative recovery. I had seen her initially on 11/11/2016. There appeared to be no indication for adjuvant chemotherapy, and she was followed on observation/expectant management. As of her follow-up visit in June 2017 she appeared stable clinically, there was no evidence of recurrence/progression of the lung cancer on her restaging chest CT. She had a follow-up visit with Camilo Molina on 06/15/2020. She complained of fatigue, and she was noted to have a significant weight loss. Her laboratory studies included CBC showing elevated hemoglobin/hematocrit levels at 17.8 g and 54.9%. The white blood cell count was 8200 and the platelet count was 369,000. Her comprehensive metabolic profile was unremarkable and her TSH level was normal 2.33 ???IU/mL. A battery of tumor markers was obtained and her CEA level was found to be significantly elevated at 303.6 ng/mL. Her restaging CT scans of the chest, abdomen, and pelvis on 06/19/2020 showed postoperative changes at the left lung apex and moderate centrilobular emphysematous changes. A noncalcified 5 mm pulmonary nodule in the left lower lobe was indeterminate. There were no other pulmonary mass lesions and there was no mediastinal or hilar lymphadenopathy noted. There was evidence of hepatomegaly with enlargement of the right hepatic lobe. There was extensive cholelithiasis with gallbladder distention and further evaluation with ultrasound was recommended. There was thickening and induration involving the distal sigmoid colon suspicious for diverticulitis. A small amount of free fluid was noted in the pelvis. With the abnormal CT findings in the sigmoid colon and with the significantly elevated CEA level, she was recommended to have further evaluation with colonoscopy. The procedure was done on 07/16/2020. It showed moderate diverticulosis in the sigmoid colon, but there was no evidence of malignancy in the sigmoid colon and there were no other abnormal findings noted. She had further evaluation with PET/CT on 08/10/2020. It showed multiple FDG positive mediastinal lymph nodes in the right and left paratracheal, subaortic, and subcarinal territories, strongly suspicious for recurrence. An index node in the subcarinal territory measured 1.4 cm with SUV 9.6. A 1.1 x 0.6 cm left pleural implant at the second intercostal space had SUV 4.3, suggestive of a malignant implant. There were no other areas of abnormal uptake on that study. On 08/22/2020 she underwent bronchoscopy with EBUS and FNA biopsy of station 7 lymph node. There were no endobronchial lesions identified on the bronchoscopy. The endobronchial ultrasound did show mediastinal and left hilar lymphadenopathy. Cytology on the FNA biopsy was positive for metastatic poorly differentiated non-small cell carcinoma. The tumor cells showed positive staining for CK high molecular weight and for CK 8/18. There was cytoplasmic staining for p63. The TTF-1 was negative. The Ki-67 was high at 50%. A next generation sequencing study was requested by liquid biopsy, but there was insufficient circulating tumor derived cell free DNA to obtain meaningful results. The PD-L1 expression was negative at < 1%. With her disease localized to lung and mediastinal lymph nodes, she appeared to be appropriate candidate for radiation with concurrent weekly carboplatin/paclitaxel chemotherapy. She began her cycle 1 carboplatin/paclitaxel on 10/10/2020. She was then able to continue her weekly infusions on schedule. She received her week 6 treatment on 11/14/2020. She completed radiation on 11/20/2020 to a total dose of 6000 cGy, administered in 30 fractions. Her medical history is otherwise significant for underlying COPD. She has had no other ongoing medical illnesses. She has a history of smoking 2 packs of cigarettes daily for 25 years. She had cut down following her lung surgery. INTERIM HISTORY: Restaging chest CT on 12/03/2020 showed improvement in the previously described mediastinal and subcarinal adenopathy. There was no residual abnormalities in the area of the previously described suspected pleural implant. Micronodular infiltrates were noted in the lingula and left lower lobe medially, new from previous studies. The appearance was consistent with infectious or inflammatory process. A previously described left lower lobe nodule measuring 5 to 6 mm was also noted to have resolved. With those findings, she was recommended to proceed with maintenance immunotherapy with durvalumab. She began cycle 1 on 12/19/2020. At that point her CEA level had declined to 10.4 ng/mL. She tolerated that treatment without significant toxicity. She then continued the durvalumab at 4-week intervals. As of 04/28/2021 she received her 5th cycle of treatment. On 05/24/2021 she was admitted to the hospital with acute hypoxic respiratory failure. Her CT pulmonary angiogram showed no evidence of pulmonary embolus. There was interstitial thickening noted in the lower lobes, right greater than left and there were small pleural effusions, also right greater than left. Patchy infiltrates were noted in the right lower lobe. There was no mediastinal or hilar lymphadenopathy. Covid test was negative. She improved on empiric treatment with antibiotic, steroid, and inhalation therapy. She was discharged home on Levaquin 750 mg daily for 5 days and a prednisone taper. At her follow-up visit on 06/11/2021 she was showing clinical improvement. I did opt to put her treatment on hold, as I was concerned about the possibility of treatment related pneumonitis. On 07/22/2021 she was seen in the emergency room at [facility] with multiple complaints, mainly chest and abdominal pain. Her CT scans of the chest, abdomen, and pelvis showed no acute pulmonary infiltrates or nodules. There was hepatomegaly with multiple small lucencies noted in both lobes, the largest in the right lobe measuring 8.5 mm. There were no other findings to suggest metastatic disease. There was cholelithiasis but without evidence of cholecystitis. She was noted to have severe constipation, for which she was started on MiraLAX. In the absence of any evidence of progression of the lung cancer, she continued with cycle 6 of durvalumab on 07/29/2021. On 08/13/2021 she was admitted to the hospital after presenting to the emergency room with increased shortness of breath. Her CT pulmonary angiogram showed no evidence of pulmonary embolism. There were mild to moderate pleural fluid collections bilaterally and there was interval appearance of severe right-sided pneumonia with air bronchograms. Mild to moderate mediastinal adenopathy with severe right hilar adenopathy appeared reactive. Her COVID-19 PCR was positive. Her treatment included empiric IV antibiotic therapy along with remdesivir and dexamethasone. Her repeat chest CT on 08/20/2021 showed moderate improvement in the pneumonia but with increase in the moderate right pleural effusion. Her thoracentesis on 08/22/2021 revealed a cytology negative pleural fluid. She was discharged home on 08/23/2021 on dual antibiotic coverage and on a steroid taper with methylprednisolone. As of her follow-up visit on 09/23/2021 she was showing some recovery, but at that point I had opted to keep her treatment on hold. Repeat chest CT on 10/06/2021 showed postoperative changes of left upper lobectomy with no evidence of disease progression in the left upper lobe. There was persisted but improved consolidation of the right hilum with persistent narrowing of the right mainstem bronchus, right upper lobe bronchus, and bronchus intermedius. There was associated pleural thickening and fluid along the right fissure with a small right pleural effusion, also improved compared to previous studies. There was biapical fibrosis with moderate to advanced chronic emphysematous changes. She is seen for a follow-up visit. Recently she has had symptoms of a cold, she has had some decrease in her oxygen level. She also admits to having started smoking again, in the range of 1/2 pack of cigarettes daily. Her energy is okay. She is able to do some housework. She has good appetite. Her weight is up a couple of pounds. She does not have fever or night sweats. She has not had sore mouth or throat. She is short of breath at times. She has just a little bit of cough now, productive of yellowish sputum. She does not complain of chest pain. She has not had nausea, she has occasional episodes of regurgitation. Her bowel and bladder function have been okay. She still occasionally has pain in the left chest wall area. She has no other joint or bone pain. She reports having occasional headache. She has no focal neurologic symptoms. Medications: Anacin 1 (400-32 mg) Tablet Oral t.i.d., Levothyroxine Sodium 1 Capsule (of 88 mcg) Oral daily, LORazepam 1 Tablet (of 1 mg) Oral t.i.d. PRN, oxyCODONE HCl 5 mL (of 5 mg/5mL) Solution Oral q 4 hours, Prochlorperazine Maleate 1 Tablet (of 10 mg) Oral q 4 hours PRN Allergies: No Known Allergies. Vital Signs: Performed on Oct 07, 2021 09:38 Height - 64.00 in Weight - 100.4 lbs (HIGH) BSA - 1.46 sq.m BMI - 17.23 (LOW) Temperature - 97.0 F (LOW) Pulse - 88 /min Respiration - 21 /min BP - 120/71 mm(hg) O2 Sat - 94 % (LOW) Pain - 0 Fatigue - 0 Physical Examination: Constitutional - She still appears somewhat weak generally weak, Eyes - Sclerae nonicteric. Conjunctivae clear, ENMT - There is persistent white coating on the tongue. There are no other lesions noted in the oral cavity, Hematologic/Lymphatic - No cervical, clavicular, or axillary adenopathy, Respiratory - Lungs sound clear with severely diminished air movement bilaterally, Cardiovascular - Heart rhythm is regular. There is no murmur, gallop, or rub noted, Abdomen - Soft. Liver and spleen are not enlarged. There is no abdominal mass or ascites noted and there is no inguinal adenopathy, Extremities - No edema, Neurologic - No focal neurologic deficits noted. Lab/Imaging: Test performed on Oct 07, 2021 08:20 Sodium 141 mmol/L Potassium 3.3 mmol/L Chloride 105 mmol/L CO2 28 mmol/L Anion Gap 11.3 BUN 14 mg/dL Creatinine 0.4 mg/dL Cr Clearance (Est) 107.53 mL/min eGFR 162.8 mL/min Glucose 113 mg/dL Osmolality - Calculated 293 mOsm/kg Calcium 8.9 mg/dL Protein, Total 6.0 g/dL Albumin 3.7 g/dL Globulin 2.3 g/dL Bilirubin, Total 0.2 mg/dL ALT (SGPT) < 5 U/L AST (SGOT) 9 U/L Alkaline Phosphatase 71 IU/L WBC 8.8 10 3/uL RBC 4.98 10 6/uL HGB 14.1 g/dL HCT 44.4 % MCV 89.2 fl MCH 28.3 pg MCHC 31.8 g/dL RDW 18.5 % Platelet Count 565 10 3/cmm MPV 10.3 fL Neutrophils 4.77 10 3/uL Lymphocytes 1.0 10 3/uL Monocytes 0.9 10 3/uL Eosinophils 2.1 10 3/uL Basophils 0.1 10 3/uL Neutrophil % 53.9 % Lymphocyte % 11.0 % Monocyte % 9.8 % Eosinophil % 23.2 % Basophils % 1.4 % NRBC % 0 % Problem List: 1. Invasive adenocarcinoma involving the upper lobe of the left lung. She underwent left thoracotomy with left upper lobe segmentectomy on 10/07/2016. Her disease was pathologic stage T2a, (PL2), NX, as there was involvement of the pleural surface, but no lymph nodes were included in the specimen. Resection margins were free. By clinical evaluation, her disease was stage IB (T2a, N0, M0). She had no further treatment. 2. She now has evidence of recurrence with biopsy-proven involvement in mediastinal lymph nodes. There is also a suspected left pleural implant by PET/CT, consistent with stage MARC (M1a) disease. 3. COPD. 4. Hypertension. Problems Addressed with this Encounter and Plan: 1. Patient with invasive adenocarcinoma involving the upper lobe of the left lung, stage IB (pT2a, cN0, M0). She underwent left thoracotomy with left upper lobe segmentectomy on 10/07/2016. She had no further treatment. She had presented in June 2020 with fatigue and weight loss. She was found to have a significantly CEA level. Her restaging CT scans showed abnormal findings in the sigmoid colon, but colonoscopy showed no evidence of malignancy. As such, the elevated CEA level remains unexplained. PET/CT showed multiple FDG positive mediastinal lymph nodes in the right and left paratracheal, subaortic, and subcarinal territories, strongly suspicious for recurrence. A 1.1 x 0.6 cm left pleural implant at the second intercostal space had SUV 4.3, suggestive of a malignant implant. There were no other areas of abnormal uptake on that study. On 08/22/2020 she underwent bronchoscopy with EBUS and FNA biopsy of station 7 lymph node. There were no endobronchial lesions identified on the bronchoscopy. The endobronchial ultrasound did show mediastinal and left hilar lymphadenopathy. Cytology on the FNA biopsy was positive for metastatic poorly differentiated non-small cell carcinoma. The Ki-67 was high at 50%. The tumor was found to have low PD-L1 expression at <1%. With disease limited to lung and mediastinal lymph nodes, she was treated with definitive radiation concurrently with weekly carboplatin/paclitaxel chemotherapy. The radiation was administered from 10/10/2020 through 11/20/2020 to a total dose of 6000 cGy delivered in 30 fractions. During that time she completed 6 weekly infusions of carboplatin/paclitaxel. Her treatment was complicated by fatigue and esophagitis. She had a good response by follow-up chest CT, and based on those findings she was recommended to proceed with maintenance immunotherapy with durvalumab. She began cycle 1 on 12/19/2020. At that point there had been a significant decline in her CEA level, to 10.4 ng/mL. She tolerated the treatment well, and she then continued the durvalumab at 4-week intervals. She received her 5th cycle on 04/28/2021. On 05/24/2021 she was admitted to the hospital with acute hypoxic respiratory failure. Her CT pulmonary angiogram did show some interstitial thickening in the lower lobes and patchy infiltrates in the right lower lobe. There was no evidence of pulmonary embolism. She improved on empiric treatment with antibiotic, steroid, and inhalation therapy. As of her follow-up visit on 06/11/2021 her treatment was put on hold, as I was concerned about the possibility of treatment induced pneumonitis. On 07/22/2021 she was seen in the emergency room with abdominal pain and constipation. On review of her CT scans, there is significant improvement in the appearance of the right lower lobe compared to the May 2021 study, and in retrospect it appears very likely that that illness was due to pneumonia. The liver lesions appear unchanged from previous studies, consistent with benign disease. In the absence of any evidence of progression of the lung cancer, she continued with cycle 6 of durvalumab on 07/29/2021. On 08/13/2021 she was admitted to the hospital with pneumonia in association with COVID-19 virus infection. During the hospitalization she had increasing right pleural effusion, but she was found on thoracentesis to have cytology negative pleural fluid. Overall she had gradual improvement on antibiotic therapy, remdesivir, and dexamethasone. She was discharged home on 08/23/2021 with dual antibiotic therapy and a steroid taper. As have her follow-up visit on 09/23/2021 she was showing some recovery. Her repeat chest CT on 10/06/2021 showed persistent but improved consolidation of the right hilum and some associated pleural thickening and fluid along the right fissure with small right pleural effusion, also improved. At this point she continues to have some shortness of breath and cough, and she is still hypoxic on room air. As such, her treatment will remain on hold. She will be given another week of antibiotic coverage with Levaquin. If at that point her symptoms have improved, I will have her continue with cycle 7 of durvalumab. If she is not definitely better, her treatment will remain on hold. 2. She developed hypothyroidism on her immunotherapy. Her TSH has been gradually declining on replacement therapy. She continues levothyroxine, currently at 88 mcg daily. Signed By: Sha Michaels M.D. <<Signature on File>>
== END 2021-10-07 08:05 | disposition home or self-care (01) ==
PROVIDERS: PCP Family Medicine; Visit Provider Internal Medicine Medical Oncology
DX: C34.12 Malignant neoplasm of upper lobe, left bronchus or lung (principal); J44.9 Chronic obstructive pulmonary disease, unspecified; F17.210 Nicotine dependence, cigarettes, uncomplicated; I10 Essential (primary) hypertension; E03.9 Hypothyroidism, unspecified; Z79.899 Other long term (current) drug therapy
CPT/HCPCS: 36591; 80053; 85025; 99214

== ENCOUNTER 2021-10-14 08:54 | Outpatient (CLI) | payer MEDICAID, SELFPAY ==
[2021-10-14 09:22] LABS: Basophils # 0.1 10^3/uL (0.0-0.1); Basophils % 1.5 %; Eosinophils # 1.9 10^3/uL (0.0-0.8); Eosinophils % 20.1 %; Hematocrit 45.3 % (37.0-47.0); Hemoglobin 14.2 g/dL (11.5-15.3); Lymphocytes % 10.3 %; Mean Corpuscular HGB Conc 31.3 g/dL (30.0-36.0); Mean Corpuscular Hemoglobin 27.9 pg (28.0-34.0); Mean Platelet Volume 10.7 fL (7.4-10.4); Monocytes # 0.9 10^3/uL (0.2-0.9); Monocytes % 9.3 %; Neutrophils # 5.56 10^3/uL (1.8-7.7); Neutrophils % 58.4 %; Nucleated Red Blood Cells % 0 %; Platelet Count 568 10^3/cmm (130-400); Red Blood Count 5.09 10^6/uL (4.1-5.3); Red Cell Distribution Width 17.9 % (12.1-15.1); White Blood Count 9.5 10^3/uL (4.0-10.0)
[2021-10-14 09:33] LABS: Alanine Aminotransferase 6 U/L (0-33); Albumin Level 3.7 g/dL (3.5-5.2); Alkaline Phosphatase 82 IU/L (35-105); Aspartate Amino Transferase 11 U/L (0-32); Blood Urea Nitrogen 14 mg/dL (8-23); Calcium 8.9 mg/dL (8.5-10.5); Carbon Dioxide 27 mmol/L (22-29); Chloride 103 mmol/L (98-107); Globulin 2.2 g/dL (1.3-4.6); Glomerular Filtration Rate 162.8 mL/min (90-130); Glucose 101 mg/dL (65-115); Osmolality Calculated 291 mOsm/kg (285-295); Sodium 140 mmol/L (136-145); Total Bilirubin 0.2 mg/dL (0.15-1.2); Total Protein 5.9 g/dL (6.6-8.7)
[2021-10-14 09:36] LABS: Anion Gap 14.1 (5-19); Potassium 4.1 mmol/L (3.5-5.1)
[2021-10-14] MEDS: sodium chloride 0.9% 250 ML 999 ML IV (10:40)
== END 2021-10-14 08:55 | disposition home or self-care (01) ==
PROVIDERS: PCP Family Medicine; Visit Provider Internal Medicine Medical Oncology
DX: Z51.12 Encounter for antineoplastic immunotherapy (principal); C34.12 Malignant neoplasm of upper lobe, left bronchus or lung; C77.1 Secondary and unspecified malignant neoplasm of intrathoracic lymph nodes; C78.2 Secondary malignant neoplasm of pleura; Z79.899 Other long term (current) drug therapy
CPT/HCPCS: 80053; 85025; 96413; J7050; J9173

== ENCOUNTER 2021-11-11 08:55 | Oncology outpatient (recurring) (ONCR) | payer MEDICAID, SELFPAY ==
[2021-11-11 09:41] LABS: Basophils # 0.1 10^3/uL (0.0-0.1); Basophils % 1.2 %; Eosinophils # 1.1 10^3/uL (0.0-0.8); Eosinophils % 13.1 %; Hematocrit 48.4 % (37.0-47.0); Hemoglobin 15.6 g/dL (11.5-15.3); Lymphocytes # 1.1 10^3/uL (0.8-4.8); Lymphocytes % 13.8 %; Mean Corpuscular HGB Conc 32.2 g/dL (30.0-36.0); Mean Corpuscular Hemoglobin 28.2 pg (28.0-34.0); Mean Corpuscular Volume 87.4 fl (81-99); Mean Platelet Volume 10.5 fL (7.4-10.4); Monocytes # 0.6 10^3/uL (0.2-0.9); Monocytes % 6.8 %; Neutrophils # 5.35 10^3/uL (1.8-7.7); Neutrophils % 64.7 %; Nucleated Red Blood Cells % 0 %; Platelet Count 461 10^3/cmm (130-400); Red Blood Count 5.54 10^6/uL (4.1-5.3); Red Cell Distribution Width 17.2 % (12.1-15.1); White Blood Count 8.3 10^3/uL (4.0-10.0)
[2021-11-11 10:06] LABS: Carcinoembryonic Antigen 15.8 ng/mL (0.0-4.7); Thyroid Stimulating Hormone 10.09 uIU/mL (0.27-4.20)
[2021-11-11 10:17] LABS: Alanine Aminotransferase 6 U/L (0-33); Albumin Level 4.2 g/dL (3.5-5.2); Alkaline Phosphatase 97 IU/L (35-105); Aspartate Amino Transferase 11 U/L (0-32); Blood Urea Nitrogen 19 mg/dL (8-23); Calcium 8.4 mg/dL (8.5-10.5); Carbon Dioxide 27 mmol/L (22-29); Chloride 101 mmol/L (98-107); Globulin 2.4 g/dL (1.3-4.6); Glucose 97 mg/dL (65-115); Osmolality Calculated 290 mOsm/kg (285-295); Sodium 139 mmol/L (136-145); Total Bilirubin 0.2 mg/dL (0.15-1.2); Total Protein 6.6 g/dL (6.6-8.7)
[2021-11-11] MEDS: sodium chloride 0.9% 250 ML 50 ML IV (11:46)
[2021-11-11] MEDS: durvalumab 1,500 MG in sodium chloride 0.9% 250 ML 280 MG IV (11:58)
[2021-11-11 13:05] VITALS: BP 104/61; PULSE 75; TEMP 36.5; O2SAT 96
== END 2021-12-09 23:59 | disposition home or self-care (01) ==
PROVIDERS: Nurse Practitioner Family; PCP Family Medicine; Referring Provider Family Medicine; Visit Provider Internal Medicine Medical Oncology
DX: Z51.11 Encounter for antineoplastic chemotherapy (principal); C34.12 Malignant neoplasm of upper lobe, left bronchus or lung
CPT/HCPCS: 36591; 80053; 82378; 84443; 85025; 96360; 96361; 96413; J7050; J9173

== ENCOUNTER 2022-01-07 08:00 | Oncology outpatient (recurring) (ONCR) | payer MEDICAID, SELFPAY ==
[2021-12-10 10:00] VITALS: BMI 15.7
[2021-12-10 10:26] LABS: Basophils # 0.1 10^3/uL (0.0-0.1); Eosinophils # 0.4 10^3/uL (0.0-0.8); Hematocrit 49.8 % (37.0-47.0); Hemoglobin 15.8 g/dL (11.5-15.3); Lymphocytes # 0.9 10^3/uL (0.8-4.8); Lymphocytes % 12.6 %; Mean Corpuscular HGB Conc 31.7 g/dL (30.0-36.0); Mean Corpuscular Hemoglobin 27.7 pg (28.0-34.0); Mean Corpuscular Volume 87.2 fl (81-99); Mean Platelet Volume 10.2 fL (7.4-10.4); Monocytes # 0.8 10^3/uL (0.2-0.9); Monocytes % 10.9 %; Neutrophils # 4.96 10^3/uL (1.8-7.7); Neutrophils % 69.2 %; Nucleated Red Blood Cells % 0 %; Platelet Count 438 10^3/cmm (130-400); Red Blood Count 5.71 10^6/uL (4.1-5.3); Red Cell Distribution Width 17.3 % (12.1-15.1); White Blood Count 7.2 10^3/uL (4.0-10.0)
[2021-12-10 10:53] LABS: Carcinoembryonic Antigen 16.4 ng/mL (0.0-4.7); Thyroid Stimulating Hormone 28.45 uIU/mL (0.27-4.20)
[2021-12-10 11:04] LABS: Alanine Aminotransferase 6 U/L (0-33); Albumin Level 4.2 g/dL (3.5-5.2); Alkaline Phosphatase 80 IU/L (35-105); Anion Gap 14.3 (5-19); Aspartate Amino Transferase 9 U/L (0-32); Blood Urea Nitrogen 24 mg/dL (8-23); Calcium 9.3 mg/dL (8.5-10.5); Carbon Dioxide 29 mmol/L (22-29); Chloride 102 mmol/L (98-107); Globulin 2.8 g/dL (1.3-4.6); Glomerular Filtration Rate 125.9 mL/min (90-130); Glucose 80 mg/dL (65-115); Osmolality Calculated 295 mOsm/kg (285-295); Potassium 4.3 mmol/L (3.5-5.1); Sodium 141 mmol/L (136-145); Total Bilirubin 0.2 mg/dL (0.15-1.2)
[2021-12-10] MEDS: durvalumab 1,500 MG in sodium chloride 0.9% 250 ML 280 MG IV (13:06)
[2021-12-10] MEDS: sodium chloride 0.9% 250 ML 75 ML IV (13:06)
[2021-12-10 14:30] VITALS: BP 124/73; PULSE 60; RESP 18; TEMP 36.5; O2SAT 100
[2022-01-07 08:17] VITALS: BMI 15.3
[2022-01-07 08:21] LABS: Basophils # 0.1 10^3/uL (0.0-0.1); Eosinophils # 0.4 10^3/uL (0.0-0.8); Eosinophils % 4.9 %; Hematocrit 48.5 % (37.0-47.0); Lymphocytes # 0.7 10^3/uL (0.8-4.8); Lymphocytes % 9.2 %; Mean Corpuscular Hemoglobin 27.8 pg (28.0-34.0); Mean Corpuscular Volume 84.2 fl (81-99); Mean Platelet Volume 11.2 fL (7.4-10.4); Monocytes # 0.7 10^3/uL (0.2-0.9); Monocytes % 9.2 %; Neutrophils # 6.06 10^3/uL (1.8-7.7); Neutrophils % 75.3 %; Nucleated Red Blood Cells % 0 %; Platelet Count 407 10^3/cmm (130-400); Red Blood Count 5.76 10^6/uL (4.1-5.3); Red Cell Distribution Width 17.7 % (12.1-15.1)
[2022-01-07 08:50] LABS: Alanine Aminotransferase 6 U/L (0-33); Albumin Level 4.2 g/dL (3.5-5.2); Alkaline Phosphatase 77 IU/L (35-105); Anion Gap 13.7 (5-19); Aspartate Amino Transferase 11 U/L (0-32); Blood Urea Nitrogen 22 mg/dL (8-23); Calcium 8.8 mg/dL (8.5-10.5); Carbon Dioxide 28 mmol/L (22-29); Chloride 103 mmol/L (98-107); Globulin 2.7 g/dL (1.3-4.6); Glomerular Filtration Rate 162.8 mL/min (90-130); Glucose 97 mg/dL (65-115); Osmolality Calculated 295 mOsm/kg (285-295); Potassium 3.7 mmol/L (3.5-5.1); Sodium 141 mmol/L (136-145); Total Bilirubin 0.2 mg/dL (0.15-1.2); Total Protein 6.9 g/dL (6.6-8.7)
[2022-01-07] MEDS: sodium chloride 0.9% 250 ML 75 ML IV (10:35)
[2022-01-07 10:48] LABS: Carcinoembryonic Antigen 19.2 ng/mL (0.0-4.7)
[2022-01-07] MEDS: durvalumab 1,500 MG in sodium chloride 0.9% 250 ML 280 MG IV (11:13)
[2022-01-07 12:30] VITALS: BP 90/58; PULSE 74; RESP 18; TEMP 36.3; O2SAT 98
== END 2022-01-08 23:59 | disposition home or self-care (01) ==
PROVIDERS: Nurse Practitioner Family; PCP Family Medicine; Referring Provider Family Medicine; Visit Provider Internal Medicine Medical Oncology
DX: Z51.11 Encounter for antineoplastic chemotherapy (principal); C34.12 Malignant neoplasm of upper lobe, left bronchus or lung; C77.1 Secondary and unspecified malignant neoplasm of intrathoracic lymph nodes; F17.210 Nicotine dependence, cigarettes, uncomplicated; R63.0 Anorexia; Z68.1 Body mass index [BMI] 19.9 or less, adult; F41.9 Anxiety disorder, unspecified
CPT/HCPCS: 80053; 82378; 84443; 85025; 96413; 99214; 99215; J7050; J9173

== ENCOUNTER 2022-02-04 08:00 | Oncology outpatient (recurring) (ONCR) | payer MEDICAID, SELFPAY ==
--- NOTE | 2022-02-02 | MR_ITS ---
WS: [id number] MRI HEAD WITH CONTRAST TECHNIQUE: Sagittal T1, T2 axial, T2 axial FLAIR, axial susceptibility weighted imaging, axial diffus ion weighted images, and coronal T2 images were obtained. Pre and post-T1 axial and post T1 coronal i mages. ADC and FSPGR images. CLINICAL INFORMATION: LUNG CA COMPARISON: None. FINDINGS: Prominent T2 hyperintense slightly expansile enhancing lesion involving the LEFT parietal calvarium measuring 2.0 cm. Suggestion of slight erosion of the inner calvarium. Findings suspicious for calvarial metastasis. This could be followed up with head CT to assess the underlying calvarium. No evidence of restricted diffusion to suggest acute ischemia. Ventricular system and basal cisterns are patent. Moderate small vessel changes. Small vessel changes in the lucille. Mild parenchymal volume loss. Normal posterior fossa. Normal vascular flow voids at the skull base. No extra-axial fluid mena ections. No evidence of mass or mass effect. Paranasal sinuses and mastoid air cells well aerated. No hemosiderin on the susceptibly weighted images. Normal optic chiasm and pituitary infundibulum. Te mporal lobes and hippocampal formations are normal in appearance. No evidence of enhancing intracrani al metastatic disease. Normal dural venous sinuses. MR/MR head wo/w con [id number] IMPRESSION: 1. No evidence of restricted diffusion to suggest acute ischemia. 2. Moderate small vessel changes with moderate parenchymal volume loss. Small vessel changes in the lucille. 3. Prominent T2 hyperintense slightly expansile enhancing lesion involving th e LEFT parietal calvarium measuring 2.0 cm. Suggestion of slight erosion of the inner calvarium. Findings suspicious for calvarial metastasis. This could be f ollowed up with head CT to assess the underlying calvarium. 4. No abnormal intraparenchymal enhancing lesions. 5. No other significant findings.
--- NOTE | 2022-02-04 07:04 | CT_ITS ---
WS: [id number] CT CHEST WITH INTRAVENOUS CONTRAST HISTORY: Restaging lung cancer, TECHNIQUE: Contiguous 5 mm axial imaging performed on the thorax. Coronal and sagittal reformats are submitted. All CT scans at [facility] use at least one of these dose optimization techniques: automated exposure control; mA and/or kV adjustment per patient size (includes targeted exams where dose is matched to clinical indication); or iterative reconstruction. CONTRAST: Omnipaque 350; 75 mL IV. DLP: 426.82 mGy.cm COMPARISON: 10/06/2021 and 08/20/2021 Lungs and central airway: Status post partial resection LEFT upper lobe. Severe chronic emphysematous changes. Extensive bullous disease and hyperexpansion. There are 2 new nodules now identified in the LEFT lower lobe. Seen on image 22 of series 5 is ovoid nodule measuring 5 mm. There is a very small cluster of nodules in the LEFT lower lobe measuring 10 mm in diameter on image 34 of series 5. These areas may have been present on the prior study but too small to characterize. These have slightly inc reased in size. Additional postsurgical scarring at the LEFT apex. There are additional areas of scar ring and fibrosis in the RIGHT lung. No additional mass. Improved atelectasis and changes of pneumoni a or inflammation in the RIGHT lower lobe. Pleura: No pleural effusion. Previously described RIGHT pleural effusion on 10/06/2021 has resolved. Heart and pericardium: Normal size heart with no pericardial effusion. Mediastinum and marissa: Significant improvement in the bronchial wall thickening at the RIGHT hilum ext ending into the RIGHT lower lobe. There is some very mild persistent RIGHT mainstem bronchus thickeni ng but no obstruction. Subcentimeter LEFT hilar lymph node. 12 mm RIGHT hilar lymph node without sign ificant change. There is extensive esophageal thickening which is circumferential and greatest in the mid esophagus. May be treatment related. Vessels: Dilated pulmonary artery. No filling defects. Chest wall and lower neck: Right-sided Mediport. Upper abdomen: Small hiatal hernia. Mild thickening of the LEFT adrenal gland. Similar to prior studi es. Stable 10 mm low-attenuation lesion RIGHT lobe the liver is probably a cyst. Peripherally calcifi ed 11 mm nodule RIGHT kidney is stable. 2.3 cm LEFT renal cyst. Osseous structures: Degenerative changes within the spine. Mild compression deformity L1. CT/CT chest w con* [id number] IMPRESSION: 1. Status post partial resection LEFT upper lobe with stable postsurgical ges. 2. New LEFT lower lobe nodules suspicious but indeterminate for metastatic dis ease. PET/CT imaging versus short-term chest CT follow-up in 3 months recommend ed. 3. Resolved RIGHT pleural effusion with significant improvement in the bronchi al wall thickening at the RIGHT hilum. 4. Severe emphysema. 5. Small bilateral mediastinal lymph nodes without a significant increase. 6. Esophageal wall thickening. May be treatment related. 7. Mild LEFT adrenal gland thickening is similar to prior studies and probably an adenoma. 8. Stable 10 mm hepatic cyst.
[2022-02-04] MEDS: iohexol 350 mg/mL 100 mL Btl IV (07:28)
[2022-02-04 08:17] LABS: Basophils # 0.1 10^3/uL (0.0-0.1); Basophils % 0.9 %; Eosinophils # 0.4 10^3/uL (0.0-0.8); Eosinophils % 5.1 %; Hematocrit 47.7 % (37.0-47.0); Lymphocytes # 0.8 10^3/uL (0.8-4.8); Lymphocytes % 11.2 %; Mean Corpuscular HGB Conc 31.4 g/dL (30.0-36.0); Mean Corpuscular Hemoglobin 28.1 pg (28.0-34.0); Mean Corpuscular Volume 89.5 fl (81-99); Mean Platelet Volume 10.7 fL (7.4-10.4); Monocytes # 0.7 10^3/uL (0.2-0.9); Monocytes % 9.1 %; Neutrophils # 5.42 10^3/uL (1.8-7.7); Neutrophils % 73.3 %; Nucleated Red Blood Cells % 0 %; Platelet Count 382 10^3/cmm (130-400); Red Blood Count 5.33 10^6/uL (4.1-5.3); Red Cell Distribution Width 17.9 % (12.1-15.1); White Blood Count 7.4 10^3/uL (4.0-10.0)
[2022-02-04 08:52] LABS: Alanine Aminotransferase < 5 U/L (0-33); Albumin Level 3.6 g/dL (3.5-5.2); Alkaline Phosphatase 72 IU/L (35-105); Anion Gap 10.2 (5-19); Aspartate Amino Transferase 12 U/L (0-32); Blood Urea Nitrogen 21 mg/dL (8-23); Carbon Dioxide 34 mmol/L (22-29); Chloride 101 mmol/L (98-107); Globulin 2.7 g/dL (1.3-4.6); Glomerular Filtration Rate 162.8 mL/min (90-130); Glucose 94 mg/dL (65-115); Osmolality Calculated 295 mOsm/kg (285-295); Potassium 4.2 mmol/L (3.5-5.1); Sodium 141 mmol/L (136-145); Thyroid Stimulating Hormone 58.77 uIU/mL (0.27-4.20); Total Bilirubin 0.2 mg/dL (0.15-1.2); Total Protein 6.3 g/dL (6.6-8.7)
[2022-02-04] MEDS: durvalumab 1,500 MG in sodium chloride 0.9% 250 ML 280 MG IV (10:40)
[2022-02-04 10:43] LABS: Add On to Lab Order(s) Added
[2022-02-04 11:05] LABS: Carcinoembryonic Antigen 19.7 ng/mL (0.0-4.7)
[2022-02-04 11:45] VITALS: BP 119/65; PULSE 56; RESP 16; TEMP 36.7; O2SAT 99
== END 2022-02-08 23:59 | disposition home or self-care (01) ==
PROVIDERS: Nurse Practitioner Family; PCP Family Medicine; Referring Provider Family Medicine; Visit Provider Internal Medicine Medical Oncology
DX: Z51.12 Encounter for antineoplastic immunotherapy (principal); C34.12 Malignant neoplasm of upper lobe, left bronchus or lung; C77.8 Secondary and unspecified malignant neoplasm of lymph nodes of multiple regions; U07.1 COVID-19; J12.82 Pneumonia due to coronavirus disease 2019; J90 Pleural effusion, not elsewhere classified; C79.51 Secondary malignant neoplasm of bone; J43.9 Emphysema, unspecified; F17.210 Nicotine dependence, cigarettes, uncomplicated; Z79.2 Long term (current) use of antibiotics; Z79.52 Long term (current) use of systemic steroids; Z79.899 Other long term (current) drug therapy
CPT/HCPCS: 70553; 71260; 80053; 82378; 84443; 85025; 96413; 99215; J7050; J9173; Q9967

== ENCOUNTER 2022-03-04 08:55 | Oncology outpatient (recurring) (ONCR) | payer MEDICAID, SELFPAY ==
[2022-03-04 09:20] VITALS: BMI 15.8
[2022-03-04 09:55] LABS: Basophils # 0.1 10^3/uL (0.0-0.1); Basophils % 1.2 %; Eosinophils # 0.5 10^3/uL (0.0-0.8); Eosinophils % 6.3 %; Hematocrit 49.1 % (37.0-47.0); Hemoglobin 15.3 g/dL (11.5-15.3); Lymphocytes # 0.6 10^3/uL (0.8-4.8); Lymphocytes % 7.5 %; Mean Corpuscular HGB Conc 31.2 g/dL (30.0-36.0); Mean Corpuscular Hemoglobin 28.9 pg (28.0-34.0); Mean Corpuscular Volume 92.8 fl (81-99); Mean Platelet Volume 11.7 fL (7.4-10.4); Monocytes # 0.8 10^3/uL (0.2-0.9); Monocytes % 9.2 %; Neutrophils # 6.09 10^3/uL (1.8-7.7); Neutrophils % 75.2 %; Nucleated Red Blood Cells % 0 %; Platelet Count 363 10^3/cmm (130-400); Red Blood Count 5.29 10^6/uL (4.1-5.3); Red Cell Distribution Width 18.6 % (12.1-15.1); White Blood Count 8.1 10^3/uL (4.0-10.0)
[2022-03-04 10:20] LABS: Alanine Aminotransferase 9 U/L (0-33); Alkaline Phosphatase 81 U/L (35-105); Anion Gap 11.2 (5-19); Aspartate Amino Transferase 15 U/L (0-32); Blood Urea Nitrogen 17 mg/dL (8-23); Calcium 8.9 mg/dL (8.5-10.5); Carbon Dioxide 34 mmol/L (22-29); Chloride 101 mmol/L (98-107); Globulin 2.7 g/dL (1.3-4.6); Glomerular Filtration Rate 226.9 mL/min (90-130); Glucose 99 mg/dL (65-115); Osmolality Calculated 296 mOsm/kg (285-295); Potassium 4.2 mmol/L (3.5-5.1); Sodium 142 mmol/L (136-145); Thyroid Stimulating Hormone 22.79 uIU/mL (0.27-4.20); Total Bilirubin 0.2 mg/dL (0.15-1.2); Total Protein 6.7 g/dL (6.6-8.7)
[2022-03-04] MEDS: sodium chloride 0.9% 250 ML 75 ML IV (11:18)
[2022-03-04] MEDS: durvalumab 1,500 MG in sodium chloride 0.9% 250 ML 280 MG IV (11:28)
[2022-03-04 12:51] VITALS: BP 112/69; PULSE 67; RESP 18; TEMP 36.4; O2SAT 99
== END 2022-03-11 23:59 | disposition home or self-care (01) ==
PROVIDERS: Nurse Practitioner Family; PCP Family Medicine; Referring Provider Family Medicine; Visit Provider Internal Medicine Medical Oncology
DX: Z51.12 Encounter for antineoplastic immunotherapy; C34.12 Malignant neoplasm of upper lobe, left bronchus or lung; C77.1 Secondary and unspecified malignant neoplasm of intrathoracic lymph nodes; F17.210 Nicotine dependence, cigarettes, uncomplicated; Z79.899 Other long term (current) drug therapy; Z99.81 Dependence on supplemental oxygen; Z92.3 Personal history of irradiation; E03.2 Hypothyroidism due to medicaments and other exogenous substances; T45.1X5A Adverse effect of antineoplastic and immunosuppressive drugs, initial encounter
CPT/HCPCS: 80053; 84443; 85025; 96413; 99214; 99215; J7050; J9173

== ENCOUNTER 2022-04-01 09:00 | Oncology outpatient (recurring) (ONCR) | payer MEDICAID, SELFPAY ==
[2022-04-01 09:32] LABS: Basophils # 0.1 10^3/uL (0.0-0.1); Eosinophils # 0.7 10^3/uL (0.0-0.8); Eosinophils % 9.6 %; Hematocrit 46.2 % (37.0-47.0); Hemoglobin 14.6 g/dL (11.5-15.3); Lymphocytes # 0.6 10^3/uL (0.8-4.8); Lymphocytes % 8.8 %; Mean Corpuscular HGB Conc 31.6 g/dL (30.0-36.0); Mean Corpuscular Hemoglobin 29.6 pg (28.0-34.0); Mean Corpuscular Volume 93.5 fl (81-99); Mean Platelet Volume 10.8 fL (7.4-10.4); Monocytes # 0.6 10^3/uL (0.2-0.9); Monocytes % 8.9 %; Neutrophils # 5.03 10^3/uL (1.8-7.7); Neutrophils % 71.1 %; Nucleated Red Blood Cells % 0 %; Platelet Count 383 10^3/cmm (130-400); Red Blood Count 4.94 10^6/uL (4.1-5.3); Red Cell Distribution Width 17.7 % (12.1-15.1); White Blood Count 7.1 10^3/uL (4.0-10.0)
[2022-04-01 09:43] VITALS: BMI 16.3
[2022-04-01 10:43] LABS: Alanine Aminotransferase 8 U/L (0-33); Albumin Level 3.9 g/dL (3.5-5.2); Alkaline Phosphatase 79 U/L (35-105); Aspartate Amino Transferase 14 U/L (0-32); Blood Urea Nitrogen 22 mg/dL (8-23); Calcium 8.9 mg/dL (8.5-10.5); Carbon Dioxide 31 mmol/L (22-29); Chloride 101 mmol/L (98-107); Globulin 2.6 g/dL (1.3-4.6); Glomerular Filtration Rate 162.8 mL/min (90-130); Glucose 136 mg/dL (65-115); Osmolality Calculated 301 mOsm/kg (285-295); Sodium 143 mmol/L (136-145); Thyroid Stimulating Hormone 24.46 uIU/mL (0.27-4.20); Total Bilirubin 0.2 mg/dL (0.15-1.2); Total Protein 6.5 g/dL (6.6-8.7)
[2022-04-01 10:44] LABS: Anion Gap 14.9 (5-19); Potassium 3.9 mmol/L (3.5-5.1)
[2022-04-01] MEDS: sodium chloride 0.9% 250 ML 75 ML IV (11:19)
[2022-04-01] MEDS: durvalumab 1,500 MG in sodium chloride 0.9% 250 ML 280 MG IV (11:28)
[2022-04-01 12:52] VITALS: BP 111/71; PULSE 64; RESP 18; TEMP 36.3; O2SAT 99
== END 2022-04-10 23:59 | disposition home or self-care (01) ==
PROVIDERS: Nurse Practitioner Family; PCP Family Medicine; Referring Provider Family Medicine; Visit Provider Internal Medicine Medical Oncology
DX: Z51.12 Encounter for antineoplastic immunotherapy (principal); C34.12 Malignant neoplasm of upper lobe, left bronchus or lung; F17.210 Nicotine dependence, cigarettes, uncomplicated; Z79.899 Other long term (current) drug therapy; C77.8 Secondary and unspecified malignant neoplasm of lymph nodes of multiple regions; E03.9 Hypothyroidism, unspecified; K21.9 Gastro-esophageal reflux disease without esophagitis; F41.9 Anxiety disorder, unspecified
CPT/HCPCS: 80053; 82378; 84443; 85025; 96413; 99214; J7050; J9173

== ENCOUNTER 2022-04-29 08:57 | Oncology outpatient (recurring) (ONCR) | payer MEDICAID, SELFPAY ==
[2022-04-29 09:35] LABS: Basophils # 0.1 10^3/uL (0.0-0.1); Eosinophils # 0.7 10^3/uL (0.0-0.8); Eosinophils % 5.3 %; Hematocrit 42.1 % (37.0-47.0); Hemoglobin 13.1 g/dL (11.5-15.3); Lymphocytes # 0.7 10^3/uL (0.8-4.8); Lymphocytes % 5.9 %; Mean Corpuscular HGB Conc 31.1 g/dL (30.0-36.0); Mean Corpuscular Hemoglobin 28.9 pg (28.0-34.0); Mean Corpuscular Volume 92.9 fl (81-99); Mean Platelet Volume 10.2 fL (7.4-10.4); Monocytes # 1.1 10^3/uL (0.2-0.9); Monocytes % 8.3 %; Neutrophils # 9.91 10^3/uL (1.8-7.7); Neutrophils % 78.5 %; Nucleated Red Blood Cells % 0 %; Platelet Count 780 10^3/cmm (130-400); Red Blood Count 4.53 10^6/uL (4.1-5.3); Red Cell Distribution Width 17.4 % (12.1-15.1); White Blood Count 12.6 10^3/uL (4.0-10.0)
[2022-04-29 10:08] LABS: Carcinoembryonic Antigen 26.8 ng/mL (0.0-4.7); Thyroid Stimulating Hormone 2.23 uIU/mL (0.27-4.20)
[2022-04-29 10:20] LABS: Alanine Aminotransferase < 5 U/L (0-33); Albumin Level 3.7 g/dL (3.5-5.2); Alkaline Phosphatase 104 U/L (35-105); Aspartate Amino Transferase 9 U/L (0-32); Blood Urea Nitrogen 15 mg/dL (8-23); Calcium 9.2 mg/dL (8.5-10.5); Carbon Dioxide 30 mmol/L (22-29); Chloride 102 mmol/L (98-107); Globulin 3.1 g/dL (1.3-4.6); Glomerular Filtration Rate 162.8 mL/min (90-130); Glucose 84 mg/dL (65-115); Osmolality Calculated 294 mOsm/kg (285-295); Sodium 142 mmol/L (136-145); Total Bilirubin 0.2 mg/dL (0.15-1.2); Total Protein 6.8 g/dL (6.6-8.7)
[2022-04-29] MEDS: durvalumab 1,500 MG in sodium chloride 0.9% 250 ML 280 MG IV (11:26)
== END 2022-05-11 23:59 | disposition home or self-care (01) ==
PROVIDERS: PCP Family Medicine; Referring Provider Family Medicine; Visit Provider Internal Medicine Medical Oncology
DX: Z51.12 Encounter for antineoplastic immunotherapy (principal); C34.12 Malignant neoplasm of upper lobe, left bronchus or lung; C77.8 Secondary and unspecified malignant neoplasm of lymph nodes of multiple regions; E03.2 Hypothyroidism due to medicaments and other exogenous substances; J70.4 Drug-induced interstitial lung disorders, unspecified; T45.1X5A Adverse effect of antineoplastic and immunosuppressive drugs, initial encounter; Z87.891 Personal history of nicotine dependence
CPT/HCPCS: 80053; 82378; 84443; 85025; 96413; 99214; J7050; J9173

== ENCOUNTER 2022-05-27 08:47 | Oncology outpatient (recurring) (ONCR) | payer MEDICAID, SELFPAY ==
[2022-05-27 09:24] LABS: Basophils # 0.2 10^3/uL (0.0-0.1); Basophils % 1.3 %; Eosinophils # 2.2 10^3/uL (0.0-0.8); Eosinophils % 17.9 %; Hematocrit 42.1 % (37.0-47.0); Hemoglobin 13.2 g/dL (11.5-15.3); Lymphocytes # 1.1 10^3/uL (0.8-4.8); Mean Corpuscular HGB Conc 31.4 g/dL (30.0-36.0); Mean Corpuscular Hemoglobin 28.8 pg (28.0-34.0); Mean Corpuscular Volume 91.9 fl (81-99); Mean Platelet Volume 10.9 fL (7.4-10.4); Monocytes # 1.2 10^3/uL (0.2-0.9); Monocytes % 9.6 %; Neutrophils # 7.55 10^3/uL (1.8-7.7); Neutrophils % 61.5 %; Nucleated Red Blood Cells % 0 %; Platelet Count 527 10^3/cmm (130-400); Red Blood Count 4.58 10^6/uL (4.1-5.3); Red Cell Distribution Width 17.9 % (12.1-15.1); White Blood Count 12.3 10^3/uL (4.0-10.0)
[2022-05-27 09:53] LABS: Alanine Aminotransferase < 5 U/L (0-33); Albumin Level 3.8 g/dL (3.5-5.2); Alkaline Phosphatase 77 U/L (35-105); Anion Gap 14.2 (5-19); Aspartate Amino Transferase 13 U/L (0-32); Blood Urea Nitrogen 22 mg/dL (8-23); Calcium 8.9 mg/dL (8.5-10.5); Carbon Dioxide 29 mmol/L (22-29); Chloride 105 mmol/L (98-107); Creatinine Clr Calc Pharmacy 124.3578; Globulin 2.7 g/dL (1.3-4.6); Glomerular Filtration Rate 162.8 mL/min (90-130); Glucose 91 mg/dL (65-115); Osmolality Calculated 301 mOsm/kg (285-295); Potassium 4.2 mmol/L (3.5-5.1); Sodium 144 mmol/L (136-145); Thyroid Stimulating Hormone 1.54 uIU/mL (0.27-4.20); Total Bilirubin 0.2 mg/dL (0.15-1.2); Total Protein 6.5 g/dL (6.6-8.7)
[2022-05-27] MEDS: sodium chloride 0.9% 250 ML 75 ML IV (10:13)
[2022-05-27] MEDS: durvalumab 1,500 MG in sodium chloride 0.9% 250 ML 280 MG IV (10:37)
[2022-05-27 11:50] VITALS: BP 112/67; PULSE 64; RESP 16; TEMP 36.4; O2SAT 98
== END 2022-06-10 23:59 | disposition home or self-care (01) ==
PROVIDERS: PCP Family Medicine; Referring Provider Family Medicine; Visit Provider Internal Medicine Medical Oncology
DX: Z51.12 Encounter for antineoplastic immunotherapy (principal); C34.12 Malignant neoplasm of upper lobe, left bronchus or lung; C77.8 Secondary and unspecified malignant neoplasm of lymph nodes of multiple regions; Z79.899 Other long term (current) drug therapy; Z87.891 Personal history of nicotine dependence
CPT/HCPCS: 80053; 84443; 85025; 96413; J7050; J9173

== ENCOUNTER 2022-06-18 07:43 | Outpatient (CLI) | payer MEDICAID, SELFPAY ==
[2022-06-18] MEDS: iohexol 350 mg/mL 500 mL Btl (per mL) IV (08:00)
--- NOTE | 2022-06-18 08:00 | CT_ITS ---
WS: [id number] CT CHEST WITH INTRAVENOUS CONTRAST HISTORY: Restaging lung cancer. TECHNIQUE: Contiguous 5 mm axial imaging performed on the thorax. Coronal and sagittal reformats are submitted. All CT scans at [facility] use at least one of these dose optimization techniques: automated exposure control; mA and/or kV adjustment per patient size (includes targeted exams where dose is matched to clinical indication); or iterative reconstruction. CONTRAST: Omnipaque 350; 85 mL IV. DLP: 456.17 mGy.cm COMPARISON: PET CT 02/14/2022, chest CT 02/04/2022 Lungs and central airway: Severe pulmonary hyperexpansion with emphysema. Postsurgical changes at the LEFT lung apex. 5.7 mm noncalcified nodule persists LEFT lower lobe that was indeterminate on recent PET/CT due to small size. Nodule measures just slightly greater than on the prior study but only a s bayron nodule is identified today. There is an additional 3.4 mm irregular shaped nodule RIGHT upper l obe, unchanged. New wedge-shaped pleural-based mass with central cavitation in the posterior LEFT low er lobe measures 2.2 x 3.7 cm and extends along the pleura. This was not present on the prior study. Due to the shape this is probably an pulmonary infarct with central cavitation. Pleura: Mild pleural thickening posterior LEFT thorax. Heart and pericardium: Small amount of fluid adjacent to the LEFT ventricular apex. Mediastinum and marissa: No mediastinal or hilar adenopathy is identified. There is a single lymph node at the LEFT hilum measuring 8.8 mm which is unchanged. There is mild hilar bronchial thickening which is decreased since the prior study. There is a large amount of debris within the esophagus and mild esophageal wall thickening. The debri s extends above the nelli. Vessels: Mildly enlarged pulmonary artery. Mild atherosclerosis aorta. Chest wall and lower neck: RIGHT Mediport. Upper abdomen: Several hypodensities scattered throughout the liver with the largest measuring 10 mm and stable. These are all probably cysts. No enhancing nodules to suggest metastatic disease. Stable LEFT renal cyst. Mild bilateral adrenal hyperplasia greatest on the LEFT. Osseous structures: Increase in thoracic kyphosis. Degenerative disc disease. Stable Schmorl's node a t L1. Stable sclerosis T11. CT/CT chest w con* [id number] IMPRESSION: 1. New wedge-shaped opacification with central cavitation measures 2.2 x 3.7 c m pleural-based in the LEFT lower lobe. Differential includes pulmonary infarct , necrotic pneumonia or neoplasm. This is completely new since 02/04/2022. Recom mend follow-up chest CT in 3 months. Favor pulmonary infarct. 2. Very minimal increase in size of the LEFT lower lobe 5.7 mm noncalcified no dule. Only a single nodule is identified in this location today. This can be fo llowed up in [address] by chest CT with IV contrast. 3. Severe chronic emphysema. 4. No adenopathy. 5. Large amount of debris extensively throughout the esophagus. Gastroesophage al reflux versus incomplete emptying. Patient at risk for aspiration.
== END 2022-06-18 07:44 | disposition home or self-care (01) ==
LOC: RAD 07:43
PROVIDERS: PCP Family Medicine; Visit Provider Internal Medicine Medical Oncology
DX: C34.12 Malignant neoplasm of upper lobe, left bronchus or lung (principal)
CPT/HCPCS: 71260; Q9967

== ENCOUNTER 2022-06-20 14:06 | Emergency (ER) | payer MEDICAID, SELFPAY ==
[2022-06-20] VITALS (42 sets, daily range): BP systolic 119–127; BP diastolic 62–65; PULSE 79–88; RESP 17–20; TEMP 36.7; O2SAT 92–100; BMI 18.0
--- NOTE | 2022-06-20 15:05 | CTR_ITS ---
PROCEDURE INFORMATION: Exam: CT Abdomen And Pelvis With Contrast Exam date and time: 06/20/2022 3:54 PM Age: 61 years old Clinical indication: Abdominal pain; Additional info: Diffuse abdominal pain TECHNIQUE: Imaging protocol: Computed tomography of the abdomen and pelvis with contrast. Radiation optimization: All CT scans at this facility use at least one of these dose optimization techniques: automated exposure control; mA and/or kV adjustment per patient size (includes targeted exams where dose is matched to clinical indication); or iterative reconstruction. Contrast material: OMNIPAQUE 350; Contrast volume: 75 ml; Contrast route: INTRAVENOUS (IV); COMPARISON: CT chest abd pel w con* 07/22/2021 9:46 PM RADIATION DOSE METRICS: Total DLP (mGy-cm): 288.47 FINDINGS: Lungs: Emphysematous changes. Coronary arteries: Coronary artery atherosclerotic calcifications suspected. Liver: Several hepatic cysts. Gallbladder and bile ducts: Cholelithiasis. Pancreas: Normal. No ductal dilation. Spleen: Normal. No splenomegaly. Adrenal glands: Normal. No mass. Kidneys and ureters: Bilateral renal cysts, negative for follow up. Stomach and bowel: Diverticulosis without diverticulitis. Appendix: No evidence of appendicitis. Intraperitoneal space: Unremarkable. No free air. No significant fluid collection. Vasculature: Unremarkable. No abdominal aortic aneurysm. Lymph nodes: Unremarkable. No enlarged lymph nodes. Urinary bladder: Unremarkable as visualized. Reproductive: Right deep pelvis/adnexal 6.1 cm peripherally enhancing cystic structure new compared to prior exam, which appears separate from the urinary bladder. Consider further evaluation with a pelvic ultrasound. A cystic adnexal neoplasm or perhaps an infectious process are considerations depending on the clinical scenario. Bones/joints: Several chronic compression deformities throughout the spine without retropulsion of bony fragments. Soft tissues: Unremarkable. CT/CT abdomen pelvis w con* [id number] IMPRESSION: 1. Right deep pelvis/adnexal 6.1 cm peripherally enhancing cystic structure new compared to prior exam, which appears separate from the urinary bladder. Consider further evaluation with a pelvic ultrasound. A cystic adnexal neoplasm or perhaps an infectious process are considerations depending on the clinical scenario. 2. Emphysematous changes. 3. Coronary artery atherosclerotic calcifications suspected. 4. Several hepatic cysts. 5. Bilateral renal cysts, negative for follow up. 6. Cholelithiasis. 7. Several chronic compression deformities throughout the spine without retropulsion of bony fragments. 8. Diverticulosis without diverticulitis. COMMENTS: Consistent with the [employer]'s Incidental Findings Committee white paper (J Am Chaz Radiol 2018): Any incidental renal lesion less than 1 cm or classified as too small to characterize, or any incidental cystic renal lesion characterized as simple-appearing, is likely benign. No follow-up imaging is recommended for these lesions per consensus recommendations based on imaging criteria.
--- NOTE | 2022-06-20 15:21 | W.ED.NAVMDI ---
Documented by User: Pierce Javier 06/20/22 18:10 HPI - Nausea/Vomiting/Diarrhea General: Chief complaint: Nausea/Vomiting/Diarrhea Stated complaint: n/v for five days Time Seen by Provider: 06/20/22 14:47 History of Present Illness: 61-year-old female presents emergency department chief complaint of ongoing nausea and vomiting this been ongoing last 3 to 4 days patient reports that she is currently getting chemotherapy for lung cancer on the left side she reports her last chemotherapy was over a week ago the patient reports having an appetite but having significant appetite reduction due to unable to hold any of her food down she reports several episodes of nonbloody emesis and nausea as well as generalized abdominal discomfort. Patient reports reduced about urination reports no prior or recent history of any obvious infections. Patient presents to the ER for further assessment and management due to her generalized weakness and fatigue and unable to hold anything down.. Patient does maintain that she has had her flu shots her influenza and COVID shots. In which she reports no recent sick or ill contacts. Associated nausea: Yes Associated symtoms: Reports nausea; Denies anxiety, change in vision, chest pain, headache(s) or palpitations Review of Systems General: Reports: 10 or more systems reviewed and unremarkable except in HPI and below Const: Denies: fever(s) or chills Eyes: Denies: change in vision or blurry vision Card: Denies: chest pain or palpitations Resp: Denies: dyspnea or productive cough GI: Reports: nausea and vomiting; Denies: abdominal pain : Denies: flank pain Musc: Denies: extremity pain or extremity swelling Skin/Breast: Denies: rash or pruritus Neuro: Denies: headache(s) Psych: Denies: anxiety or depression Mikey/Lymph: Denies: easy bleeding All/Imm: Denies: urticaria, throat swelling or facial swelling PFSH ED PFSH: Medical History Acquired hypothyroidism Chronic respiratory failure with hypoxia and hypercapnia COPD (chronic obstructive pulmonary disease) Depression History of immunotherapy History of lung cancer HTN (hypertension), benign OFF all med since fall 2020 Right upper lobe pneumonia Smoking Surgical History H/O colonoscopy (07/16/20) H/O colostomy H/O exploratory laparotomy H/O pneumonectomy Hx of tubal ligation Port-A-Cath in place (10/02/20) Family History Mother Cancer liver Son Cancer age 12 leukemia Father CAD (coronary artery disease) Other Hypertension Denies family history of Diabetes Clotting disorder Dementia Hyperlipidemia Psychiatric illness Chronic kidney disease (CKD) Suicide Anesthesia complication Bleeding disorder Lung disease Stroke Social History Smoking and tobacco status: former smoker (smoked x 30+ years) Quit status (tobacco): has quit using tobacco Former quit date comment: Quit 05/2021 Smoking risk assessment/counseling performed?: Yes Alcohol intake: never Counseling given: No Counseling given: No Lives independently: Yes Household members: significant other Marital status: Single Current occupational status: employed History of recent travel: No Current gender identity: Female Female Reproductive History: Spontaneous abortions: No Physical Exam Const: COMMON NORMALS: no acute distress, patient oriented x3 and healthy appearing OTHER: Flat affect appreciated flat affect appreciated on exam patient however appears nontoxic peers no acute distress. HENMT: COMMON NORMALS: normocephalic and atraumatic HEAD & SCALP: normocephalic and atraumatic Eye: COMMON NORMALS: Equal, round and reactive pupils present and EOMs intact bilaterally PUPIL: Yes Equal, round and reactive pupils present Neck/C-Spine: COMMON NORMALS: full ROM, supple and no JVD Lymph: LYMPHATIC: no lymphadenopathy noted Chest: COMMONS NORMALS: normal inspection of the chest and normal palpation of entire chest wall Resp: COMMON NORMALS: normal respiratory effort, No retractions and clear to auscultation bilaterally EFFORT & INSPECTION: Yes able to speak in complete sentences and Yes symmetric chest movement AUSCULTATION: clear to auscultation bilaterally Cardio: COMMON NORMALS: no JVD, regular rate and regular rhythm RATE: regular rate RHYTHM: regular rhythm GI: COMMON NORMALS: Normal to inspection, nondistended, normoactive bowel sounds present, Soft to palpation and non-tender INSPECTION: Yes normal to inspection PALPATION: Yes Soft to palpation : COMMON NORMALS: Yes no CVA tenderness BLADDER/KIDNEY EXAM: Yes no CVA tenderness Back/Pelvis: COMMON NORMALS: no CVA tenderness Extremity: COMMON NORMALS: normal to inspection and full ROM Neuro: COMMON NORMALS: patient oriented x3, CN's II-XII intact bilaterally, moves all extremities and no focal motor deficits Psych: COMMON NORMALS: mental status grossly normal, Normal thought process present, cooperative and normal affect THOUGHT PROCESS: Normal thought process present Skin: COMMON NORMALS: no rashes or lesions noted GENERAL SKIN EXAM: no rashes or lesions noted Course Vital Signs: Vital signs: Vital Signs Temperature 98.1 F 06/20/22 14:30 Pulse Rate 79 06/20/22 14:30 Respiratory Rate 17 06/20/22 14:30 Blood Pressure 127/65 06/20/22 19:00 Pulse Oximetry 99 06/20/22 19:00 Oxygen Delivery Me thod 06/20/22 14:30 Oxygen Flow Rate 6 06/20/22 14:30 MDM - Nausea/Vomiting/Diarrhea Medical Decision Making due to the patient's condition lab work and imaging will be obtained we will continue to follow. Medications and IV fluids were provided for the patient's associated dehydration and symptoms. Medication provided for the patient associated symptoms lab work is come back unremarkable however patient was noted to have a adnexal and right deep pelvis enhancing cystic structure mass appears separate from the urinary bladder which recommending pelvic ultrasound to further rule out cystic adnexal neoplasm or slightly infectious process otherwise patient is lab work looks unremarkable we will continue to follow with pelvic ultrasound. Patient does not currently have a white blood cell count elevation patient's chemistries also look unremarkable with no obvious renal impairment. Or anion gap. Lactic acid is within normal parameters as well as liver enzymes patient CRP has been found to be elevated 35.7 which could be correlated to the patient undergoing ongoing chemo for lung cancer. We will continue to follow. Lab Data 06/20/22 15:16 06/20/22 16:10 Radiology Impressions Abdomen/Pelvis CT 06/20/22 15:05 IMPRESSION: 1. Right deep pelvis/adnexal 6.1 cm peripherally enhancing cystic structure new compared to prior exam, which appears separate from the urinary bladder. Consider further evaluation with a pelvic ultrasound. A cystic adnexal neoplasm or perhaps an infectious process are considerations depending on the clinical scenario. 2. Emphysematous changes. 3. Coronary artery atherosclerotic calcifications suspected. 4. Several hepatic cysts. 5. Bilateral renal cysts, negative for follow up. 6. Cholelithiasis. 7. Several chronic compression deformities throughout the spine without retropulsion of bony fragments. 8. Diverticulosis without diverticulitis. COMMENTS: Consistent with the [employer]'s Incidental Findings Committee white paper (J Am Chaz Radiol 2018): Any incidental renal lesion less than 1 cm or classified as too small to characterize, or any incidental cystic renal lesion characterized as simple-appearing, is likely benign. No follow-up imaging is recommended for these lesions per consensus recommendations based on imaging criteria. Pelvis Ultrasound 06/20/22 16:18 IMPRESSION: 1. Right adnexal 5.6 cm mass with low-level internal echoes and a thick wall measuring approximately 4 mm, color blood flow is seen in the wall, concerning for a neoplastic process. Infection is not excluded, please correlate clinically. 2. Negative for right ovary visualized. 3. Left ovary not seen. Laboratory Results WBC 9.1 10^3/uL (4.0-10.0) 06/20/22 15:16 RBC 5.20 10^6/uL (4.1-5.3) 06/20/22 15:16 Hgb 14.8 g/dL (11.5-15.3) 06/20/22 15:16 Hct 47.7 % (37.0-47.0) H 06/20/22 15:16 MCV 91.7 fl (81-99) 06/20/22 15:16 MCH 28.5 pg (28.0-34.0) 06/20/22 15:16 MCHC 31.0 g/dL (30.0-36.0) 06/20/22 15:16 RDW 16.6 % (12.1-15.1) H 06/20/22 15:16 Plt Count 512 10^3/cmm (130-400) H 06/20/22 15:16 MPV 11.4 fL (7.4-10.4) H 06/20/22 15:16 Neut % (Auto) 81.8 % 06/20/22 15:16 Lymph % (Auto) 7.6 % 06/20/22 15:16 [place] % (Auto) 8.2 % 06/20/22 15:16 Eos % (Auto) 1.2 % 06/20/22 15:16 Baso % (Auto) 1.0 % 06/20/22 15:16 Neut # (Auto) 7.42 10^3/uL (1.8-7.7) 06/20/22 15:16 Lymph # (Auto) 0.7 10^3/uL (0.8-4.8) L 06/20/22 15:16 [place] # (Auto) 0.7 10^3/uL (0.2-0.9) 06/20/22 15:16 Eos # (Auto) 0.1 10^3/uL (0.0-0.8) 06/20/22 15:16 Baso # (Auto) 0.1 10^3/uL (0.0-0.1) 06/20/22 15:16 Nucleated RBC % (auto) 0 % 06/20/22 15:16 Nucleated RBCs # 0.0 /100WBC 06/20/22 15:16 Sodium 141 mmol/L (136-145) 06/20/22 16:10 Potassium 3.4 mmol/L (3.5-5.1) L 06/20/22 16:10 Chloride 99 mmol/L (98-107) 06/20/22 16:10 Carbon Dioxide 32 mmol/L (22-29) H 06/20/22 16:10 Anion Gap 13.4 (5-19) 06/20/22 16:10 BUN 27 mg/dL (8-23) H 06/20/22 16:10 Creatinine 0.4 mg/dL (0.5-0.9) L 06/20/22 16:10 GFR Calculation 162.8 mL/min (90-130) H 06/20/22 16:10 Glucose 90 mg/dL (65-115) 06/20/22 16:10 Calculated Osmolality 297 mOsm/kg (285-295) H 06/20/22 16:10 Lactate 1.0 mmol/L (0.5-2.2) 06/20/22 15:16 Calcium 9.5 mg/dL (8.5-10.5) 06/20/22 16:10 Total Bilirubin 0.3 mg/dL (0.15-1.2) 06/20/22 16:10 AST 13 U/L (0-32) 06/20/22 16:10 ALT < 5 U/L (0-33) 06/20/22 16:10 Alkaline Phosphatase 71 U/L (35-105) 06/20/22 16:10 C-Reactive Protein 35.7 mg/L (0.0-4.9) H 06/20/22 15:16 Total Protein 7.0 g/dL (6.6-8.7) 06/20/22 16:10 Albumin 3.8 g/dL (3.5-5.2) 06/20/22 16:10 Globulin 3.2 g/dL (1.3-4.6) 06/20/22 16:10 Lipase 33 U/L (13-60) 06/20/22 15:16 Urine Color Yellow (Yellow) 06/20/22 18:04 Urine Appearance Clear (CLEAR) 06/20/22 18:04 Urine pH 5 (5-7) 06/20/22 18:04 Ur Specific [place] 1.010 (1.005-1.030) 06/20/22 18:04 Urine Protein 1+ (Negative) H 06/20/22 18:04 Urine Glucose (UA) Norm (Normal) 06/20/22 18:04 Urine Ketones 1+ (Negative) H 06/20/22 18:04 Urine Blood Neg (Negative) 06/20/22 18:04 Urine Nitrate Positive (Negative) H 06/20/22 18:04 Urine Bilirubin 1+ (Negative) H 06/20/22 18:04 Urine Urobilinogen Norm mg/dL (Negative) 06/20/22 18:04 Ur Leukocyte Esterase 1+ (Negative) H 06/20/22 18:04 Urine RBC None /hpf (0-2) 06/20/22 18:04 Urine WBC 5-10 /hpf (0-5) H 06/20/22 18:04 Ur Squamous Epith Cells Rare /hpf (0-5) 06/20/22 18:04 Amorphous Sediment Not Reportable 06/20/22 18:04 Urine Bacteria 1+ /hpf (NONE) H 06/20/22 18:04 Discharge Plan Discharge Patient Disposition: Home Clinical Impression: Vomiting, Gastritis, Pelvic mass, UTI (urinary tract infection) Condition: Stable Prescriptions: New ondansetron 4 mg film 4 mg PO DAILY PRN (Reason: nausea and vomiting) Qty: 14 0RF Macrobid 100 mg capsule 100 mg PO BID 7 Days Qty: 14 0RF Rx Instructions: must administer with a meal/food No Action hydroxyzine HCl 25 mg tablet See Rx Instructions .ROUTE .COMPLEX Qty: 90 1RF Dose Instruction: TAKE ONE TABLET BY MOUTH DAILY NEEDED FOR ANXIETY Rx Instructions: TAKE ONE TABLET BY MOUTH DAILY NEEDED FOR ANXIETY zolpidem 10 mg tablet 10 mg PO .at bedtime 30 Days Qty: 30 2RF melatonin 10 mg capsule 10 mg PO .at bedtime 30 Days Qty: 30 2RF pantoprazole 40 mg tablet,delayed release (DR/EC) 40 mg PO DAILY 90 Days Qty: 90 1RF sertraline 100 mg tablet 100 mg PO DAILY miscellaneous medical supply Misc See Rx Instructions miscellaneous .COMPLEX Qty: 1 0RF Rx Instructions: 6 L NC with humidifier miscellaneous ; levothyroxine 150 mcg capsule 150 mcg PO DAILY Qty: 30 2RF lorazepam 0.5 mg tablet 0.5 mg PO TID PRN (Reason: anxiety) Qty: 90 0RF hydrocodone-acetaminophen 5-325 mg tablet 1 tab PO BID PRN (Reason: pain) 30 Days Qty: 60 0RF Discharge Orders: Discharge ED (Routine); Ordered 06/20/22 Ordered By: Jack Schmitt Referrals: Adalberto Orellana MD [Physician] - 4-7 days Sha Michaels MD [Hospitalist] - 4-7 days Graciela Diamond MD [Primary Care Provider] - Patient Instructions: Gastritis (ED), Urinary Tract Infection in Women (ED), Opioid Safety, Pain Management, Vomiting - Adult Activity Restrictions/Additional Instructions: Take the nausea medication every 4 hours while awake scheduled for the first 24 hours, then as needed following. Antibiotics as directed for urinary tract infection. Case management will make you an appointment with gynecology regarding the pelvic mass. Expect a call from them on Wednesday or Wednesday. Return for any worsening symptoms, vomiting liquids or medications despite treatment, fever greater than 100, any other concerns. 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 [employer] Fwd Exam Comprehensive Documented by User: Jack Schmitt DO 06/20/22 19:25 HPI - Nausea/Vomiting/Diarrhea General: Chief complaint: Nausea/Vomiting/Diarrhea Stated complaint: n/v for five days Time Seen by Provider: 06/20/22 14:47 PFSH ED PFSH: Medical History Acquired hypothyroidism Chronic respiratory failure with hypoxia and hypercapnia COPD (chronic obstructive pulmonary disease) Depression History of immunotherapy History of lung cancer HTN (hypertension), benign OFF all med since fall 2020 Right upper lobe pneumonia Smoking Surgical History H/O colonoscopy (07/16/20) H/O colostomy H/O exploratory laparotomy H/O pneumonectomy Hx of tubal ligation Port-A-Cath in place (10/02/20) Family History Mother Cancer liver Son Cancer age 12 leukemia Father CAD (coronary artery disease) Other Hypertension Denies family history of Diabetes Clotting disorder Dementia Hyperlipidemia Psychiatric illness Chronic kidney disease (CKD) Suicide Anesthesia complication Bleeding disorder Lung disease Stroke Social History Smoking and tobacco status: former smoker (smoked x 30+ years) Quit status (tobacco): has quit using tobacco Former quit date comment: Quit 05/2021 Smoking risk assessment/counseling performed?: Yes Alcohol intake: never Counseling given: No Counseling given: No Lives independently: Yes Household members: significant other Marital status: Single Current occupational status: employed History of recent travel: No Current gender identity: Female Course Vital Signs: Vital signs: Vital Signs Temperature 98.1 F 06/20/22 14:30 Pulse Rate 79 06/20/22 14:30 Respiratory Rate 17 06/20/22 14:30 Blood Pressure 127/65 06/20/22 19:00 Pulse Oximetry 99 06/20/22 19:00 Oxygen Delivery Me thod 06/20/22 14:30 Oxygen Flow Rate 6 06/20/22 14:30 MDM - Nausea/Vomiting/Diarrhea Medical Decision Making due to the patient's condition lab work and imaging will be obtained we will continue to follow. Medications and IV fluids were provided for the patient's associated dehydration and symptoms. Medication provided for the patient associated symptoms lab work is come back unremarkable however patient was noted to have a adnexal and right deep pelvis enhancing cystic structure mass appears separate from the urinary bladder which recommending pelvic ultrasound to further rule out cystic adnexal neoplasm or slightly infectious process otherwise patient is lab work looks unremarkable we will continue to follow with pelvic ultrasound. Patient does not currently have a white blood cell count elevation patient's chemistries also look unremarkable with no obvious renal impairment. Or anion gap. Lactic acid is within normal parameters as well as liver enzymes patient CRP has been found to be elevated 35.7 which could be correlated to the patient undergoing ongoing chemo for lung cancer. We will continue to follow. 61-year-old female checked out to me by the previous physician at shift change. She had been experiencing nausea and vomiting. She is spitting up with or without eating. She is improved after medication here. Laboratory does show she has a urinary tract infection. She has a pelvic mass both on CT and ultrasound. It shows increased blood flow by ultrasound suspicious for malignancy. It is 6 cm. I spoke with gynecology, and they will see as an outpatient. We will have case management make her an appointment. We will treat her urinary tract infection. The patient wishes to go home. She was given option for admission, but is feeling improved. She will be given Zofran for home. She has an appointment on Wednesday with oncology as well. She knows to return if worsening. Lab Data 06/20/22 15:16 06/20/22 16:10 Radiology Impressions Abdomen/Pelvis CT 06/20/22 15:05 IMPRESSION: 1. Right deep pelvis/adnexal 6.1 cm peripherally enhancing cystic structure new compared to prior exam, which appears separate from the urinary bladder. Consider further evaluation with a pelvic ultrasound. A cystic adnexal neoplasm or perhaps an infectious process are considerations depending on the clinical scenario. 2. Emphysematous changes. 3. Coronary artery atherosclerotic calcifications suspected. 4. Several hepatic cysts. 5. Bilateral renal cysts, negative for follow up. 6. Cholelithiasis. 7. Several chronic compression deformities throughout the spine without retropulsion of bony fragments. 8. Diverticulosis without diverticulitis. COMMENTS: Consistent with the [employer]'s Incidental Findings Committee white paper (J Am Chaz Radiol 2018): Any incidental renal lesion less than 1 cm or classified as too small to characterize, or any incidental cystic renal lesion characterized as simple-appearing, is likely benign. No follow-up imaging is recommended for these lesions per consensus recommendations based on imaging criteria. Pelvis Ultrasound 06/20/22 16:18 IMPRESSION: 1. Right adnexal 5.6 cm mass with low-level internal echoes and a thick wall measuring approximately 4 mm, color blood flow is seen in the wall, concerning for a neoplastic process. Infection is not excluded, please correlate clinically. 2. Negative for right ovary visualized. 3. Left ovary not seen. Laboratory Results WBC 9.1 10^3/uL (4.0-10.0) 06/20/22 15:16 RBC 5.20 10^6/uL (4.1-5.3) 06/20/22 15:16 Hgb 14.8 g/dL (11.5-15.3) 06/20/22 15:16 Hct 47.7 % (37.0-47.0) H 06/20/22 15:16 MCV 91.7 fl (81-99) 06/20/22 15:16 MCH 28.5 pg (28.0-34.0) 06/20/22 15:16 MCHC 31.0 g/dL (30.0-36.0) 06/20/22 15:16 RDW 16.6 % (12.1-15.1) H 06/20/22 15:16 Plt Count 512 10^3/cmm (130-400) H 06/20/22 15:16 MPV 11.4 fL (7.4-10.4) H 06/20/22 15:16 Neut % (Auto) 81.8 % 06/20/22 15:16 Lymph % (Auto) 7.6 % 06/20/22 15:16 [place] % (Auto) 8.2 % 06/20/22 15:16 Eos % (Auto) 1.2 % 06/20/22 15:16 Baso % (Auto) 1.0 % 06/20/22 15:16 Neut # (Auto) 7.42 10^3/uL (1.8-7.7) 06/20/22 15:16 Lymph # (Auto) 0.7 10^3/uL (0.8-4.8) L 06/20/22 15:16 [place] # (Auto) 0.7 10^3/uL (0.2-0.9) 06/20/22 15:16 Eos # (Auto) 0.1 10^3/uL (0.0-0.8) 06/20/22 15:16 Baso # (Auto) 0.1 10^3/uL (0.0-0.1) 06/20/22 15:16 Nucleated RBC % (auto) 0 % 06/20/22 15:16 Nucleated RBCs # 0.0 /100WBC 06/20/22 15:16 Sodium 141 mmol/L (136-145) 06/20/22 16:10 Potassium 3.4 mmol/L (3.5-5.1) L 06/20/22 16:10 Chloride 99 mmol/L (98-107) 06/20/22 16:10 Carbon Dioxide 32 mmol/L (22-29) H 06/20/22 16:10 Anion Gap 13.4 (5-19) 06/20/22 16:10 BUN 27 mg/dL (8-23) H 06/20/22 16:10 Creatinine 0.4 mg/dL (0.5-0.9) L 06/20/22 16:10 GFR Calculation 162.8 mL/min (90-130) H 06/20/22 16:10 Glucose 90 mg/dL (65-115) 06/20/22 16:10 Calculated Osmolality 297 mOsm/kg (285-295) H 06/20/22 16:10 Lactate 1.0 mmol/L (0.5-2.2) 06/20/22 15:16 Calcium 9.5 mg/dL (8.5-10.5) 06/20/22 16:10 Total Bilirubin 0.3 mg/dL (0.15-1.2) 06/20/22 16:10 AST 13 U/L (0-32) 06/20/22 16:10 ALT < 5 U/L (0-33) 06/20/22 16:10 Alkaline Phosphatase 71 U/L (35-105) 06/20/22 16:10 C-Reactive Protein 35.7 mg/L (0.0-4.9) H 06/20/22 15:16 Total Protein 7.0 g/dL (6.6-8.7) 06/20/22 16:10 Albumin 3.8 g/dL (3.5-5.2) 06/20/22 16:10 Globulin 3.2 g/dL (1.3-4.6) 06/20/22 16:10 Lipase 33 U/L (13-60) 06/20/22 15:16 Urine Color Yellow (Yellow) 06/20/22 18:04 Urine Appearance Clear (CLEAR) 06/20/22 18:04 Urine pH 5 (5-7) 06/20/22 18:04 Ur Specific [place] 1.010 (1.005-1.030) 06/20/22 18:04 Urine Protein 1+ (Negative) H 06/20/22 18:04 Urine Glucose (UA) Norm (Normal) 06/20/22 18:04 Urine Ketones 1+ (Negative) H 06/20/22 18:04 Urine Blood Neg (Negative) 06/20/22 18:04 Urine Nitrate Positive (Negative) H 06/20/22 18:04 Urine Bilirubin 1+ (Negative) H 06/20/22 18:04 Urine Urobilinogen Norm mg/dL (Negative) 06/20/22 18:04 Ur Leukocyte Esterase 1+ (Negative) H 06/20/22 18:04 Urine RBC None /hpf (0-2) 06/20/22 18:04 Urine WBC 5-10 /hpf (0-5) H 06/20/22 18:04 Ur Squamous Epith Cells Rare /hpf (0-5) 06/20/22 18:04 Amorphous Sediment Not Reportable 06/20/22 18:04 Urine Bacteria 1+ /hpf (NONE) H 06/20/22 18:04 Discharge Plan Discharge Patient Disposition: Home Clinical Impression: Vomiting, Gastritis, Pelvic mass, UTI (urinary tract infection) Condition: Stable Prescriptions: New ondansetron 4 mg film 4 mg PO DAILY PRN (Reason: nausea and vomiting) Qty: 14 0RF Macrobid 100 mg capsule 100 mg PO BID 7 Days Qty: 14 0RF Rx Instructions: must administer with a meal/food No Action hydroxyzine HCl 25 mg tablet See Rx Instructions .ROUTE .COMPLEX Qty: 90 1RF Dose Instruction: TAKE ONE TABLET BY MOUTH DAILY NEEDED FOR ANXIETY Rx Instructions: TAKE ONE TABLET BY MOUTH DAILY NEEDED FOR ANXIETY zolpidem 10 mg tablet 10 mg PO .at bedtime 30 Days Qty: 30 2RF melatonin 10 mg capsule 10 mg PO .at bedtime 30 Days Qty: 30 2RF pantoprazole 40 mg tablet,delayed release (DR/EC) 40 mg PO DAILY 90 Days Qty: 90 1RF sertraline 100 mg tablet 100 mg PO DAILY miscellaneous medical supply Misc See Rx Instructions miscellaneous .COMPLEX Qty: 1 0RF Rx Instructions: 6 L NC with humidifier miscellaneous ; levothyroxine 150 mcg capsule 150 mcg PO DAILY Qty: 30 2RF lorazepam 0.5 mg tablet 0.5 mg PO TID PRN (Reason: anxiety) Qty: 90 0RF hydrocodone-acetaminophen 5-325 mg tablet 1 tab PO BID PRN (Reason: pain) 30 Days Qty: 60 0RF Discharge Orders: Discharge ED (Routine); Ordered 06/20/22 Ordered By: Jack Schmitt Referrals: Adalberto Orellana MD [Physician] - 4-7 days Sha Michaels MD [Hospitalist] - 4-7 days Graciela Diamond MD [Primary Care Provider] - Patient Instructions: Gastritis (ED), Urinary Tract Infection in Women (ED), Opioid Safety, Pain Management, Vomiting - Adult Activity Restrictions/Additional Instructions: Take the nausea medication every 4 hours while awake scheduled for the first 24 hours, then as needed following. Antibiotics as directed for urinary tract infection. Case management will make you an appointment with gynecology regarding the pelvic mass. Expect a call from them on Wednesday or Wednesday. Return for any worsening symptoms, vomiting liquids or medications despite treatment, fever greater than 100, any other concerns. 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 [employer] Fwd Exam Comprehensive
[2022-06-20 15:38] LABS: Basophils # 0.1 10^3/uL (0.0-0.1); Eosinophils # 0.1 10^3/uL (0.0-0.8); Eosinophils % 1.2 %; Hematocrit 47.7 % (37.0-47.0); Hemoglobin 14.8 g/dL (11.5-15.3); Lymphocytes # 0.7 10^3/uL (0.8-4.8); Lymphocytes % 7.6 %; Mean Corpuscular Hemoglobin 28.5 pg (28.0-34.0); Mean Corpuscular Volume 91.7 fl (81-99); Mean Platelet Volume 11.4 fL (7.4-10.4); Monocytes # 0.7 10^3/uL (0.2-0.9); Monocytes % 8.2 %; Neutrophils # 7.42 10^3/uL (1.8-7.7); Neutrophils % 81.8 %; Nucleated Red Blood Cells % 0 %; Platelet Count 512 10^3/cmm (130-400); Red Cell Distribution Width 16.6 % (12.1-15.1); White Blood Count 9.1 10^3/uL (4.0-10.0)
[2022-06-20 15:59] LABS: Alanine Aminotransferase 7 U/L (0-33); Albumin Level 4.4 g/dL (3.5-5.2); Alkaline Phosphatase 78 U/L (35-105); Anion Gap 17.8 (5-19); Aspartate Amino Transferase 13 U/L (0-32); Blood Urea Nitrogen 26 mg/dL (8-23); C Reactive Protein 35.7 mg/L (0.0-4.9); Carbon Dioxide 32 mmol/L (22-29); Chloride 105 mmol/L (98-107); Globulin 3.2 g/dL (1.3-4.6); Glomerular Filtration Rate 162.8 mL/min (90-130); Glucose 92 mg/dL (65-115); Lipase 33 U/L (13-60); Osmolality Calculated 316 mOsm/kg (285-295); Potassium 3.8 mmol/L (3.5-5.1); Sodium 151 mmol/L (136-145); Total Bilirubin 0.3 mg/dL (0.15-1.2); Total Protein 7.6 g/dL (6.6-8.7)
[2022-06-20] MEDS: iohexol 350 mg/mL 500 mL Btl (per mL) IV (16:00)
--- NOTE | 2022-06-20 16:18 | USR_ITS ---
PROCEDURE INFORMATION: Exam: US Nonobstetric Pelvis; Complete Exam date and time: 06/20/2022 5:08 PM Age: 61 years old Clinical indication: Abnormal findings; Mass/lesion; Lower quadrant, right; Patient HX: Mas identified on CT. ; Additional info: Cystic mass on the left noted on CT scan TECHNIQUE: Imaging protocol: Transabdominal pelvic nonobstetric ultrasound. Complete exam. Real time ultrasound with image documentation. COMPARISON: CT abdomen pelvis w con* [id number] 06/20/2022 3:54 PM FINDINGS: Uterus: Uterus is normal in size. Endometrial stripe is normal at 1.8 mm. Right ovary/adnexa: Right adnexal 5.6 cm mass with low-level internal echoes and a thick wall measuring approximately 4 mm, color blood flow is seen in the wall, concerning for a neoplastic process. Infection is not excluded, please correlate clinically. Negative for right ovary visualized. Left ovary/adnexa: Left ovary not seen. Intraperitoneal space: No intraperitoneal fluid. Urinary bladder: Normal. US/US pelvic complete* [id number] IMPRESSION: 1. Right adnexal 5.6 cm mass with low-level internal echoes and a thick wall measuring approximately 4 mm, color blood flow is seen in the wall, concerning for a neoplastic process. Infection is not excluded, please correlate clinically. 2. Negative for right ovary visualized. 3. Left ovary not seen.
[2022-06-20] MEDS: pantoprazole 40 mg SDV IVP (16:29)
[2022-06-20] MEDS: sodium chloride 0.9% 1,000 ML 999 ML IV (16:29)
[2022-06-20] MEDS: ondansetron 2 mg/ML SDV 2 mL 8 MG IVP (16:29)
[2022-06-20 16:42] LABS: Alanine Aminotransferase < 5 U/L (0-33); Albumin Level 3.8 g/dL (3.5-5.2); Alkaline Phosphatase 71 U/L (35-105); Anion Gap 13.4 (5-19); Aspartate Amino Transferase 13 U/L (0-32); Blood Urea Nitrogen 27 mg/dL (8-23); Calcium 9.5 mg/dL (8.5-10.5); Carbon Dioxide 32 mmol/L (22-29); Chloride 99 mmol/L (98-107); Globulin 3.2 g/dL (1.3-4.6); Glomerular Filtration Rate 162.8 mL/min (90-130); Glucose 90 mg/dL (65-115); Osmolality Calculated 297 mOsm/kg (285-295); Potassium 3.4 mmol/L (3.5-5.1); Sodium 141 mmol/L (136-145); Total Bilirubin 0.3 mg/dL (0.15-1.2)
[2022-06-20 18:19] LABS: Urine Appearance Clear (CLEAR); Urine Color Yellow (Yellow); pH Urine 5 (5-7)
[2022-06-20 18:20] LABS: Add Urine Culture? Yes; Add Urine Microscopic? YES; Bacteria Urine 1+ /hpf; Bilirubin Urine 1+ (Negative); Blood Urine Neg (Negative); Glucose Urine UA Norm (Normal); Ketones Urine 1+ (Negative); Leukocyte Esterase Urine 1+ (Negative); Nitrate Urine Positive (Negative); Protein Urine 1+ (Negative); Squamous Epithelial Cell Urine RARE /hpf (0-5); Urobilinogen Urine Norm (Negative)
[2022-06-20] MEDS: lidocaine 2% viscous 15 ML, aluminum-mag hydrox-simethicon 30 ML, sucralfate oral liq 1 GM PO (19:36)
[2022-06-20] MEDS: haloperidol inj 5 mg/mL INJ 1 mL 2 MG IVP (19:38)
[2022-06-20] MEDS: cefTRIAXone 1,000 MG in sodium chloride 0.9% (plus) 50 ML 100 MG IV (19:40)
--- NOTE | 2022-06-22 12:53 | DCPLANNER ---
Addendum entered by Gi Nicolas 09/04/22 07:27: Patient had an appointment scheduled with [facility] - patient did attend appointment. Addendum entered by Gi Nicolas 06/26/22 13:39: Patient has a follow up appointment scheduled for Sunday, August 07, 2022 at 8:[address] Fu at [facility]. Clinic will call patient with appointment information. Original Note: logistics project manager had message to schedule a follow up appointment for patient with [facility]. logistics project manager sent patients information to the front office staff at [facility]. Patients information will be printed and reviewed. Clinic will call patient with appointment information.
== END 2022-06-20 20:45 | disposition home or self-care (01) ==
PROVIDERS: Emergency Medicine; Emergency Provider Emergency Medicine; PCP Family Medicine
DX: K29.70 Gastritis, unspecified, without bleeding (principal); R19.00 Intra-abdominal and pelvic swelling, mass and lump, unspecified site; N39.0 Urinary tract infection, site not specified; Z87.891 Personal history of nicotine dependence; J44.9 Chronic obstructive pulmonary disease, unspecified; I10 Essential (primary) hypertension; C34.92 Malignant neoplasm of unspecified part of left bronchus or lung; Z79.899 Other long term (current) drug therapy
CPT/HCPCS: 36415; 74177; 76856; 80053; 81001; 83605; 83690; 85025; 86140; 87077; 87086; 87186; 96365; 96375; 99285; C9113; J0696; J1630; J1642; J2405; J7030; Q9967

== ENCOUNTER 2022-06-24 07:40 | Oncology outpatient (recurring) (ONCR) | payer MEDICAID, SELFPAY ==
[2022-06-24 08:27] LABS: Basophils # 0.1 10^3/uL (0.0-0.1); Basophils % 1.1 %; Eosinophils # 1.3 10^3/uL (0.0-0.8); Eosinophils % 14.9 %; Hematocrit 43.2 % (37.0-47.0); Hemoglobin 13.6 g/dL (11.5-15.3); Lymphocytes # 0.6 10^3/uL (0.8-4.8); Lymphocytes % 7.3 %; Mean Corpuscular HGB Conc 31.5 g/dL (30.0-36.0); Mean Corpuscular Hemoglobin 28.3 pg (28.0-34.0); Mean Platelet Volume 11.6 fL (7.4-10.4); Monocytes # 0.9 10^3/uL (0.2-0.9); Monocytes % 9.7 %; Neutrophils # 5.78 10^3/uL (1.8-7.7); Neutrophils % 66.4 %; Nucleated Red Blood Cells % 0 %; Platelet Count 463 10^3/cmm (130-400); Red Cell Distribution Width 16.4 % (12.1-15.1); White Blood Count 8.7 10^3/uL (4.0-10.0)
[2022-06-24 08:59] LABS: Alanine Aminotransferase 10 U/L (0-33); Albumin Level 3.4 g/dL (3.5-5.2); Alkaline Phosphatase 81 U/L (35-105); Anion Gap 11.4 (5-19); Aspartate Amino Transferase 13 U/L (0-32); Blood Urea Nitrogen 23 mg/dL (8-23); Calcium 8.7 mg/dL (8.5-10.5); Carbon Dioxide 33 mmol/L (22-29); Chloride 102 mmol/L (98-107); Globulin 3.1 g/dL (1.3-4.6); Glomerular Filtration Rate 162.8 mL/min (90-130); Glucose 97 mg/dL (65-115); Osmolality Calculated 300 mOsm/kg (285-295); Potassium 3.4 mmol/L (3.5-5.1); Sodium 143 mmol/L (136-145); Thyroid Stimulating Hormone 2.99 uIU/mL (0.27-4.20); Total Bilirubin 0.2 mg/dL (0.15-1.2); Total Protein 6.5 g/dL (6.6-8.7)
[2022-06-24] MEDS: durvalumab 1,500 MG in sodium chloride 0.9% 250 ML 280 MG IV (11:11)
[2022-06-24 11:42] LABS: CA 125 86.3 U/mL (0-35)
[2022-06-24 12:25] VITALS: BP 108/68; BP 124/78; PULSE 74; RESP 18; TEMP 36.6; O2SAT 99
== END 2022-07-11 23:59 | disposition home or self-care (01) ==
PROVIDERS: PCP Family Medicine; Referring Provider Family Medicine; Visit Provider Internal Medicine Medical Oncology
DX: Z51.12 Encounter for antineoplastic immunotherapy (principal); C34.12 Malignant neoplasm of upper lobe, left bronchus or lung; C77.8 Secondary and unspecified malignant neoplasm of lymph nodes of multiple regions; E03.2 Hypothyroidism due to medicaments and other exogenous substances; T45.1X5A Adverse effect of antineoplastic and immunosuppressive drugs, initial encounter; R11.10 Vomiting, unspecified; Z79.899 Other long term (current) drug therapy; Z87.891 Personal history of nicotine dependence
CPT/HCPCS: 80053; 82378; 84443; 85025; 86304; 96413; 99214; J7050; J9173

== ENCOUNTER → 2022-07-20 09:58 | Outpatient (BNVA) | payer MEDICAID, SELFPAY | PROVIDERS: PCP Family Medicine; Visit Provider Family Medicine | DX: J96.01 Acute respiratory failure with hypoxia (principal); E03.9 Hypothyroidism, unspecified; R30.0 Dysuria; G47.00 Insomnia, unspecified; R39.9 Unspecified symptoms and signs involving the genitourinary system; F41.1 Generalized anxiety disorder; F51.05 Insomnia due to other mental disorder; F99 Mental disorder, not otherwise specified; R64 Cachexia; Z85.118 Personal history of other malignant neoplasm of bronchus and lung; R19.00 Intra-abdominal and pelvic swelling, mass and lump, unspecified site; Z87.440 Personal history of urinary (tract) infections | CPT/HCPCS: 81000; 87077; 87086; 87184 ==

== ENCOUNTER 2022-07-22 08:50 | Oncology outpatient (recurring) (ONCR) | payer MEDICAID, SELFPAY ==
[2022-07-22 09:20] LABS: Basophils # 0.1 10^3/uL (0.0-0.1); Basophils % 1.3 %; Eosinophils # 0.8 10^3/uL (0.0-0.8); Eosinophils % 11.9 %; Hematocrit 44.6 % (37.0-47.0); Lymphocytes % 14.7 %; Mean Corpuscular HGB Conc 31.4 g/dL (30.0-36.0); Mean Corpuscular Hemoglobin 27.7 pg (28.0-34.0); Mean Corpuscular Volume 88.1 fl (81-99); Mean Platelet Volume 10.7 fL (7.4-10.4); Monocytes # 0.6 10^3/uL (0.2-0.9); Neutrophils # 4.36 10^3/uL (1.8-7.7); Neutrophils % 62.4 %; Nucleated Red Blood Cells % 0 %; Platelet Count 453 10^3/cmm (130-400); Red Blood Count 5.06 10^6/uL (4.1-5.3); Red Cell Distribution Width 17.7 % (12.1-15.1)
[2022-07-22 10:03] LABS: Alanine Aminotransferase 10 U/L (0-33); Albumin Level 4.1 g/dL (3.5-5.2); Alkaline Phosphatase 70 U/L (35-105); Anion Gap 13.3 (5-19); Aspartate Amino Transferase 17 U/L (0-32); Blood Urea Nitrogen 20 mg/dL (8-23); Calcium 8.8 mg/dL (8.5-10.5); Carbon Dioxide 28 mmol/L (22-29); Chloride 106 mmol/L (98-107); Globulin 2.7 g/dL (1.3-4.6); Glomerular Filtration Rate 162.8 mL/min (90-130); Glucose 86 mg/dL (65-115); Osmolality Calculated 298 mOsm/kg (285-295); Potassium 4.3 mmol/L (3.5-5.1); Sodium 143 mmol/L (136-145); Total Bilirubin 0.2 mg/dL (0.15-1.2); Total Protein 6.8 g/dL (6.6-8.7)
[2022-07-22] MEDS: durvalumab 1,500 MG in sodium chloride 0.9% 250 ML 280 MG IV (12:15)
[2022-07-22 13:27] VITALS: BP 153/86; PULSE 71; RESP 16; TEMP 35.8; O2SAT 100
== END 2022-08-11 23:59 | disposition home or self-care (01) ==
PROVIDERS: PCP Family Medicine; Visit Provider Internal Medicine Medical Oncology
DX: Z51.12 Encounter for antineoplastic immunotherapy (principal); C34.12 Malignant neoplasm of upper lobe, left bronchus or lung; C77.8 Secondary and unspecified malignant neoplasm of lymph nodes of multiple regions; E03.2 Hypothyroidism due to medicaments and other exogenous substances; T45.1X5A Adverse effect of antineoplastic and immunosuppressive drugs, initial encounter; R63.4 Abnormal weight loss; Z79.899 Other long term (current) drug therapy; Z87.891 Personal history of nicotine dependence; Z68.1 Body mass index [BMI] 19.9 or less, adult; R11.10 Vomiting, unspecified
CPT/HCPCS: 80053; 84443; 85025; 96413; 99214; J7050; J9173

== ENCOUNTER → 2022-08-07 09:00 | Outpatient (BNVA) | payer MEDICAID, SELFPAY | PROVIDERS: PCP Family Medicine; Visit Provider Obstetrics & Gynecology | DX: Z01.419 Encounter for gynecological examination (general) (routine) without abnormal findings (principal); Z12.39 Encounter for other screening for malignant neoplasm of breast; N94.89 Other specified conditions associated with female genital organs and menstrual cycle | CPT/HCPCS: 81500; 87624 ==

== ENCOUNTER 2022-08-13 13:20 | Outpatient (CLI) | payer MEDICAID, SELFPAY ==
--- NOTE | 2022-08-13 13:42 | MM_ITS ---
WS: [id number] Bilateral screening 3D tomosynthesis digital mammogram, 08/13/2022 Clinical Data: Z12.39 - Encounter for other screening for malignant neop... Comparison: 06/03/2007 Findings: The breast parenchymal pattern shows glandular tissue. No spiculated masses or clustered calcificatio ns are seen. There are no secondary signs of carcinoma. The right breast is smaller than the left. Th ere are calcifications in the springer of small vessels. MM/[place] [id number] Impression: 1. Negative bilateral mammogram unchanged. 2. Recommend annual screening mammograms. BIRADS: 1-Negative FOLLOW UP: 1 Year Follow-up The CAD roller checker was used.
== END 2022-08-13 13:21 | disposition home or self-care (01) ==
PROVIDERS: PCP Family Medicine; Visit Provider Obstetrics & Gynecology
DX: Z12.31 Encounter for screening mammogram for malignant neoplasm of breast (principal)
CPT/HCPCS: 77063; 77067

== ENCOUNTER 2022-08-19 08:37 | Oncology outpatient (recurring) (ONCR) | payer MEDICAID, SELFPAY ==
[2022-08-19 09:12] VITALS: BMI 20.9
[2022-08-19 09:21] LABS: Basophils # 0.1 10^3/uL (0.0-0.1); Basophils % 1.8 %; Eosinophils # 1.3 10^3/uL (0.0-0.8); Eosinophils % 20.4 %; Hematocrit 44.6 % (37.0-47.0); Hemoglobin 13.9 g/dL (11.5-15.3); Lymphocytes % 16.2 %; Mean Corpuscular HGB Conc 31.2 g/dL (30.0-36.0); Mean Corpuscular Hemoglobin 27.7 pg (28.0-34.0); Mean Corpuscular Volume 88.8 fl (81-99); Mean Platelet Volume 10.5 fL (7.4-10.4); Monocytes # 0.7 10^3/uL (0.2-0.9); Monocytes % 11.4 %; Neutrophils # 3.11 10^3/uL (1.8-7.7); Neutrophils % 49.9 %; Nucleated Red Blood Cells % 0 %; Platelet Count 363 10^3/cmm (130-400); Red Blood Count 5.02 10^6/uL (4.1-5.3); Red Cell Distribution Width 18.1 % (12.1-15.1); White Blood Count 6.2 10^3/uL (4.0-10.0)
[2022-08-19 09:57] LABS: Alanine Aminotransferase 11 U/L (0-33); Albumin Level 3.9 g/dL (3.5-5.2); Alkaline Phosphatase 73 U/L (35-105); Anion Gap 11.1 (5-19); Aspartate Amino Transferase 16 U/L (0-32); Blood Urea Nitrogen 19 mg/dL (8-23); Calcium 9.2 mg/dL (8.5-10.5); Carbon Dioxide 31 mmol/L (22-29); Chloride 105 mmol/L (98-107); Globulin 2.4 g/dL (1.3-4.6); Glomerular Filtration Rate 162.3 mL/min (90-130); Glucose 98 mg/dL (65-115); Osmolality Calculated 298 mOsm/kg (285-295); Potassium 4.1 mmol/L (3.5-5.1); Sodium 143 mmol/L (136-145); Thyroid Stimulating Hormone 0.81 uIU/mL (0.27-4.20); Total Bilirubin 0.2 mg/dL (0.15-1.2); Total Protein 6.3 g/dL (6.6-8.7)
[2022-08-19] MEDS: sodium chloride 0.9% 250 ML 50 ML IV (10:22)
[2022-08-19] MEDS: durvalumab 1,500 MG in sodium chloride 0.9% 250 ML 280 MG IV (10:30)
[2022-08-19 11:49] VITALS: BP 119/60; PULSE 58; RESP 18; TEMP 36.2; O2SAT 99
== END 2022-09-08 23:59 | disposition home or self-care (01) ==
LOC: ONCMED 08:38
PROVIDERS: PCP Family Medicine; Visit Provider Internal Medicine Medical Oncology
DX: Z51.12 Encounter for antineoplastic immunotherapy (principal); C34.12 Malignant neoplasm of upper lobe, left bronchus or lung; Z79.899 Other long term (current) drug therapy
CPT/HCPCS: 80053; 84443; 85025; J7050; J9173

== ENCOUNTER 2022-09-16 09:01 | Oncology outpatient (recurring) (ONCR) | payer MEDICAID, SELFPAY ==
[2022-09-16 09:36] LABS: Basophils # 0.1 10^3/uL (0.0-0.1); Basophils % 1.4 %; Eosinophils # 0.6 10^3/uL (0.0-0.8); Eosinophils % 9.7 %; Hematocrit 45.5 % (37.0-47.0); Hemoglobin 13.8 g/dL (11.5-15.3); Lymphocytes # 0.9 10^3/uL (0.8-4.8); Lymphocytes % 13.6 %; Mean Corpuscular HGB Conc 30.3 g/dL (30.0-36.0); Mean Corpuscular Hemoglobin 26.7 pg (28.0-34.0); Mean Corpuscular Volume 88.2 fl (81-99); Mean Platelet Volume 11.3 fL (7.4-10.4); Monocytes # 0.6 10^3/uL (0.2-0.9); Monocytes % 9.4 %; Neutrophils # 4.18 10^3/uL (1.8-7.7); Neutrophils % 65.6 %; Nucleated Red Blood Cells % 0 %; Platelet Count 359 10^3/cmm (130-400); Red Blood Count 5.16 10^6/uL (4.1-5.3); Red Cell Distribution Width 16.4 % (12.1-15.1); White Blood Count 6.4 10^3/uL (4.0-10.0)
[2022-09-16 10:03] LABS: Alanine Aminotransferase 10 U/L (0-33); Albumin Level 3.7 g/dL (3.5-5.2); Alkaline Phosphatase 59 U/L (35-105); Anion Gap 10.7 (5-19); Aspartate Amino Transferase 17 U/L (0-32); Blood Urea Nitrogen 19 mg/dL (8-23); Calcium 8.8 mg/dL (8.5-10.5); Carbon Dioxide 34 mmol/L (22-29); Chloride 102 mmol/L (98-107); Globulin 2.7 g/dL (1.3-4.6); Glomerular Filtration Rate 162.3 mL/min (90-130); Glucose 105 mg/dL (65-115); Osmolality Calculated 299 mOsm/kg (285-295); Potassium 3.7 mmol/L (3.5-5.1); Sodium 143 mmol/L (136-145); Thyroid Stimulating Hormone 0.05 uIU/mL (0.27-4.20); Total Bilirubin 0.2 mg/dL (0.15-1.2); Total Protein 6.4 g/dL (6.6-8.7)
[2022-09-16] MEDS: ipratropium-albuterol 3 mL Neb INHALATION (12:01)
[2022-09-16 15:08] LABS: Thyroid Stimulating Hormone 0.05 uIU/mL (0.27-4.20)
[2022-09-16 17:16] LABS: Free T4 Free Thyroxine 1.81 ng/dL (0.82-1.77)
== END 2022-10-09 23:59 | disposition home or self-care (01) ==
PROVIDERS: Nurse Practitioner; PCP Family Medicine; Visit Provider Internal Medicine Medical Oncology
DX: C34.12 Malignant neoplasm of upper lobe, left bronchus or lung; Z90.2 Acquired absence of lung [part of]; C77.8 Secondary and unspecified malignant neoplasm of lymph nodes of multiple regions; E03.2 Hypothyroidism due to medicaments and other exogenous substances; T45.1X5A Adverse effect of antineoplastic and immunosuppressive drugs, initial encounter; R11.10 Vomiting, unspecified; J70.4 Drug-induced interstitial lung disorders, unspecified; Z79.52 Long term (current) use of systemic steroids; Z79.899 Other long term (current) drug therapy; Z87.891 Personal history of nicotine dependence
CPT/HCPCS: 80053; 84439; 84443; 85025; 99214

== ENCOUNTER 2022-10-08 09:40 | Outpatient (CLI) | payer MEDICAID, SELFPAY ==
[2022-10-08] MEDS: iohexol 350 mg/mL 500 mL Btl (per mL) IV (09:59)
--- NOTE | 2022-10-08 10:00 | CT_ITS ---
WS: [id number] CT CHEST WITH INTRAVENOUS CONTRAST HISTORY: followup 06/2022 exam, restaging TECHNIQUE: Contiguous 5 mm axial imaging performed on the thorax. Coronal and sagittal reformats are submitted. All CT scans at [facility] use at least one of these dose optimization techniques: automated exposure control; mA and/or kV adjustment per patient size (includes targeted exams where dose is matched to clinical indication); or iterative reconstruction. CONTRAST: Omnipaque 350; 100 mL IV. DLP: 176.30 mGy.cm COMPARISON: 06/18/2022, 02/04/2022 and 10/06/2021 Lungs and central airway: Severe pulmonary hyperexpansion with emphysema. Postsurgical changes at the LEFT apex with stable postoperative scarring and fibrosis. Previously described wedge-shaped area of consolidation with central cavitation LEFT lower lobe has significantly improved. Residual soft tiss ue measures 6 x 15 mm. There is an adjacent lobulated nodule now measuring 12 x 6 mm which is increas ed in size. This was obscured on the recent CT. Noted on the PET/CT of 02/14/2022 and considered indete rminate. This nodule has increased in size. There is an additional nodule in the LEFT lower lobe laila uring 4 mm which is stable. No change 4 mm nodule RIGHT middle lobe. Pleura: Normal. No pleural effusion. Heart and pericardium: Normal size heart with no pericardial effusion. Mediastinum and marissa: No adenopathy. Mild proximal RIGHT bronchial thickening. No obstruction. Vessels: Mild atherosclerosis aorta. No aneurysm. Normal size pulmonary artery. Chest wall and lower neck: RIGHT central line with tip in the distal SVC. Upper abdomen: Small hiatal hernia. Stable hepatic cyst measures 11 mm. No change LEFT renal cyst. Co rtical scar with thinning upper pole RIGHT kidney. Lobulated spleen with LEFT upper quadrant unchange d over multiple prior studies. Osseous structures: Mild degenerative disc disease and spondylitic changes thoracic spine. No change. CT/CT chest w con* [id number] IMPRESSION: 1. Significant improvement in the wedge-shaped consolidation with central cavi tation LEFT lower lobe since 06/18/2022. 2. Enlarging lobulated nodule LEFT lower lobe measuring 12 x 6 mm. This is adj acent to the area of cavitation but has increased in size since the PET/CT of . Suspicious for neoplasm. 3. Additional nodules in the LEFT lower lobe and RIGHT middle lobe are stable. 4. Advanced chronic emphysema. 5. No adenopathy or progression of lymph nodes. 6. Stable hepatic and LEFT renal cysts.
== END 2022-10-08 09:41 | disposition home or self-care (01) ==
PROVIDERS: PCP Family Medicine; Visit Provider Nurse Practitioner
DX: C34.12 Malignant neoplasm of upper lobe, left bronchus or lung (principal); K76.89 Other specified diseases of liver; N28.1 Cyst of kidney, acquired
CPT/HCPCS: 71260; Q9967

== ENCOUNTER 2022-10-14 09:22 | Oncology outpatient (recurring) (ONCR) | payer MEDICAID, SELFPAY ==
[2022-10-14 10:24] LABS: Basophils # 0.1 10^3/uL (0.0-0.1); Basophils % 0.9 %; Eosinophils # 0.9 10^3/uL (0.0-0.8); Hematocrit 43.7 % (37.0-47.0); Hemoglobin 13.3 g/dL (11.5-15.3); Lymphocytes % 13.3 %; Mean Corpuscular HGB Conc 30.4 g/dL (30.0-36.0); Mean Corpuscular Hemoglobin 27.1 pg (28.0-34.0); Mean Corpuscular Volume 89.2 fl (81-99); Mean Platelet Volume 10.8 fL (7.4-10.4); Monocytes # 0.6 10^3/uL (0.2-0.9); Monocytes % 7.9 %; Neutrophils # 4.92 10^3/uL (1.8-7.7); Neutrophils % 65.5 %; Nucleated Red Blood Cells % 0 %; Platelet Count 384 10^3/cmm (130-400); Red Cell Distribution Width 17.4 % (12.1-15.1); White Blood Count 7.5 10^3/uL (4.0-10.0)
[2022-10-14 10:55] LABS: Alanine Aminotransferase 10 U/L (0-33); Albumin Level 3.9 g/dL (3.5-5.2); Alkaline Phosphatase 64 U/L (35-105); Anion Gap 11.2 (5-19); Aspartate Amino Transferase 16 U/L (0-32); Blood Urea Nitrogen 19 mg/dL (8-23); Calcium 8.8 mg/dL (8.5-10.5); Carbon Dioxide 34 mmol/L (22-29); Chloride 102 mmol/L (98-107); Globulin 2.7 g/dL (1.3-4.6); Glomerular Filtration Rate 162.3 mL/min (90-130); Glucose 99 mg/dL (65-115); Osmolality Calculated 298 mOsm/kg (285-295); Potassium 4.2 mmol/L (3.5-5.1); Sodium 143 mmol/L (136-145); Thyroid Stimulating Hormone 2.36 uIU/mL (0.27-4.20); Total Bilirubin 0.2 mg/dL (0.15-1.2); Total Protein 6.6 g/dL (6.6-8.7)
[2022-10-14] MEDS: durvalumab 1,500 MG in sodium chloride 0.9% 250 ML 280 MG IV (12:07)
[2022-10-14 13:27] VITALS: BP 106/61; PULSE 69; TEMP 37; O2SAT 98
== END 2022-10-22 16:53 | disposition home or self-care (01) ==
PROVIDERS: PCP Family Medicine; Visit Provider Internal Medicine Medical Oncology
DX: C34.12 Malignant neoplasm of upper lobe, left bronchus or lung (principal); Z90.2 Acquired absence of lung [part of]; C77.8 Secondary and unspecified malignant neoplasm of lymph nodes of multiple regions; Z51.12 Encounter for antineoplastic immunotherapy; R63.4 Abnormal weight loss; Z68.22 Body mass index [BMI] 22.0-22.9, adult; J44.9 Chronic obstructive pulmonary disease, unspecified; C79.89 Secondary malignant neoplasm of other specified sites; F41.9 Anxiety disorder, unspecified; G89.3 Neoplasm related pain (acute) (chronic); Z79.891 Long term (current) use of opiate analgesic; Z79.899 Other long term (current) drug therapy; J18.9 Pneumonia, unspecified organism; Z87.891 Personal history of nicotine dependence
CPT/HCPCS: 80053; 84443; 85025; 96413; 99214; J7050; J9173

== ENCOUNTER 2022-11-16 10:40 | Oncology outpatient (recurring) (ONCR) | payer MEDICAID, SELFPAY ==
[2022-11-16 11:02] VITALS: BP 102/68; PULSE 70; RESP 18; TEMP 36.9; O2SAT 90
[2022-11-16 11:15] LABS: Basophils % 0.7 %; Eosinophils # 0.7 10^3/uL (0.0-0.8); Eosinophils % 12.4 %; Hematocrit 45.7 % (37.0-47.0); Hemoglobin 13.4 g/dL (11.5-15.3); Lymphocytes # 0.8 10^3/uL (0.8-4.8); Lymphocytes % 15.2 %; Mean Corpuscular HGB Conc 29.3 g/dL (30.0-36.0); Mean Corpuscular Hemoglobin 27.1 pg (28.0-34.0); Mean Corpuscular Volume 92.5 fl (81-99); Mean Platelet Volume 10.3 fL (7.4-10.4); Monocytes # 0.5 10^3/uL (0.2-0.9); Monocytes % 9.3 %; Neutrophils # 3.35 10^3/uL (1.8-7.7); Nucleated Red Blood Cells % 0 %; Platelet Count 311 10^3/cmm (130-400); Red Blood Count 4.94 10^6/uL (4.1-5.3); Red Cell Distribution Width 18.6 % (12.1-15.1); White Blood Count 5.4 10^3/uL (4.0-10.0)
[2022-11-16 11:50] LABS: Carcinoembryonic Antigen 176.9 ng/mL (0.0-4.7)
[2022-11-16 12:04] LABS: Alanine Aminotransferase 9 U/L (0-33); Albumin Level 4.1 g/dL (3.5-5.2); Alkaline Phosphatase 62 U/L (35-105); Anion Gap 9.6 (5-19); Aspartate Amino Transferase 19 U/L (0-32); Blood Urea Nitrogen 24 mg/dL (8-23); Calcium 8.5 mg/dL (8.5-10.5); Carbon Dioxide 36 mmol/L (22-29); Chloride 97 mmol/L (98-107); Globulin 2.4 g/dL (1.3-4.6); Glomerular Filtration Rate 125.4 mL/min (90-130); Glucose 101 mg/dL (65-115); Osmolality Calculated 292 mOsm/kg (285-295); Potassium 3.6 mmol/L (3.5-5.1); Sodium 139 mmol/L (136-145); Total Bilirubin 0.2 mg/dL (0.15-1.2); Total Protein 6.5 g/dL (6.6-8.7)
[2022-11-16 13:48] LABS: Carcinoembryonic Antigen 171.3 ng/mL (0.0-4.7)
[2022-11-16 14:01] LABS: Alanine Aminotransferase 9 U/L (0-33); Albumin Level 4.1 g/dL (3.5-5.2); Alkaline Phosphatase 64 U/L (35-105); Anion Gap 10.6 (5-19); Aspartate Amino Transferase 19 U/L (0-32); Blood Urea Nitrogen 25 mg/dL (8-23); Calcium 8.7 mg/dL (8.5-10.5); Carbon Dioxide 37 mmol/L (22-29); Chloride 95 mmol/L (98-107); Globulin 2.5 g/dL (1.3-4.6); Glomerular Filtration Rate 125.4 mL/min (90-130); Glucose 92 mg/dL (65-115); Osmolality Calculated 292 mOsm/kg (285-295); Potassium 3.6 mmol/L (3.5-5.1); Sodium 139 mmol/L (136-145); Total Bilirubin 0.2 mg/dL (0.15-1.2); Total Protein 6.6 g/dL (6.6-8.7)
[2022-11-16 14:47] LABS: Free T4 Free Thyroxine 0.21 ng/dL (0.82-1.77); T3 Free 0.4 PG/ML (2.0-4.4)
== END 2022-12-09 23:59 | disposition home or self-care (01) ==
LOC: ONCMED 10:41
PROVIDERS: Nurse Practitioner Family; PCP Family Medicine; Visit Provider Internal Medicine Medical Oncology
DX: C34.12 Malignant neoplasm of upper lobe, left bronchus or lung (principal); Z90.2 Acquired absence of lung [part of]; C77.8 Secondary and unspecified malignant neoplasm of lymph nodes of multiple regions; E03.2 Hypothyroidism due to medicaments and other exogenous substances; T45.1X5A Adverse effect of antineoplastic and immunosuppressive drugs, initial encounter; R97.8 Other abnormal tumor markers; J44.9 Chronic obstructive pulmonary disease, unspecified; Z79.52 Long term (current) use of systemic steroids; Z79.899 Other long term (current) drug therapy; Z87.891 Personal history of nicotine dependence; N94.89 Other specified conditions associated with female genital organs and menstrual cycle
CPT/HCPCS: 36415; 36591; 80053; 82378; 84439; 84443; 84481; 85025; 99214; J1642

== ENCOUNTER → 2022-11-19 09:46 | Outpatient (BNVA) | payer MEDICAID, SELFPAY | PROVIDERS: PCP Family Medicine; Visit Provider Internal Medicine Medical Oncology | DX: C34.12 Malignant neoplasm of upper lobe, left bronchus or lung (principal); E03.9 Hypothyroidism, unspecified; Z85.118 Personal history of other malignant neoplasm of bronchus and lung | CPT/HCPCS: 80053; 84439; 85025 ==

== ENCOUNTER 2022-12-12 05:44 | Outpatient (CLI) | payer MEDICAID, SELFPAY ==
--- NOTE | 2022-12-12 08:30 | PETR_ITS ---
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 Then, PET images were obtained. Attenuation corrected images were constructed using the CT scan. Fused images of PET and CT were reviewed. The standardized uptake values (SUV) reported below are maximum values within a region of interest, expressed in gm/ml. Exam includes orbital meatal line to mid-thigh. Radiopharmaceutical: 12.67 mCi F-18 FDG (Fluorodeoxyglucose), IV. Time of imaging post radiopharmaceutical administration: 55.1 minutes. Injection site: Right antecubital vein. COMPARISON: 1. CT chest 10/08/2022. 2. PT PET Scan 02/14/2022. FINDINGS: Tubes, catheters and devices: A right chest port is in good position with its tip near the SVC/RA junction. Brain: Visualized brain has normal physiologic uptake. Pharynx: No abnormal uptake. Larynx: No abnormal uptake. Lungs, pleura and trachea: Severe chronic emphysema. The lungs are hyperexpanded, and the hemidiaphragms are low and flattened. In the left upper lobe, the lateral aspect of the apex, a pleural-based pulmonary nodule is 0.7 x 1.3 x 1.1 cm (series 3, image 38). Its SUV max is 6.8, which is consistent with malignancy. In the left lower lobe, at the junction of the posterior basal and superior segments, a 1.6 x 0.6 x 0.5 pulmonary nodule has an SUV max of 2.8, which is borderline (series 3, image 61). Considering its small size, its true SUV may be underestimated due to partial volume artifact. It is suspicious. 9 mm posterior and medial to it, an area of stable scarring has an SUV max of only 1.2 (series 3, image 61). The right middle lobe pulmonary nodule is not FDG avid. Heart: Normal physiologic uptake. Mediastinal space: No abnormal uptake. Diaphragm: Focal FDG avidity in the anteromedial aspect of the left hemidiaphragm has an SUV max of 6.4 (series 4, image 77). It is 3.8 x 3.2 x 0.7 cm. Focal FDG avidity in the anteromedial aspect of the right hemidiaphragm has an SUV max of 3.9 (series 4, image 76). It is 3.4 x 1.5 x 0.9 cm. The bilateral anteromedial diaphragmatic uptake is probably due to the chronic diaphragmatic strain caused by the severe COPD. Liver: Stable hepatic and left renal cysts. Gallbladder and bile ducts: No abnormal uptake. Pancreas: No abnormal uptake. Spleen: No abnormal uptake. Adrenal glands: No abnormal uptake. Kidneys and ureters: Stable 1.2 cm cyst at the anterior aspect of the left kidney. Stomach and bowel: There is a small hiatal hernia. The hiatal hernia and gastric fundus are FDG avid with an SUV max of 6.2 (previously 4.5) (series 4, image 78). The remainder of the stomach is not FDG avid. Compared to the prior PET/CT, the area of FDG avidity is larger. It is 4.2 x 1.8 x 2.1 cm (previously 2.5 x 1.2 x 1.3 cm). It is nonspecific. It is consistent with gastritis or malignancy. Vasculature: No abnormal uptake. Lymph nodes: No FDG avid lymph nodes in the neck, chest, abdomen or pelvis. Bones/joints: No metabolically active areas. Soft tissues: No metabolically active areas. Other findings: PET/PET [facility] SUBSEQ [id number] IMPRESSION: 1. In the left upper lobe, the lateral aspect of the apex, a pleural-based pulmonary nodule is 0.7 x 1.3 x 1.1 cm (series 3, image 38). Its SUV max is 6.8, which is consistent with malignancy. 2. There is a small hiatal hernia. The hiatal hernia and adjacent gastric fundus are FDG avid with an SUV max of 6.2 (previously 4.5). The remainder of the stomach is not FDG avid. Compared to the prior PET/CT, the area of FDG avidity is larger. It is consistent with gastritis or malignancy. GI consultation is recommended for possible EGD. 3. In the left lower lobe, at the junction of the posterior basal and superior segments, a 1.6 x 0.6 x 0.5 pulmonary nodule has an SUV max of 2.8, which is borderline (series 3, image 61). Considering its small size, its true SUV may be underestimated due to partial volume artifact. It is suspicious. 4. Severe chronic emphysema. The lungs are hyperexpanded, and the hemidiaphragms are low and flattened. Bilateral anteromedial diaphragmatic uptake, left side more than right, is likely due to severe COPD. 5. No FDG avid lymph nodes.
== END 2022-12-12 05:45 | disposition home or self-care (01) ==
LOC: RAD 12-14 05:45
PROVIDERS: PCP Family Medicine; Visit Provider Nurse Practitioner Family
DX: C34.12 Malignant neoplasm of upper lobe, left bronchus or lung (principal); K44.9 Diaphragmatic hernia without obstruction or gangrene; J43.9 Emphysema, unspecified
CPT/HCPCS: 78815; A9552

== ENCOUNTER 2023-01-04 09:46 | Outpatient (CLI) | payer MEDICAID, SELFPAY ==
--- NOTE | 2023-01-04 08:45 | MR_ITS ---
WS: [id number] MRI HEAD WITH CONTRAST TECHNIQUE: Sagittal T1, T2 axial, T2 axial FLAIR, axial susceptibility weighted imaging, axial diffus ion weighted images, and coronal T2 images were obtained. Pre and post-T1 axial and post T1 coronal i mages. ADC and FSPGR images. CLINICAL INFORMATION: lung cancer, headaches COMPARISON: MRI head February 02, 2022 FINDINGS: Images moderately degraded by patient motion. New enhancing lesion in the LEFT parasagittal frontal lobe with central necrosis. Lesion measures ortiz roximately 1.9 x 1.5 x 1.9 cm AP by transverse by craniocaudal. Moderate surrounding edema. Mild mass effect LEFT frontal horn. No hydrocephalus.Mild localized LEFT to RIGHT mass effect measuring 4-5 mm . Normal posterior fossa. Normal vascular flow voids at the skull base. No extra-axial fluid collection s. Paranasal sinuses are well aerated. No restricted diffusion to suggest acute ischemia. No hemoside rin on the susceptibly weighted images. Normal optic chiasm and pituitary infundibulum. Previously described serpiginous enhancing lesion parietal calvarium is unchanged. No evidence of pro gression. Considering lack of change this lesion may represent a prominent vascular anomaly rather th an metastatic disease but nonspecific MR/MR head wo/w con [id number] IMPRESSION: Images moderately degraded by patient motion which limits detailed assessment in some areas 1. New enhancing lesion in the LEFT parasagittal frontal lobe with central nec rosis. Lesion measures approximately 1.9 x 1.5 x 1.9 cm AP by transverse by crayon molding machine operator niocaudal. 2. Associated moderate surrounding edema. Mild mass effect LEFT frontal horn. No hydrocephalus. 3. Previously described indeterminate enhancing area in the LEFT parietal calv arium appears unchanged. No evidence of progression. 4. No other significant changes. Notified Sha Michaels MD at 01/04/2023 11:45 AM.
[2023-01-04] MEDS: gadobenate dimeglumine 20 mL vial IV (11:08)
== END 2023-01-04 09:47 | disposition home or self-care (01) ==
PROVIDERS: PCP Family Medicine; Visit Provider Internal Medicine Medical Oncology
DX: C34.12 Malignant neoplasm of upper lobe, left bronchus or lung (principal); G93.89 Other specified disorders of brain; G93.6 Cerebral edema
CPT/HCPCS: 70553; A9577

== ENCOUNTER 2023-01-07 08:59 | Oncology outpatient (recurring) (ONCR) | payer MEDICAID, SELFPAY ==
[2022-12-22 10:55] VITALS: BP 126/76; PULSE 84; RESP 18; TEMP 36.6; O2SAT 93
[2022-12-22 11:05] LABS: Basophils # 0.1 10^3/uL (0.0-0.1); Basophils % 1.1 %; Eosinophils # 0.5 10^3/uL (0.0-0.8); Eosinophils % 5.3 %; Hematocrit 45.1 % (37.0-47.0); Hemoglobin 13.5 g/dL (11.5-15.3); Lymphocytes # 0.5 10^3/uL (0.8-4.8); Lymphocytes % 5.4 %; Mean Corpuscular HGB Conc 29.9 g/dL (30.0-36.0); Mean Corpuscular Hemoglobin 28.8 pg (28.0-34.0); Mean Corpuscular Volume 96.4 fl (81-99); Mean Platelet Volume 11.3 fL (7.4-10.4); Monocytes # 0.6 10^3/uL (0.2-0.9); Monocytes % 6.5 %; Neutrophils # 7.98 10^3/uL (1.8-7.7); Neutrophils % 81.3 %; Nucleated Red Blood Cells % 0 %; Platelet Count 286 10^3/cmm (130-400); Red Blood Count 4.68 10^6/uL (4.1-5.3); Red Cell Distribution Width 17.1 % (12.1-15.1); White Blood Count 9.8 10^3/uL (4.0-10.0)
[2022-12-22 11:37] LABS: Alanine Aminotransferase 9 U/L (0-33); Albumin Level 4.3 g/dL (3.5-5.2); Alkaline Phosphatase 60 U/L (35-105); Anion Gap 10.2 (5-19); Aspartate Amino Transferase 14 U/L (0-32); Blood Urea Nitrogen 17 mg/dL (8-23); CA 125 100.3 U/mL (0-35); Calcium 8.9 mg/dL (8.5-10.5); Carbon Dioxide 38 mmol/L (22-29); Chloride 101 mmol/L (98-107); Globulin 2.6 g/dL (1.3-4.6); Glomerular Filtration Rate 226.2 mL/min (90-130); Glucose 103 mg/dL (65-115); Osmolality Calculated 302 mOsm/kg (285-295); Potassium 4.2 mmol/L (3.5-5.1); Sodium 145 mmol/L (136-145); Total Bilirubin 0.2 mg/dL (0.15-1.2); Total Protein 6.9 g/dL (6.6-8.7)
[2022-12-22 12:09] LABS: Carcinoembryonic Antigen 255.5 ng/mL (0.0-4.7)
== END 2023-01-08 23:59 | disposition home or self-care (01) ==
PROVIDERS: Internal Medicine Medical Oncology; PCP Family Medicine; Visit Provider Radiology Radiation Oncology
DX: C34.12 Malignant neoplasm of upper lobe, left bronchus or lung (principal); Z90.2 Acquired absence of lung [part of]; C77.8 Secondary and unspecified malignant neoplasm of lymph nodes of multiple regions; C79.31 Secondary malignant neoplasm of brain; Z79.52 Long term (current) use of systemic steroids; Z79.899 Other long term (current) drug therapy; Z87.891 Personal history of nicotine dependence; Z51.0 Encounter for antineoplastic radiation therapy
CPT/HCPCS: 77300; 77301; 77334; 77338; 77470; 80053; 82378; 85025; 86304; 99214; 99215; J1642

== ENCOUNTER 2023-01-11 14:04 | Oncology outpatient (recurring) (ONCR) | payer MEDICAID, SELFPAY ==
--- NOTE | 2023-01-11 14:53 | N.ONRD TS_ITS ---
SRS Treatment Summary Patient Name: Kim Nettles Date of : 1960 Date of Service: 01/11/2023 Attending Physician: Gabriel Arvizu M.D. Meg Nettles has completed stereotactic radiosurgery for a recently diagnosed solitary brain metastasis. 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 In June 2020 she presented with fatigue and weight loss to her general practitioner. Chest radiography identified emphysema. A subsequent thoracoabdominopelvic CT ordered on June 19, 2020 demonstrated a 5 mm calcified left lower lobe nodule. Tumor markers were obtained and an elevated CEA of 303.6 ng/mL was present. A colonoscopy performed on July 16, 2020 revealed diverticulosis without evidence of neoplasm. A PET CT obtained on August 10, 2020, manifested multiple hypermetabolic mediastinal lymphadenopathy and a 1.1 cm pleural implant within the second intercostal space (potentially chronic inflammation secondary to prior lung resection). A bronchoscopy completed on August 14, 2020 diagnosed a metastatic poorly differentiated non-small cell lung cancer (biopsy of lymph node station 7). Thoracic radiation therapy was delivered between the dates of October 10, 2020 through November 20, 2020. A prescribed dose of 60 Gy was delivered in 30 fractions encompassing 42 elapsed days. Maintenance durvalumab was started on December 19, 2020. She completed 18 cycles on August 19, 2022. A restaging PET scan completed on December 12, 2022 identified a left upper-lobe pleural-based nodule (SUV 6.8) a left lower lobe lesion (SUV 2.8) and a hiatal hernia with adjacent gastric fundus demonstrating FDG activity. Next generation sequencing has been requested in consideration of disease progression. An MRI of the head ordered on January 04, 2023 reported a new enhancing lesion measuring 1.9 cm x 1.5 cm x 1.9 cm in the left parasagittal frontal lobe with central necrosis that exhibited mild mass effect upon the left frontal horn (4 to 5 mm) and an indeterminate serpiginous enhancing lesion in the parietal calvarium that was unchanged compared to a previous MRI in January of 2022. SRS was performed on January 11, 2023. A prescribed dose of 20 Gy was delivered to the left parasagittal frontal lobe metastasis in one fraction. The left parasagittal frontal lobe metastatic deposit was treated utilizing and intensity modulated radiotherapy plan with a step and shoot treatment technique. The plan required three coplanar garza and two non-coplanar ports. The coplanar garza were designed using gantry angles of 15???, 61???, and 309??? that were associated with a collimator rotation of 0???. The minimum field size measured 3.4 cm x 3 cm to a maximum of 4 cm x 3 cm. The planned SSD measured between a minimum of 93.8 cm to a maximum of 94.4 cm. The delivered monitor units for the referenced gantry angles were 1421 MU, 1156 MU, and 1543 MU. An additional two non-coplanar ports were arranged with gantry angles of 240??? and 320??? and a collimator rotation of 0??? with a couch angle of 85???. The non-coplanar portal garza measured 3.9 cm x 2 cm and 4.3 cm x 2 cm, respectively. The SSD measurements were 94.7 cm and 95.5 cm. The non-coplanar ports administered 1620 MU and 1071 MU. All treatments were performed with the [employer] linear accelerator and an isocentric technique. The dose was calculated by Anisotropic Analytic Algorithm. Low energy photons were prescribed with the plan normalized to deliver 100% of the prescription dose to 95% of the planning target volume. Signed by: Dr. Gabriel Arvizu 01/11/2023 2:51:46 PM
--- NOTE | 2023-01-11 15:04 | ONCRAD TMN_ITS ---
SRS Treatment Management Note Patient Name: Kim Nettles Date of : 1960 Date of Service: 01/11/2023 Attending Physician: Gabriel Arvizu M.D. Kim Nettles is a 62 year old white female recently identified to have a solitary brain metastasis. 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 In June 2020 she presented with fatigue and weight loss to her general practitioner. Chest radiography identified emphysema. A subsequent thoracoabdominopelvic CT ordered on June 19, 2020 demonstrated a 5 mm calcified left lower lobe nodule. Tumor markers were obtained and an elevated CEA of 303.6 ng/mL was present. A colonoscopy performed on July 16, 2020 revealed diverticulosis without evidence of neoplasm. A PET CT obtained on August 10, 2020, manifested multiple hypermetabolic mediastinal lymphadenopathy and a 1.1 cm pleural implant within the second intercostal space (potentially chronic inflammation secondary to prior lung resection). A bronchoscopy completed on August 14, 2020 diagnosed a metastatic poorly differentiated non-small cell lung cancer (biopsy of lymph node station 7). Thoracic radiation therapy was delivered between the dates of October 10, 2020 through November 20, 2020. A prescribed dose of 60 Gy was delivered in 30 fractions encompassing 42 elapsed days. Maintenance durvalumab was started on December 19, 2020. She completed 18 cycles on August 19, 2022. A restaging PET scan completed on December 12, 2022 identified a left upper-lobe pleural-based nodule (SUV 6.8) a left lower lobe lesion (SUV 2.8) and a hiatal hernia with adjacent gastric fundus demonstrating FDG activity. Next generation sequencing has been requested in consideration of disease progression. An MRI of the head ordered on January 04, 2023 reported a new enhancing lesion measuring 1.9 cm x 1.5 cm x 1.9 cm in the left parasagittal frontal lobe with central necrosis that exhibited mild mass effect upon the left frontal horn (4 to 5 mm) and an indeterminate serpiginous enhancing lesion in the parietal calvarium that was unchanged compared to a previous MRI in January of 2022. The patient has received 20 Gy of a prescribed 20 Gy treated with an intensity modulated radiotherapy pain delivered utilizing stereotactic radiosurgery to the left parasagittal frontal lobe mass. Upon review of systems, she denied any new neurological complaints. On physical examination, the patient weighed 127 lbs. Her temperature was 97.6 ???F and the blood pressure was 129/77 mmHg. Her pulse was 92 bpm and the respiratory rate was 18. Cranial nerves were intact. SRS to the left post-central gyral and left occipital lobe metastatic deposits were completed today. She will return for routine post-SRS surveillance as scheduled. Signed by: Dr. Gabriel Arvizu 01/11/2023 3:02:56 PM
== END 2023-01-11 23:59 | disposition home or self-care (01) ==
PROVIDERS: PCP Family Medicine; Visit Provider Radiology Radiation Oncology
DX: C34.12 Malignant neoplasm of upper lobe, left bronchus or lung (principal); Z90.2 Acquired absence of lung [part of]; C77.8 Secondary and unspecified malignant neoplasm of lymph nodes of multiple regions; Z79.899 Other long term (current) drug therapy; Z87.891 Personal history of nicotine dependence; Z79.52 Long term (current) use of systemic steroids; C79.31 Secondary malignant neoplasm of brain; Z51.0 Encounter for antineoplastic radiation therapy
CPT/HCPCS: 77336; 77372; 99024

== ENCOUNTER 2023-01-25 16:43 | Outpatient (CLI) | payer MEDICAID, SELFPAY ==
--- NOTE | 2023-01-25 16:45 | USR_ITS ---
PROCEDURE INFORMATION: Exam: US Pelvis Complete, Transabdominal and US Pelvis, Transvaginal Exam date and time: 01/25/2023 5:14 PM Age: 62 years old Clinical indication: Abnormal findings; Abnormal imaging test; Additional info: N94.89 - other specified conditions associated with femal. . . , Try to coordinate with other wp appts with onc etc. TECHNIQUE: Imaging protocol: Real-time complete transabdominal and transvaginal pelvic ultrasound with image documentation. Transvaginal imaging was used for better evaluation of the endometrium, adnexa, and/or cervix. COMPARISON: US pelvic complete* [id number] 06/20/2022 5:08 PM Technically limited study both on the transabdominal in transvaginal images due to patient cooperation and patient anatomy according to the surgical technologist. There is a heterogeneous midline structure measuring 4.9 x 4.3 x 3.5 cm. If it is the uterus, it is abnormal in appearance with no clearly defined endometrium. The ovaries could not be visualized. No free fluid was seen in the cul-de-sac. US/US pelv w/transvag [id number] IMPRESSION: Abnormal midline structure which if it is the uterus is abnormal. The ovaries could not be visualized. Technically limited study. Consider consider CT or MRI for more definitive evaluation.
== END 2023-01-25 16:44 | disposition home or self-care (01) ==
LOC: RAD 16:45
PROVIDERS: PCP Family Medicine; Visit Provider Family Medicine
DX: N94.89 Other specified conditions associated with female genital organs and menstrual cycle (principal); C34.12 Malignant neoplasm of upper lobe, left bronchus or lung; R93.89 Abnormal findings on diagnostic imaging of other specified body structures
CPT/HCPCS: 76830; 76856

== ENCOUNTER 2023-01-26 15:38 | Oncology outpatient (recurring) (ONCR) | payer MEDICAID, SELFPAY | END 2023-02-08 23:59 | disposition home or self-care (01) | PROVIDERS: PCP Family Medicine; Visit Provider Internal Medicine Medical Oncology | DX: C34.12 Malignant neoplasm of upper lobe, left bronchus or lung (principal); Z90.2 Acquired absence of lung [part of]; C77.8 Secondary and unspecified malignant neoplasm of lymph nodes of multiple regions; Z79.52 Long term (current) use of systemic steroids; Z79.899 Other long term (current) drug therapy; Z87.891 Personal history of nicotine dependence; C79.31 Secondary malignant neoplasm of brain | CPT/HCPCS: 99214 ==

== ENCOUNTER 2023-02-16 15:57 | Outpatient (CLI) | payer MEDICAID, SELFPAY ==
--- NOTE | 2023-02-16 16:00 | MR_ITS ---
WS: [id number] MRI BRAIN WITH AND WITHOUT CONTRAST HISTORY: lung cancer COMPARISON: 01/04/2023 and 02/02/2022 TECHNIQUE: Multiplanar imaging performed through the brain with MultiHance ml's IV. No acute infarct. No diffusion abnormalities. Small vessel chronic ischemic changes have slightly pro gressed since the prior examination especially within the lucille. This may be related to posttreatment. No susceptibility artifacts or prior lacunar infarcts. Ventricles and extra-axial spaces are normal. Clivus and pituitary gland are normal. Peripherally enhancing lesion with central necrosis is identified in the left frontal parasagittal lo be. Metastatic lesion now measures 0.9 x 0.8 x 1.0 cm. This compares to 1.9 x 1.5 x 1.9 cm on the jr or examination. No new or additional areas of abnormal parenchymal enhancement. The enhancing lesion in the left parietal bone is unchanged. Dural venous sinuses are normal. Paranasal sinuses: Well aerated with no significant disease. Mastoid air cells: Normal. Calvarium and scalp: Enhancing left parietal bone lesion unchanged. IMPRESSION: 1. Significant decrease in size of the previously described metastatic lesion in the left frontal pa rasagittal location now measuring 0.9 x 0.8 x 1.0 cm. 2. No new metastatic lesions or areas of abnormal enhancement. 3. Mild progression of small vessel ischemic disease since the prior examination. 4. Unchanged left parietal bone lesion.
== END 2023-02-16 15:58 | disposition home or self-care (01) ==
LOC: RAD 16:00
PROVIDERS: PCP Family Medicine; Visit Provider Internal Medicine Medical Oncology
DX: C34.12 Malignant neoplasm of upper lobe, left bronchus or lung (principal); C79.31 Secondary malignant neoplasm of brain; I67.89 Other cerebrovascular disease
CPT/HCPCS: 70553; A9577

== ENCOUNTER 2023-02-25 13:35 | Oncology outpatient (recurring) (ONCR) | payer MEDICAID, SELFPAY ==
[2023-02-25 14:05] VITALS: BP 99/62; PULSE 79; RESP 18; TEMP 36.6; O2SAT 89
[2023-02-25 14:18] LABS: Basophils # 0.1 10^3/uL (0.0-0.1); Basophils % 0.6 %; Eosinophils # 0.1 10^3/uL (0.0-0.8); Eosinophils % 0.8 %; Hematocrit 42.2 % (37.0-47.0); Hemoglobin 12.2 g/dL (11.5-15.3); Lymphocytes # 0.8 10^3/uL (0.8-4.8); Lymphocytes % 8.6 %; Mean Corpuscular HGB Conc 28.9 g/dL (30.0-36.0); Mean Corpuscular Volume 96.8 fl (81-99); Mean Platelet Volume 10.8 fL (7.4-10.4); Monocytes # 0.7 10^3/uL (0.2-0.9); Monocytes % 7.4 %; Neutrophils # 7.18 10^3/uL (1.8-7.7); Nucleated Red Blood Cells % 0 %; Platelet Count 465 10^3/cmm (130-400); Red Blood Count 4.36 10^6/uL (4.1-5.3); Red Cell Distribution Width 14.5 % (12.1-15.1); White Blood Count 8.8 10^3/uL (4.0-10.0)
[2023-02-25 14:48] LABS: Carcinoembryonic Antigen 53.3 ng/mL (0.0-4.7)
[2023-02-25 14:59] LABS: Alanine Aminotransferase 10 U/L (0-33); Albumin Level 3.8 g/dL (3.5-5.2); Alkaline Phosphatase 99 U/L (35-105); Anion Gap 10.1 (5-19); Aspartate Amino Transferase 14 U/L (0-32); Blood Urea Nitrogen 16 mg/dL (8-23); Calcium 9.1 mg/dL (8.5-10.5); Chloride 97 mmol/L (98-107); Globulin 2.5 g/dL (1.3-4.6); Glomerular Filtration Rate 226.2 mL/min (90-130); Glucose 108 mg/dL (65-115); Osmolality Calculated 302 mOsm/kg (285-295); Potassium 4.1 mmol/L (3.5-5.1); Sodium 145 mmol/L (136-145); Total Bilirubin 0.2 mg/dL (0.15-1.2); Total Protein 6.3 g/dL (6.6-8.7)
[2023-02-25 15:03] LABS: Carbon Dioxide 42 mmol/L (22-29)
== END 2023-03-11 23:59 | disposition home or self-care (01) ==
LOC: ONCMED 13:36
PROVIDERS: PCP Family Medicine; Visit Provider Internal Medicine Medical Oncology
DX: C34.12 Malignant neoplasm of upper lobe, left bronchus or lung (principal); C77.1 Secondary and unspecified malignant neoplasm of intrathoracic lymph nodes; Z74.09 Other reduced mobility; R05.9 Cough, unspecified; Z79.52 Long term (current) use of systemic steroids; Z79.891 Long term (current) use of opiate analgesic; Z92.21 Personal history of antineoplastic chemotherapy; Z92.3 Personal history of irradiation; C79.31 Secondary malignant neoplasm of brain; Z87.891 Personal history of nicotine dependence
CPT/HCPCS: 36591; 80053; 82378; 85025; 99215; J1642